=== PATIENT | female | born 1935 | race Caucasian/White ===

== ENCOUNTER 2016-07-15 13:39 | Inpatient (IN) ==
[2016-07-15] MEDS ORDERED: SODIUM CHLORIDE 0.9% 1,000 ML IV STA (14:11)
[2016-07-15] MEDS ORDERED: ONDANSETRON 4 MG/2 ML VIAL IV STA (14:11)
[2016-07-15] MEDS ORDERED: ASPIRIN 325 MG TABLET PO STA (14:11)
[2016-07-15] MEDS ORDERED: ONDANSETRON 4 MG/2 ML VIAL ONE (14:16)
[2016-07-15] MEDS ORDERED: ASPIRIN 325 MG TABLET ONE (14:16)
[2016-07-15 14:30] LABS: Basophils % 0.1 % (0.0-0.8); Hematocrit 29.9 VOL% (35.7-47.0); Hemoglobin 9.4 GM/DL (12.0-16.0); Immature Granulocytes Absolute 1.32 #; Lymphocytes # 0.3 10*3/uL (1.4-4.0); Lymphocytes % 1.2 % (21.3-54.2); Mean Corpuscular HGB Conc 31.4 GM/DL (32-36); Mean Corpuscular Hemoglobin 30 PG (27-34); Mean Corpuscular Volume 95.2 FL (87-102); Mean Platelet Volume 10.8 FL (9.6-12.0); Monocytes # 2.6 10*3/uL (0.11-0.8); Monocytes % 9.7 % (1.7-12.7); NRBC # 0.03 10*3/uL; Neutrophils # 22.4 10*3/uL (1.4-7.4); Platelet Count 278 10*3/uL (130-400); Red Blood Count 3.14 10*6/uL (3.8-5.5); Red Cell Distribution Width 14.6 % (9.3-17.3); White Blood Count 26.6 10*3/uL (4.5-13.71)
[2016-07-15 14:41] LABS: PT Patient Result 10.7 SECS
[2016-07-15 14:53] LABS: Calcium 8.4 MG/DL (8.5-10.1); Magnesium 2.3 MG/DL (1.8-2.4); Potassium 3.2 MMOL/L (3.5-5.1)
--- NOTE | 2016-07-15 15:02 | XRay Report ---
XR chest 1V portable Indication: Chest pain. Comparison: None. Technique: Portable AP chest was performed. Findings: Confluent airspace opacities in the mid to lower left chest suggests infection. The right lung is clear. Heart size is normal. Previous sternotomy cholecystectomy demonstrated. Bony structures demonstrate no acute findings. Prior glenohumeral joint arthroplasty on the left is demonstrated. Impression: 1. Infectious process left lung could be considered. Followup is recommended to ensure resolution. 07/15/2016 2:59 PM PROCEDURE INTERPRETED AT [facility] DEPARTMENT OF RADIOLOGY Final Report Signed by: Dr. Curtis Godinez
[2016-07-15 15:06] LABS: Lymphocytes 6 % (20-55); Metamyelocytes 1 %; Platelet Estimate Normal; Polychromasia Few; Segmented Neutrophils 91 % (50-85); Total Cells Counted 100
[2016-07-15 15:23] LABS: Troponin I Only < 0.015 NG/ML (0.00-0.045)
--- NOTE | 2016-07-15 15:37 | Emergency Department Note ---
Attila Carlisle Gwan, am scribing for, and in the presence of, Shayne Godinez MD 14:22. Herbert Carlisle Robert M, MD, personally performed the services described in this documentation, ascribed by Rosa Aiken in my presence, and it is both accurate and complete . Arrival - Arrival Chief Complaint: Chest Pain Stated Complaint: chest pain,sob nausea vomiting ED Nursing Triage Note: c/p crushing chest pain and sob onset Mode of Arrival: Wheelchair Limitations: No Limitations Source: Patient, Family (Daughter), Old Records Reviewed, RN Notes Reviewed Time Seen by Provider: 07/15/16 14:11 - History of Present Illness HPI Narrative: Pt is a 80 female, with a hx of Bypass and blood transfusion, who presents to the ED with a c/o SOB, chest pain and diaphoresis with an onset four days ago. Patient describes her chest pain as crushing and her associated sxs has been vomiting. Patient denies being on any blood thinner or having a ARRIAZA. Daughter stated that pt has an extensive hx of rapid heart rate. No other problems/ complaints reported in ED. Onset (ago): day(s) Consistency: constant Severity: severe Allergies/Adverse Reactions: Allergies Allergy/AdvReac Type Severity Reaction Status Date / Time codeine Allergy Unknown/Unable Verified 07/15/16 13:58 to obtain Penicillins Allergy Unknown/Unable Verified 07/15/16 13:58 to obtain Home Medications: Home Medications Medication Instructions Recorded Confirmed Type Aspirin EC Tab 81 mg PO DAILY 07/15/16 07/15/16 History Celecoxib 200 mg PO DAILY 07/15/16 07/15/16 History Digoxin Tab [Lanoxin Tab] 0.125 mg PO DAILY 07/15/16 07/15/16 History Ergocalciferol (Vitamin D2) 50,000 unit PO Q7D 07/15/16 07/15/16 History [Vitamin D2] Metoprolol Tartrate Tab [Lopressor 25 mg PO DAILY 07/15/16 07/15/16 History Tab] Sertraline [Zoloft] 12.5 mg PO BEDTIME 07/15/16 07/15/16 History Review of System - Review of System 12 point system: reviewed and no additional remarkable complaints except as stated - Review of System Respiratory: Present: as per HPI, other (rapid heart beat) Gastrointestinal: Present: as per HPI, vomiting Medical,Surgical,& Family Hx - Medical History Cardio: History of: Cardiac Dysrhythmia (sinus tach), Cardiovascular Problems ( cabg) - Social History Smoking Status: Never smoker Frequency of Alcohol Use: None Type of Drug Use: None Exam Vital Signs: Vital Signs Temperature 97.3 F L 07/15/16 13:53 Pulse Rate 120 H 07/15/16 14:31 Respiratory Rate 22 07/15/16 14:31 Blood Pressure 146/74 07/15/16 14:31 O2 Sat by Pulse Oximetry 98 07/15/16 14:31 - General General appearance: alert - Head Head exam: Present: atraumatic, normocephalic - Eye Eye exam: Present: normal appearance, PERRL, EOMI - ENT ENT exam: Present: normal oropharynx, mucous membranes moist, TM's normal bilaterally, normal external ear exam - Neck Neck exam: Present: full ROM, trachea midline. Absent: tenderness, meningismus , lymphadenopathy, thyromegaly - Chest Chest inspection: Present: symmetric chest wall rise. Absent: tenderness - Respiratory Respiratory exam: Present: normal lung sounds bilaterally. Absent: respiratory distress - Cardiovascular Cardiovascular exam: Present: tachycardia - Abdominal Exam Abdominal exam: Present: soft, normal bowel sounds. Absent: distention, tenderness, guarding, rebound, rigidity - Extremities Exam Extremities exam: Present: full ROM. Absent: tenderness, pedal edema, calf tenderness - Back Exam Back exam: Present: full ROM. Absent: tenderness - Neurological Exam Neurological exam: Present: alert, oriented X3, CN II-XII intact. Absent: motor sensory deficit - Psychiatric Psychiatric exam: Present: normal affect, normal mood - Skin Skin exam: Present: pallor Course - Consultations Consultation #1: The hospitalist service will evaluate and admit the patient. Time: 15:41 Results - Labs CBC & BMP: 07/15/16 13:58 07/15/16 13:58 Lab Results: I have reviewed the patients labs Labs: Lab Results WBC 26.6 10*3/uL (4.5-13.71) H 07/15/16 13:58 RBC 3.14 10*6/uL (3.8-5.5) L 07/15/16 13:58 Hgb 9.4 GM/DL (12.0-16.0) L 07/15/16 13:58 Hct 29.9 VOL% (35.7-47.0) L 07/15/16 13:58 MCV 95.2 FL (87-102) 07/15/16 13:58 MCH 30 PG (27-34) 07/15/16 13:58 MCHC 31.4 GM/DL (32-36) L 07/15/16 13:58 RDW 14.6 % (9.3-17.3) 07/15/16 13:58 Plt Count 278 10*3/uL (130-400) 07/15/16 13:58 MPV 10.8 FL (9.6-12.0) 07/15/16 13:58 Neut % (Auto) 84.0 % (38.7-73.9) H 07/15/16 13:58 Lymph % (Auto) 1.2 % (21.3-54.2) L 07/15/16 13:58 Grant % (Auto) 9.7 % (1.7-12.7) 07/15/16 13:58 Eos % (Auto) 0.0 % (0.00-10.9) 07/15/16 13:58 Baso % (Auto) 0.1 % (0.0-0.8) 07/15/16 13:58 Neut # (Auto) 22.4 10*3/uL (1.4-7.4) H 07/15/16 13:58 Lymph # (Auto) 0.3 10*3/uL (1.4-4.0) L 07/15/16 13:58 Grant # (Auto) 2.6 10*3/uL (0.11-0.8) H 07/15/16 13:58 Eos # (Auto) 0.0 10*3/uL (0.0-0.87) 07/15/16 13:58 Baso # (Auto) 0.0 10*3/uL (0.0-0.2) 07/15/16 13:58 Total Counted 100 07/15/16 13:58 Immature Gran % 5.0 % 07/15/16 13:58 Nucleated RBC % 0.1 /100WBC 07/15/16 13:58 Immature Gran # 1.32 # 07/15/16 13:58 Segmented Neutrophils 91 % (50-85) H 07/15/16 13:58 Lymphocytes 6 % (20-55) L 07/15/16 13:58 Monocytes 2 % (2-15) 07/15/16 13:58 Metamyelocytes 1 % 07/15/16 13:58 Nucleated RBCs # 0.03 10*3/uL 07/15/16 13:58 Platelet Estimate Normal 07/15/16 13:58 Polychromasia Few 07/15/16 13:58 Pappenheimer Bodies 07/15/16 13:58 INR 1.0 07/15/16 13:58 PT Patient/Control Mix 10.7 SECS 07/15/16 13:58 Sodium 143 MMOL/L (136-145) 07/15/16 13:58 Potassium 3.2 MMOL/L (3.5-5.1) L 07/15/16 13:58 Chloride 111 MMOL/L (98-107) H 07/15/16 13:58 Carbon Dioxide 12 MMOL/L (21-32) L 07/15/16 13:58 Anion Gap 23.2 MMOL/L (5.0-15.0) H 07/15/16 13:58 BUN 23 MG/DL (7-18) H 07/15/16 13:58 Creatinine 0.90 MG/DL (0.55-1.02) 07/15/16 13:58 GFR Calculation 50 ML/MIN 07/15/16 13:58 BUN/Creatinine Ratio 25.00 RATIO (6.00-20.00) H 07/15/16 13:58 Glucose 108 MG/DL (74-106) H 07/15/16 13:58 Calculated Osmolality 289.0 MOS/KG (273-304) 07/15/16 13:58 Calcium 8.4 MG/DL (8.5-10.1) L 07/15/16 13:58 Magnesium 2.3 MG/DL (1.8-2.4) 07/15/16 13:58 Total Creatine Kinase 44 U/L (26-192) 07/15/16 13:58 CK-MB (CK-2) 3.3 U/L (0.5-3.6) 07/15/16 13:58 Troponin I < 0.015 NG/ML (0.00-0.045) 07/15/16 13:58 B-Natriuretic Peptide 187 PG/ML (2-100) H 07/15/16 13:58 Lipase 68.0 U/L (73-393) L 07/15/16 13:58 Disposition Clinical Impression: Left lower lobe pneumonia, Dehydration Case discussed with: patient, patient's family Disposition: Still a Patient Condition: Stable Time of Disposition: 15:40
[2016-07-15] MEDS ORDERED: LEVOFLOXACIN INJ 750 MG in PREMIX 1 EACH IV STA (15:41)
[2016-07-15] MEDS ORDERED: AZITHROMYCIN INJ 500 MG in SODIUM CHLORIDE 0.9% 250 ML IV STA (15:41)
[2016-07-15] MEDS ORDERED: ALBUTEROL 2.5 MG/3 ML NEB RESP TX PRN (16:29)
[2016-07-15] MEDS ORDERED: guaiFENesin/DM ER 600-30 MG TABLET PO PRN (16:29)
[2016-07-15] MEDS ORDERED: ACETAMINOPHEN 325 MG TABLET PO PRN (16:29)
[2016-07-15] MEDS ORDERED: DOCUSATE SODIUM 100 MG CAPSULE PO PRN (16:29)
[2016-07-15] MEDS ORDERED: POTASSIUM CHLORIDE 20 MEQ TABLET PO ONE (16:41)
[2016-07-15] MEDS ORDERED: LEVOFLOXACIN INJ 150 ML IV ONE (16:49)
--- NOTE | 2016-07-15 17:42 | Hospitalist History & Physical ---
<Yahaira Schilling N - Last Filed: 07/15/16 17:26> Assessment and Plan - Time spent with patient Time spent with patient: Greater than 30 minutes (due to assessment, plan and documentation) (1) Arrhythmia Status: Acute Current Visit: Yes (2) Dehydration Status: Acute Current Visit: Yes (3) Left lower lobe pneumonia Status: Acute Current Visit: Yes (4) Sepsis Status: Acute Assessment and plan: Admit to ICU Stat lactic acid Stat ABG blood cultures, flu, legionella and sputum culture IV Aztreonam and Levaquin and Vancomycin Hydrate with NS at 125/hr DVT prophylaxis PRN meds resume home meds as appropriate routine labs in AM further plan and addendum to follow per Dr. Harris Current Visit: Yes History of Present Illness Chief complaint: weakness, arrhythmia, cough History of present illness: Ms. Vila is a 80 year old female who presents as a transfer from [facility]. She was sent for a LLL pneumonia. When she arrived to the Er, nurse tells me she was tachycardic and hypotensive. She was given NS in the Er and her rate is improved, now 98. Her daughter states she has an extensive history of cardiac tachy-arrhythmia. Her major complaint is shortness of breath, she states it started three days ago with a non productive cough. This was accompanied by sweats, chills and vomiting. She states that she had midsternal chest pain that was deep in her chest like a heavy pressure, she denies it radiating, denies accompanying nausea. She states that she nearly always has this pain when she uses her arms, she does state that this pain made her shortness of breath worse. Her chest xray shows an extensive pneumonia, WBC is elevated to 26.6, she is afebrile. She is pale on exam. Lung sounds decreased, worse left than right. 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 PSH of CABG, choly, appy, partial colectomy for ischemic bowel and HYST. She does not smoke or drink. She ambulates with a walker and assistance. ROS: At present she denies headache, abdominal pain, diarrhea, dysuria or edema. Home Medications Medication Instructions Recorded Confirmed Type Aspirin EC Tab 81 mg PO DAILY 07/15/16 07/15/16 History Celecoxib 200 mg PO DAILY 07/15/16 07/15/16 History Digoxin Tab [Lanoxin Tab] 0.125 mg PO DAILY 07/15/16 07/15/16 History Ergocalciferol (Vitamin D2) 50,000 unit PO Q7D 07/15/16 07/15/16 History [Vitamin D2] Metoprolol Tartrate Tab [Lopressor 25 mg PO DAILY 07/15/16 07/15/16 History Tab] Sertraline [Zoloft] 12.5 mg PO BEDTIME 07/15/16 07/15/16 History Allergies Allergy/AdvReac Type Severity Reaction Status Date / Time codeine Allergy Unknown/Unable Verified 07/15/16 13:58 to obtain Penicillins Allergy Unknown/Unable Verified 07/15/16 13:58 to obtain Medical,Surgical,& Family Hx - Medical History Cardio: History of: Cardiac Dysrhythmia (sinus tach), Cardiovascular Problems ( cabg) - Social History Smoking Status: Never smoker Frequency of Alcohol Use: None Type of Drug Use: None 12 point system: reviewed and no additional remarkable complaints except as stated Exam - Constitutional Vitals: Period Temp Pulse Resp BP Sys/Rhodes Pulse Ox Last 24 Hr 105-107 20-20 137-140/84-94 94-98 General appearance: no acute distress, under weight - Head Head exam: Present: normocephalic - Eye Pupils: Present: CESAR - ENT ENT exam: Present: normal exam, other (dry oropharynx) - Neck Neck exam: Present: normal inspection. Absent: lymphadenopathy - Respiratory Respiratory exam: Present: decreased breath sounds. Absent: wheezes - Cardiovascular Cardiovascular exam: Present: irregular rhythm, tachycardia - GI/Abdominal GI/Abdominal exam: Present: normal bowel sounds, soft. Absent: tenderness - Extremities Exam Extremities exam: Present: normal inspection, full ROM. Absent: edema - Neurological Exam Neurological exam: Present: alert, oriented X3 - Psychiatric Psychiatric exam: Present: normal affect, normal mood - Skin Skin exam: Present: warm, dry Results - Labs CBC & BMP: 07/15/16 13:58 07/15/16 13:58 Lab Results: I have reviewed the past 24 hour labs - EKG EKG shows: tachycardia - Diagnostic Findings Procedure: Chest x-ray: report reviewed by me <Alie Harris - Last Filed: 07/15/16 17:57> Assessment and Plan - Time spent with patient Time spent with patient: Greater than 30 minutes (1) Arrhythmia Status: Acute Assessment and plan: Patient with history of SVT requiring ablation. Currently on digoxin. Follows with cardiology Dr. Bautista. Current Visit: Yes Qualifiers: Arrhythmia type: supraventricular tachycardia Qualified Code(s): I47.1 - Supraventricular tachycardia (2) Dehydration Status: Acute Assessment and plan: Start IV fluid hydration. Current Visit: Yes (3) Left lower lobe pneumonia Status: Acute Assessment and plan: Patient's been started on Levaquin and aztreonam And vancomycin due to her elderly age, comorbidities, extensive chest x-ray findings, and leukocytosis. She'll be monitored in the ICU at least overnight. Consider pulmonary consultation. Consider CT of the chest if no improvement in 48 hours. Steroids were added. Current Visit: Yes Qualifiers: Pneumonia type: due to unspecified organism Qualified Code(s): J18.1 - Lobar pneumonia, unspecified organism (4) Sepsis Status: Acute Assessment and plan: Suspect sepsis at this point. Follow-up lactic acid. Treat with IV antibiotics and IV fluids. Current Visit: Yes History of Present Illness History of present illness: Ms. Vila is a 80 year old female who is being admitted to the intensive care unit for left lung pneumonia with leukocytosis, tachycardia, tachypnea and a period of hypotension. Patient is elderly and frail and has an extensive pneumonia involving the left lung. Her white blood cell count is 126,000 with a left shift of 91% neutrophils. Lactic acid is currently pending. Fluid bolus was given. I've seen and examined the patient in the intensive care unit upon arrival from the emergency department. I also discussed the case at length with the nurse practitioner as well as the patient's daughter. Ms. Vila has been sick from 3 days with cough and vomiting. She has left- sided chest pain that worsens with deep inspiration. She also complains of left shoulder pain after an injury. Exam - Constitutional Vitals: Period Temp Pulse Resp BP Sys/Rhodes Pulse Ox Last 24 Hr 105-107 20-20 137-140/84-94 94-98 Results - Labs CBC & BMP: 07/15/16 13:58 07/15/16 13:58
[2016-07-15] MEDS: SODIUM CHLORIDE 0.9% 1,000 ML IV SCH (17:44)
[2016-07-15 18:11] LABS: ABG Base Excess -15.7 MMOL/L (-2.5-2.5); ABG HCO3 12.3 MMOL/L (20-26); ABG Oxygen Saturation 93.6 % (95-100); ABG PCO2 22.4 MM HG (35-48); ABG PH 7.265 (7.35-7.45); ABG PO2 93.9 MM HG (80-95); ABG TCO2 9.6 MMOL/L (23-27)
[2016-07-15] MEDS: ENOXAPARIN 40 MG/0.4 ML SYRINGE SUBCUT SCH (18:15)
[2016-07-15] MEDS: methylPREDNISolone SOD SUC 40 MG/1 ML VIAL IV SCH (18:15)
[2016-07-15] MEDS: AZTREONAM 2,000 MG in SODIUM CHLORIDE 0.9% 100 ML IV SCH (18:49)
[2016-07-15] MEDS ORDERED: ALBUTEROL/IPRATROPIUM 3 ML NEB RESP TX SCH (19:00)
[2016-07-15] MEDS: ALBUTEROL/IPRATROPIUM 3 ML NEB RESP TX SCH (20:49)
[2016-07-15] MEDS: VANCOMYCIN INJ 750 MG in SODIUM CHLORIDE 0.9% 250 ML IV SCH (21:05)
[2016-07-15] MEDS: SERTRALINE 25 MG TABLET PO SCH (21:05)
[2016-07-15] MEDS: IBUPROFEN 400 MG TABLET PO PRN (22:47)
[2016-07-16] MEDS: AZTREONAM 2,000 MG in SODIUM CHLORIDE 0.9% 100 ML IV SCH ×4 (00:23→18:02)
[2016-07-16] MEDS: ALBUTEROL/IPRATROPIUM 3 ML NEB RESP TX SCH ×6 (00:25→20:42)
[2016-07-16] MEDS: SODIUM CHLORIDE 0.9% 1,000 ML IV SCH (02:31)
[2016-07-16] MEDS: methylPREDNISolone SOD SUC 40 MG/1 ML VIAL IV SCH ×3 (02:31→18:03)
[2016-07-16 04:19] LABS: Basophils % 0.1 % (0.0-0.8); Hematocrit 28.2 VOL% (35.7-47.0); Hemoglobin 8.3 GM/DL (12.0-16.0); Immature Granulocytes % 6.7 %; Immature Granulocytes Absolute 1.13 #; Lymphocytes # 0.3 10*3/uL (1.4-4.0); Lymphocytes % 1.6 % (21.3-54.2); Mean Corpuscular HGB Conc 29.4 GM/DL (32-36); Mean Corpuscular Hemoglobin 30 PG (27-34); Mean Corpuscular Volume 102.2 FL (87-102); Mean Platelet Volume 11.3 FL (9.6-12.0); Monocytes # 0.4 10*3/uL (0.11-0.8); Monocytes % 2.3 % (1.7-12.7); Neutrophils # 15.1 10*3/uL (1.4-7.4); Neutrophils % 89.3 % (38.7-73.9); Platelet Count 215 10*3/uL (130-400); Red Blood Count 2.76 10*6/uL (3.8-5.5); Red Cell Distribution Width 14.8 % (9.3-17.3); White Blood Count 16.9 10*3/uL (4.5-13.71)
[2016-07-16 04:40] LABS: Band Neutrophils 2 % (0-10); Lymphocytes 5 % (20-55); Segmented Neutrophils 88 % (50-85); Total Cells Counted 100
[2016-07-16 04:41] LABS: Burr Cells Slight; Hypochromasia Slight; Ovalocytes Slight; Platelet Estimate Normal
[2016-07-16 05:10] LABS: Bilirubin,Total 0.5 MG/DL (0.2-1.0); Calcium 7.9 MG/DL (8.5-10.1); Osmolality,Calculated 295.4 MOS/KG (273-304); Potassium 4.1 MMOL/L (3.5-5.1); Total Protein 5.2 G/DL (6.4-8.3)
--- NOTE | 2016-07-16 06:31 | EKG Report ---
Please refer to the EKG image. Final interpretation is pending.
--- NOTE | 2016-07-16 07:01 | XRay Report ---
Exam: XR chest 1V portable Indication: Chest pain Shortness of breath Comparison study: 07/15/16 Findings: The heart, mediastinum and bony structures are stable from prior. Left lung airspace opacities have slightly worsened since the prior study and developing infectious/inflammatory infiltrate or pneumonia is suspected. There is no pneumothorax or pleural effusion identified. Similar osteopenia, postsurgical changes and prior left total shoulder arthroplasty. Impression: Slight worsening of airspace opacities within the lingula and left lower lobe concerning for developing pneumonia. PROCEDURE INTERPRETED AT [facility] DEPARTMENT OF RADIOLOGY Final Report Signed by: Celso Meyers
[2016-07-16 08:35] LABS: Calcium 7.8 MG/DL (8.5-10.1); Osmolality,Calculated 299.3 MOS/KG (273-304); Potassium 3.1 MMOL/L (3.5-5.1)
--- NOTE | 2016-07-16 08:36 | Pulmonology Consult Note ---
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 Would probably be worthwhile to have nephrology see her. Consider adding bicarbonate to her IV. Current Visit: Yes (2) Left lower lobe pneumonia Status: Acute Assessment and plan: Agree with broad-spectrum antibiotics. We'll get a chest CT. Also looking to see if she had a chest wall injury with her fall about a week and a half ago. Current Visit: Yes Qualifiers: Pneumonia type: due to unspecified organism Qualified Code(s): J18.1 - Lobar pneumonia, unspecified organism (3) Dehydration Status: Acute Assessment and plan: Agree with cautious rehydration. Current Visit: Yes (4) Sepsis Status: Acute Assessment and plan: She does have a metabolic acidosis but her lactic acid level is normal. This would be more consistent with a renal tubular acidosis. Current Visit: Yes History of Present Illness Chief complaint: cough dyspnea left chest pain History of present illness: Ms. Vila is a 80 year old female who had the onset of cough and congestion about 10 days ago. She's had fever off and on since then. Case was sputum production. She went to emergency room in [place] was found to have a left -sided pneumonia and referred here. She's had previous coronary bypass surgery. She's had pneumonia in the past 2 years ago and saw a lung specialist in [place] at that time. She is a nonsmoker and does not have any known chronic lung disease. There is a previous history of a stroke or transient ischemic attack. No residual problems. Her chest x-ray has gotten a little worse overnight. Patient relates to me that she had a fall and injured the left side of her chest about 10 or 11 days ago. She said she tried to protect her left shoulder because she's had a previous fracture there. Home Medications Medication Instructions Recorded Confirmed Type Aspirin EC Tab 81 mg PO DAILY 07/15/16 07/15/16 History Celecoxib 200 mg PO DAILY 07/15/16 07/15/16 History Digoxin Tab [Lanoxin Tab] 0.125 mg PO DAILY 07/15/16 07/15/16 History Ergocalciferol (Vitamin D2) 50,000 unit PO Q7D 07/15/16 07/15/16 History [Vitamin D2] Metoprolol Tartrate Tab [Lopressor 25 mg PO DAILY 07/15/16 07/15/16 History Tab] Sertraline [Zoloft] 12.5 mg PO BEDTIME 07/15/16 07/15/16 History Allergies Allergy/AdvReac Type Severity Reaction Status Date / Time codeine Allergy Unknown/Unable Verified 07/15/16 13:58 to obtain Penicillins Allergy Unknown/Unable Verified 07/15/16 13:58 to obtain - Constitutional Constitutional: Present: fever(s) - Cardiovascular Cardiovascular: Present: dyspnea on exertion - Respiratory Respiratory: Present: cough, dyspnea, dyspnea on exertion - Musculoskeletal Musculoskeletal: Present: arthralgias (chronic left shoulder pain after a fracture of her left shoulder about a year ago.) Exam (Pulmonay) H&P - Constitutional Vitals: Period Temp Pulse Resp BP Sys/Rhodes Pulse Ox Last 24 Hr 96.4 F-98.4 F 101-119 12-24 108-147/38-94 92-100 Exam: Patient's alert and oriented vital signs normal. Pupils react to light. Throat is clear. Neck supple no bruits. Chest reveals some rales over the left side of the chest with whispered pectoriloquy and egophony. Heart rapid rate, normal rhythm no murmurs. Abdomen soft nontender no masses. Extremities no clubbing cyanosis or edema. There is some tenderness over the left chest wall in the axillary line. Medical,Surgical,& Family Hx - Medical History Cardio: History of: Cardiac Dysrhythmia (sinus tach), CAD, Hypertension, Cardiovascular Problems (cabg) Hematology: No history of: Blood Transfusion Reaction - Surgical History Cardiac Surgeries: Sugical HX of: Cardiac Catheterization - Family History Family History: Reports;: Family Hypertension - Social History Smoking Status: Never smoker Frequency of Alcohol Use: None Type of Drug Use: None Results - Labs CBC & BMP: 07/16/16 03:05 07/16/16 03:05 Lab Results: I have reviewed the past 24 hour labs - Diagnostic Findings Procedure: Chest x-ray: image reviewed by me (left midlung infiltrate which looks a little worse today than yesterday.) Specialty Discharge - Follow Up or Referrals - Discharge Medications No Action Sertraline [Zoloft] 12.5 mg PO BEDTIME Aspirin EC Tab 81 mg PO DAILY Metoprolol Tartrate Tab [Lopressor Tab] 25 mg PO DAILY Ergocalciferol (Vitamin D2) [Vitamin D2] 50,000 unit PO Q7D Digoxin Tab [Lanoxin Tab] 0.125 mg PO DAILY Celecoxib 200 mg PO DAILY
[2016-07-16] MEDS: DIGOXIN 0.125 MG TABLET PO SCH (08:48)
[2016-07-16] MEDS: PANTOPRAZOLE 40 MG TABLET PO SCH (08:48)
[2016-07-16] MEDS: DEXTROSE 5% NACL 0.45% 1,000 ML IV SCH ×2 (08:48→22:11)
[2016-07-16] MEDS: VANCOMYCIN INJ 750 MG in SODIUM CHLORIDE 0.9% 250 ML IV SCH ×2 (08:48→20:17)
[2016-07-16] MEDS: METOPROLOL TARTRATE 25 MG TABLET PO SCH (08:49)
[2016-07-16] MEDS: ASPIRIN EC 81 MG TABLET PO SCH (08:49)
[2016-07-16 09:04] LABS: ABG Base Excess -17.2 MMOL/L (-2.5-2.5); ABG HCO3 8.3 MMOL/L (20-26); ABG Oxygen Saturation 94.1 % (95-100); ABG PH 7.254 (7.35-7.45); ABG PO2 118.8 MM HG (80-95); ABG TCO2 8.9 MMOL/L (23-27)
[2016-07-16 09:06] LABS: ABG PCO2 19.2 MM HG (35-48)
--- NOTE | 2016-07-16 09:28 | Hospitalist Progress Note ---
Assessment and Plan - Time spent with patient Time spent with patient: Greater than 30 minutes (1) Left lower lobe pneumonia Status: Acute Assessment and plan: Patient's been started on Levaquin and aztreonam And vancomycin due to her elderly age, comorbidities, extensive chest x-ray findings, and leukocytosis. She'll be monitored in the ICU at least overnight. Consider pulmonary consultation. Consider CT of the chest if no improvement in 48 hours. Steroids were added. 07/16/2016: Discussed with Dr. Galeas. Plan for CT today. Current Visit: Yes Qualifiers: Pneumonia type: due to unspecified organism Qualified Code(s): J18.1 - Lobar pneumonia, unspecified organism (2) Dehydration Status: Acute Assessment and plan: Continue IV fluid hydration. Current Visit: Yes (3) Arrhythmia Status: Acute Assessment and plan: Patient with history of SVT requiring ablation. Currently on digoxin. Follows with cardiology Dr. Bautista. Rate is better controlled today. Current Visit: Yes Qualifiers: Arrhythmia type: supraventricular tachycardia Qualified Code(s): I47.1 - Supraventricular tachycardia (4) Sepsis Status: Acute Assessment and plan: Suspect sepsis at this point. Follow-up lactic acid. Treat with IV antibiotics and IV fluids. 07/16/16: Lactic acid was normal. BP stable. Current Visit: Yes Hospitalist: Subjective Interval history: Patient seen and examined. Case discussed with Dr. Galeas and nursing staff at the bedside. Her chest x-ray looks worse today. She appears to have a metabolic acidosis with some respiratory compensation. She reports continued pain and discomfort on the left chest and a non contrast CT will be ordered. Exam - Constitutional Vitals: Period Temp Pulse Resp BP Sys/Rhodes Pulse Ox Last 24 Hr 96.4 F-98.4 F 101-119 12-24 108-147/38-94 92-100 General appearance: no acute distress, under weight - Head Head exam: Present: normal inspection, normocephalic, atraumatic - Eye Eye exam: Present: EOMI Pupils: Present: CESAR - ENT ENT exam: Present: normal exam - Respiratory Respiratory exam: Present: decreased breath sounds (left lung), rhonchi - Cardiovascular Cardiovascular exam: Present: regular rate and rhythm - GI/Abdominal GI/Abdominal exam: Present: normal bowel sounds, soft - Extremities Exam Extremities exam: Present: normal inspection, other (pain in left shoulder). Absent: edema - Neurological Exam Neurological exam: Present: alert, oriented X3 - Psychiatric Psychiatric exam: Present: normal affect, normal mood - Skin Skin exam: Present: normal color, warm, dry Results - Labs CBC & BMP: 07/16/16 03:05 07/16/16 07:55 Lab Results: I have reviewed the past 24 hour labs Specialty Discharge - Follow Up or Referrals - Discharge Medications No Action Sertraline [Zoloft] 12.5 mg PO BEDTIME Aspirin EC Tab 81 mg PO DAILY Metoprolol Tartrate Tab [Lopressor Tab] 25 mg PO DAILY Ergocalciferol (Vitamin D2) [Vitamin D2] 50,000 unit PO Q7D Digoxin Tab [Lanoxin Tab] 0.125 mg PO DAILY Celecoxib 200 mg PO DAILY
--- NOTE | 2016-07-16 09:34 | EKG Report ---
Please refer to the EKG image. Final interpretation is pending.
--- NOTE | 2016-07-16 11:13 | CT Report ---
CT chest wo con Technique: Axial CT imaging of the chest was performed without administration of intravenous contrast. Coronal and sagittal reformatted images were additionally created and submitted for review. Total DLP: 156 mGy*cm Clinical history: Left chest wall pain, fall 10 days ago and left-sided pneumonia Comparison: Chest radiograph dated 07/15 and 07/16 Findings: Please note, lack of intravenous contrast limits evaluation. CHEST: Mediastinum/vessels: Heart and great vessels appear grossly unremarkable for noncontrast technique. There is no pericardial effusion. The aorta and pulmonary vessels appear grossly patent. Coronary artery and aortic atherosclerotic calcification densities are noted. Thyroid/lymph nodes: No definite enlarged lymph nodes identified within the chest. There are multiple mediastinal borderline enlarged lymph nodes measuring up to 0.8 cm short axis, which are favored to be reactive. Thyroid gland appears within normal limits. Lungs: Within the lower lobe, patchy interstitial and airspace opacities are noted throughout, which are most compatible with developing infectious/inflammatory infiltrates. The central airways are patent. Minimal areas of interstitial thickening are also noted within the lingula and right middle lobe and may represent endobronchial spread of infection. There is no pleural effusion or pneumothorax. No acute abnormality is identified within the visualized upper abdomen. Cholecystectomy clips are noted. There is a hyperdense 2.1 cm lesion which is primarily exophytic at the upper pole left kidney. This is indeterminate. There is also a 0.6 cm calcific density at the upper pole left kidney which may represent a renal stone. BONES: Median sternotomy wiring is noted. No acute osseous abnormalities are identified. There are no suspicious osseous lesions. There is 2% height loss at the superior endplate of T12, which is age-indeterminate. Partially imaged postsurgical changes of left total total arthroplasty caused extensive streak artifact limiting evaluation of the adjacent soft tissues and osseous structures. Impression: 1. Airspace disease within the left lower lobe most compatible with pneumonia. Additional minimal similar findings within the lingula and right middle lobe may represent endobronchial spread of infection. Mildly prominent but not technically enlarged mediastinal lymph nodes are favored to be reactive. 2. Indeterminate 2 cm hyperdense left upper pole renal lesion. This may represent a solid mass or hyperdense renal cyst. Correlation with renal ultrasound is recommended when clinically feasible. 3. Additional 0.6 cm probable left upper pole nonobstructing renal stone. PROCEDURE INTERPRETED AT [facility] DEPARTMENT OF RADIOLOGY Final Report Signed by: Celso Meyers
[2016-07-16] MEDS: IBUPROFEN 400 MG TABLET PO PRN ×2 (15:43→20:15)
[2016-07-16] MEDS: ENOXAPARIN 40 MG/0.4 ML SYRINGE SUBCUT SCH (16:09)
[2016-07-16] MEDS: LEVOFLOXACIN INJ 750 MG in PREMIX 1 EACH IV SCH (16:09)
--- NOTE | 2016-07-16 17:13 | ECHO Report ---
JulitoSunitha Exam Date: 07/16/2016 08:31 Referring Physician: Technologist: Harleen Pritchard RDCS Age: 80 Ht (in): Wt (lb): Gender: F Exam Location: [facility] Echo Indications: Shortness of breath, Chest pain, unspecified, Arrhythmia, Dehydration, LLL pneumonia, Weakness, Cough BP: / HR: Rhythm: Sinus Technical Quality: Fair IMPRESSIONS Normal left ventricular cavity size. Normal left ventricular wall thickness. Left ventricular ejection fraction is estimated at 60 %. The right ventricle is normal in size and function. The right atrium is mildly enlarged. The left atrium is mildly enlarged. Morphologically normal mitral valve. Mild mitral valve regurgitation. Aortic valve sclerosis. Trace to mild aortic valve regurgitation. Moderate tricuspid valve regurgitation. PAP50 mmHg. Pulmonic valve not well visualized. Normal pericardium without effusion. Normal ascending aorta dimension. MEASUREMENTS (Male / Female) Normal Values 2D ECHO LV Diastolic Diameter PLAX 2.8 cm 4.2 - 5.9 / 3.9 - 5.3 cm LV Systolic Diameter PLAX 2.0 cm LV Fractional Shortening PLAX 29.1 % IVS Diastolic Thickness 1.0 cm 0.6 - 1.0 / 0.6 - 0.9 cm LVPW Diastolic Thickness 1.0 cm 0.6 - 1.0 / 0.6 - 0.9 cm RV Internal Dim ED PLAX 2.3 cm Aortic Root Diameter 2.8 cm LA Systolic Diameter LX 3.4 cm 3.0 - 4.0 / 2.7 - 3.8 cm DOPPLER TR Peak Velocity 322.0 cm/s TR Peak Gradient 41.5 mmHg FINDINGS Left Ventricle Normal left ventricular cavity size. Normal left ventricular wall thickness. Left ventricular ejection fraction is estimated at 60 %. Right Ventricle The right ventricle is normal in size and function. Right Atrium The right atrium is mildly enlarged. Left Atrium The left atrium is mildly enlarged. Mitral Valve Morphologically normal mitral valve. Mild mitral valve regurgitation. Aortic Valve Aortic valve sclerosis. Trace to mild aortic valve regurgitation. Tricuspid Valve Morphologically normal tricuspid valve. Moderate tricuspid valve regurgitation. PAP50 mmHg. Pulmonic Valve Pulmonic valve not well visualized. Pericardium Normal pericardium without effusion. Aorta Normal ascending aorta dimension. Bro Sanchez (Electronically Signed) Final Date: 16 July 2016 17:12
[2016-07-16] MEDS: SERTRALINE 25 MG TABLET PO SCH (20:16)
[2016-07-17] MEDS: ALBUTEROL/IPRATROPIUM 3 ML NEB RESP TX SCH ×5 (00:32→20:06)
[2016-07-17] MEDS: IBUPROFEN 400 MG TABLET PO PRN (01:03)
[2016-07-17] MEDS: AZTREONAM 2,000 MG in SODIUM CHLORIDE 0.9% 100 ML IV SCH ×3 (01:05→11:37)
[2016-07-17] MEDS: methylPREDNISolone SOD SUC 40 MG/1 ML VIAL IV SCH ×3 (01:06→17:35)
--- NOTE | 2016-07-17 06:56 | Pulmonology Progress Note ---
Pulmonary - PN: Subj Interval history: This 80-year-old white female came in with a left lower lobe pneumonia. She has a pretty severe metabolic acidosis. She does not have ketoacidosis and her renal function is normal. Her chloride is elevated. I suspect she has renal tubular acidosis. I will start bicarbonate infusion today. We'll ask nephrology to see. She feels better and her oxygen saturations are normal. Exam (Progress Note) - Constitutional Vitals: Period Temp Pulse Resp BP Sys/Rhodes Pulse Ox Last 24 Hr 98.1 F-98.8 F 80-118 12-27 90-144/42-91 92-100 Exam: Blood pressure a little low side otherwise vital signs normal. HEENT: Pupils react to light. Patient is responsive. Throat is clear. Neck supple no bruits. Chest reveals some rales at the left base. Heart normal rate rhythm no murmurs. Abdomen soft nontender no masses. Bowel sounds present. Extremities no clubbing cyanosis or edema. Calves nontender. Results - Labs CBC & BMP: 07/16/16 03:05 07/16/16 07:55 Lab Results: I have reviewed the past 24 hour labs - Diagnostic Findings Procedure: CT - chest: image reviewed by me (consolidation left lower lobe. Left renal mass noted. Defer to primary service for evaluation.) Assessment and Plan (1) Hyperchloremic metabolic acidosis Status: Acute Assessment and plan: She may have renal tubular acidosis. Would probably be worthwhile to have nephrology see her. Consider adding bicarbonate to her IV. 07/17/2016 suspect renal tubular acidosis. Add bicarbonate infusion. Ask nephrology to see. Current Visit: Yes (2) Left lower lobe pneumonia Status: Acute Assessment and plan: Agree with broad-spectrum antibiotics. We'll get a chest CT. Also looking to see if she had a chest wall injury with her fall about a week and a half ago. 07/17/16 CT confirms left lower lobe pneumonia. A couple of other patchy areas noted. Continue broad-spectrum antibiotics. Cultures pending. Current Visit: Yes Qualifiers: Pneumonia type: due to unspecified organism Qualified Code(s): J18.1 - Lobar pneumonia, unspecified organism (3) Dehydration Status: Acute Assessment and plan: Agree with cautious rehydration. 07/17/16 patient's blood pressure is still on the low side and she has some dehydration it appears. Remains acidotic. We'll continue with IV fluids. Current Visit: Yes (4) Sepsis Status: Acute Assessment and plan: She does have a metabolic acidosis but her lactic acid level is normal. This would be more consistent with a renal tubular acidosis. 07/17/16 patient is responsive. Blood pressure remains in the 90-100 range. Continuing with hydration. On broad-spectrum antibiotics. Current Visit: Yes (5) Left renal mass Status: Acute Assessment and plan: This was noted on the chest CT. Need to have urology review. Current Visit: Yes Specialty Discharge - Follow Up or Referrals - Discharge Medications No Action Sertraline [Zoloft] 12.5 mg PO BEDTIME Aspirin EC Tab 81 mg PO DAILY Metoprolol Tartrate Tab [Lopressor Tab] 25 mg PO DAILY Ergocalciferol (Vitamin D2) [Vitamin D2] 50,000 unit PO Q7D Digoxin Tab [Lanoxin Tab] 0.125 mg PO DAILY Celecoxib 200 mg PO DAILY
[2016-07-17] MEDS: DEXTROSE 5% NACL 0.45% 1,000 ML IV SCH (07:11)
[2016-07-17 07:40] LABS: Hematocrit 22.3 VOL% (35.7-47.0); Hemoglobin 7.1 GM/DL (12.0-16.0); Immature Granulocytes % 9.5 %; Immature Granulocytes Absolute 2.14 #; Lymphocytes # 0.4 10*3/uL (1.4-4.0); Lymphocytes % 1.7 % (21.3-54.2); Mean Corpuscular HGB Conc 31.8 GM/DL (32-36); Mean Corpuscular Hemoglobin 31 PG (27-34); Mean Corpuscular Volume 95.7 FL (87-102); Mean Platelet Volume 10.5 FL (9.6-12.0); Monocytes # 0.8 10*3/uL (0.11-0.8); Monocytes % 3.6 % (1.7-12.7); NRBC # 0.06 10*3/uL; Neutrophils # 19.1 10*3/uL (1.4-7.4); Neutrophils % 85.2 % (38.7-73.9); Platelet Count 219 10*3/uL (130-400); Red Blood Count 2.33 10*6/uL (3.8-5.5); White Blood Count 22.5 10*3/uL (4.5-13.71)
[2016-07-17 08:03] LABS: Lymphocytes 1 % (20-55); Metamyelocytes 2 %; Segmented Neutrophils 93 % (50-85); Total Cells Counted 100
[2016-07-17 08:04] LABS: Hypochromasia 1+; Macrocytosis Slight
[2016-07-17 08:05] LABS: Platelet Estimate Adequate
[2016-07-17 08:08] LABS: Osmolality,Calculated 304.1 MOS/KG (273-304)
[2016-07-17 08:12] LABS: Potassium 2.5 MMOL/L (3.5-5.1)
--- NOTE | 2016-07-17 08:16 | Hospitalist Progress Note ---
Assessment and Plan - Time spent with patient Time spent with patient: Greater than 30 minutes (1) Left lower lobe pneumonia Status: Acute Assessment and plan: Patient's been started on Levaquin and aztreonam And vancomycin due to her elderly age, comorbidities, extensive chest x-ray findings, and leukocytosis. She'll be monitored in the ICU at least overnight. Consider pulmonary consultation. Consider CT of the chest if no improvement in 48 hours. Steroids were added. 07/16/2016: Discussed with Dr. Galeas. Plan for CT today. 07/17/16: CT shows LLL PNA . Discussed with Dr. Galeas regarding treatment and transfer to the floor. Current Visit: Yes Qualifiers: Pneumonia type: due to unspecified organism Qualified Code(s): J18.1 - Lobar pneumonia, unspecified organism (2) Dehydration Status: Acute Assessment and plan: Continue IV fluid hydration. Current Visit: Yes (3) Arrhythmia Status: Resolved Assessment and plan: Patient with history of SVT requiring ablation. Currently on digoxin. Follows with cardiology Dr. Bautista. Rate is better controlled today. Current Visit: Yes Qualifiers: Arrhythmia type: supraventricular tachycardia Qualified Code(s): I47.1 - Supraventricular tachycardia (4) Hypokalemia Status: Acute Assessment and plan: replace with PO KCL Current Visit: Yes (5) RTA (renal tubular acidosis) Status: Acute Assessment and plan: continue bicarb drip follow up nephrology consult Current Visit: Yes (6) Renal mass Status: Acute Assessment and plan: follow up Urology consult Current Visit: Yes Hospitalist: Subjective Interval history: Patient seen and examined. Case discussed with Dr. Galeas. Consult has been placed for nephrology and urology. Patient's CAT scan shows a left lower lobe consolidation with a small masslike density on the kidney. We suspect Mrs. Vila has an element of renal tubular acidosis causing her a metabolic acidosis with a low CO2. She has been started on bicarbonate drip by Dr. Galeas. Will follow-up nephrology and urology consultations. Exam - Constitutional Vitals: Period Temp Pulse Resp BP Sys/Rhodes Pulse Ox Last 24 Hr 98.1 F-98.8 F 80-118 12-27 90-144/42-86 92-100 General appearance: no acute distress, under weight - Head Head exam: Present: normal inspection, normocephalic, atraumatic - Eye Eye exam: Present: EOMI Pupils: Present: CESAR - Respiratory Respiratory exam: Present: clear to auscultation bilaterally, decreased breath sounds, rhonchi (Left base) - Cardiovascular Cardiovascular exam: Present: regular rate and rhythm - GI/Abdominal GI/Abdominal exam: Present: normal bowel sounds, soft. Absent: tenderness - Extremities Exam Extremities exam: Present: normal inspection. Absent: edema - Neurological Exam Neurological exam: Present: alert, oriented X3 - Psychiatric Psychiatric exam: Present: normal affect, normal mood - Skin Skin exam: Present: normal color, warm, dry Results - Labs CBC & BMP: 07/17/16 07:25 07/17/16 07:25 Lab Results: I have reviewed the past 24 hour labs Specialty Discharge - Follow Up or Referrals - Discharge Medications No Action Sertraline [Zoloft] 12.5 mg PO BEDTIME Aspirin EC Tab 81 mg PO DAILY Metoprolol Tartrate Tab [Lopressor Tab] 25 mg PO DAILY Ergocalciferol (Vitamin D2) [Vitamin D2] 50,000 unit PO Q7D Digoxin Tab [Lanoxin Tab] 0.125 mg PO DAILY Celecoxib 200 mg PO DAILY
[2016-07-17] MEDS ORDERED: POTASSIUM CHLORIDE 20 MEQ TABLET PO ONE (08:20)
[2016-07-17] MEDS: ASPIRIN EC 81 MG TABLET PO SCH (08:40)
[2016-07-17] MEDS: VANCOMYCIN INJ 750 MG in SODIUM CHLORIDE 0.9% 250 ML IV SCH (08:40)
[2016-07-17] MEDS: PANTOPRAZOLE 40 MG TABLET PO SCH (08:40)
[2016-07-17] MEDS: METOPROLOL TARTRATE 25 MG TABLET PO SCH (08:40)
[2016-07-17] MEDS: DIGOXIN 0.125 MG TABLET PO SCH (08:40)
[2016-07-17] MEDS: SODIUM BICARB INJ 50 MEQ in DEXTROSE 5% 1,000 ML IV SCH ×2 (08:40→23:25)
[2016-07-17 09:00] LABS: Basophils % 0.1 % (0.0-0.8); Hematocrit 24.6 VOL% (35.7-47.0); Hemoglobin 7.6 GM/DL (12.0-16.0); Immature Granulocytes % 10.3 %; Immature Granulocytes Absolute 3.11 #; Lymphocytes # 0.5 10*3/uL (1.4-4.0); Lymphocytes % 1.7 % (21.3-54.2); Mean Corpuscular HGB Conc 30.9 GM/DL (32-36); Mean Corpuscular Hemoglobin 30 PG (27-34); Mean Corpuscular Volume 96.5 FL (87-102); Mean Platelet Volume 10.5 FL (9.6-12.0); Monocytes # 1.3 10*3/uL (0.11-0.8); Monocytes % 4.2 % (1.7-12.7); NRBC # 0.09 10*3/uL; Neutrophils # 25.3 10*3/uL (1.4-7.4); Neutrophils % 83.7 % (38.7-73.9); Platelet Count 270 10*3/uL (130-400); Red Blood Count 2.55 10*6/uL (3.8-5.5); Red Cell Distribution Width 15.2 % (9.3-17.3); White Blood Count 30.2 10*3/uL (4.5-13.71)
[2016-07-17 09:17] LABS: Band Neutrophils 5 % (0-10); Lymphocytes 4 % (20-55); Segmented Neutrophils 89 % (50-85); Total Cells Counted 100
[2016-07-17 09:18] LABS: Burr Cells Slight; Hypochromasia 1+; Ovalocytes Slight; Platelet Estimate Normal
[2016-07-17 09:19] LABS: Macrocytosis Slight
[2016-07-17 09:30] LABS: Calcium 8.6 MG/DL (8.5-10.1); Osmolality,Calculated 298.6 MOS/KG (273-304)
[2016-07-17 09:33] LABS: Potassium 2.4 MMOL/L (3.5-5.1)
--- NOTE | 2016-07-17 13:07 | Nephrology Consult Note ---
History of Present Illness Chief complaint: metabolic acidosis History of present illness: Ms. Vila is a 80 year old female admitted with multi lobar pneumonia. She was noted to be tachycardic and hypotensive at the time of presentation. Blood pressure and heart rate have improved with treatment. Her shortness of breath has improved. She is noted to have metabolic acidosis as well. Lactic acid level was normal. Home Medications Medication Instructions Recorded Confirmed Type Aspirin EC Tab 81 mg PO DAILY 07/15/16 07/15/16 History Celecoxib 200 mg PO DAILY 07/15/16 07/15/16 History Digoxin Tab [Lanoxin Tab] 0.125 mg PO DAILY 07/15/16 07/15/16 History Ergocalciferol (Vitamin D2) 50,000 unit PO Q7D 07/15/16 07/15/16 History [Vitamin D2] Metoprolol Tartrate Tab [Lopressor 25 mg PO DAILY 07/15/16 07/15/16 History Tab] Sertraline [Zoloft] 12.5 mg PO BEDTIME 07/15/16 07/15/16 History Allergies Allergy/AdvReac Type Severity Reaction Status Date / Time codeine Allergy Unknown/Unable Verified 07/15/16 13:58 to obtain Penicillins Allergy Unknown/Unable Verified 07/15/16 13:58 to obtain Medical,Surgical,& Family Hx - Medical History Cardio: History of: Cardiac Dysrhythmia (sinus tach), CAD, Hypertension, Cardiovascular Problems (cabg) Hematology: No history of: Blood Transfusion Reaction - Surgical History Cardiac Surgeries: Sugical HX of: Cardiac Catheterization - Family History Family History: Reports;: Family Hypertension - Social History Smoking Status: Never smoker Frequency of Alcohol Use: None Type of Drug Use: None Review of Systems 12 point system: reviewed and no additional remarkable complaints except as stated Exam - Vital Signs Vital signs: Period Temp Pulse Resp BP Sys/Rhodes Pulse Ox Last 24 Hr 97.2 F-98.8 F 80-128 12-27 90-138/42-86 92-100 Exam: Gen.: Alert and oriented x3. ENT: Pupils equal round reactive to light. EOMs intact. Mucous membranes moist. Neck: Supple. No JVD or bruit. Cardiovascular: Regular rate and rhythm. No murmur rub or gallop Lungs: Decreased breath sounds left base Abdomen: Soft. Nontender. Positive bowel sounds. No organomegaly Extremities: No edema Results - Labs CBC & BMP: 07/17/16 08:30 07/17/16 08:30 Assessment and Plan (1) Hyperchloremic metabolic acidosis Status: Acute Assessment and plan: 80-year-old woman admitted with: * Pneumonia. Continue current antibiotics * Metabolic acidosis. Anion gap 16. Renal function is normal. Urine electrolytes to evaluate for RTA have been ordered * Hypokalemia * Mass versus cyst, left kidney. Ultrasound has been ordered Current Visit: Yes (2) Hypokalemia Status: Acute Current Visit: Yes (3) Left lower lobe pneumonia Status: Acute Current Visit: Yes Qualifiers: Pneumonia type: due to unspecified organism Qualified Code(s): J18.1 - Lobar pneumonia, unspecified organism (4) Left renal mass Status: Acute Current Visit: Yes Specialty Discharge - Follow Up or Referrals - Discharge Medications No Action Sertraline [Zoloft] 12.5 mg PO BEDTIME Aspirin EC Tab 81 mg PO DAILY Metoprolol Tartrate Tab [Lopressor Tab] 25 mg PO DAILY Ergocalciferol (Vitamin D2) [Vitamin D2] 50,000 unit PO Q7D Digoxin Tab [Lanoxin Tab] 0.125 mg PO DAILY Celecoxib 200 mg PO DAILY
[2016-07-17] MEDS ORDERED: SODIUM CHLORIDE 0.9% 250 ML IV PRN (14:21)
--- NOTE | 2016-07-17 15:31 | Ultrasound Report ---
US renal Bilateral Indication: Abnormal CT. Cyst versus mass left kidney. Ultrasound kidneys: Grayscale and color Doppler imaging of the kidneys performed. Right kidney 107 x 48 x 40 mm. Extrarenal pelvis noted on the right. There is a solitary 10 x 9 x 9 mm cyst at the upper pole. No mass or calcification. No hydronephrosis. Left kidney 102 x 42 x 46 mm. Exophytic 15 x 19 x 18 mm cyst at the upper pole, parenchymal 13 x 12 x 12 mm cyst at the midpole, and a 5 x 5 x 7 mm cyst at the lower pole of noted. No solid mass is present in the left. No calcifications or hydronephrosis. Impression: Bilateral renal cysts. PROCEDURE INTERPRETED AT [facility] DEPARTMENT OF RADIOLOGY Final Report Signed by: Benedicto Nelson M.D.
[2016-07-17] MEDS: ENOXAPARIN 40 MG/0.4 ML SYRINGE SUBCUT SCH (16:58)
[2016-07-17] MEDS: SERTRALINE 25 MG TABLET PO SCH (22:41)
[2016-07-17] MEDS: LEVOFLOXACIN INJ 750 MG in PREMIX 1 EACH IV SCH (22:41)
[2016-07-17] MEDS: POTASSIUM CHLORIDE RIDER 10 MEQ in PREMIX 1 EACH IV SCH (23:23)
[2016-07-18] MEDS: ALBUTEROL/IPRATROPIUM 3 ML NEB RESP TX SCH ×7 (00:20→19:40)
[2016-07-18] MEDS: AZTREONAM 2,000 MG in SODIUM CHLORIDE 0.9% 100 ML IV SCH ×3 (00:47→15:16)
[2016-07-18] MEDS: POTASSIUM CHLORIDE RIDER 10 MEQ in PREMIX 1 EACH IV SCH ×6 (02:39→10:21)
[2016-07-18] MEDS: methylPREDNISolone SOD SUC 40 MG/1 ML VIAL IV SCH ×3 (02:39→17:03)
[2016-07-18] MEDS: VANCOMYCIN INJ 750 MG in SODIUM CHLORIDE 0.9% 250 ML IV SCH ×2 (05:18→17:03)
[2016-07-18 06:19] LABS: Basophils % 0.1 % (0.0-0.8); Hematocrit 26.5 VOL% (35.7-47.0); Hemoglobin 8.2 GM/DL (12.0-16.0); Immature Granulocytes % 13.7 %; Immature Granulocytes Absolute 3.05 #; Lymphocytes # 0.4 10*3/uL (1.4-4.0); Lymphocytes % 1.9 % (21.3-54.2); Mean Corpuscular HGB Conc 30.9 GM/DL (32-36); Mean Corpuscular Hemoglobin 29 PG (27-34); Mean Corpuscular Volume 94.3 FL (87-102); Mean Platelet Volume 10.4 FL (9.6-12.0); Monocytes # 1.7 10*3/uL (0.11-0.8); Monocytes % 7.5 % (1.7-12.7); NRBC # 0.06 10*3/uL; Neutrophils # 17.1 10*3/uL (1.4-7.4); Neutrophils % 76.8 % (38.7-73.9); Platelet Count 204 10*3/uL (130-400); Red Blood Count 2.81 10*6/uL (3.8-5.5); Red Cell Distribution Width 14.9 % (9.3-17.3); White Blood Count 22.3 10*3/uL (4.5-13.71)
[2016-07-18 06:44] LABS: Hypochromasia 1+; Lymphocytes 6 % (20-55); Nucleated Red Blood Cells 1 (0-5); Segmented Neutrophils 86 % (50-85); Total Cells Counted 100
[2016-07-18 06:45] LABS: Burr Cells Slight; Platelet Estimate Adequate
[2016-07-18 06:59] LABS: Calcium 7.8 MG/DL (8.5-10.1); Osmolality,Calculated 302.9 MOS/KG (273-304)
--- NOTE | 2016-07-18 07:18 | XRay Report ---
Exam: XR chest 1V portable Indication: Pneumonia Comparison study: 07/16/16 Findings: Cardiac silhouette and mediastinal contours appear grossly unchanged. Perihilar opacities are slightly increased from prior with left lingular and lung base interstitial and airspace opacities slightly improved from the prior study. There is no pneumothorax. Median sternotomy wiring and left total shoulder arthroplasty post surgical changes again noted. Osseous structures otherwise appear stable. Impression: Slight improved aeration within the left lung with residual perihilar and lingular/left lung base airspace opacities most compatible with residual infiltrates. No pneumothorax. PROCEDURE INTERPRETED AT [facility] DEPARTMENT OF RADIOLOGY Final Report Signed by: Celso Meyers
--- NOTE | 2016-07-18 08:39 | Pulmonology Progress Note ---
Pulmonary - PN: Subj Interval history: This 80-year-old white female came in with a left lower lobe pneumonia. She has a pretty severe metabolic acidosis. She does not have ketoacidosis and her renal function is normal. Her chloride is elevated. I suspect she has renal tubular acidosis. I will start bicarbonate infusion today. We'll ask nephrology to see. She feels better and her oxygen saturations are normal. 07/18/2016 patient has been moved to the floor. She is still somewhat short of breath. She has a fairly extensive left pneumonia. Nephrology is evaluating for metabolic acidosis. Urine electrolytes have been done and are to be reviewed by nephrology. Ultrasound of her kidneys showed that she just has renal cysts. There is no mass. Exam (Progress Note) - Constitutional Vitals: Period Temp Pulse Resp BP Sys/Rhodes Pulse Ox Last 24 Hr 97.1 F-99.2 F 81-128 16-22 113-138/25-85 68-100 Exam: Blood pressure a little low side otherwise vital signs normal. HEENT: Pupils react to light. Patient is responsive. Throat is clear. Neck supple no bruits. Chest reveals some rales at the left base, also scattered rhonchi and left upper chest. Heart normal rate rhythm no murmurs. Abdomen soft nontender no masses. Bowel sounds present. Extremities no clubbing cyanosis or edema. Calves nontender. Results - Labs CBC & BMP: 07/18/16 05:32 07/18/16 05:37 Lab Results: I have reviewed the past 24 hour labs Assessment and Plan (1) Hyperchloremic metabolic acidosis Status: Acute Assessment and plan: She may have renal tubular acidosis. Would probably be worthwhile to have nephrology see her. Consider adding bicarbonate to her IV. 07/17/2016 suspect renal tubular acidosis. Add bicarbonate infusion. Ask nephrology to see. 07/18/2016 try to correct this with bicarbonate infusion. Nephrology evaluating for RTA. CO2 is up to 15. Chloride is 122 today. Current Visit: Yes (2) Left lower lobe pneumonia Status: Acute Assessment and plan: Agree with broad-spectrum antibiotics. We'll get a chest CT. Also looking to see if she had a chest wall injury with her fall about a week and a half ago. 07/17/16 CT confirms left lower lobe pneumonia. A couple of other patchy areas noted. Continue broad-spectrum antibiotics. Cultures pending. 07/18/2016 has fairly extensive left-sided pneumonia. Continuing broad- spectrum antibiotics. Cultures have been negative. Current Visit: Yes Qualifiers: Pneumonia type: due to unspecified organism Qualified Code(s): J18.1 - Lobar pneumonia, unspecified organism (3) Dehydration Status: Acute Assessment and plan: Agree with cautious rehydration. 07/17/16 patient's blood pressure is still on the low side and she has some dehydration it appears. Remains acidotic. We'll continue with IV fluids. 07/18/2016 this has resolved. Current Visit: Yes (4) Left renal mass Status: Acute Assessment and plan: This was noted on the chest CT. Need to have urology review. 07/18/2016 turns out mass was actually cystic and is felt to be benign. No further workup required. Current Visit: Yes Specialty Discharge - Follow Up or Referrals - Discharge Medications No Action Sertraline [Zoloft] 12.5 mg PO BEDTIME Aspirin EC Tab 81 mg PO DAILY Metoprolol Tartrate Tab [Lopressor Tab] 25 mg PO DAILY Ergocalciferol (Vitamin D2) [Vitamin D2] 50,000 unit PO Q7D Digoxin Tab [Lanoxin Tab] 0.125 mg PO DAILY Celecoxib 200 mg PO DAILY
--- NOTE | 2016-07-18 08:48 | Urology Consultation ---
Assessment and Plan - Time spent with patient Time spent with patient: Greater than 30 minutes (1) Left renal mass Status: Acute Assessment and plan: We will order CT scan and abdomen and pelvis with and without contrast to define this mass. Current Visit: Yes History of Present Illness - Data of Consult Patient: new to practice Consult date: 07/18/16 Requesting Physician: Jeronimo Galeas - Consult Narrative Reason for consult: left renal mass History of present illness: Ms. Vila is a 80 year old female who was admitted to Hospital multiple problems. Recently moved here from [place]. She has a daughter that is a physician that works at the [employer]. In Dr. Galeas evaluation for pulmonary issues a CT scan without contrast was done of her chest. This reveals 2 centimeter mass in the upper pole of the left kidney. She has no family history kidney diseases. There is no family history of kidney cancers. She does have multiple medical problems which include renal tubular acidosis. To further define this lesion we need a CT scan of her abdomen and pelvis with and without contrast. We do not need oral contrast. We will order this and I'll will follow up for the CT. CC: Alie Harris MD - Home Medications and Allergies Home Medications: Home Medications Medication Instructions Recorded Confirmed Type Aspirin EC Tab 81 mg PO DAILY 07/15/16 07/15/16 History Celecoxib 200 mg PO DAILY 07/15/16 07/15/16 History Digoxin Tab [Lanoxin Tab] 0.125 mg PO DAILY 07/15/16 07/15/16 History Ergocalciferol (Vitamin D2) 50,000 unit PO Q7D 07/15/16 07/15/16 History [Vitamin D2] Metoprolol Tartrate Tab [Lopressor 25 mg PO DAILY 07/15/16 07/15/16 History Tab] Sertraline [Zoloft] 12.5 mg PO BEDTIME 07/15/16 07/15/16 History Allergies/Adverse Reactions: Allergies Allergy/AdvReac Type Severity Reaction Status Date / Time codeine Allergy Unknown/Unable Verified 07/15/16 13:58 to obtain Penicillins Allergy Unknown/Unable Verified 07/15/16 13:58 to obtain 12 point system: reviewed and no additional remarkable complaints except as stated - Genitourinary Genitourinary: Absent: hematuria Exam - Constitutional Vitals: Period Temp Pulse Resp BP Sys/Rhodes Pulse Ox Last 24 Hr 97.1 F-99.2 F 81-128 16-22 113-138/25-85 68-100 - GI/Abdominal GI/Abdominal exam: Present: normal bowel sounds. Absent: ascites, distended, firm, guarding, mass, tenderness, rebound Results - Labs CBC & BMP: 07/18/16 05:32 07/18/16 05:37 Lab Results: I have reviewed the past 24 hour labs - Diagnostic Findings Procedure: CT - chest: report reviewed by me Specialty Discharge - Follow Up or Referrals - Discharge Medications No Action Sertraline [Zoloft] 12.5 mg PO BEDTIME Aspirin EC Tab 81 mg PO DAILY Metoprolol Tartrate Tab [Lopressor Tab] 25 mg PO DAILY Ergocalciferol (Vitamin D2) [Vitamin D2] 50,000 unit PO Q7D Digoxin Tab [Lanoxin Tab] 0.125 mg PO DAILY Celecoxib 200 mg PO DAILY
--- NOTE | 2016-07-18 10:04 | CT Report ---
Referring physician: Alie Harris EXAM: CT abdomen and pelvis with and without contrast DATE: July 18, 2016 COMPARISON: Renal ultrasound July 17, 2016, CT chest July 16, 2016 REASON: Renal cyst, UTI TECHNIQUE: Axial images of the abdomen and pelvis were obtained with and without the use of 80 cc of Omnipaque 350 IV contrast. Coronal and sagittal reformatted images were also provided. Total DLP was 794.4 mGy*cm. FINDINGS: Lower thorax: There are again prominent patchy scattered opacities within the left lower lobe which is concerning for pneumonia. Additional scattered opacities are seen within both lower lung zones and have increased within the right lower lobe. This is concerning for additional pneumonia. There is also minimal bilateral pleural fluid and a small hiatal hernia. The patient is status post sternotomy. ABDOMEN: Liver: Unremarkable. Gallbladder and bile ducts: The patient is status post cholecystectomy. The common bile duct is dilated, measuring 1.1 cm in diameter at the pancreatic head. However, no significant intrahepatic biliary duct dilatation is seen, and this may be related to the patient's cholecystectomy status. Please correlate with liver function studies. Pancreas: Unremarkable. 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 The spleen is otherwise unremarkable. Adrenals: Unremarkable. Kidneys and ureters: There are bilateral nonobstructing renal calculi. The largest on the left measures 0.6 cm, and the largest on the right measures 0.8 cm. No left hydronephrosis is present, but there is mild dilatation of the right renal pelvis. The proximal right ureter is tortuous, but a 1.0 x 1.0 x 0.8 cm stone is suspected within the proximal right ureter. Of note, on the recent ultrasound, the mild prominence of the right renal pelvis was felt to represent an extrarenal pelvis, but this is favored to represent mild hydronephrosis on this study. No additional ureteral calculi are seen, but the ureters are partially obscured in some regions. There are several bilateral renal hypodensities which likely represent cysts. However, some are difficult to characterize due to motion artifact and their small size. There is a 1.8 cm exophytic hyperdense lesion at the upper pole of the left kidney. No definite enhancement is seen, and this is favored to represent a hemorrhagic/proteinaceous renal cyst. PELVIS: Bladder: The bladder is mildly distended but otherwise unremarkable. Reproductive: The uterus is not seen and may be surgically absent. The ovaries are also poorly visualized. ABDOMEN AND PELVIS: Bowel: There are scattered air within the bowel, mainly within the colon. However, there is no evidence of bowel obstruction. Portions of the bowel are poorly distended and difficult to evaluate, but no convincing bowel inflammation is seen. Appendix: The appendix is not identified. Vasculature: The abdominal aorta is normal in size. There is moderate scattered calcified plaque at the arteries. Peritoneum: There is mild edema in the presacral region and mild scattered mesenteric edema. No significant ascites or free air is identified. Lymph nodes: No suspicious adenopathy is seen. Abdominal/pelvic wall: There is mild anasarca. There is also a minimal broad-based left ventral hernia. The colon extends slightly into the hernia, but there is no evidence of bowel obstruction. 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 Severe facet arthropathy is also present at L4-L5 and L5-S1. Additional multilevel degenerative change is seen at the spine, and there are mild indeterminate age compression fractures at T12 and L1. There is also a remote fracture of the right inferior pubic ramus. The princess are irregular bilaterally, which could be related to remote surgery or trauma. There is also thoracolumbar scoliosis IMPRESSION: 1. There is mild dilatation of the right renal pelvis, which is concerning for mild hydronephrosis. The proximal right ureter is tortuous, but there appears to be 1.0 x 1.0 x 0.8 cm stone within the proximal right ureter. 2. Bilateral nonobstructing renal calculi. 3. Bilateral renal cysts are present, but some are poorly characterized due to motion artifact and their small size. A 1.8 cm hyperdense exophytic lesion is seen at the upper pole of the left kidney. No significant enhancement is seen, and this is favored to represent a hemorrhagic/proteinaceous renal cyst (Bosniak class II). However, followup would be helpful since characterization of some of the cysts is difficult. 4. There are patchy scattered opacities within the left lung as before and additional opacities within the visualized right lower lobe. This is concerning for pneumonia. There is also minimal bilateral pleural fluid. 5. The common bile duct is dilated, measuring 1.1 cm in diameter. This is nonspecific and may be related to the patient's cholecystectomy status. However, please correlate with liver function studies. 6. Mild mesenteric edema and mild edema in the presacral region. 7. Prominent multilevel degenerative change at the lumbar spine, especially at L4-L5 and L5-S1. 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 There is also a remote fracture of the right inferior pubic ramus and mild indeterminate age compression fractures at T12 and L1. The CT exam was performed using one or more of the following dose reduction techniques: Automated exposure control and adjustment of the mA and/or kV according to patient size. PROCEDURE INTERPRETED AT [facility] DEPARTMENT OF RADIOLOGY Final Report Signed by: Dr. Cathy Marshall
[2016-07-18] MEDS: PANTOPRAZOLE 40 MG TABLET PO SCH (10:11)
[2016-07-18] MEDS: DIGOXIN 0.125 MG TABLET PO SCH (10:11)
[2016-07-18] MEDS: ASPIRIN EC 81 MG TABLET PO SCH (10:11)
[2016-07-18] MEDS: METOPROLOL TARTRATE 25 MG TABLET PO SCH (10:11)
[2016-07-18] MEDS: SODIUM BICARB INJ 50 MEQ in DEXTROSE 5% 1,000 ML IV SCH (11:01)
--- NOTE | 2016-07-18 12:45 | Hospitalist Progress Note ---
Assessment and Plan (1) Left lower lobe pneumonia Status: Acute Assessment and plan: Patient's been started on Levaquin and aztreonam And vancomycin due to her elderly age, comorbidities, extensive chest x-ray findings, and leukocytosis. She'll be monitored in the ICU at least overnight. Consider pulmonary consultation. Consider CT of the chest if no improvement in 48 hours. Steroids were added. 07/16/2016: Discussed with Dr. Galeas. Plan for CT today. 07/17/16: CT shows LLL PNA . Discussed with Dr. Galeas regarding treatment and transfer to the floor. 07/18/16 continue abx and steroids. nebs and close follow up with pulmonary Current Visit: Yes Qualifiers: Pneumonia type: due to unspecified organism Qualified Code(s): J18.1 - Lobar pneumonia, unspecified organism (2) Dehydration Status: Acute Assessment and plan: Continue IV fluid hydration. Current Visit: Yes (3) Arrhythmia Status: Resolved Assessment and plan: Patient with history of SVT requiring ablation. Currently on digoxin. Follows with cardiology Dr. Bautista. Rate is better controlled today. Current Visit: Yes Qualifiers: Arrhythmia type: supraventricular tachycardia Qualified Code(s): I47.1 - Supraventricular tachycardia (4) Hypokalemia Status: Acute Assessment and plan: replace with PO KCL Current Visit: Yes (5) RTA (renal tubular acidosis) Status: Acute Assessment and plan: continue bicarb drip nephrology following urine electrolytes to be reviewed Current Visit: Yes (6) Renal mass Status: Ruled-out Assessment and plan: ct shows cyst- benign appearing Current Visit: Yes Hospitalist: Subjective Interval history: Patient seen and examined. She still has quite a bit of shortness of breath. She is an extensive pneumonia involving the left lung. No acute events overnight. She is being seen by urology and nephrology for renal tubular acidosis as well as a lesion on the left kidney. CT scan of the abdomen and pelvis was reviewed. She continues to receive IV fluids with bicarbonate in an effort to correct her metabolic acidosis. I'm get a put in a consult for social work coordinator for discharge planning regarding LTAC versus swing bed as this patient will likely need prolonged IV antibiotics for treatment of her pneumonia as well as extensive rehabilitation after debility due to her illness and bedridden state during this hospitalization. Exam - Constitutional Vitals: Period Temp Pulse Resp BP Sys/Hrodes Pulse Ox Last 24 Hr 97.1 F-99.2 F 81-107 18-22 113-143/25-85 91-100 General appearance: no acute distress - Head Head exam: Present: normal inspection, normocephalic, atraumatic - Eye Eye exam: Present: EOMI - Respiratory Respiratory exam: Present: rales, rhonchi - Cardiovascular Cardiovascular exam: Present: regular rate and rhythm - GI/Abdominal GI/Abdominal exam: Present: normal bowel sounds, soft - Extremities Exam Extremities exam: Present: normal inspection. Absent: edema - Neurological Exam Neurological exam: Present: alert, oriented X3 - Psychiatric Psychiatric exam: Present: normal affect, normal mood - Skin Skin exam: Present: normal color, warm, dry Results - Labs CBC & BMP: 07/18/16 05:32 07/18/16 05:37 Lab Results: I have reviewed the past 24 hour labs Specialty Discharge - Follow Up or Referrals - Discharge Medications No Action Sertraline [Zoloft] 12.5 mg PO BEDTIME Aspirin EC Tab 81 mg PO DAILY Metoprolol Tartrate Tab [Lopressor Tab] 25 mg PO DAILY Ergocalciferol (Vitamin D2) [Vitamin D2] 50,000 unit PO Q7D Digoxin Tab [Lanoxin Tab] 0.125 mg PO DAILY Celecoxib 200 mg PO DAILY
--- NOTE | 2016-07-18 17:15 | Event Note ---
I was called to see Ms. Vila regarding shortness of breath. She had been receiving IV fluids with bicarbonate at 100 mL an hour and had gotten aggressively more short of breath during the day with a loud rattling respirations. She has essentially normal renal function with an acidosis and does have a left lung pneumonia. On exam she is alert and has 90% oxygen saturation breathing 4 L of nasal prong O2. She has crackles over both bases much worse on the left. She has generous sacral edema but no edema over the legs and does have increased jugular venous pressure. We're going to stop her IV fluids for now and give Lasix. Certainly this won't help her tendency to hypernatremia or hypokalemia that she's had but I think she needs that in an effort to help her breathe. I don't think this is all related to pneumonia. A chest x-ray from this morning was reviewed we will repeat chest x-ray tomorrow morning.
[2016-07-18] MEDS ORDERED: FUROSEMIDE 40 MG/4 ML VIAL IV ONE ×2 (17:17→20:06)
[2016-07-18 19:04] LABS: Apearance,Urine CLOUDY (Clear); Bilirubin,Urine Negative (Negative); Blood, Urine Large mg/dL (Negative); Glucose,Urine (UA) Negative (Negative); Ketones,Urine Negative (Negative); Nitrite,Urine Negative (Negative); Protein,Urine 30 MG/DL; RBC,Urine 15 /HPF (0-4); Urine Color Yellow (Yellow); Urine Specific Gravity 1.015 (1.001-1.035); Urine Urobilinogen < 2.0 EU/DL (0.2-1.0)
[2016-07-18 19:05] LABS: Bacteria,Urine Many /HPF (Few); Mucus,Urine Occasional /LPF (Occasional); Squamous Epithelial Cell,Urine Occasional /HPF (0-10); WBC,Urine 7 /HPF (0-6)
[2016-07-18] MEDS ORDERED: methylPREDNISolone SOD SUC 125 MG/2 ML VIAL IV ONE (20:04)
[2016-07-18] MEDS: SERTRALINE 25 MG TABLET PO SCH (22:42)
[2016-07-18] MEDS: ENOXAPARIN 40 MG/0.4 ML SYRINGE SUBCUT SCH (22:43)
[2016-07-18] MEDS: LEVOFLOXACIN INJ 750 MG in PREMIX 1 EACH IV SCH (22:43)
[2016-07-19] MEDS: ALBUTEROL/IPRATROPIUM 3 ML NEB RESP TX SCH ×7 (00:11→23:30)
[2016-07-19] MEDS: methylPREDNISolone SOD SUC 40 MG/1 ML VIAL IV SCH ×3 (02:30→16:52)
[2016-07-19] MEDS: AZTREONAM 2,000 MG in SODIUM CHLORIDE 0.9% 100 ML IV SCH ×5 (03:37→22:54)
[2016-07-19 05:14] LABS: Basophils # 0.1 10*3/uL (0.0-0.2); Basophils % 0.5 % (0.0-0.8); Hematocrit 30.6 VOL% (35.7-47.0); Hemoglobin 10.2 GM/DL (12.0-16.0); Immature Granulocytes % 22.9 %; Immature Granulocytes Absolute 5.34 #; Lymphocytes # 0.6 10*3/uL (1.4-4.0); Lymphocytes % 2.4 % (21.3-54.2); Mean Corpuscular HGB Conc 33.3 GM/DL (32-36); Mean Corpuscular Hemoglobin 30 PG (27-34); Mean Platelet Volume 10.8 FL (9.6-12.0); Monocytes # 1.7 10*3/uL (0.11-0.8); Monocytes % 7.3 % (1.7-12.7); NRBC # 0.12 10*3/uL; Neutrophils # 15.6 10*3/uL (1.4-7.4); Neutrophils % 66.9 % (38.7-73.9); Platelet Count 240 10*3/uL (130-400); Red Blood Count 3.44 10*6/uL (3.8-5.5); White Blood Count 23.4 10*3/uL (4.5-13.71)
[2016-07-19 05:41] LABS: Band Neutrophils 3 % (0-10); Hypochromasia 1+; Lymphocytes 5 % (20-55); Metamyelocytes 6 %; Myelocytes 1 %; Platelet Estimate Adequate; Segmented Neutrophils 79 % (50-85); Total Cells Counted 100
[2016-07-19 05:47] LABS: Magnesium 1.7 MG/DL (1.8-2.4); Osmolality,Calculated 298.3 MOS/KG (273-304)
[2016-07-19 05:48] LABS: Albumin 2.6 G/DL (3.4-5.0); Bilirubin,Total 0.5 MG/DL (0.2-1.0); Calcium 7.8 MG/DL (8.5-10.1); Osmolality,Calculated 298.3 MOS/KG (273-304); Total Protein 5.9 G/DL (6.4-8.3)
[2016-07-19 05:49] LABS: Potassium 2.4 MMOL/L (3.5-5.1)
[2016-07-19 05:50] LABS: Potassium 2.4 MMOL/L (3.5-5.1)
--- NOTE | 2016-07-19 06:26 | EKG Report ---
Stationary ECG Study [facility] Test Date: 07/19/2016 2:53:28 AM Pat Name: TERESA LEON Department: Room: 224 Gender: F Flight [employer] Specialist: LV : [id number] Requested by: Benedicto Castellanos Order Number: [id number] Reading MD: KENNEDY HEBERT Intervals [place] Rate: 122 P: 999 VA: 0 QRS: 2 QRSD: 105 T: 120 QT: 236 QTc: 309 Interpretive Statements ATRIAL FIBRILLATION WITH RAPID VENTRICULAR RESPONSE MARKED ST DEPRESSION, CONSIDER SUBENDOCARDIAL INJURY Electronically Signed On 07-19-16 11:21:13 ADOLESCENT MEDICINE SPECIALIST by KENNEDY HEBERT [email or web address]
[2016-07-19] MEDS: POTASSIUM CHLORIDE RIDER 10 MEQ in PREMIX 1 EACH IV PRN ×2 (06:34→21:47)
--- NOTE | 2016-07-19 07:50 | XRay Report ---
Exam: XR chest 1V portable Indication: Worsening Shortness of breath, pneumonia followup Comparison study: 07/18/16 Findings: Patchy left perihilar and basilar interstitial/airspace opacities are similar to slightly improved from prior. There are slightly increased airspace opacities noted within the right hilar region and right lower lobe, which may represent endobronchial spread of infectious/inflammatory infiltrates. Cardiac silhouette and mediastinal contours appear stable from prior. Osseous structures are stable from prior. Median sternotomy wiring is noted. Cholecystectomy clips are noted. Impression: Slight improvement in airspace opacities within the left lung with slight worsening of patchy right perihilar and right lower lobe airspace opacities, possibly representing endobronchial spread of an infection. Continued close clinical imaging followup is recommended. PROCEDURE INTERPRETED AT [facility] DEPARTMENT OF RADIOLOGY Final Report Signed by: Celso Meyers
--- NOTE | 2016-07-19 08:09 | Pulmonology Progress Note ---
Exam (Progress Note) - Constitutional Vitals: Period Temp Pulse Resp BP Sys/Rhodes Pulse Ox Last 24 Hr 97.5 F-98.4 F 60-140 16-27 120-160/68-84 84-99 Results - Labs CBC & BMP: 07/19/16 04:04 07/19/16 04:04 Assessment and Plan (1) Hyperchloremic metabolic acidosis Status: Acute Assessment and plan: She may have renal tubular acidosis. Would probably be worthwhile to have nephrology see her. Consider adding bicarbonate to her IV. 07/17/2016 suspect renal tubular acidosis. Add bicarbonate infusion. Ask nephrology to see. 07/18/2016 try to correct this with bicarbonate infusion. Nephrology evaluating for RTA. CO2 is up to 15. Chloride is 122 today. Current Visit: Yes (2) Left lower lobe pneumonia Status: Acute Assessment and plan: Agree with broad-spectrum antibiotics. We'll get a chest CT. Also looking to see if she had a chest wall injury with her fall about a week and a half ago. 07/17/16 CT confirms left lower lobe pneumonia. A couple of other patchy areas noted. Continue broad-spectrum antibiotics. Cultures pending. 07/18/2016 has fairly extensive left-sided pneumonia. Continuing broad- spectrum antibiotics. Cultures have been negative. Current Visit: Yes Qualifiers: Pneumonia type: due to unspecified organism Qualified Code(s): J18.1 - Lobar pneumonia, unspecified organism (3) Dehydration Status: Acute Assessment and plan: Agree with cautious rehydration. 07/17/16 patient's blood pressure is still on the low side and she has some dehydration it appears. Remains acidotic. We'll continue with IV fluids. 07/18/2016 this has resolved. Current Visit: Yes (4) Left renal mass Status: Acute Assessment and plan: This was noted on the chest CT. Need to have urology review. 07/18/2016 turns out mass was actually cystic and is felt to be benign. No further workup required. Current Visit: Yes Specialty Discharge - Follow Up or Referrals - Discharge Medications No Action Sertraline [Zoloft] 12.5 mg PO BEDTIME Aspirin EC Tab 81 mg PO DAILY Metoprolol Tartrate Tab [Lopressor Tab] 25 mg PO DAILY Ergocalciferol (Vitamin D2) [Vitamin D2] 50,000 unit PO Q7D Digoxin Tab [Lanoxin Tab] 0.125 mg PO DAILY Celecoxib 200 mg PO DAILY
--- NOTE | 2016-07-19 08:11 | Pulmonology Progress Note ---
Pulmonary - PN: Subj Interval history: This 80-year-old white female came in with a left lower lobe pneumonia. She has a pretty severe metabolic acidosis. She does not have ketoacidosis and her renal function is normal. Her chloride is elevated. I suspect she has renal tubular acidosis. I will start bicarbonate infusion today. We'll ask nephrology to see. She feels better and her oxygen saturations are normal. 07/18/2016 patient has been moved to the floor. She is still somewhat short of breath. She has a fairly extensive left pneumonia. Nephrology is evaluating for metabolic acidosis. Urine electrolytes have been done and are to be reviewed by nephrology. Ultrasound of her kidneys showed that she just has renal cysts. There is no mass. 07/19/16 patient has not slept well. She's been tachycardic. She was given Lasix last night. Her potassium is 2.4 and she is on Lanoxin. Potassium replacement orders have been written. Cardiology has been consulted. Dr. Bautista follows her normally from a cardiac standpoint. O2 sat is 90% on 4 L nasal oxygen. We'll change her to a Ventimask. She has a metabolic acidosis that is being evaluated. She was being given bicarbonate in IV fluids. IV fluids were stopped because it appears she may be a little ahead on fluids. Her chest x-ray shows a fairly extensive left-sided pneumonia. Slightly increased interstitial markings on the right side. Will check a BNP. Exam (Progress Note) - Constitutional Vitals: Period Temp Pulse Resp BP Sys/Rhodes Pulse Ox Last 24 Hr 97.5 F-98.4 F 60-140 16-27 120-160/68-84 84-99 Exam: Blood pressure a little low side otherwise vital signs normal, except heart rate of 140. HEENT: Pupils react to light. Patient is responsive. Throat is clear. Neck supple no bruits. Chest reveals some rales at the left base, also scattered rhonchi and left upper chest. Heart normal rate rhythm no murmurs. Abdomen soft nontender no masses. Bowel sounds present. Extremities no clubbing cyanosis or edema. Calves nontender. Results - Labs CBC & BMP: 07/19/16 04:04 07/19/16 04:04 Lab Results: I have reviewed the past 24 hour labs - Diagnostic Findings Procedure: Chest x-ray: image reviewed by me (left-sided pneumonia is less dense. Slightly increased interstitial markings on the right.) Assessment and Plan (1) Hyperchloremic metabolic acidosis Status: Acute Assessment and plan: She may have renal tubular acidosis. Would probably be worthwhile to have nephrology see her. Consider adding bicarbonate to her IV. 07/17/2016 suspect renal tubular acidosis. Add bicarbonate infusion. Ask nephrology to see. 07/18/2016 try to correct this with bicarbonate infusion. Nephrology evaluating for RTA. CO2 is up to 15. Chloride is 122 today. 07/19/2016 bicarbonate infusion has been stopped due to apparent fluid overload. CO2 is up to normal. Chloride down to 109. Urine electrolytes have been done. Current Visit: Yes (2) Left lower lobe pneumonia Status: Acute Assessment and plan: Agree with broad-spectrum antibiotics. We'll get a chest CT. Also looking to see if she had a chest wall injury with her fall about a week and a half ago. 07/17/16 CT confirms left lower lobe pneumonia. A couple of other patchy areas noted. Continue broad-spectrum antibiotics. Cultures pending. 07/18/2016 has fairly extensive left-sided pneumonia. Continuing broad- spectrum antibiotics. Cultures have been negative. 07/19/2016 continuing broad-spectrum antibiotics. Current Visit: Yes Qualifiers: Pneumonia type: due to unspecified organism Qualified Code(s): J18.1 - Lobar pneumonia, unspecified organism (3) Dehydration Status: Acute Assessment and plan: Agree with cautious rehydration. 07/17/16 patient's blood pressure is still on the low side and she has some dehydration it appears. Remains acidotic. We'll continue with IV fluids. 07/18/2016 this has resolved. 07/19/2016 this has been addressed. Current Visit: Yes (4) Left renal mass Status: Acute Assessment and plan: This was noted on the chest CT. Need to have urology review. 07/18/2016 turns out mass was actually cystic and is felt to be benign. No further workup required. 07/19/2016 urology has seen her. CT has been ordered. Current Visit: Yes Specialty Discharge - Follow Up or Referrals - Discharge Medications No Action Sertraline [Zoloft] 12.5 mg PO BEDTIME Aspirin EC Tab 81 mg PO DAILY Metoprolol Tartrate Tab [Lopressor Tab] 25 mg PO DAILY Ergocalciferol (Vitamin D2) [Vitamin D2] 50,000 unit PO Q7D Digoxin Tab [Lanoxin Tab] 0.125 mg PO DAILY Celecoxib 200 mg PO DAILY
[2016-07-19] MEDS: POTASSIUM CHLORIDE RIDER 10 MEQ in PREMIX 1 EACH IV SCH ×5 (08:42→14:09)
[2016-07-19] MEDS: VANCOMYCIN INJ 750 MG in SODIUM CHLORIDE 0.9% 250 ML IV SCH ×2 (08:42→16:52)
--- NOTE | 2016-07-19 09:06 | Hospitalist Progress Note ---
Assessment and Plan - Time spent with patient Time spent with patient: Greater than 30 minutes (1) Left lower lobe pneumonia Status: Acute Assessment and plan: Patient's been started on Levaquin and aztreonam And vancomycin. Pulmonary following. moved to ICU for worsening tachycardia and tachypnea I discussed the case at length with the patients daughter. Current Visit: Yes Qualifiers: Pneumonia type: due to unspecified organism Qualified Code(s): J18.1 - Lobar pneumonia, unspecified organism (2) Dehydration Status: Acute Assessment and plan: Continue IV fluid hydration. Current Visit: Yes (3) Arrhythmia Status: Resolved Assessment and plan: Patient with history of SVT requiring ablation. Currently on digoxin. Follows with cardiology Dr. Bautista. Rate elevated. digoxin level low. Potassium is low. Current Visit: Yes Qualifiers: Arrhythmia type: supraventricular tachycardia Qualified Code(s): I47.1 - Supraventricular tachycardia (4) Hypokalemia Status: Acute Assessment and plan: replace with IV KCL Current Visit: Yes (5) RTA (renal tubular acidosis) Status: Acute Assessment and plan: bicarb drip stopped due to fluid overload. nephrology following urine electrolytes to be reviewed Current Visit: Yes (6) Renal mass Status: Ruled-out Assessment and plan: ct shows cyst- benign appearing Current Visit: Yes Hospitalist: Subjective Interval history: Mrs. Vila has had an eventful 24 hours. She was very short of breath last night and required Lasix infusion with diuresis to assist her shortness of breath. This morning she remains short of breath with tachycardia into the 130s and 140s. She's been seen by pulmonary and cardiology was consult. The patient typically sees Dr. Bautista. I transferred her to the ICU and will order BiPAP. Her chest x-ray shows some mild improvement in the left lung with worsening in the right. She is being followed by nephrology and pulmonary and cardiology. Had lengthy discussion with her daughter who is a physician. We discussed her chest x-ray and antibiotic selection. The workup of her pneumonia has been otherwise negative with negative urine antigens as well as negative blood cultures. Exam - Constitutional Vitals: Period Temp Pulse Resp BP Sys/Rhodes Pulse Ox Last 24 Hr 97.5 F-98.4 F 60-140 16-27 120-160/68-84 84-99 General appearance: mild distress - Head Head exam: Present: normal inspection, normocephalic, atraumatic - Eye Eye exam: Present: EOMI - Respiratory Respiratory exam: Present: decreased breath sounds, rhonchi, wheezes - Cardiovascular Cardiovascular exam: Present: tachycardia - GI/Abdominal GI/Abdominal exam: Present: normal bowel sounds, soft. Absent: tenderness - Extremities Exam Extremities exam: Absent: edema - Neurological Exam Neurological exam: Present: alert, oriented X3 - Psychiatric Psychiatric exam: Present: normal affect, normal mood - Skin Skin exam: Present: normal color, warm, dry Results - Labs CBC & BMP: 07/19/16 04:04 07/19/16 04:04 Lab Results: I have reviewed the past 24 hour labs Specialty Discharge - Follow Up or Referrals - Discharge Medications No Action Sertraline [Zoloft] 12.5 mg PO BEDTIME Aspirin EC Tab 81 mg PO DAILY Metoprolol Tartrate Tab [Lopressor Tab] 25 mg PO DAILY Ergocalciferol (Vitamin D2) [Vitamin D2] 50,000 unit PO Q7D Digoxin Tab [Lanoxin Tab] 0.125 mg PO DAILY Celecoxib 200 mg PO DAILY
[2016-07-19] MEDS: SPIRONOLACTONE 25 MG TABLET PO SCH ×2 (09:24→21:13)
[2016-07-19] MEDS: PANTOPRAZOLE 40 MG TABLET PO SCH (09:25)
[2016-07-19] MEDS: DIGOXIN 0.125 MG TABLET PO SCH (09:25)
[2016-07-19] MEDS: METOPROLOL TARTRATE 25 MG TABLET PO SCH (09:25)
[2016-07-19] MEDS: ASPIRIN EC 81 MG TABLET PO SCH (09:25)
--- NOTE | 2016-07-19 11:39 | Cardiology Consult Note ---
Nayely Carlisle April RN, am scribing for, and in the presence of, Basil Sanchez MD 11:39. History of Present Illness - Data of Consult Patient: known to practice within the last 3 years Consult date: 07/19/16 Requesting Physician: Alie Harris - Consult Narrative Reason for consult: SVT during the night History of present illness: Ms. Vila is a 80 year old female who is followed by Dr. Bautista with a history of CAD, recurrent Pneumonia, CVA, and SVT with ablation. This ablation was done about 35 years ago in [place]. She also had single vessel CABG about 30 years ago in [place]. The daughter thinks she had her last heart cath within the last 5 years in [place], and she thinks that it was OK. She has had numerous other surgeries including tonsillectomy, appendectomy , cholecystectomy, colectomy with colostomy and reversal, hiatal hernia repair, lower back, neck, carpal tunnel, left shoulder replacement, and bilateral cataracts. Family history of heart disease in father, brother, and sister and diabetes in brother and sister. She was admitted July 15 with LLL pneumonia. At that time she was in sinus tach with heart rates with rates in the 130's. Yesterday she became more short of breath and her IV fluids were stopped and was given Lasix 40mg IV x 2 doses. She has lost 13 pounds since yesterday with negative I's and O's. According to the nurse during the night, patient had SVT with heart rates of greater than 150. They are working on getting her transferred to the unit. Currently she is in sinus tach with heart rates in the 140's. Her H&H this am is improved at 10.2 and 30.6, potassium is 2.4 and has been replaced with protocol dosing, BUN and creatinine 16 and 0.8, magnesium 107, BNP 1889. Current meds include Lopressor 25mg po dly and Digoxin 0.125mg dly. She is currently using oxygen via mask and continues to complain of shortness of breath. She denies any chest pain. Cardiology addendum. Patient examined, chart reviewed, and detailed history obtained from her daughter Abigail Valles who is a physician at [facility] Patient admitted with extensive left-sided pneumonia which has now progressed to the right side. This had precipitated atrial flutter ventricular rate 150. Currently she is in atrial fibrillation ventricular rate of 120 O2 sat is 98 on 50% Ventimask blood pressure 120/68 Status post single-vessel CABG in [place] 1986. Status post ablation for SVT 30 years ago in [place]. Remote tobacco abuse. Status post partial gastrectomy for peptic ulcer disease. Chronic anemia with multiple transfusions over the past 7-8 years per daughter Negative EGD and colonoscopy in [place] per daughter source of bleeding unknown Poor appetite 5 feet 1 inches tall 105 pounds Last cardiac cath 4 years ago [place] showed patent graft and no significant disease progression Patient lives [place] Chronic arthritic complaints status post back and shoulder surgery. Daughter reports she uses ibuprofen like candy Recurrent atrial fibrillation Lab data White count 23.4 hemoglobin 10.2 hematocrit 30.6 Sodium 148 potassium 2.4 which is being corrected, chloride 109 CO2 26 BUN 16 creatinine 0.80 Magnesium 1.7 glucose 163 Echo Doppler July 15, 2016 showed ejection fraction 60% with mildly dilated left atrium, mild MR, aortic sclerosis, normal RV function, moderate TR PA pressure 50 with no effusion Plan echo Doppler IV amiodarone Replace potassium Continue broad-spectrum antibiotics and nebs Long talk with patient and her daughter Abigail who is a physician with nurse Cooper present for the entire discussion. CC: Alie Harris MD - Home Medications and Allergies Home Medications: Home Medications Medication Instructions Recorded Confirmed Type Aspirin EC Tab 81 mg PO DAILY 07/15/16 07/15/16 History Celecoxib 200 mg PO DAILY 07/15/16 07/15/16 History Digoxin Tab [Lanoxin Tab] 0.125 mg PO DAILY 07/15/16 07/15/16 History Ergocalciferol (Vitamin D2) 50,000 unit PO Q7D 07/15/16 07/15/16 History [Vitamin D2] Metoprolol Tartrate Tab [Lopressor 25 mg PO DAILY 07/15/16 07/15/16 History Tab] Sertraline [Zoloft] 12.5 mg PO BEDTIME 07/15/16 07/15/16 History Allergies/Adverse Reactions: Allergies Allergy/AdvReac Type Severity Reaction Status Date / Time codeine Allergy Unknown/Unable Verified 07/15/16 13:58 to obtain Penicillins Allergy Unknown/Unable Verified 07/15/16 13:58 to obtain - Constitutional Constitutional: Present: as per HPI - EENT Eyes: Present: loss of vision (loss of peripheral vision), requires corrective lense Nose, mouth and throat: Absent: epistaxis, neck pain - Cardiovascular Cardiovascular: Present: chest pain with activity, dyspnea, dyspnea on exertion , palpitations. Absent: edema, radiating jaw, neck or arm pain - Respiratory Respiratory: Present: cough, dyspnea, dyspnea on exertion. Absent: hemoptysis - Gastrointestinal Gastrointestinal: Present: nausea, vomiting. Absent: abdominal pain, constipation, diarrhea, hematemesis, hematochezia - Genitourinary Genitourinary: Absent: difficulty urinating, dysuria, flank pain, hematuria - Musculoskeletal Musculoskeletal: Present: limited range of motion, muscle weakness - Neurological Neurological: Present: abnormal gait. Absent: dizziness, frequent falls, syncope, tremor(s) - Psychiatric Psychiatric: Absent: anxiety, depression - Hematologic/Lymphatic Hematologic/Lymphatic: Absent: easy bleeding, easy bruising Medical,Surgical,& Family Hx - Medical History Cardio: History of: Cardiac Dysrhythmia (sinus tach), CAD, Hypertension, Cardiovascular Problems (cabg and ablation 30-35 years ago ) Neurology: History of: Cerebrovascular Accident Gastrointestinal: History of: GI Problems (hx colectomy with colostomy and reversal) Musculoskeletal: History of: Back/Neck Problems - Surgical History Cardiac Surgeries: Sugical HX of: Cardiac Catheterization (within the last 5 years in [place] per daughter), Cardiac Surgery (CABG 30 years ago and ablation 35 years ago) HEENT Surgeries: Surgical HX of: Eye Surgery (bilateral cataracts), Tonsilectomy & Adenoidectomy Abdominal Surgeries: Surgical HX of: Abdominal Surgery (colectomy with colostomy and reversal), Appendectomy, Cholecystectomy, Hernia Repair Reproductive Surgeries: Surgical HX of;: Hysterectomy Orthopedic Surgeries: Surgical HX of;: Orthopedic Surgery (neck, lower back, left shoulder, carpal tunnel) - Family History Family History: Reports;: Family Diabetes (brother, sister), Family Heart Disease (father, brother, sister) - Social History Smoking Status: Former smoker (quit 20 years ago) Have you smoked in the last 12 months: No Frequency of Alcohol Use: None Type of Drug Use: None Marital Status: Lives With:: at [facility] Functional capacity: uses cane/walker Physical Examination Vital Signs Temp Pulse Resp BP Pulse Ox 97.3 F L 131 H 18 147/91 88 L 07/15/16 13:53 07/15/16 13:53 07/15/16 13:53 07/15/16 13:53 07/15/16 13:53 General: Present: Appears Well HEENT: Present: Mucus Membranes Moist Neck: Present: Supple Neck, Midline Trachea Cardiac: Present: Regular Rhythm, S1/S2, Tachycardia Lungs: Present: Rales - Left, Rales - Right, Scattered Rhonchi, Oxygen (mask) Neuro: Absent: Essential Tremor Abdomen: Present: Soft, Active Bowel Sounds, Non-Tender. Absent: Distended Skin: Present: Clear Musculoskeletal: Present: Decreased Range of Motion Gait: Present: Poor Gait Extremities: Present: No Edema, Normal Upper Extr. Pulses, Normal Lower Extr. Pulses Result/EKG - Labs CBC & BMP: 07/19/16 04:04 07/19/16 04:04 Labs: Laboratory Results - last 24 hr 07/16/16 07/18/16 07/19/16 23:25 18:20 04:04 WBC 23.4 H RBC 3.44 L D Hgb 10.2 L D Hct 30.6 L MCV 89.0 MCH 30 MCHC 33.3 RDW 15.0 Plt Count 240 MPV 10.8 Neut % (Auto) 66.9 Lymph % (Auto) 2.4 L [place] % (Auto) 7.3 Eos % (Auto) 0.0 Baso % (Auto) 0.5 Neut # (Auto) 15.6 H Lymph # (Auto) 0.6 L [place] # (Auto) 1.7 H Eos # (Auto) 0.0 Baso # (Auto) 0.1 Total Counted 100 Immature Gran % 22.9 Nucleated RBC % 0.5 Immature Gran # 5.34 Segmented Neutrophils 79 Band Neutrophils 3 Lymphocytes 5 L Monocytes 6 Metamyelocytes 6 Myelocytes 1 Nucleated RBCs # 0.12 Platelet Estimate Adequate Hypochromasia 1+ Sodium Potassium Chloride Carbon Dioxide Anion Gap BUN Creatinine GFR Calculation BUN/Creatinine Ratio Glucose Calculated Osmolality Calcium Magnesium Total Bilirubin AST ALT Alkaline Phosphatase B-Natriuretic Peptide Total Protein Albumin Globulin Albumin/Globulin Ratio Urine Color Yellow Urine Appearance Cloudy Urine pH 6.0 Ur Specific [place] 1.015 Urine Protein 30 Urine Glucose (UA) Negative Urine Ketones Negative Urine Blood Large Urine Nitrate Negative Urine Bilirubin Negative Urine Urobilinogen < 2.0 H Urine Leukocytes Small H Urine RBC 15 Urine WBC 7 Ur Squamous Epith Cells Occasional Urine Bacteria Many Urine Mucus Occasional Ur Culture Indicated? Results to follow Ur L.pneumophila Ag Negative Ur Strep pneumoniae Ag Negative 07/19/16 07/19/16 07/19/16 04:04 04:04 04:04 WBC RBC Hgb Hct MCV MCH MCHC RDW Plt Count MPV Neut % (Auto) Lymph % (Auto) [place] % (Auto) Eos % (Auto) Baso % (Auto) Neut # (Auto) Lymph # (Auto) [place] # (Auto) Eos # (Auto) Baso # (Auto) Total Counted Immature Gran % Nucleated RBC % Immature Gran # Segmented Neutrophils Band Neutrophils Lymphocytes Monocytes Metamyelocytes Myelocytes Nucleated RBCs # Platelet Estimate Hypochromasia Sodium 148 H 148 H Potassium 2.4 L* 2.4 L* Chloride 109 H 109 H Carbon Dioxide 21 21 Anion Gap 20.4 H 20.4 H BUN 16 16 Creatinine 0.80 0.80 GFR Calculation 58 58 BUN/Creatinine Ratio 20.00 20.00 Glucose 167 H 163 H Calculated Osmolality 298.3 298.3 Calcium 8.0 L 7.8 L Magnesium 1.7 L Total Bilirubin 0.50 AST 30 ALT 80 H Alkaline Phosphatase 119 H B-Natriuretic Peptide 1889 H Total Protein 5.9 L Albumin 2.6 L Globulin 3.3 Albumin/Globulin Ratio 0.7 L Urine Color Urine Appearance Urine pH Ur Specific [place] Urine Protein Urine Glucose (UA) Urine Ketones Urine Blood Urine Nitrate Urine Bilirubin Urine Urobilinogen Urine Leukocytes Urine RBC Urine WBC Ur Squamous Epith Cells Urine Bacteria Urine Mucus Ur Culture Indicated? Ur L.pneumophila Ag Ur Strep pneumoniae Ag 07/19/16 04:04 WBC RBC Hgb Hct MCV MCH MCHC RDW Plt Count MPV Neut % (Auto) Lymph % (Auto) [place] % (Auto) Eos % (Auto) Baso % (Auto) Neut # (Auto) Lymph # (Auto) [place] # (Auto) Eos # (Auto) Baso # (Auto) Total Counted Immature Gran % Nucleated RBC % Immature Gran # Segmented Neutrophils Band Neutrophils Lymphocytes Monocytes Metamyelocytes Myelocytes Nucleated RBCs # Platelet Estimate Hypochromasia Sodium Potassium Chloride Carbon Dioxide Anion Gap BUN Creatinine GFR Calculation BUN/Creatinine Ratio Glucose Calculated Osmolality Calcium Magnesium 1.7 L Total Bilirubin AST ALT Alkaline Phosphatase B-Natriuretic Peptide Total Protein Albumin Globulin Albumin/Globulin Ratio Urine Color Urine Appearance Urine pH Ur Specific [place] Urine Protein Urine Glucose (UA) Urine Ketones Urine Blood Urine Nitrate Urine Bilirubin Urine Urobilinogen Urine Leukocytes Urine RBC Urine WBC Ur Squamous Epith Cells Urine Bacteria Urine Mucus Ur Culture Indicated? Ur L.pneumophila Ag Ur Strep pneumoniae Ag Specialty Discharge - Follow Up or Referrals - Discharge Medications No Action Sertraline [Zoloft] 12.5 mg PO BEDTIME Aspirin EC Tab 81 mg PO DAILY Metoprolol Tartrate Tab [Lopressor Tab] 25 mg PO DAILY Ergocalciferol (Vitamin D2) [Vitamin D2] 50,000 unit PO Q7D Digoxin Tab [Lanoxin Tab] 0.125 mg PO DAILY Celecoxib 200 mg PO DAILY Daniel Carlisle Thomas, MD, personally performed the services described in this documentation, ascribed by Albania Adler RN in my presence, and it is both accurate and complete .
--- NOTE | 2016-07-19 12:09 | Urology Progress Note ---
Assessment and Plan (1) Left renal mass Status: Acute Assessment and plan: We will order CT scan and abdomen and pelvis with and without contrast to define this mass. Current Visit: Yes Urology - PN: Subj Interval history: Patient is now in ICU apparently developed some arrhythmias and they're going to begin amiodarone. CT scan from yesterday revealed a cystic structure that appears to be proteinaceous/hemorrhagic. It does not enhance. She has stones in the right kidney unfortunately she has about a 1 centimeter stone in the proximal ureter. There is no hydronephrosis. This will need to be treated but we can do it later. I will check back on Friday. I called her daughter who understand is a physician but we just got her voicemail. I will discuss these findings with her next week. Exam - Constitutional Vitals: Period Temp Pulse Resp BP Sys/Rhodes Pulse Ox Last 24 Hr 97.5 F-98.4 F 60-140 18-27 120-160/68-90 84-100 Results - Labs CBC & BMP: 07/19/16 04:04 07/19/16 04:04 Specialty Discharge - Follow Up or Referrals - Discharge Medications No Action Sertraline [Zoloft] 12.5 mg PO BEDTIME Aspirin EC Tab 81 mg PO DAILY Metoprolol Tartrate Tab [Lopressor Tab] 25 mg PO DAILY Ergocalciferol (Vitamin D2) [Vitamin D2] 50,000 unit PO Q7D Digoxin Tab [Lanoxin Tab] 0.125 mg PO DAILY Celecoxib 200 mg PO DAILY
[2016-07-19] MEDS ORDERED: AMIODARONE INJ 150 MG in DEXTROSE 5% 100 ML IV ONE (12:30)
[2016-07-19] MEDS ORDERED: AMIODARONE INJ 450 MG in DEXTROSE 5% 241 ML IV SCH (12:30)
--- NOTE | 2016-07-19 14:01 | Nephrology Progress Note ---
Nephrology - PN: Subj Interval history: This is a late entry note for 07/18/2016. She was seen in the morning. No increase in shortness of breath. No GI symptoms. Exam (PN)-Nephrology - Vital Signs Vital signs: Period Temp Pulse Resp BP Sys/Rhodes Pulse Ox Last 24 Hr 97.5 F-98.4 F 60-140 18-27 120-160/68-90 84-100 Exam: ENT: Normal Cardiovascular: Regular rate and rhythm. No murmur rub or gallop Lungs: Decreased breath sounds left base Extremities: No edema - Lab 07/19/16 04:04 07/19/16 04:04 Most recent lab results ABG pH 7.254 (7.35-7.45) L 07/16/16 09:02 ABG pCO2 19.2 MM HG (35-48) L* 07/16/16 09:02 ABG pO2 118.8 MM HG (80-95) H 07/16/16 09:02 ABG HCO3 8.3 MMOL/L (20-26) L 07/16/16 09:02 ABG O2 Saturation 94.1 % (95-100) L 07/16/16 09:02 Calcium 7.8 MG/DL (8.5-10.1) L 07/19/16 04:04 Magnesium 1.7 MG/DL (1.8-2.4) L 07/19/16 04:04 Assessment and Plan (1) Hyperchloremic metabolic acidosis Status: Acute Assessment and plan: 80-year-old woman admitted with: * Pneumonia. Continue current antibiotics * Metabolic acidosis. Renal function remains normal. Urine anion gap normal * Hypokalemia * Mass versus cyst, left kidney. Ultrasound has been ordered Current Visit: Yes (2) Hypokalemia Status: Acute Current Visit: Yes (3) Left lower lobe pneumonia Status: Acute Current Visit: Yes Qualifiers: Pneumonia type: due to unspecified organism Qualified Code(s): J18.1 - Lobar pneumonia, unspecified organism (4) Left renal mass Status: Acute Current Visit: Yes Specialty Discharge - Follow Up or Referrals - Discharge Medications No Action Sertraline [Zoloft] 12.5 mg PO BEDTIME Aspirin EC Tab 81 mg PO DAILY Metoprolol Tartrate Tab [Lopressor Tab] 25 mg PO DAILY Ergocalciferol (Vitamin D2) [Vitamin D2] 50,000 unit PO Q7D Digoxin Tab [Lanoxin Tab] 0.125 mg PO DAILY Celecoxib 200 mg PO DAILY
--- NOTE | 2016-07-19 14:03 | Nephrology Progress Note ---
Nephrology - PN: Subj Interval history: She developed shortness of breath last p.m. and was transferred to the ICU. She developed A. fib with RVR. She has been treated with amiodarone and her heart rate is now in the 70s. Shortness of breath has improved significantly. She was given diuretics yesterday as well and fluid balance has been negative. Exam (PN)-Nephrology - Vital Signs Vital signs: Period Temp Pulse Resp BP Sys/Rhodes Pulse Ox Last 24 Hr 97.5 F-98.4 F 60-140 18-27 120-160/68-90 84-100 Exam: ENT: Normal Cardiovascular: Regular rate and rhythm. No murmur rub or gallop Lungs: Few scattered rhonchi Extremities: No edema - Lab 07/19/16 04:04 07/19/16 04:04 Most recent lab results ABG pH 7.254 (7.35-7.45) L 07/16/16 09:02 ABG pCO2 19.2 MM HG (35-48) L* 07/16/16 09:02 ABG pO2 118.8 MM HG (80-95) H 07/16/16 09:02 ABG HCO3 8.3 MMOL/L (20-26) L 07/16/16 09:02 ABG O2 Saturation 94.1 % (95-100) L 07/16/16 09:02 Calcium 7.8 MG/DL (8.5-10.1) L 07/19/16 04:04 Magnesium 1.7 MG/DL (1.8-2.4) L 07/19/16 04:04 Assessment and Plan (1) Hyperchloremic metabolic acidosis Status: Acute Assessment and plan: 80-year-old woman admitted with: * Pneumonia. Continue current antibiotics * Metabolic acidosis. This has improved. IV bicarbonate has been discontinued. UAG normal * Hypokalemia. Being replaced * Mass versus cyst, left kidney. This appears to be cyst. Nephrolithiasis noted on CT * A. fib with RVR. Improved with amiodarone. Current Visit: Yes (2) Hypokalemia Status: Acute Current Visit: Yes (3) Left lower lobe pneumonia Status: Acute Current Visit: Yes Qualifiers: Pneumonia type: due to unspecified organism Qualified Code(s): J18.1 - Lobar pneumonia, unspecified organism (4) Left renal mass Status: Acute Current Visit: Yes Specialty Discharge - Follow Up or Referrals - Discharge Medications No Action Sertraline [Zoloft] 12.5 mg PO BEDTIME Aspirin EC Tab 81 mg PO DAILY Metoprolol Tartrate Tab [Lopressor Tab] 25 mg PO DAILY Ergocalciferol (Vitamin D2) [Vitamin D2] 50,000 unit PO Q7D Digoxin Tab [Lanoxin Tab] 0.125 mg PO DAILY Celecoxib 200 mg PO DAILY
--- NOTE | 2016-07-19 15:01 | Post Interventional Procedure ---
Pre-op diagnosis: pneumonia Post-op diagnosis: same Procedure: PICC line left arm Radiologist: Benedicto Nelson Anesthesia: local Specimens: none sent Estimated blood loss: none Complications: none Condition: stable
--- NOTE | 2016-07-19 15:49 | XRay Report ---
Exam: XR chest post procedure Indication: PICC line placement Comparison study: Prior radiograph 07/19/16 Findings: The heart, mediastinum and bony structures are stable from prior. Diffusely prominent patchy airspace opacities throughout both lungs are noted likely represent multifocal infectious/inflammatory infiltrates. There is no pneumothorax. There is no significant pleural effusion. Left-sided PICC line is noted in position with the tip terminating at cavoatrial junction. Postsurgical changes left proximal humerus are similar prior. Osteopenia is noted. Median sternotomy wiring is noted. Impression: Left-sided PICC line placement. No pneumothorax or other postprocedural complication. Multifocal infectious/inflammatory infiltrates appear essentially similar to prior. PROCEDURE INTERPRETED AT [facility] DEPARTMENT OF RADIOLOGY Final Report Signed by: Celso Meyers
--- NOTE | 2016-07-19 16:58 | Ultrasound Report ---
IR PICC line insertion, US guide vascular access Indication: Pneumonia. IV access required for therapy. PICC LINE AT BEDSIDE Description: A formal timeout was performed. Maximum sterile barrier technique was used. Sonographic evaluation of the left upper extremity demonstrates patent and compressible brachial vein. The upper arm was prepped and draped in sterile fashion. 3 cc 1% lidocaine was administered subcutaneously. Under sonographic guidance, a micropuncture needle was advanced into the vein. A captured sonographic image documents the position of the needle. Needle was exchanged over a wire for a peel-away sheath. A dual lumen power PICC, 40 cm long, was advanced over the wire until the tip was at the RA-SVC junction. The wire and sheath were removed. Both ports of the PICC were aspirated and flushed with heparinized saline. The device was secured with a StatLock. A post procedure chest radiograph was then obtained to document the position of the catheter in PACS. It shows catheter tip at the RA-SVC junction Fluoroscopy: Not relevant. Impression: PICC line ready for immediate use. Routine catheter care. Chest radiograph detailed above post procedure. PROCEDURE INTERPRETED AT [facility] DEPARTMENT OF RADIOLOGY Final Report Signed by: Benedicto Nelson M.D.
[2016-07-19] MEDS ORDERED: POTASSIUM CHLORIDE RIDER 100 ML IV ONE ×2 (17:27)
[2016-07-19] MEDS ORDERED: POTASSIUM CHLORIDE RIDER 10 MEQ in PREMIX 1 EACH IV PRN (17:33)
[2016-07-19] MEDS: ONDANSETRON 4 MG/2 ML VIAL IV PRN (17:35)
[2016-07-19] MEDS: AMIODARONE INJ 450 MG in DEXTROSE 5% 241 ML IV SCH ×2 (17:35→20:28)
[2016-07-19] MEDS: POTASSIUM CHLORIDE RIDER 20 MEQ in PREMIX 1 EACH IV PRN ×2 (17:39→19:54)
[2016-07-19] MEDS: ENOXAPARIN 40 MG/0.4 ML SYRINGE SUBCUT SCH (21:12)
[2016-07-19] MEDS: LEVOFLOXACIN INJ 750 MG in PREMIX 1 EACH IV SCH (21:12)
[2016-07-19] MEDS: SERTRALINE 25 MG TABLET PO SCH (21:13)
[2016-07-20] MEDS: methylPREDNISolone SOD SUC 40 MG/1 ML VIAL IV SCH ×3 (00:48→18:06)
[2016-07-20] MEDS: POTASSIUM CHLORIDE RIDER 20 MEQ in PREMIX 1 EACH IV PRN (01:45)
[2016-07-20 01:49] LABS: Calcium 7.3 MG/DL (8.5-10.1); Magnesium 1.6 MG/DL (1.8-2.4); Osmolality,Calculated 291.8 MOS/KG (273-304); Potassium 3.4 MMOL/L (3.5-5.1)
[2016-07-20] MEDS: AZTREONAM 2,000 MG in SODIUM CHLORIDE 0.9% 100 ML IV SCH ×3 (03:27→21:16)
[2016-07-20] MEDS: ALBUTEROL/IPRATROPIUM 3 ML NEB RESP TX SCH ×6 (03:35→23:21)
[2016-07-20] MEDS: VANCOMYCIN INJ 750 MG in SODIUM CHLORIDE 0.9% 250 ML IV SCH ×2 (05:21→18:08)
[2016-07-20] MEDS: ONDANSETRON 4 MG/2 ML VIAL IV PRN ×2 (05:31→08:47)
[2016-07-20] MEDS ORDERED: MAGNESIUM SULF RIDER 2 GM in PREMIX 1 EACH IV ONE (07:28)
--- NOTE | 2016-07-20 08:16 | Cardiology Progress Note ---
Cardiology - PN: Subj Interval history: Cardiology note 80-year-old woman admitted with progressive left lower lobe pneumonia and superimposed CHF. She went into atrial fibrillation and converted chemically with IV amiodarone. Today her pulse is in the 80s and regular. BNP level was 1800 Blood pressure is 150/78. O2 sat 97 on 3 L cannula. Decreased breath sounds scattered rhonchi Regular rhythm no gallop or murmur Abdomen soft benign No leg edema Lab data today sodium 144 potassium is up to 3.4 chloride 109 CO2 27 BUN 18 creatinine 0.70 Glucose 179 magnesium 1.6 Impression Progressive left lower lobe pneumonia Superimposed CHF Status post single-vessel CABG 1986 [place] Status post ablation for SVT [place] 30 years ago For recurrent atrial fibrillation-now in sinus on IV amiodarone Status post partial gastrectomy for peptic ulcer disease Chronic anemia History of multiple transfusions [place] 105 pounds Left renal kidney mass being evaluated by Dr. Han Wang Broad-spectrum IV antibiotics steroids and nebs 40 mg Lasix Echo Doppler Replace potassium No family present at this time Exam (Progress Note) - Constitutional Vitals: Period Temp Pulse Resp BP Sys/Rhodes Pulse Ox Last 24 Hr 96.6 F-97.9 F 64-148 15-28 107-156/52-98 92-100 Result/EKG - Labs CBC & BMP: 07/19/16 04:04 07/20/16 01:00 Labs: Laboratory Results - last 24 hr 07/19/16 07/19/16 07/20/16 05:00 16:45 01:00 Sodium 144 Potassium 2.8 L 3.4 L Chloride 109 H Carbon Dioxide 23 Anion Gap 15.4 H BUN 18 Creatinine 0.70 GFR Calculation 68 BUN/Creatinine Ratio 25.00 H Glucose 179 H Calculated Osmolality 291.8 Calcium 7.3 L Magnesium 1.6 L Digoxin 0.60 L 07/20/16 01:00 Sodium Potassium 3.4 L Chloride Carbon Dioxide Anion Gap BUN Creatinine GFR Calculation BUN/Creatinine Ratio Glucose Calculated Osmolality Calcium Magnesium Digoxin Specialty Discharge - Follow Up or Referrals - Discharge Medications No Action Sertraline [Zoloft] 12.5 mg PO BEDTIME Aspirin EC Tab 81 mg PO DAILY Metoprolol Tartrate Tab [Lopressor Tab] 25 mg PO DAILY Ergocalciferol (Vitamin D2) [Vitamin D2] 50,000 unit PO Q7D Digoxin Tab [Lanoxin Tab] 0.125 mg PO DAILY Celecoxib 200 mg PO DAILY
[2016-07-20] MEDS ORDERED: FUROSEMIDE 40 MG/4 ML VIAL IV ONE (08:28)
[2016-07-20] MEDS: SPIRONOLACTONE 25 MG TABLET PO SCH ×2 (08:34→21:17)
[2016-07-20] MEDS: ASPIRIN EC 81 MG TABLET PO SCH (08:34)
[2016-07-20] MEDS: METOPROLOL TARTRATE 25 MG TABLET PO SCH (08:34)
[2016-07-20] MEDS: PANTOPRAZOLE 40 MG TABLET PO SCH (08:34)
--- NOTE | 2016-07-20 10:06 | Pulmonology Progress Note ---
Pulmonary - PN: Subj Interval history: This is an 80-year-old female. I am seeing her for Dr. karely Caballeroes. I discussed the case with Dr. Bro Bajwa this morning. This patient had a left lower lung pneumonia. She was in ICU for a few days. She had a metabolic acidosis thought to be secondary to renal tubular acidosis. She received fluids and bicarb and was thought to be a little wet. On 2008 she was being diuresed. She became tachycardic and developed a rapid atrial fib. She was seen by cardiology and was moved to ICU. She has had a relatively stable night. Her daughter is at [facility]. I did not see her daughter this morning. Chest x-ray from 07/19/2016 shows a right lower lung infiltrate and there appears to be mild underlying congestive heart failure. I will repeat her x-ray today and tomorrow and also get additional labs such as a BNP. BNP on 07/19/2016 was 1889 today's potassium is 3.4 up from 2.8. White blood cell count yesterday was 23,400. Patient has no positive cultures. Physical exam. Vital signs. See below Psychiatric. Oriented 3. Patient says she feels a little better. Neurologic. Cranial nerves are grossly intact. Patient moves all 4 extremities. Eyes face lips and tongue appear to be normal Neck. Symmetrical. Slightly kyphotic. No meningismus. Lymphatics. No submandibular cervical supraclavicular or epitrochlear adenopathy. Chest prominent large airway congestion and bibasilar rales. Heart. Regular. Abdomen. Nontender. Positive bowel sounds. Extremities. Both lower extremities show small amount of edema. No obvious deep venous thrombophlebitis. The remainder the exam is negative. Plan. 1. Follow-up chest x-rays 2. Follow-up CBC 3. No changes were made in present regimen. Exam (Progress Note) - Constitutional Vitals: Period Temp Pulse Resp BP Sys/Rhodes Pulse Ox Last 24 Hr 96.6 F-97.9 F 64-148 15-28 107-161/52-98 92-100 Results - Labs CBC & BMP: 07/19/16 04:04 07/20/16 01:00 Specialty Discharge - Follow Up or Referrals - Discharge Medications No Action Sertraline [Zoloft] 12.5 mg PO BEDTIME Aspirin EC Tab 81 mg PO DAILY Metoprolol Tartrate Tab [Lopressor Tab] 25 mg PO DAILY Ergocalciferol (Vitamin D2) [Vitamin D2] 50,000 unit PO Q7D Digoxin Tab [Lanoxin Tab] 0.125 mg PO DAILY Celecoxib 200 mg PO DAILY
[2016-07-20 10:24] LABS: Basophils # 0.1 10*3/uL (0.0-0.2); Basophils % 0.2 % (0.0-0.8); Hematocrit 30.1 VOL% (35.7-47.0); Hemoglobin 10.2 GM/DL (12.0-16.0); Immature Granulocytes % 26.4 %; Immature Granulocytes Absolute 6.52 #; Lymphocytes # 0.8 10*3/uL (1.4-4.0); Lymphocytes % 3.1 % (21.3-54.2); Mean Corpuscular HGB Conc 33.9 GM/DL (32-36); Mean Corpuscular Hemoglobin 30 PG (27-34); Mean Corpuscular Volume 89.6 FL (87-102); Mean Platelet Volume 10.9 FL (9.6-12.0); Monocytes # 1.6 10*3/uL (0.11-0.8); Monocytes % 6.6 % (1.7-12.7); NRBC # 0.08 10*3/uL; Neutrophils # 15.7 10*3/uL (1.4-7.4); Neutrophils % 63.7 % (38.7-73.9); Platelet Count 195 10*3/uL (130-400); Red Blood Count 3.36 10*6/uL (3.8-5.5); Red Cell Distribution Width 14.7 % (9.3-17.3); White Blood Count 24.7 10*3/uL (4.5-13.71)
--- NOTE | 2016-07-20 10:43 | XRay Report ---
History: Pneumonia. CHF Date: 07/20/2016 at 10:17 AM Study: Chest x-ray AP portable Comparison exam: Chest x-ray 07/19/2016 The left PICC line is in stable satisfactory position. There is stable mild cardiomegaly. The mediastinal contours are unchanged in this patient status post prior median sternotomy. There is continued patchy and hazy infiltrate in the left mid to lower lung and right perihilar region. These changes are grossly similar when allowing for differences in technique and inspiration. There is no increasing pleural effusion. There is no pneumothorax. The osseous structures are unchanged. A left shoulder prosthesis is noted. Impression: Continued bilateral pneumonia, grossly similar PROCEDURE INTERPRETED AT [facility] DEPARTMENT OF RADIOLOGY Final Report Signed by: Dr. Mary Lindsay
--- NOTE | 2016-07-20 12:16 | Hospitalist Progress Note ---
Assessment and Plan (1) Left lower lobe pneumonia Status: Acute Assessment and plan: Patient receiving Levaquin and aztreonam And vancomycin. Pulmonary following. moved to ICU for worsening tachycardia and tachypnea- now improved Current Visit: Yes Qualifiers: Pneumonia type: due to unspecified organism Qualified Code(s): J18.1 - Lobar pneumonia, unspecified organism (2) Dehydration Status: Resolved Assessment and plan: Continue IV fluid hydration.- stopped due to fluid overload Current Visit: Yes (3) Arrhythmia Status: Resolved Assessment and plan: Patient with history of SVT requiring ablation. Currently on digoxin. Follows with cardiology Dr. Bautista. Rate elevated. digoxin level low. Potassium is low. Current Visit: Yes Qualifiers: Arrhythmia type: supraventricular tachycardia Qualified Code(s): I47.1 - Supraventricular tachycardia (4) Hypokalemia Status: Acute Assessment and plan: replace with IV KCL Current Visit: Yes (5) RTA (renal tubular acidosis) Status: Acute Assessment and plan: bicarb drip stopped due to fluid overload. nephrology following urine electrolytes to be reviewed Current Visit: Yes (6) Renal mass Status: Ruled-out Assessment and plan: ct shows cyst- benign appearing Current Visit: Yes Hospitalist: Subjective Interval history: Patient seen and examined in the intensive care unit this morning. No acute events overnight. She reports abdominal discomfort that is located more so on the left lower quadrant. Adrian catheter is in place. She also complains of some nausea without vomiting. Chest x-ray reveals bilateral pneumonia for which she is receiving IV antibiotics and is being followed by pulmonary. Her HIV fibrillation has been rate controlled with the addition of amiodarone in conjunction with her digoxin. Her potassium levels are improved this morning. She is followed by pulmonary cardiology and nephrology during this hospitalization. I will start her on Megace for appetite stimulation as well order a KUB to evaluate her abd discomfort. Exam - Constitutional Vitals: Period Temp Pulse Resp BP Sys/Rhodes Pulse Ox Last 24 Hr 96.6 F-97.9 F 64-101 15-28 107-161/52-98 92-100 General appearance: no acute distress - Head Head exam: Present: normal inspection, normocephalic, atraumatic - Eye Eye exam: Present: EOMI Pupils: Present: CESAR - Respiratory Respiratory exam: Present: decreased breath sounds, rales - Cardiovascular Cardiovascular exam: Present: irregular rhythm - GI/Abdominal GI/Abdominal exam: Present: normal bowel sounds, soft. Absent: tenderness, rebound - Extremities Exam Extremities exam: Absent: edema - Neurological Exam Neurological exam: Present: alert, oriented X3 - Psychiatric Psychiatric exam: Present: normal affect, normal mood - Skin Skin exam: Present: normal color, warm, dry Results - Labs CBC & BMP: 07/20/16 10:14 07/20/16 01:00 Lab Results: I have reviewed the past 24 hour labs Specialty Discharge - Follow Up or Referrals - Discharge Medications No Action Sertraline [Zoloft] 12.5 mg PO BEDTIME Aspirin EC Tab 81 mg PO DAILY Metoprolol Tartrate Tab [Lopressor Tab] 25 mg PO DAILY Ergocalciferol (Vitamin D2) [Vitamin D2] 50,000 unit PO Q7D Digoxin Tab [Lanoxin Tab] 0.125 mg PO DAILY Celecoxib 200 mg PO DAILY
[2016-07-20 12:21] LABS: Band Neutrophils 3 % (0-10); Eosinophils 1 % (0-10); Hypochromasia Slight; Lymphocytes 5 % (20-55); Myelocytes 2 %; Platelet Estimate Adequate; Segmented Neutrophils 84 % (50-85); Total Cells Counted 100
--- NOTE | 2016-07-20 12:27 | Nephrology Progress Note ---
Nephrology - PN: Subj Interval history: Patient denies shortness of breath. Review of systems GI she denies nausea or vomiting Physical exam general patient's chronically ill-appearing, heart is regular rate and rhythm, she has no pitting edema, lungs are clear to auscultation anteriorly, abdomen is soft with positive bowel sounds Assessment/plan 1. Pneumonia continue antibiotics 2. Metabolic acidosis this is resolved 3. Acute renal failure-patient's urine output is good her creatinine is good 4. Anemia patient's hematocrit is 30% 5. Hypokalemia-this is being supplemented Exam (PN)-Nephrology - Vital Signs Vital signs: Period Temp Pulse Resp BP Sys/Rhodes Pulse Ox Last 24 Hr 96.6 F-97.9 F 64-101 15-28 107-161/52-98 92-100 - Lab 07/20/16 10:14 07/20/16 01:00 Most recent lab results ABG pH 7.254 (7.35-7.45) L 07/16/16 09:02 ABG pCO2 19.2 MM HG (35-48) L* 07/16/16 09:02 ABG pO2 118.8 MM HG (80-95) H 07/16/16 09:02 ABG HCO3 8.3 MMOL/L (20-26) L 07/16/16 09:02 ABG O2 Saturation 94.1 % (95-100) L 07/16/16 09:02 Calcium 7.3 MG/DL (8.5-10.1) L 07/20/16 01:00 Magnesium 1.6 MG/DL (1.8-2.4) L 07/20/16 01:00 Specialty Discharge - Follow Up or Referrals - Discharge Medications No Action Sertraline [Zoloft] 12.5 mg PO BEDTIME Aspirin EC Tab 81 mg PO DAILY Metoprolol Tartrate Tab [Lopressor Tab] 25 mg PO DAILY Ergocalciferol (Vitamin D2) [Vitamin D2] 50,000 unit PO Q7D Digoxin Tab [Lanoxin Tab] 0.125 mg PO DAILY Celecoxib 200 mg PO DAILY
[2016-07-20] MEDS: AMIODARONE INJ 450 MG in DEXTROSE 5% 241 ML IV SCH (13:18)
[2016-07-20] MEDS: MEGESTROL 40 MG TABLET PO SCH ×2 (14:29→21:19)
[2016-07-20] MEDS ORDERED: SODIUM PHOSPHATE ENEMA 133 ML BOTTLE RECTAL PRN (18:16)
[2016-07-20] MEDS ORDERED: MAGNESIUM CITRATE 300 ML BOTTLE PO ONE (18:17)
--- NOTE | 2016-07-20 18:38 | XRay Report ---
History: Abdominal pain Date: 07/20/2016 Study: KUB Comparison exam: No previous KUB The bowel gas pattern is nonspecific without eliza mechanical obstruction or gross mass lesion. Surgical clips overlie the right upper quadrant. Phleboliths overlie the pelvis. There is prominent osteopenia. There is moderate lumbar levoscoliosis and mild scattered lumbar degenerative disc narrowing. Impression: Nonspecific bowel gas pattern. No definite acute process PROCEDURE INTERPRETED AT [facility] [place] DEPARTMENT OF RADIOLOGY Final Report Signed by: Dr. Mary Lindsay
[2016-07-20] MEDS: SERTRALINE 25 MG TABLET PO SCH (21:17)
[2016-07-20] MEDS: LEVOFLOXACIN INJ 750 MG in PREMIX 1 EACH IV SCH (21:17)
[2016-07-20] MEDS: DOCUSATE SODIUM 100 MG CAPSULE PO SCH (21:18)
[2016-07-20] MEDS: ENOXAPARIN 40 MG/0.4 ML SYRINGE SUBCUT SCH (21:19)
[2016-07-21] MEDS: methylPREDNISolone SOD SUC 40 MG/1 ML VIAL IV SCH ×3 (01:00→16:10)
[2016-07-21] MEDS: AZTREONAM 2,000 MG in SODIUM CHLORIDE 0.9% 100 ML IV SCH ×4 (01:03→20:41)
[2016-07-21] MEDS ORDERED: ALUM/MAG/SIMETH/LIDO VISC 1:1 30 ML BOTTLE PO ONE (02:08)
[2016-07-21] MEDS: AMIODARONE INJ 450 MG in DEXTROSE 5% 241 ML IV SCH ×2 (02:21→16:13)
[2016-07-21] MEDS: MORPHINE 2 MG/1 ML SYRINGE IV PRN ×3 (03:21→13:49)
[2016-07-21] MEDS: ALBUTEROL/IPRATROPIUM 3 ML NEB RESP TX SCH ×6 (03:32→23:09)
[2016-07-21 05:15] LABS: Basophils # 0.1 10*3/uL (0.0-0.2); Basophils % 0.3 % (0.0-0.8); Hematocrit 27.6 VOL% (35.7-47.0); Hemoglobin 9.2 GM/DL (12.0-16.0); Immature Granulocytes % 26.5 %; Immature Granulocytes Absolute 5.46 #; Lymphocytes # 0.8 10*3/uL (1.4-4.0); Lymphocytes % 3.8 % (21.3-54.2); Mean Corpuscular HGB Conc 33.3 GM/DL (32-36); Mean Corpuscular Hemoglobin 30 PG (27-34); Mean Corpuscular Volume 89.6 FL (87-102); Monocytes # 1.5 10*3/uL (0.11-0.8); Monocytes % 7.3 % (1.7-12.7); NRBC # 0.05 10*3/uL; Neutrophils # 12.8 10*3/uL (1.4-7.4); Neutrophils % 62.1 % (38.7-73.9); Platelet Count 181 10*3/uL (130-400); Red Blood Count 3.08 10*6/uL (3.8-5.5); Red Cell Distribution Width 14.8 % (9.3-17.3); White Blood Count 20.6 10*3/uL (4.5-13.71)
[2016-07-21 05:34] LABS: Calcium 7.9 MG/DL (8.5-10.1); Osmolality,Calculated 299.4 MOS/KG (273-304); Potassium 2.8 MMOL/L (3.5-5.1)
[2016-07-21] MEDS: POTASSIUM CHLORIDE RIDER 20 MEQ in PREMIX 1 EACH IV PRN ×3 (05:51→14:03)
[2016-07-21 06:11] LABS: Band Neutrophils 3 % (0-10); Lymphocytes 7 % (20-55); Metamyelocytes 5 %; Myelocytes 1 %; Segmented Neutrophils 79 % (50-85); Total Cells Counted 100
[2016-07-21 06:12] LABS: Hypochromasia 1+; Platelet Estimate Adequate
--- NOTE | 2016-07-21 07:28 | Nephrology Progress Note ---
Nephrology - PN: Subj Interval history: Patient is without complaints Physical exam general the patient's chronically ill-appearing, heart is regular rate and rhythm, she has no pitting edema, lungs are clear to auscultation on the right, she has some basilar crackles on the left, abdomen-soft with positive bowel sounds Assessment/plan 1. Pneumonia continue antibiotics 2. Metabolic acidosis-this is resolved 3. Acute renal failure this is resolved 4. Hematuria-I'll hold her in the enoxaparin. She does have sequential compression devices and on for DVT prophylaxis, we will also remove her Adrian catheter Exam (PN)-Nephrology - Vital Signs Vital signs: Period Temp Pulse Resp BP Sys/Rhodes Pulse Ox Last 24 Hr 96.7 F-97.5 F 65-91 12-24 104-161/52-85 92-100 - Lab 07/21/16 04:45 07/21/16 04:45 Most recent lab results ABG pH 7.254 (7.35-7.45) L 07/16/16 09:02 ABG pCO2 19.2 MM HG (35-48) L* 07/16/16 09:02 ABG pO2 118.8 MM HG (80-95) H 07/16/16 09:02 ABG HCO3 8.3 MMOL/L (20-26) L 07/16/16 09:02 ABG O2 Saturation 94.1 % (95-100) L 07/16/16 09:02 Calcium 7.9 MG/DL (8.5-10.1) L 07/21/16 04:45 Magnesium 1.6 MG/DL (1.8-2.4) L 07/20/16 01:00 Specialty Discharge - Follow Up or Referrals - Discharge Medications No Action Sertraline [Zoloft] 12.5 mg PO BEDTIME Aspirin EC Tab 81 mg PO DAILY Metoprolol Tartrate Tab [Lopressor Tab] 25 mg PO DAILY Ergocalciferol (Vitamin D2) [Vitamin D2] 50,000 unit PO Q7D Digoxin Tab [Lanoxin Tab] 0.125 mg PO DAILY Celecoxib 200 mg PO DAILY
--- NOTE | 2016-07-21 08:15 | Cardiology Progress Note ---
Cardiology - PN: Subj Interval history: Cardiology note Frail 80-year-old woman admitted with left lower lobe pneumonia that has progressed. Also developed atrial fibrillation that converted with IV amiodarone and CHF Poor appetite. Lower abdominal discomfort. Bowel sounds active. Telemetry shows steady sinus rhythm 80s-90s O2 sat 95% on 3 L nasal cannula Blood pressure 130/74 Decreased breath sounds scattered rhonchi in both bases Regular rhythm no murmur or gallop Abdomen tender lower abdomen Received mag citrate yesterday and did have bowel movement Lab data today White count 20.6 hemoglobin 9.2 hematocrit 27.6 Sodium 147 potassium 2.8 chloride 108 CO2 26 BUN 22 creatinine 0.70 Glucose 190 Impression Extensive left lower lobe pneumonia Paroxysmal atrial fibrillation-converted to sinus with IV amiodarone Status post single-vessel CABG 1986 [place] Status post ablation for SVT [place] several years ago Status post partial gastrectomy for peptic ulcer disease Chronic anemia History of multiple transfusions Frail 105 pounds CHF due to atrial fibrillation diastolic dysfunction Recent echo showed ejection fraction 60% with normal RV function, mildly dilated left atrium, aortic sclerosis, moderate TR PA pressure 50 Hypokalemia 2.8 Low abdominal pain Left renal mass, probable complex renal cyst Plan DC IV amiodarone changed to 200 mg p.o. twice daily, Potassium replacement IV antibiotics and nebs GI consult Exam (Progress Note) - Constitutional Vitals: Period Temp Pulse Resp BP Sys/Rhodes Pulse Ox Last 24 Hr 97 F-97.5 F 65-91 12-24 104-149/52-85 92-100 Result/EKG - Labs CBC & BMP: 07/21/16 04:45 07/21/16 04:45 Labs: Laboratory Results - last 24 hr 07/20/16 07/20/16 07/21/16 10:14 16:43 04:45 WBC 24.7 H 20.6 H RBC 3.36 L 3.08 L Hgb 10.2 L 9.2 L Hct 30.1 L 27.6 L MCV 89.6 89.6 MCH 30 30 MCHC 33.9 33.3 RDW 14.7 14.8 Plt Count 195 181 MPV 10.9 11.0 Neut % (Auto) 63.7 62.1 Lymph % (Auto) 3.1 L 3.8 L Mercer % (Auto) 6.6 7.3 Eos % (Auto) 0.0 0.0 Baso % (Auto) 0.2 0.3 Neut # (Auto) 15.7 H 12.8 H Lymph # (Auto) 0.8 L 0.8 L Mercer # (Auto) 1.6 H 1.5 H Eos # (Auto) 0.0 0.0 Baso # (Auto) 0.1 0.1 Total Counted 100 100 Immature Gran % 26.4 26.5 Nucleated RBC % 0.3 0.2 Immature Gran # 6.52 5.46 Segmented Neutrophils 84 79 Band Neutrophils 3 3 Lymphocytes 5 L 7 L Monocytes 5 5 Eosinophils 1 Metamyelocytes 5 Myelocytes 2 1 Nucleated RBCs # 0.08 0.05 Platelet Estimate Adequate Adequate Hypochromasia Slight 1+ Morphology Comment Sodium Potassium Chloride Carbon Dioxide Anion Gap BUN Creatinine GFR Calculation BUN/Creatinine Ratio Glucose Calculated Osmolality Calcium Vancomycin Trough 20.1 H 07/21/16 04:45 WBC RBC Hgb Hct MCV MCH MCHC RDW Plt Count MPV Neut % (Auto) Lymph % (Auto) Mercer % (Auto) Eos % (Auto) Baso % (Auto) Neut # (Auto) Lymph # (Auto) Mercer # (Auto) Eos # (Auto) Baso # (Auto) Total Counted Immature Gran % Nucleated RBC % Immature Gran # Segmented Neutrophils Band Neutrophils Lymphocytes Monocytes Eosinophils Metamyelocytes Myelocytes Nucleated RBCs # Platelet Estimate Hypochromasia Morphology Comment Sodium 147 H Potassium 2.8 L Chloride 108 H Carbon Dioxide 26 Anion Gap 15.8 H BUN 22 H Creatinine 0.70 GFR Calculation 67 BUN/Creatinine Ratio 31.00 H Glucose 190 H Calculated Osmolality 299.4 Calcium 7.9 L Vancomycin Trough Specialty Discharge - Follow Up or Referrals - Discharge Medications No Action Sertraline [Zoloft] 12.5 mg PO BEDTIME Aspirin EC Tab 81 mg PO DAILY Metoprolol Tartrate Tab [Lopressor Tab] 25 mg PO DAILY Ergocalciferol (Vitamin D2) [Vitamin D2] 50,000 unit PO Q7D Digoxin Tab [Lanoxin Tab] 0.125 mg PO DAILY Celecoxib 200 mg PO DAILY
--- NOTE | 2016-07-21 08:22 | Hospitalist Progress Note ---
Assessment and Plan (1) Left lower lobe pneumonia Status: Acute Assessment and plan: Patient receiving Levaquin and aztreonam And vancomycin. Pulmonary following. Yesterday's chest x-ray showed some infiltrates in the right side also. Current Visit: Yes Qualifiers: Pneumonia type: due to unspecified organism Qualified Code(s): J18.1 - Lobar pneumonia, unspecified organism (2) Dehydration Status: Resolved Assessment and plan: Continue IV fluid hydration.- stopped due to fluid overload Current Visit: Yes (3) Arrhythmia Status: Resolved Assessment and plan: Patient with history of SVT requiring ablation. Currently on amiodarone. Follows with cardiology Dr. Bautista. Now in sinus rhythm. Transition to oral amiodarone today. Replace potassium. Current Visit: Yes Qualifiers: Arrhythmia type: supraventricular tachycardia Qualified Code(s): I47.1 - Supraventricular tachycardia (4) Hypokalemia Status: Acute Assessment and plan: replace with IV KCL Current Visit: Yes (5) RTA (renal tubular acidosis) Status: Acute Assessment and plan: bicarb drip stopped due to fluid overload. nephrology following urine electrolytes to be reviewed Current Visit: Yes (6) Renal mass Status: Ruled-out Assessment and plan: ct shows cyst- benign appearing Current Visit: Yes (7) Abdominal pain Status: Acute Assessment and plan: Hx of partial gastric resection. no with no appetite and persistent nausea. Current Visit: Yes Qualifiers: Abdominal location: epigastric Qualified Code(s): R10.13 - Epigastric pain (8) Failure to thrive Status: Acute Assessment and plan: consult GI Current Visit: Yes Qualifiers: Failure to thrive age range: in adult Qualified Code(s): R62.7 - Adult failure to thrive Hospitalist: Subjective Interval history: Patient seen and examined. She continues to have pain in her abdomen. It's in the left lower quadrant and in the epigastric area. She did have a bowel movement with magnesium citrate administration yesterday evening. She is not eating at all. She has no appetite. I started Megace yesterday. She is being transitioned from an amiodarone drip to amiodarone by mouth. She is in a normal sinus rhythm and her heart rate is controlled. Case discussed with cardiology and the nurse at the bedside. We'll consult gastroenterology for her persistent nausea and abdominal pain. She does have a history of partial gastrectomy And has had anemia during this hospitalization requiring transfusion Exam - Constitutional Vitals: Period Temp Pulse Resp BP Sys/Rhodes Pulse Ox Last 24 Hr 97 F-97.5 F 65-91 12-24 104-149/52-85 92-100 General appearance: no acute distress, under weight - Head Head exam: Present: normal inspection, normocephalic - Eye Eye exam: Present: EOMI Pupils: Present: CESAR - Respiratory Respiratory exam: Present: rhonchi (left lung) - Cardiovascular Cardiovascular exam: Present: regular rate and rhythm - GI/Abdominal GI/Abdominal exam: Present: normal bowel sounds, tenderness (left lower quadrant and epigastric area), soft - Neurological Exam Neurological exam: Present: alert, oriented X3 - Psychiatric Psychiatric exam: Present: normal affect, normal mood - Skin Skin exam: Present: normal color, warm, dry Results - Labs CBC & BMP: 07/21/16 04:45 07/21/16 04:45 Lab Results: I have reviewed the past 24 hour labs Specialty Discharge - Follow Up or Referrals - Discharge Medications No Action Sertraline [Zoloft] 12.5 mg PO BEDTIME Aspirin EC Tab 81 mg PO DAILY Metoprolol Tartrate Tab [Lopressor Tab] 25 mg PO DAILY Ergocalciferol (Vitamin D2) [Vitamin D2] 50,000 unit PO Q7D Digoxin Tab [Lanoxin Tab] 0.125 mg PO DAILY Celecoxib 200 mg PO DAILY
[2016-07-21] MEDS: SPIRONOLACTONE 25 MG TABLET PO SCH ×2 (08:30→20:41)
[2016-07-21] MEDS: PANTOPRAZOLE 40 MG TABLET PO SCH (08:30)
[2016-07-21] MEDS: ASPIRIN EC 81 MG TABLET PO SCH (08:30)
[2016-07-21] MEDS: DOCUSATE SODIUM 100 MG CAPSULE PO SCH ×2 (08:30→20:40)
[2016-07-21] MEDS: METOPROLOL TARTRATE 25 MG TABLET PO SCH (08:31)
[2016-07-21] MEDS: MEGESTROL 40 MG TABLET PO SCH ×3 (08:31→20:39)
[2016-07-21] MEDS: POLYETHYLENE GLYCOL POWDER 17 GM PACK PO SCH (08:31)
--- NOTE | 2016-07-21 08:38 | XRay Report ---
History: Pneumonia Date: 07/21/2016 Study: Chest x-ray portable Comparison exam: 07/20/2016 portable chest x-ray A left PICC line is stable in appearance. There is continued patchy and hazy pneumonia in the left mid to lower lung with mild changes in the right mid to lower lung as well. There has been minimal interval improvement. There is no new or worsening infiltrate. The cardiomediastinal silhouette is unchanged. There is no increasing pleural effusion. The osseous structures are unchanged. Impression: Continued pneumonia with slight interval improvement PROCEDURE INTERPRETED AT [facility] DEPARTMENT OF RADIOLOGY Final Report Signed by: Dr. Mary Lindsay
--- NOTE | 2016-07-21 10:57 | Pulmonology Progress Note ---
Pulmonary - PN: Subj Interval history: This is an 80-year-old female. I am seeing her for Dr. karely Galeas. I discussed the case with Dr. Bro Bajwa this morning. This patient had a left lower lung pneumonia. She was in ICU for a few days. She had a metabolic acidosis thought to be secondary to renal tubular acidosis. She received fluids and bicarb and was thought to be a little wet. On 2008 she was being diuresed. She became tachycardic and developed a rapid atrial fib. She was seen by cardiology and was moved to ICU. She has had a relatively stable night. Her daughter is at [facility]. I did not see her daughter this morning. Chest x-ray from 07/19/2016 shows a right lower lung infiltrate and there appears to be mild underlying congestive heart failure. I will repeat her x-ray today and tomorrow and also get additional labs such as a BNP. BNP on 07/19/2016 was 1889 today's potassium is 3.4 up from 2.8. White blood cell count yesterday was 23,400. Patient has no positive cultures. 07/20/2016. Today's chest x-ray is much better. Pulmonary edema is close to resolve. There is a left lower lung infiltrate which is not completely resolved. The only new culture is a urine positive for yeast. White count remains elevated 20,662% segs H&H is 9.2/27.6. Platelets are 181,000. Sodium is 147. Potassium is low at 2.8 and is being replaced by protocol. Creatinine is 0.7. BUN is 22. On 07/19/2006 natruretic peptide was 1889. Physical exam. Vital signs. See below Psychiatric. Oriented 3. Patient says she feels a little better. Neurologic. Cranial nerves are grossly intact. Patient moves all 4 extremities. Eyes face lips and tongue appear to be normal Neck. Symmetrical. Slightly kyphotic. No meningismus. Lymphatics. No submandibular cervical supraclavicular or epitrochlear adenopathy. Chest prominent large airway congestion and bibasilar rales. Heart. Regular. Abdomen. Nontender. Positive bowel sounds. Extremities. Both lower extremities show small amount of edema. No obvious deep venous thrombophlebitis. The remainder the exam is negative. Plan. 1. 07/21/2016 follow-up chest x-rays #2. No changes were made in her regimen today. Exam (Progress Note) - Constitutional Vitals: Period Temp Pulse Resp BP Sys/Rhodes Pulse Ox Last 24 Hr 97 F-97.5 F 65-91 12-21 104-149/52-85 92-100 Results - Labs CBC & BMP: 07/21/16 04:45 07/21/16 04:45 Specialty Discharge - Follow Up or Referrals - Discharge Medications No Action Sertraline [Zoloft] 12.5 mg PO BEDTIME Aspirin EC Tab 81 mg PO DAILY Metoprolol Tartrate Tab [Lopressor Tab] 25 mg PO DAILY Ergocalciferol (Vitamin D2) [Vitamin D2] 50,000 unit PO Q7D Digoxin Tab [Lanoxin Tab] 0.125 mg PO DAILY Celecoxib 200 mg PO DAILY
--- NOTE | 2016-07-21 11:30 | Gastrointestinal Consult Note ---
Assessment and Plan - Time spent with patient Time spent with patient: Greater than 30 minutes (1) Anorexia Status: Acute Current Visit: Yes (2) Anemia Status: Acute Current Visit: Yes (3) Abdominal pain Status: Acute Current Visit: Yes Qualifiers: Abdominal location: epigastric Qualified Code(s): R10.13 - Epigastric pain (4) Other specified counseling Status: Acute Current Visit: Yes History of Present Illness History of present illness: Ms. Vila is a 80 year old female Home Medications Medication Instructions Recorded Confirmed Type Aspirin EC Tab 81 mg PO DAILY 07/15/16 07/15/16 History Celecoxib 200 mg PO DAILY 07/15/16 07/15/16 History Digoxin Tab [Lanoxin Tab] 0.125 mg PO DAILY 07/15/16 07/15/16 History Ergocalciferol (Vitamin D2) 50,000 unit PO Q7D 07/15/16 07/15/16 History [Vitamin D2] Metoprolol Tartrate Tab [Lopressor 25 mg PO DAILY 07/15/16 07/15/16 History Tab] Sertraline [Zoloft] 12.5 mg PO BEDTIME 07/15/16 07/15/16 History Allergies Allergy/AdvReac Type Severity Reaction Status Date / Time codeine Allergy Unknown/Unable Verified 07/15/16 13:58 to obtain Penicillins Allergy Unknown/Unable Verified 07/15/16 13:58 to obtain Medical,Surgical,& Family Hx - Medical History Cardio: History of: Cardiac Dysrhythmia (sinus tach), CAD, Hypertension, Cardiovascular Problems (cabg and ablation 30-35 years ago ) Neurology: History of: Cerebrovascular Accident Gastrointestinal: History of: GI Problems (hx colectomy with colostomy and reversal) Musculoskeletal: History of: Back/Neck Problems Hematology: No history of: Blood Transfusion Reaction - Surgical History Cardiac Surgeries: Sugical HX of: Cardiac Catheterization (within the last 5 years in [place] per daughter), Cardiac Surgery (CABG 30 years ago and ablation 35 years ago) HEENT Surgeries: Surgical HX of: Eye Surgery (bilateral cataracts), Tonsilectomy & Adenoidectomy Abdominal Surgeries: Surgical HX of: Abdominal Surgery (colectomy with colostomy and reversal), Appendectomy, Cholecystectomy, Hernia Repair Reproductive Surgeries: Surgical HX of;: Hysterectomy Orthopedic Surgeries: Surgical HX of;: Orthopedic Surgery (neck, lower back, left shoulder, carpal tunnel) - Family History Family History: Reports;: Family Diabetes (brother, sister), Family Heart Disease (father, brother, sister), Family Hypertension - Social History Smoking Status: Former smoker (quit 20 years ago) Frequency of Alcohol Use: None Type of Drug Use: None Exam - Constitutional Vitals: Period Temp Pulse Resp BP Sys/Rhodes Pulse Ox Last 24 Hr 97 F-97.5 F 69-91 12-21 104-149/52-85 92-100 Results - Labs CBC & BMP: 07/21/16 04:45 07/21/16 04:45 Specialty Discharge - Follow Up or Referrals - Discharge Medications No Action Sertraline [Zoloft] 12.5 mg PO BEDTIME Aspirin EC Tab 81 mg PO DAILY Metoprolol Tartrate Tab [Lopressor Tab] 25 mg PO DAILY Ergocalciferol (Vitamin D2) [Vitamin D2] 50,000 unit PO Q7D Digoxin Tab [Lanoxin Tab] 0.125 mg PO DAILY Celecoxib 200 mg PO DAILY Note Addendum: PLEASE NOTE -- automatic citation of patient information is unavoidable in this electronic note. I have made a reasonable effort to review the information cited , but it is not a part of my evaluation, impression, or recommendation unless specifically discussed in the dictated text that follows.~ As well, voice recognition software was used in the creation of this clinical note. Reasonable effort was made to identify and correct gross errors. Despite proofreading, errors in plant supervisor may be present, including nonsense verbiage at times. If you encounter such an error, please contact me at [phone] for discussion and correction. -- Tracey Chief complaint: anorexia, abdominal pain, anemia History of present illness: patient is an 80-year-old female, a new patient, seen for evaluation of anorexia, nausea, abdominal pain, and anemia. She is admitted to the intensive care unit under the care of Dr. Harris with a primary diagnosis of left lower lobe pneumonia. She was noted to be anemic on admission and has been transfused with packed red blood cells. She has not, however, noted any overt bleeding from any source. She reports chronic intermittent constipation and is currently constipated with no reported bowel movement in several days. With this, she notes that she has been having left lower quadrant abdominal pain, achy, waxing and waning, non-positional, improved after a bowel movement. She notes a history of colonic surgery with colostomy several years ago and believes this was because of bowel obstruction of some kind rather than because of cancer. The colostomy was reversed in a second stage procedure, also several years ago. She also notes some epigastric pain, also aching quality. She does not endorse regurgitation or heartburn per-se. She does note a history of peptic ulcer disease requiring partial gastrectomy around five years ago. She has not been eating reliably, neither before coming to the hospital nor now. When questioned on this point she reports that she just doesn' t want to eat. When she tries, she is able to chew, swallow, and retain food. She reports that she does want to live but does not want to eat. I asked, specifically, whether she would accept a feeding tube for the purpose of maintaining nutrition and she specifically and pointedly said no. Her primary physician has prescribed megace in hopes of improving her appetite. She is also taking Zofran in hopes of improving the nausea but this has not helped significantly. Patient denies fever, chills, night sweats, rigors, headache, dizziness, neck pain, visual changes, redness of the eyes, dysphagia, odynophagia, difficulty chewing, chest pain, shortness of breath, regurgitation, hematemesis, hematochezia, melena, proctalgia, dysuria, skin changes, temperature regulation issues, flushing, easy bleeding/bruising, mental status change, numbness/ weakness in the extremities, yellowing of the eyes/skin, cutaneous eruptions, family history of gastrointestinal cancer and colon polyps, and other complaints in general. Review of systems: 12 point review of systems was negative except as documented above. Inpatient medications: Tylenol, [place], provincial, Duoneb, amiodarone, aztreonam , Colace, Mucinex, Motrin, levofloxacin, megace, Solu-Medrol, Lopressor, morphine sulfate, Zofran, Protonix, MiraLAX, Zoloft, sodium chloride, Aldactone , vancomycin Past Medical History: cardiac disparate meal, coronary artery disease status post coronary artery bypass grafting, pneumonia, anemia, indeterminate renal mass Social history: negative tobacco. Negative alcohol ~ Family history: no gastrointestinal cancers Physical examination:~ Vital Signs: Current vital signs reviewed and documented above.~ General Appearance: lying in bed. Comfortable. Conversant. No acute distress. Head: Normocephalic.~ Neck: Palpation of the neck revealed no abnormalities.~ Eyes: No scleral icterus.~ No scleral injection.~ No conjunctival pallor.~ Oral Cavity: Odor of breath was normal. No drooling was observed. Lips showed no abnormalities. Floor of the mouth showed no abnormalities.~ Pharynx: Oropharynx was normal.~ Lungs: Respiration rhythm and depth was normal.~ Cardiovascular: Heart rate and rhythm were normal.~ Abdomen: abdomen was not distended. Abdominal palpation revealed minimal diffuse tenderness and no hepatosplenomegaly. Ascites was not discovered. Abdominal auscultation revealed positive bowel sounds. Musculoskeletal System: Musculoskeletal system was grossly normal.~ Neurological: level of consciousness was normal. Speech was normal. Skin: General appearance was normal. Color and pigmentation were normal. No skin lesions. ~ Laboratory: white blood count 21, hemoglobin 9.2, hematocrit 27.6, platelets 181 , ALT 80, AST 30, total bilirubin 0.5, alkaline phosphatase 119, albumin 2.6 Radiology: CT of the abdomen and pelvis with multiple findings With respect to the G.I. tract, the common bile duct is dilated at 1.1 cm status post cholecystectomy, and there is mild mesenteric edema.~ Impressions:~ 1. Abdominal pain -- this is likely multifactorial with contribution from constipation, functional pain, and acute medical illness. She has not been eating reliably for some time and this is likely contributing some to her irregular bowel pattern. We should continue to work to achieve regularity, and I would recommend a daily dose of MiraLAX or milk of magnesia. CT scan has not demonstrated any intra-abdominal etiology but it would not be unreasonable to pursue colonoscopy if this pain continues. 2. Anorexia -- the patient reports persistent nausea but I think this is probably volitional anorexia. We have discussed the obvious importance of maintaining nutrition and the patient has endorsed a clear understanding that if she does not eat she will . Along those lines, she has stated clearly that she does not wish to have any artificial feeding tube placed. She has said that she will try to take some food but is fairly clear that she does not want to eat. In these cases, mental health counseling can sometimes be helpful, and I would recommend this be pursued as expeditiously as possible. In any case, I have advised the patient to make clear to her family that it is her wish that she not be artificially fed by any means and she reports that she has done so. Continued megace is reasonable and may make some positive difference. I recommend, as well, upper endoscopy to ensure no evidence of mechanical obstruction or other hindrance to taking oral nutrition. 3. Anemia -- there is no overt gastrointestinal bleeding. This could be a malnutrition question but it is reasonable to continue monitoring blood counts. Endoscopic evaluation of the upper G.I. tract is planned and colonoscopy may be pursued as clinically indicated. 4. Other specified counseling:~ The patient was seen for greater than 30 minutes.~ The patient was counseled for greater than 50% of this time regarding differential diagnosis, likely diagnosis, diagnostic and therapeutic alternatives, risks/benefits/alternatives of medications and procedures, and plan of care generally.~ The patient expressed understanding and wishes to proceed. Recommendations: -- consider a daily osmotic laxative such as MiraLAX or milk of magnesia -- consider colonoscopy with timing based on clinical progress -- continue megace and urge oral intake~ -- schedule upper endoscopy for tomorrow -- patient has stated clearly she does not wish to have any artificial feeding tube placed -- consider mental health evaluation for volitional anorexia -- monitor blood counts with transfusion as indicated -- thank you for this consultation. Dr. Lindsay will assume G.I. care for this patient tomorrow
[2016-07-21] MEDS: VANCOMYCIN INJ 750 MG in SODIUM CHLORIDE 0.9% 250 ML IV SCH (12:12)
[2016-07-21] MEDS: SERTRALINE 25 MG TABLET PO SCH (20:38)
[2016-07-21] MEDS: AMIODARONE 200 MG TABLET PO SCH (20:40)
[2016-07-21] MEDS: LEVOFLOXACIN INJ 750 MG in PREMIX 1 EACH IV SCH (20:43)
[2016-07-22] MEDS: methylPREDNISolone SOD SUC 40 MG/1 ML VIAL IV SCH ×3 (02:48→17:38)
[2016-07-22] MEDS: AZTREONAM 2,000 MG in SODIUM CHLORIDE 0.9% 100 ML IV SCH ×4 (02:49→21:04)
[2016-07-22 03:27] LABS: Basophils % 0.1 % (0.0-0.8); Hematocrit 26.6 VOL% (35.7-47.0); Hemoglobin 8.9 GM/DL (12.0-16.0); Immature Granulocytes Absolute 5.16 #; Lymphocytes % 3.6 % (21.3-54.2); Mean Corpuscular HGB Conc 33.5 GM/DL (32-36); Mean Corpuscular Hemoglobin 30 PG (27-34); Mean Corpuscular Volume 90.8 FL (87-102); Mean Platelet Volume 11.1 FL (9.6-12.0); Monocytes # 2.5 10*3/uL (0.11-0.8); Monocytes % 9.3 % (1.7-12.7); NRBC # 0.03 10*3/uL; Neutrophils # 18.5 10*3/uL (1.4-7.4); Platelet Count 159 10*3/uL (130-400); Red Blood Count 2.93 10*6/uL (3.8-5.5); Red Cell Distribution Width 14.7 % (9.3-17.3); White Blood Count 27.2 10*3/uL (4.5-13.71)
[2016-07-22 03:37] LABS: Calcium 7.6 MG/DL (8.5-10.1); Magnesium 2.1 MG/DL (1.8-2.4); Osmolality,Calculated 295.3 MOS/KG (273-304); Potassium 3.8 MMOL/L (3.5-5.1)
[2016-07-22] MEDS: ALBUTEROL/IPRATROPIUM 3 ML NEB RESP TX SCH ×5 (03:37→20:18)
[2016-07-22 04:45] LABS: Band Neutrophils 10 % (0-10); Lymphocytes 8 % (20-55); Metamyelocytes 2 %; Myelocytes 5 %; Nucleated Red Blood Cells 1 (0-5); Platelet Estimate Normal; Promyelocytes 2 %; Segmented Neutrophils 66 % (50-85); Total Cells Counted 100
[2016-07-22] MEDS: VANCOMYCIN INJ 750 MG in SODIUM CHLORIDE 0.9% 250 ML IV SCH (05:32)
[2016-07-22] MEDS: ONDANSETRON 4 MG/2 ML VIAL IV PRN (06:43)
--- NOTE | 2016-07-22 07:27 | XRay Report ---
History: Pneumonia Date: 07/22/2016 Study: Chest x-ray AP portable Comparison exam: Chest x-ray 07/21/2016 The left PICC line remains in stable satisfactory position. The cardiomediastinal silhouette is unchanged. The patchy and hazy infiltrate compatible with pneumonia in the left mid to lower lung more so than the right persists. There is perhaps minimal improvement on the right. There is no increasing pleural effusion. The osseous structures are similar. Impression: No significant change in the left lung pneumonia. Minimal improvement on the right PROCEDURE INTERPRETED AT [facility] DEPARTMENT OF RADIOLOGY Final Report Signed by: Dr. Mary Lindsay
--- NOTE | 2016-07-22 07:56 | Hospitalist Progress Note ---
Assessment and Plan (1) Left lower lobe pneumonia Status: Acute Assessment and plan: Patient receiving Levaquin and aztreonam And vancomycin. Pulmonary following. Leukocytosis persists. Oxygen saturations are stable. Current Visit: Yes Qualifiers: Pneumonia type: due to unspecified organism Qualified Code(s): J18.1 - Lobar pneumonia, unspecified organism (2) Arrhythmia Status: Resolved Assessment and plan: Patient with history of SVT requiring ablation. Currently on amiodarone. Follows with cardiology Dr. Bautista. Now in sinus rhythm. Transition to oral amiodarone today. Replace potassium. Current Visit: Yes Qualifiers: Arrhythmia type: supraventricular tachycardia Qualified Code(s): I47.1 - Supraventricular tachycardia (3) Hypokalemia Status: Acute Assessment and plan: replace with IV KCL Current Visit: Yes (4) RTA (renal tubular acidosis) Status: Acute Assessment and plan: bicarb drip stopped due to fluid overload. nephrology following urine electrolytes to be reviewed Current Visit: Yes (5) Renal mass Status: Ruled-out Assessment and plan: ct shows cyst- benign appearing Current Visit: Yes (6) Abdominal pain Status: Acute Assessment and plan: GI consult. CT scan abdomen and pelvis reviewed. EGD planned for today. Current Visit: Yes Qualifiers: Abdominal location: epigastric Qualified Code(s): R10.13 - Epigastric pain (7) Failure to thrive Status: Acute Assessment and plan: consult GI. EGD today Current Visit: Yes Qualifiers: Failure to thrive age range: in adult Qualified Code(s): R62.7 - Adult failure to thrive Hospitalist: Subjective Interval history: Patient seen and examined. No acute events overnight. She reports continued abdominal pain. Heart rate is sinus rhythm. EGD planned for today. Exam - Constitutional Vitals: Period Temp Pulse Resp BP Sys/Rhodes Pulse Ox Last 24 Hr 96.1 F-97.5 F 65-91 12-22 116-147/57-125 94-100 General appearance: no acute distress, under weight - Head Head exam: Present: normal inspection, normocephalic - Eye Eye exam: Present: EOMI - Respiratory Respiratory exam: Present: clear to auscultation bilaterally - Cardiovascular Cardiovascular exam: Present: regular rate and rhythm - GI/Abdominal GI/Abdominal exam: Present: normal bowel sounds, soft. Absent: tenderness - Extremities Exam Extremities exam: Absent: edema - Neurological Exam Neurological exam: Present: alert, oriented X3 - Psychiatric Psychiatric exam: Present: normal affect, normal mood - Skin Skin exam: Present: normal color, warm, dry Results - Labs CBC & BMP: 07/22/16 03:10 07/22/16 03:10 Lab Results: I have reviewed the past 24 hour labs Specialty Discharge - Follow Up or Referrals - Discharge Medications No Action Sertraline [Zoloft] 12.5 mg PO BEDTIME Aspirin EC Tab 81 mg PO DAILY Metoprolol Tartrate Tab [Lopressor Tab] 25 mg PO DAILY Ergocalciferol (Vitamin D2) [Vitamin D2] 50,000 unit PO Q7D Digoxin Tab [Lanoxin Tab] 0.125 mg PO DAILY Celecoxib 200 mg PO DAILY
--- NOTE | 2016-07-22 07:58 | Pulmonology Progress Note ---
Pulmonary - PN: Subj Interval history: This 80-year-old white female came in with a left lower lobe pneumonia. She has a pretty severe metabolic acidosis. She does not have ketoacidosis and her renal function is normal. Her chloride is elevated. I suspect she has renal tubular acidosis. I will start bicarbonate infusion today. We'll ask nephrology to see. She feels better and her oxygen saturations are normal. 07/18/2016 patient has been moved to the floor. She is still somewhat short of breath. She has a fairly extensive left pneumonia. Nephrology is evaluating for metabolic acidosis. Urine electrolytes have been done and are to be reviewed by nephrology. Ultrasound of her kidneys showed that she just has renal cysts. There is no mass. 07/19/16 patient has not slept well. She's been tachycardic. She was given Lasix last night. Her potassium is 2.4 and she is on Lanoxin. Potassium replacement orders have been written. Cardiology has been consulted. Dr. Bautista follows her normally from a cardiac standpoint. O2 sat is 90% on 4 L nasal oxygen. We'll change her to a Ventimask. She has a metabolic acidosis that is being evaluated. She was being given bicarbonate in IV fluids. IV fluids were stopped because it appears she may be a little ahead on fluids. Her chest x-ray shows a fairly extensive left-sided pneumonia. Slightly increased interstitial markings on the right side. Will check a BNP. 07/22/2016 patient in CCU monitor. Heart rate is in the 80s. She has been diuresed and her potassium has been corrected. She is less short of breath. Still has left-sided infiltrate consistent with pneumonia. Her BNP was elevated at 1889 on Friday. Weight is down about 7 pounds since that date. She has required transfusion. She has a poor appetite weight loss and anemia. She's going to have an EGD this morning. No new complaints. Exam (Progress Note) - Constitutional Vitals: Period Temp Pulse Resp BP Sys/Rhodes Pulse Ox Last 24 Hr 96.1 F-97.5 F 65-91 12-22 116-147/57-125 94-100 Exam: Blood pressure a little low side otherwise vital signs normal, heart rate of 80. HEENT: Pupils react to light. Patient is responsive. Throat is clear. Neck supple no bruits. Chest reveals some rales at the left base, also scattered rhonchi and left upper chest. Heart normal rate rhythm no murmurs. Abdomen soft nontender no masses. Bowel sounds present. Extremities no clubbing cyanosis or edema. Calves nontender. Results - Labs CBC & BMP: 07/22/16 03:10 07/22/16 03:10 Lab Results: I have reviewed the past 24 hour labs - Diagnostic Findings Procedure: Chest x-ray: image reviewed by me (left mid and lower lobe infiltrate. Still slightly increased interstitial markings on the right side. Sternal wires noted. Little change from x-ray dated 07/19/2016.) Assessment and Plan (1) Hyperchloremic metabolic acidosis Status: Acute Assessment and plan: This was corrected with bicarbonate. Bicarbonate infusion has been discontinued. It does not appear that she has renal tubular acidosis based on urine electrolytes. Current Visit: Yes (2) Left lower lobe pneumonia Status: Acute Assessment and plan: Patient is continuing with intravenous antibiotics. Chest x-ray has shown improvement. Current Visit: Yes Qualifiers: Qualified Code(s): J18.1 - Lobar pneumonia, unspecified organism (3) Dehydration Status: Resolved Assessment and plan: This is resolved. Current Visit: Yes (4) Left renal mass Status: Acute Assessment and plan: Defer to urology. Current Visit: Yes Specialty Discharge - Follow Up or Referrals - Discharge Medications No Action Sertraline [Zoloft] 12.5 mg PO BEDTIME Aspirin EC Tab 81 mg PO DAILY Metoprolol Tartrate Tab [Lopressor Tab] 25 mg PO DAILY Ergocalciferol (Vitamin D2) [Vitamin D2] 50,000 unit PO Q7D Digoxin Tab [Lanoxin Tab] 0.125 mg PO DAILY Celecoxib 200 mg PO DAILY
[2016-07-22] MEDS: AMIODARONE 200 MG TABLET PO SCH (09:44)
[2016-07-22] MEDS: PANTOPRAZOLE 40 MG TABLET PO SCH (09:45)
[2016-07-22] MEDS: METOPROLOL TARTRATE 25 MG TABLET PO SCH ×2 (09:45→21:05)
[2016-07-22] MEDS: MEGESTROL 40 MG TABLET PO SCH ×3 (09:45→21:05)
[2016-07-22] MEDS: ASPIRIN EC 81 MG TABLET PO SCH (09:45)
[2016-07-22] MEDS: SPIRONOLACTONE 25 MG TABLET PO SCH ×2 (09:45→21:07)
[2016-07-22] MEDS: DOCUSATE SODIUM 100 MG CAPSULE PO SCH ×2 (09:45→21:07)
[2016-07-22] MEDS: POLYETHYLENE GLYCOL POWDER 17 GM PACK PO SCH (09:45)
--- NOTE | 2016-07-22 11:16 | Cardiology Progress Note ---
Miquel Carlisle Vanessa, RN, am scribing for, and in the presence of, Mark Sage MD 11 :13. Assessment and Plan - Time spent with patient Time spent with patient: Less than 30 minutes (1) Atrial fibrillation Status: Acute Assessment and plan: 80 year old white female with PMHx of CVA, HTN, remote CABG, anemia, SVT with remote ablation. Was admitted with PNA. PAF. -PAF. Now back in sinus rhythm. Continue by mouth amiodarone. Increase metoprolol to 25 mg twice a day. She is not a candidate for anticoagulation due to anemia, history of GI disease. Recent transfusion. GI evaluation in progress. She also uses NSAIDS for arthritis pains. -DCHF. Poor po intake, now NPO for GI eval. Cont Aldactone -CAD. Cont ASA. Add Crestor 10 mg qhs. LVEF was 60%. Current Visit: Yes (2) Abdominal pain Status: Acute Current Visit: Yes Qualifiers: Abdominal location: epigastric Qualified Code(s): R10.13 - Epigastric pain (3) Anemia Status: Acute Current Visit: Yes (4) Hyperchloremic metabolic acidosis Status: Acute Current Visit: Yes (5) Left renal mass Status: Acute Current Visit: Yes Cardiology - PN: Subj Interval history: She is feeling better. No shortness of breath. Still has abd pain. Sinus rhythm on telemetry, few PACs. No recurrence of atrial fibrillation. The blood pressure is in normal range. Exam (Progress Note) - Constitutional Vitals: Period Temp Pulse Resp BP Sys/Rhodes Pulse Ox Last 24 Hr 96.1 F-97.5 F 65-93 13-22 116-147/53-125 94-100 General appearance: no acute distress - Head Head exam: Present: normal inspection. Absent: abrasion, contusion, hematoma - Eye Eye exam: Present: EOMI. Absent: periorbital swelling, laceration to eyelids Pupils: Present: CESAR. Absent: dilated, fixed, irregular - ENT ENT exam: Present: normal exam - Neck Neck exam: Absent: tenderness - Respiratory Respiratory exam: Present: decreased breath sounds - Cardiovascular Cardiovascular exam: Present: regular rate and rhythm, systolic murmur. Absent : bradycardia, tachycardia - GI/Abdominal GI/Abdominal exam: Present: normal bowel sounds, tenderness, soft. Absent: ascites, firm, mass - Extremities Exam Extremities exam: Absent: full ROM, calf tenderness, edema - Neurological Exam Neurological exam: Present: alert, oriented X3 - Psychiatric Psychiatric exam: Present: normal affect, normal mood - Skin Skin exam: Present: warm, dry, intact. Absent: abrasion, cyanosis, diaphoretic , rash Result/EKG - Labs CBC & BMP: 07/22/16 03:10 07/22/16 03:10 Lab Results: I have reviewed the past 24 hour labs Labs: Laboratory Results - last 24 hr 07/21/16 07/22/16 07/22/16 12:30 03:10 03:10 WBC 27.2 H D RBC 2.93 L Hgb 8.9 L Hct 26.6 L MCV 90.8 MCH 30 MCHC 33.5 RDW 14.7 Plt Count 159 MPV 11.1 Neut % (Auto) 68.0 Lymph % (Auto) 3.6 L [place] % (Auto) 9.3 Eos % (Auto) 0.0 Baso % (Auto) 0.1 Neut # (Auto) 18.5 H Lymph # (Auto) 1.0 L [place] # (Auto) 2.5 H Eos # (Auto) 0.0 Baso # (Auto) 0.0 Total Counted 100 Immature Gran % 19.0 Nucleated RBC % 0.1 Immature Gran # 5.16 Segmented Neutrophils 66 Band Neutrophils 10 Lymphocytes 8 L Monocytes 7 Metamyelocytes 2 Myelocytes 5 Promyelocytes 2 Nucleated RBCs 1 Nucleated RBCs # 0.03 Platelet Estimate Normal Pappenheimer [employer] Sodium 148 H Potassium 3.7 3.8 Chloride 112 H Carbon Dioxide 26 Anion Gap 13.8 BUN 18 Creatinine 0.50 L GFR Calculation 74 BUN/Creatinine Ratio 36.00 H Glucose 95 Calculated Osmolality 295.3 Calcium 7.6 L Magnesium 2.1 - Diagnostic Findings Procedure: Chest x-ray: report reviewed by me (07/22 no significant change in left lung pneumonia. minimal improvement of right.) - EKG EKG results: interpreted by me EKG shows: sinus rhythm (pulse 70's) Specialty Discharge - Follow Up or Referrals - Discharge Medications No Action Sertraline [Zoloft] 12.5 mg PO BEDTIME Aspirin EC Tab 81 mg PO DAILY Metoprolol Tartrate Tab [Lopressor Tab] 25 mg PO DAILY Ergocalciferol (Vitamin D2) [Vitamin D2] 50,000 unit PO Q7D Digoxin Tab [Lanoxin Tab] 0.125 mg PO DAILY Celecoxib 200 mg PO DAILY Alona Carlisle Attila, MD, personally performed the services described in this documentation, ascribed by Slime Lafleur RN in my presence, and it is both accurate and complete .
--- NOTE | 2016-07-22 11:57 | Nephrology Progress Note ---
Nephrology - PN: Subj Interval history: She denies shortness breath or chest pain today. Exam (PN)-Nephrology - Vital Signs Vital signs: Period Temp Pulse Resp BP Sys/Rhodes Pulse Ox Last 24 Hr 96.1 F-97.5 F 65-93 13-22 116-147/53-125 94-100 Exam: ENT: Normal Cardiovascular: Regular rate and rhythm. No murmur rub or gallop Lungs: Clear Extremities: No edema - Lab 07/22/16 03:10 07/22/16 03:10 Most recent lab results ABG pH 7.254 (7.35-7.45) L 07/16/16 09:02 ABG pCO2 19.2 MM HG (35-48) L* 07/16/16 09:02 ABG pO2 118.8 MM HG (80-95) H 07/16/16 09:02 ABG HCO3 8.3 MMOL/L (20-26) L 07/16/16 09:02 ABG O2 Saturation 94.1 % (95-100) L 07/16/16 09:02 Calcium 7.6 MG/DL (8.5-10.1) L 07/22/16 03:10 Magnesium 2.1 MG/DL (1.8-2.4) 07/22/16 03:10 Assessment and Plan (1) Hyperchloremic metabolic acidosis Status: Acute Assessment and plan: 80-year-old woman admitted with: * Pneumonia. Continue current antibiotics * Metabolic acidosis. Resolved. RTA not present. Anion gap is now normal. Renal function normal * Hypokalemia. Being replaced * A. fib with RVR. Now in sinus rhythm I will sign off. Please recall when necessary Current Visit: Yes (2) Hypokalemia Status: Acute Current Visit: Yes (3) Left lower lobe pneumonia Status: Acute Current Visit: Yes Qualifiers: Pneumonia type: due to unspecified organism Qualified Code(s): J18.1 - Lobar pneumonia, unspecified organism (4) Left renal mass Status: Acute Current Visit: Yes Specialty Discharge - Follow Up or Referrals - Discharge Medications No Action Sertraline [Zoloft] 12.5 mg PO BEDTIME Aspirin EC Tab 81 mg PO DAILY Metoprolol Tartrate Tab [Lopressor Tab] 25 mg PO DAILY Ergocalciferol (Vitamin D2) [Vitamin D2] 50,000 unit PO Q7D Digoxin Tab [Lanoxin Tab] 0.125 mg PO DAILY Celecoxib 200 mg PO DAILY
[2016-07-22] MEDS ORDERED: PROPOFOL 200 MG/20 ML VIAL IV ONE (14:10)
[2016-07-22] MEDS ORDERED: LIDOCAINE 2% 5 ML VIAL ONE (14:10)
--- NOTE | 2016-07-22 14:10 | History and Physical Update ---
History and Physical Update - Physical Exam Mental Status: alert and oriented Heart: regular rate and rhythm Lung: clear to auscultation Abdomen: within normal limits Vitals: within normal limits History and Physical Changes: 80-year-old female presents for upper endoscopy. History as noted by Dr. Webb yesterday with no changes.
--- NOTE | 2016-07-22 14:18 | Operative Note ---
Date of procedure: 07/22/16 Pre-op diagnosis: Anorexia, weight loss, abdominal pain Procedure: Procedure: Esophagogastroduodenoscopy Brief clinical abstract: Patient is an 80-year-old female who has had recent decline with anorexia and weight loss. She has vague lower abdominal pain. She denies difficulty swallowing but has some low-grade nausea. Indication for procedure: Anorexia, nausea, weight loss Endoscopic findings:[After informed consent was obtained, the patient was placed in the left lateral decubitus position. The gastroscope was inserted in the upper esophagus under direct vision with no resistance encountered. Esophageal mucosa was notable for yellowish exudate throughout the esophagus consistent with candidiasis. No ulcers were seen. Squamocolumnar junction was sharply demarcated above a small hiatal hernia with no stricture noted. The endoscope was advanced in the stomach which was carefully examined including retroflexed view of the cardia and fundus. Patient has had previous partial gastrectomy with approximately 50% gastric remnant. No mucosal abnormalities are seen. Anastomosis had normal appearance and appear to be Billroth I anatomy. Small bowel was examined approximately 15 cm distal to the anastomosis and had normal appearance. The endoscope was withdrawn and patient appeared to tolerate the procedure well. Impression: #1 severe esophageal candidiasis #2 previous partial gastrectomy Recommendations: Fluconazole therapy. I will sign off. Please call if needed. Anesthesia: MAC Surgeon / Physician: Earle Lindsay Estimated blood loss: none Specimens: none sent Condition: stable Disposition: post procedure unit Results - Labs CBC & BMP: 07/22/16 03:10 07/22/16 03:10 Discharge Plan - Discharge Medications No Action Sertraline [Zoloft] 12.5 mg PO BEDTIME Aspirin EC Tab 81 mg PO DAILY Metoprolol Tartrate Tab [Lopressor Tab] 25 mg PO DAILY Ergocalciferol (Vitamin D2) [Vitamin D2] 50,000 unit PO Q7D Digoxin Tab [Lanoxin Tab] 0.125 mg PO DAILY Celecoxib 200 mg PO DAILY - Follow Up or Referral - Forms/Instructions
--- NOTE | 2016-07-22 14:28 | Anesthesia ---
Anesthesia Post OP - Post Ansesthetic Evaluation Patient seen in post op: Yes Resp: within normal limits CV: within normal limits Mental: within normal limits Temp: within normal limits Etml-Gf-Bcynlsmtd: within normal limits Nausea and Vomiting: within normal limits Pain: within normal limits
--- NOTE | 2016-07-22 15:25 | Physician Query Form ---
MAYUR EDIT DOCUMENT TO SELECT QUERY ANSWER --> OK --> SIGN Albania Fox RN, CCDS Certified Clinical Right Of Way Buyer Director of Clinical Documentation W) [phone] (f) [phone] [email or web address] PROVIDERS: Make your selection(s) from the choices in EACH section by typing an "x" and enter comments in the comment section. Please use your independent medical judgment in providing your response. This request does not imply that any particular answer is desired or expected. CLINICAL INDICATORS: (Providers should not edit this section) Patient has documented superimposed CHF due to atrial fibrillation, diastolic dysfunction, Echo ef 60%, treated with Lasix Clarify which of the following accurately represents the acuity of the above diagnosis. (x ) Acute CHF ( ) Acute on chronic CHF ( ) Chronic stable CHF ( ) Other, please specify: ( ) Clinically unable to determine COMMENTS: Use of terms such as suspected, likely, or probable (associated with a specific diagnosis that is being evaluated, monitored, or treated as if it exists) are acceptable and can be restated in the discharge summary if not ruled out. [facility]
--- NOTE | 2016-07-22 15:28 | Physician Query Form ---
CLICK EDIT DOCUMENT TO SELECT QUERY ANSWER --> OK --> SIGN Albania Fox RN, CCDS Certified Clinical Laboratory Director Director of Clinical Documentation W) [phone] (f) [phone] [email or web address] PROVIDERS: Make your selection(s) from the choices in EACH section by typing an "x" and enter comments in the comment section. Please use your independent medical judgment in providing your response. This request does not imply that any particular answer is desired or expected. CLINICAL INDICATORS: (Providers should not edit this section) Patient with SOB, placed on 4L O2 per NBP and progressed to O2 at 50% per Ventimask, reso 10- 27, Pulse Ox 84 - 99. If possible, please further clarify the type and acuity of respiratory diagnosis : ACUITY: ( x) Acute ( ) Chronic ( ) Acute on Chronic TYPE: (x ) Respiratory failure with hypoxia ( ) Respiratory failure with hypercapnia ( ) Respiratory Arrest ( ) Postprocedural/postoperative respiratory failure ( ) Respiratory Insufficiency ( ) ARDS (Adult/Acute Respiratory Distress Syndrome) ( ) Other, please specify: ( ) Clinically unable to determine Recognized criteria for respiratory failure PH <7.35 or >7.45 PO2 <60 PCO2 >50 RR >24 O2 Sat <90% on RA or <95% on O2 Use of accessory muscles Unable to speak in full sentences Intubation is not required COMMENTS: Use of terms such as suspected, likely, or probable (associated with a specific diagnosis that is being evaluated, monitored, or treated as if it exists) are acceptable and can be restated in the discharge summary if not ruled out. [facility]
[2016-07-22] MEDS ORDERED: ALTEPLASE 2 MG VIAL INTRACATH ONE (16:00)
[2016-07-22] MEDS: FLUCONAZOLE 100 MG TABLET PO SCH (16:01)
[2016-07-22] MEDS ORDERED: ROSUVASTATIN 10 MG TABLET PO SCH (21:00)
[2016-07-22] MEDS: SERTRALINE 25 MG TABLET PO SCH (21:05)
[2016-07-23] MEDS: ALBUTEROL/IPRATROPIUM 3 ML NEB RESP TX SCH ×5 (00:11→14:52)
[2016-07-23 00:28] LABS: Basophils % 0.1 % (0.0-0.8); Hematocrit 26.6 VOL% (35.7-47.0); Hemoglobin 8.7 GM/DL (12.0-16.0); Immature Granulocytes % 20.1 %; Lymphocytes # 0.6 10*3/uL (1.4-4.0); Lymphocytes % 2.6 % (21.3-54.2); Mean Corpuscular HGB Conc 32.7 GM/DL (32-36); Mean Corpuscular Hemoglobin 30 PG (27-34); Mean Corpuscular Volume 92.4 FL (87-102); Mean Platelet Volume 11.2 FL (9.6-12.0); Monocytes # 1.5 10*3/uL (0.11-0.8); Monocytes % 6.4 % (1.7-12.7); NRBC # 0.02 10*3/uL; Neutrophils # 16.9 10*3/uL (1.4-7.4); Neutrophils % 70.8 % (38.7-73.9); Platelet Count 154 10*3/uL (130-400); Red Blood Count 2.88 10*6/uL (3.8-5.5); Red Cell Distribution Width 15.3 % (9.3-17.3); White Blood Count 23.9 10*3/uL (4.5-13.71)
[2016-07-23 00:43] LABS: Calcium 7.4 MG/DL (8.5-10.1); Potassium 3.8 MMOL/L (3.5-5.1)
[2016-07-23] MEDS: VANCOMYCIN INJ 750 MG in SODIUM CHLORIDE 0.9% 250 ML IV SCH (01:04)
[2016-07-23] MEDS: methylPREDNISolone SOD SUC 40 MG/1 ML VIAL IV SCH (01:04)
[2016-07-23 01:20] LABS: Band Neutrophils 7 % (0-10); Lymphocytes 3 % (20-55); Metamyelocytes 3 %; Nucleated Red Blood Cells 1 (0-5); Segmented Neutrophils 82 % (50-85); Total Cells Counted 100
[2016-07-23 01:21] LABS: Hypochromasia 1+; Microcytosis 1+; Platelet Estimate Adequate; Target Cells Slight
[2016-07-23] MEDS: AZTREONAM 2,000 MG in SODIUM CHLORIDE 0.9% 100 ML IV SCH ×2 (02:15→08:10)
[2016-07-23] MEDS ORDERED: methylPREDNISolone SOD SUC 40 MG/1 ML VIAL IV SCH (07:00)
--- NOTE | 2016-07-23 07:04 | Pulmonology Progress Note ---
Pulmonary - PN: Subj Interval history: This 80-year-old white female came in with a left lower lobe pneumonia. She has a pretty severe metabolic acidosis. She does not have ketoacidosis and her renal function is normal. Her chloride is elevated. I suspect she has renal tubular acidosis. I will start bicarbonate infusion today. We'll ask nephrology to see. She feels better and her oxygen saturations are normal. 07/18/2016 patient has been moved to the floor. She is still somewhat short of breath. She has a fairly extensive left pneumonia. Nephrology is evaluating for metabolic acidosis. Urine electrolytes have been done and are to be reviewed by nephrology. Ultrasound of her kidneys showed that she just has renal cysts. There is no mass. 07/19/16 patient has not slept well. She's been tachycardic. She was given Lasix last night. Her potassium is 2.4 and she is on Lanoxin. Potassium replacement orders have been written. Cardiology has been consulted. Dr. Bautisat follows her normally from a cardiac standpoint. O2 sat is 90% on 4 L nasal oxygen. We'll change her to a Ventimask. She has a metabolic acidosis that is being evaluated. She was being given bicarbonate in IV fluids. IV fluids were stopped because it appears she may be a little ahead on fluids. Her chest x-ray shows a fairly extensive left-sided pneumonia. Slightly increased interstitial markings on the right side. Will check a BNP. 07/22/2016 patient in CCU monitor. Heart rate is in the 80s. She has been diuresed and her potassium has been corrected. She is less short of breath. Still has left-sided infiltrate consistent with pneumonia. Her BNP was elevated at 1889 on Friday. Weight is down about 7 pounds since that date. She has required transfusion. She has a poor appetite weight loss and anemia. She's going to have an EGD this morning. No new complaints. 07/23/2016 patient feeling better. Heart rate in the 70s in sinus rhythm. Symptoms of congestive heart failure have improved. Chest x-ray shows improvement in the left-sided pneumonia. O2 sat 100% on 2 L. Her hematocrit is 26. She's had a partial gastrectomy in the past. Patient had EGD yesterday showing severe candidiasis of the esophagus. At this point she is stable and can be moved from the CCU to the floor or to an LTAC. If she goes to an LTAC I would prefer [facility] since I could see her there. Exam (Progress Note) - Constitutional Vitals: Period Temp Pulse Resp BP Sys/Rhodes Pulse Ox Last 24 Hr 97.1 F-97.6 F 65-93 06-08 85-164/53-96 91-100 Exam: Patient is alert and oriented, vital signs normal, heart rate of 75. HEENT: Pupils react to light. Patient is responsive. Throat is clear. Neck supple no bruits. Chest reveals some rales at the left base. Heart normal rate rhythm no murmurs. Abdomen soft nontender no masses. Bowel sounds present. Extremities no clubbing cyanosis or edema. Calves nontender. Results - Labs CBC & BMP: 07/23/16 00:26 07/23/16 00:26 Lab Results: I have reviewed the past 24 hour labs - Diagnostic Findings Procedure: Chest x-ray: image reviewed by me (left lower lung infiltrate about the same as yesterday. Right lung still with some interstitial edema but improved.) Assessment and Plan (1) Hyperchloremic metabolic acidosis Status: Resolved Assessment and plan: This was corrected with bicarbonate. Bicarbonate infusion has been discontinued. It does not appear that she has renal tubular acidosis based on urine electrolytes. 07/23/2016 this has resolved with bicarbonate Current Visit: Yes (2) Left lower lobe pneumonia Status: Acute Assessment and plan: Patient is continuing with intravenous antibiotics. Chest x-ray has shown improvement. 07/23/2016 she's had a days of IV antibiotics and clinically is improved. Probably needs about 2 more days. Current Visit: Yes Qualifiers: Pneumonia type: due to unspecified organism Qualified Code(s): J18.1 - Lobar pneumonia, unspecified organism (3) Dehydration Status: Resolved Assessment and plan: This is resolved. Current Visit: Yes (4) Left renal mass Status: Acute Assessment and plan: Defer to urology. Current Visit: Yes (5) Esophageal candidiasis Status: Acute Assessment and plan: Patient is getting Diflucan. Better oral intake. Current Visit: Yes Specialty Discharge - Follow Up or Referrals - Discharge Medications No Action Sertraline [Zoloft] 12.5 mg PO BEDTIME Aspirin EC Tab 81 mg PO DAILY Metoprolol Tartrate Tab [Lopressor Tab] 25 mg PO DAILY Ergocalciferol (Vitamin D2) [Vitamin D2] 50,000 unit PO Q7D Digoxin Tab [Lanoxin Tab] 0.125 mg PO DAILY Celecoxib 200 mg PO DAILY
--- NOTE | 2016-07-23 07:36 | XRay Report ---
Portable chest Date:[Date] Clinical history: Pneumonia Comparison: 07/22/2016 Technique: Portable AP sitting chest Findings: The heart is borderline in size with prior median sternotomy. Stable left arm PICC line. Persistent diffuse parenchymal findings in the left mid to lower lung zone. The right lung is stable in appearance. Prior cholecystectomy and left shoulder replacement. Degenerative changes noted. Impression: Little change in the appearance of the chest when compared to the previous exam with residual pneumonia in the left mid to lower lung zone. PROCEDURE INTERPRETED AT [facility] DEPARTMENT OF RADIOLOGY Final Report Signed by: Dr. Tatiana Morley
--- NOTE | 2016-07-23 08:49 | Discharge Summary ---
Hospital Course - Hospital Course Hospital Course: 80-year-old female admitted to the hospital with pneumonia. The patient had an overwhelming left sided pneumonia. She was started on broad-spectrum antibiotics including vancomycin and Levaquin and aztreonam. She was seen in consultation by pulmonary Dr. Galeas. She has a history of supraventricular tachycardia and had episodes of atrial fibrillation. She was seen by cardiology. She was taken off digoxin and started on amiodarone. However, due to a conflict between amiodarone and Diflucan, GI has elected to stop the amiodarone. Cardiology will continue to follow and make recommendations regarding rate limiting medications for this patient's history of atrial fibrillation. She also had acute kidney injury and had a suspected renal tubular acidosis with metabolic acidosis and loss of potassium through her kidneys. She was started on a bicarbonate drip. Potassium was aggressively replaced. During the course of the hospitalization she was admitted to the intensive care unit and then moved to the floor. After several days of IVF she developed congestive heart failure and required diuretics including Lasix. She was transferred back to the intensive care unit at that time. Prior to this hospitalization she had decreased appetite and was not eating well. This only worsened during her acute illness. Patient was seen in consultation by gastroenterology for decreased appetite and failure to thrive. She underwent upper endoscopy which showed esophageal candidiasis. No lesions were noted in the stomach. No ulcers were found. The patient does have a history of partial gastric resection. She was anemic and required blood transfusion during this hospitalization. She has had no further evidence of bleeding and her hemoglobin has been stable. Over the last 72 hours in the intensive care unit her heart rate has normalized. Her blood pressure stable. She is oxygenating better. Chest x-ray has improved with diuresis. She continues to have a left lower lobe infiltrate and requires oxygen. She is on broad-spectrum antibiotics and will be started on Diflucan for her esophageal candidiasis. I have discussed the case with the patient's daughter as well as her ring making machine operator. A referral has been made to the long-term acute care [facility] for transfer and continued IV antibiotics as well as rehabilitation. The patient and her daughter agree. Total discharge time for this patient including [id number] time, clinical documentation, medication reconciliation, discharge planning was 48 minutes. - Time spent with patient Time with patient DS: Greater than 30 minutes Diagnosis - Discharge Diagnosis (1) Left lower lobe pneumonia Status: Acute (2) Arrhythmia Status: Resolved (3) Hypokalemia Status: Acute (4) RTA (renal tubular acidosis) Status: Acute (5) Renal mass Status: Ruled-out (6) Abdominal pain Status: Acute (7) Failure to thrive Status: Acute (8) Anorexia Status: Acute (9) Esophageal candidiasis Status: Acute Specialty Discharge - Follow Up or Referrals - Discharge Medications No Action Sertraline [Zoloft] 12.5 mg PO BEDTIME Aspirin EC Tab 81 mg PO DAILY Metoprolol Tartrate Tab [Lopressor Tab] 25 mg PO DAILY Ergocalciferol (Vitamin D2) [Vitamin D2] 50,000 unit PO Q7D Digoxin Tab [Lanoxin Tab] 0.125 mg PO DAILY Celecoxib 200 mg PO DAILY Discharge Plan - Discharge Data Disposition: Disch/Xfer-Ip Rehab Fac Condition at Discharge: Stable Discharge Diet: advance to your usual diet Activity: resume usual activities as tolerated, as per physical therapy Hygiene: no restrictions - Discharge Medications New Ibuprofen Tab [Motrin Tab] 400 mg PO Q4H PRN #0 tablet PRN Reason: SHOULDER PAIN Pantoprazole Tab [Protonix Tab] 40 mg PO DAILY tablet methylPREDNISolone SOD SUC INJ [SoluMEDROL] 40 mg IV Q24H vial Acetaminophen Tab [Tylenol Tab] 325 mg PO Q4H PRN #0 tablet PRN Reason: fever, headache/body aches Albuterol Neb [Proventil Neb] 2.5 mg RESP TX RT Q1H PRN #0 nebulization solution PRN Reason: Shortness Of Breath/Wheezing Albuterol/Ipratropium Neb [Duoneb] 3 ml RESP TX RT Q4H nebulization solution Aztreonam [Azactam] 2,000 mg IV Q6H vial Docusate Sodium Cap [Colace Cap] 100 mg PO BID capsule Fluconazole Tab [Diflucan Tab] 100 mg PO DAILY tablet HYDROcodone/ACETAMIN 5-325 [[place] 5-325] 1 tablet PO Q4H PRN #0 tablet PRN Reason: Pain Moderate (4-7) Levofloxacin Inj [Levaquin Inj] 750 mg IV Q24H premix iv soln Megestrol Tab [Megace Tab] 40 mg PO TID tablet Ondansetron Inj [Zofran Inj] 4 mg IV Q4H PRN #0 vial PRN Reason: Nausea Polyethylene Glycol Powder [Miralax] 17 gm PO DAILY powder Rosuvastatin [Crestor] 10 mg PO BEDTIME tablet Sodium Phosphate Enema [Fleet Enema] 133 ml RECTAL DAILY PRN #0 bottle PRN Reason: Constipation Spironolactone [Aldactone] 25 mg PO BID tablet Vancomycin Inj 750 mg IV Q18H vial guaiFENesin/DM ER 600-30 [Mucinex Dm] 1 tablet PO BID PRN #0 tablet PRN Reason: Congestion Continue Sertraline [Zoloft] 12.5 mg PO BEDTIME Aspirin EC Tab 81 mg PO DAILY Metoprolol Tartrate Tab [Lopressor Tab] 25 mg PO DAILY Ergocalciferol (Vitamin D2) [Vitamin D2] 50,000 unit PO Q7D Discontinued Digoxin Tab [Lanoxin Tab] 0.125 mg PO DAILY Celecoxib 200 mg PO DAILY - Follow Up or Referral Follow Up: Mark Sage MD [Physician] - Earle Lindsay MD [Physician] - Jeronimo Galeas MD [Physician] - - Forms/Instructions Exam - Constitutional Vitals: Period Temp Pulse Resp BP Sys/Rhodes Pulse Ox Last 24 Hr 97.1 F-97.6 F 65-93 11-26 85-164/53-96 91-100 General appearance: no acute distress - Head Head exam: Present: normal inspection, normocephalic - Eye Eye exam: Present: EOMI - Respiratory Respiratory exam: Present: clear to auscultation bilaterally - Cardiovascular Cardiovascular exam: Present: regular rate and rhythm - GI/Abdominal GI/Abdominal exam: Present: normal bowel sounds, soft - Extremities Exam Extremities exam: Absent: edema - Neurological Exam Neurological exam: Present: alert Discharge Results Procedures and tests throughout hospitalization: Pending Orders 07/22/16 03:10 MRSA Surveillence, Inf Control Routine 07/23/16 17:30 Vancomycin,Trough Timed 07/24/16 04:00 BMP w/ Mg [Basic Metabolic Panel w/Mg] IN AM Comp Blood Count Auto Diff IN AM Labs on day of discharge: Labs from last 24 hours 07/23/16 07/23/16 07/22/16 00:26 00:26 00:26 WBC 23.9 H RBC 2.88 L Hgb 8.7 L Hct 26.6 L MCV 92.4 MCH 30 MCHC 32.7 RDW 15.3 Plt Count 154 MPV 11.2 Neut % (Auto) 70.8 Lymph % (Auto) 2.6 L [place] % (Auto) 6.4 Eos % (Auto) 0.0 Baso % (Auto) 0.1 Neut # (Auto) 16.9 H Lymph # (Auto) 0.6 L [place] # (Auto) 1.5 H Eos # (Auto) 0.0 Baso # (Auto) 0.0 Total Counted 100 Immature Gran % 20.1 Nucleated RBC % 0.1 Immature Gran # 4.80 Segmented Neutrophils 82 Band Neutrophils 7 Lymphocytes 3 L Monocytes 5 Metamyelocytes 3 Nucleated RBCs 1 Nucleated RBCs # 0.02 Platelet Estimate Adequate Hypochromasia 1+ Microcytosis 1+ Target Cells Slight Sodium 150 H Potassium 3.8 Chloride 117 H Carbon Dioxide 24 Anion Gap 12.8 BUN 18 Creatinine 0.60 GFR Calculation 70 BUN/Creatinine Ratio 30.00 H Glucose 146 H Calculated Osmolality 302.0 Calcium 7.4 L Magnesium 2.0 Vancomycin Trough 11.6 DS: Provider Date of admission: 07/15/16 16:29 Primary care physician: . No PCP Attending physician on admission: Alie Harris MD Consults: 07/15/16 17:36 Consult to Pharmacy [CONS] Routine Reason for Pharmacy Consult: Dose/Manage Vancomycin Adjust Meds Renal Funct 07/16/16 07:30 Consult to Physician [CONS] Routine Comment: Left lung pneumonia Consulting Provider: Jeronimo Galeas 07/17/16 06:58 Consult to Physician [CONS] Routine Comment: hyperchloremic metabolic acidosis Consulting Provider: Ger Devi Consulting Provider Notified: Yes Consult to Specialist Group: Nephrology When should Consulting Provider be notified: Now Person Notified: VERONICA Date Notified: 07/17/16 Time Notified: 09:50 07/17/16 06:59 Consult to Physician [CONS] Routine Comment: left renal mass Consulting Provider: Kvng Short Consulting Provider Notified: Yes Consult to Specialist Group: Urology When should Consulting Provider be notified: Now Person Notified: SAM Date Notified: 07/17/16 Time Notified: 09:45 07/18/16 12:40 Consult to Case Mgmt/Social Srvs [CONS] Routine Reason for Case Mgmt/Social Srvs: LTAC Swingbed/SNF/Halfway Discharge Planning Consult Comment: will need antibiotics and rehab. LTAC vs Swing bed? 07/19/16 03:56 Consult to Physician [CONS] Routine Comment: cardiac dysrythmia Consulting Provider: Cardiology - [facility] Consult to Specialist Group: Cardiology When should Consulting Provider be notified: In am 07/21/16 08:18 Consult to Physician [CONS] Routine Comment: GI re: abd pain, Nausea Consulting Provider: Discharging clinician: Alie Harris MD Expected date of discharge: 07/23/16
[2016-07-23] MEDS: ASPIRIN EC 81 MG TABLET PO SCH (09:02)
[2016-07-23] MEDS: DOCUSATE SODIUM 100 MG CAPSULE PO SCH (09:02)
[2016-07-23] MEDS: FLUCONAZOLE 100 MG TABLET PO SCH (09:03)
[2016-07-23] MEDS: SPIRONOLACTONE 25 MG TABLET PO SCH (09:03)
[2016-07-23] MEDS: METOPROLOL TARTRATE 25 MG TABLET PO SCH (09:03)
[2016-07-23] MEDS: PANTOPRAZOLE 40 MG TABLET PO SCH (09:03)
[2016-07-23] MEDS: MEGESTROL 40 MG TABLET PO SCH ×2 (09:03→15:13)
[2016-07-23] MEDS: POLYETHYLENE GLYCOL POWDER 17 GM PACK PO SCH (09:07)
[2016-07-23] MEDS ORDERED: METOPROLOL TARTRATE 50 MG TABLET PO SCH (09:57)
--- NOTE | 2016-07-23 10:01 | Cardiology Progress Note ---
Miquel Carlisle Vanessa, RN, am scribing for, and in the presence of, Mark Sage MD 10 :00. Assessment and Plan - Time spent with patient Time spent with patient: Less than 30 minutes (1) Atrial fibrillation Status: Acute Assessment and plan: 80 year old white female with PMHx of CVA, HTN, remote CABG, anemia, SVT with remote ablation. Was admitted with PNA. PAF. -PAF. Now back in sinus rhythm. Amiodarone was discontinued due to interaction with Diflucan, which is required due to severe irma esophagitis. Increase metoprolol to 50 mg twice a day. -Continue aspirin. Severe anemia, recent transfusion, at this point she is not a candidate for anticoagulation. She is unfortunately high risk for embolic complications from paroxysmal A. fib, she will need to follow-up with cardiology , to reassess the feasibility of long-term anticoagulation, when her GI issues, anemia improves. -DCHF. Cont Aldactone -CAD. Cont ASA. Cont Crestor 10 mg qhs. LVEF was 60%. Current Visit: Yes (2) Abdominal pain Status: Acute Current Visit: Yes Qualifiers: Abdominal location: epigastric Qualified Code(s): R10.13 - Epigastric pain (3) Anemia Status: Acute Current Visit: Yes (4) Hyperchloremic metabolic acidosis Status: Resolved Current Visit: Yes (5) Left renal mass Status: Acute Current Visit: Yes Cardiology - PN: Subj Interval history: Continues to feel better. No SOB/ CP. Abd pain improved. BP is stable 109/89. For discharge today to LTAC. In SR now. Exam (Progress Note) - Constitutional Vitals: Period Temp Pulse Resp BP Sys/Rhodes Pulse Ox Last 24 Hr 97.1 F-97.6 F 65-92 11-26 85-164/57-96 91-100 General appearance: no acute distress - Head Head exam: Present: normal inspection. Absent: abrasion, contusion, hematoma - Eye Eye exam: Present: EOMI. Absent: periorbital swelling Pupils: Present: CESAR. Absent: dilated, fixed, irregular - ENT ENT exam: Present: normal exam - Neck Neck exam: Absent: tenderness - Respiratory Respiratory exam: Present: decreased breath sounds - Cardiovascular Cardiovascular exam: Present: regular rate and rhythm, systolic murmur. Absent : bradycardia, tachycardia - GI/Abdominal GI/Abdominal exam: Present: normal bowel sounds, tenderness, soft. Absent: ascites, distended, firm - Extremities Exam Extremities exam: Present: normal capillary refill. Absent: full ROM, calf tenderness, edema - Neurological Exam Neurological exam: Present: alert, oriented X3 - Psychiatric Psychiatric exam: Present: normal affect, normal mood - Skin Skin exam: Present: warm, dry, intact. Absent: abrasion, cyanosis, diaphoretic , rash Result/EKG - Labs CBC & BMP: 07/23/16 00:26 07/23/16 00:26 Lab Results: I have reviewed the past 24 hour labs Labs: Laboratory Results - last 24 hr 07/22/16 07/23/16 07/23/16 00:26 00:26 00:26 WBC 23.9 H RBC 2.88 L Hgb 8.7 L Hct 26.6 L MCV 92.4 MCH 30 MCHC 32.7 RDW 15.3 Plt Count 154 MPV 11.2 Neut % (Auto) 70.8 Lymph % (Auto) 2.6 L [place] % (Auto) 6.4 Eos % (Auto) 0.0 Baso % (Auto) 0.1 Neut # (Auto) 16.9 H Lymph # (Auto) 0.6 L [place] # (Auto) 1.5 H Eos # (Auto) 0.0 Baso # (Auto) 0.0 Total Counted 100 Immature Gran % 20.1 Nucleated RBC % 0.1 Immature Gran # 4.80 Segmented Neutrophils 82 Band Neutrophils 7 Lymphocytes 3 L Monocytes 5 Metamyelocytes 3 Nucleated RBCs 1 Nucleated RBCs # 0.02 Platelet Estimate Adequate Hypochromasia 1+ Microcytosis 1+ Target Cells Slight Sodium 150 H Potassium 3.8 Chloride 117 H Carbon Dioxide 24 Anion Gap 12.8 BUN 18 Creatinine 0.60 GFR Calculation 70 BUN/Creatinine Ratio 30.00 H Glucose 146 H Calculated Osmolality 302.0 Calcium 7.4 L Magnesium 2.0 Vancomycin Trough 11.6 - Diagnostic Findings Procedure: Chest x-ray: report reviewed by me (07/23 little change; residual pneumonia left mid-lower lung zone) - EKG EKG results: interpreted by me EKG shows: sinus rhythm Specialty Discharge - Follow Up or Referrals Follow up with: Mark Sage MD [Physician] - Jeronimo Galeas MD [Physician] - Earle Lindsay MD [Physician] - - Speciality Discharge Instructions Cardiology Instructions: FU with cardiology in 4 weeks - Discharge Medications New Ibuprofen Tab [Motrin Tab] 400 mg PO Q4H PRN #0 tablet PRN Reason: SHOULDER PAIN Pantoprazole Tab [Protonix Tab] 40 mg PO DAILY tablet methylPREDNISolone SOD SUC INJ [SoluMEDROL] 40 mg IV Q24H vial Acetaminophen Tab [Tylenol Tab] 325 mg PO Q4H PRN #0 tablet PRN Reason: fever, headache/body aches Albuterol Neb [Proventil Neb] 2.5 mg RESP TX RT Q1H PRN #0 nebulization solution PRN Reason: Shortness Of Breath/Wheezing Albuterol/Ipratropium Neb [Duoneb] 3 ml RESP TX RT Q4H nebulization solution Aztreonam [Azactam] 2,000 mg IV Q6H vial Docusate Sodium Cap [Colace Cap] 100 mg PO BID capsule Fluconazole Tab [Diflucan Tab] 100 mg PO DAILY tablet HYDROcodone/ACETAMIN 5-325 [[place] 5-325] 1 tablet PO Q4H PRN #0 tablet PRN Reason: Pain Moderate (4-7) Levofloxacin Inj [Levaquin Inj] 750 mg IV Q24H premix iv soln Megestrol Tab [Megace Tab] 40 mg PO TID tablet Ondansetron Inj [Zofran Inj] 4 mg IV Q4H PRN #0 vial PRN Reason: Nausea Polyethylene Glycol Powder [Miralax] 17 gm PO DAILY powder Rosuvastatin [Crestor] 10 mg PO BEDTIME tablet Sodium Phosphate Enema [Fleet Enema] 133 ml RECTAL DAILY PRN #0 bottle PRN Reason: Constipation Spironolactone [Aldactone] 25 mg PO BID tablet Vancomycin Inj 750 mg IV Q18H vial guaiFENesin/DM ER 600-30 [Mucinex Dm] 1 tablet PO BID PRN #0 tablet PRN Reason: Congestion Continue Sertraline [Zoloft] 12.5 mg PO BEDTIME Aspirin EC Tab 81 mg PO DAILY Metoprolol Tartrate Tab [Lopressor Tab] 25 mg PO DAILY Ergocalciferol (Vitamin D2) [Vitamin D2] 50,000 unit PO Q7D Discontinued Digoxin Tab [Lanoxin Tab] 0.125 mg PO DAILY Celecoxib 200 mg PO DAILY Alona Carlisle Attila, MD, personally performed the services described in this documentation, ascribed by Slime Lafleur RN in my presence, and it is both accurate and complete .
[2016-07-23 10:27] LABS: HIV Antigen/Antibody Result Nonreactive (Nonreactive)
[2016-07-23 15:03] VITALS: BP 138/79
== END 2016-07-23 15:11 | DRG 193 ==
LOC: N.ED 13:39 → N.EDINP 16:29 → N.CC 17:16 → N.ICU 19:15 → N.2E 07-17 13:35 → N.CC 07-19 08:38
PROVIDERS: ADMIT Family Medicine; ATTEND Family Medicine

== ENCOUNTER 2016-10-24 21:50 | Inpatient (IN) ==
[2016-10-24] MEDS ORDERED: SODIUM CHLORIDE 0.9% 500 ML IV STA (23:10)
--- NOTE | 2016-10-24 23:21 | Emergency Department Note ---
IJorge Emily, am scribing for, and in the presence of, Kp Jean MD 23: 13. IMiranda Charles R, MD, personally performed the services described in this documentation, ascribed by Anna Patel in my presence, and it is both accurate and complete 321 . Arrival - Arrival Chief Complaint: Altered Mental Status Stated Complaint: AMS ED Nursing Triage Note: patient to triage with c/o AMS that has been going on tonight but worsened tonight. patient has been wandering the halls at [facility] and looking for people she does not know. patient AAOx3 in triage. unable to get 02 sat in triage but patient and family state it is always difficult to obtain. Mode of Arrival: Ambulatory Limitations: Altered Mental Status Source: Patient Time Seen by Provider: 10/24/16 22:24 - History of Present Illness HPI Narrative: Pt is a 81 y/o female who was transferred [facility] for further evaluation of AMS that started tonight. Pt was found wandering the halls at [facility] and looking for people she does not know, admits to seeing this make believe people, and thinks she was visiting with brother in law that lives in another city that wasn't visiting yesterday. Pt admits to visual hallucinations with some dizziness and in waves, double vision. Family member reports pt having wobbly gait and weight loss. Family member states that medication was changed to megace and has had increased appetite. According to family, pt has been gradually getting worse with mental status as such, in which for 3 weeks had PNA but was not seen and stayed in apartment away from everyone. Pt has hx of falls, but denies falling recently. Family notes she watches carefully in medication for pt making sure she is taking her medication correctly and has been a struggle with pt to take recently. Pt has nurse that helps with baths and medication daily. Onset (ago): hour(s) Consistency: constant Severity: moderate Severity scale (1-10): 6 Quality: other (altered) Date of Last Menstrual Period: hyst Allergies/Adverse Reactions: Allergies Allergy/AdvReac Type Severity Reaction Status Date / Time codeine Allergy Unknown/Unable Verified 10/24/16 22:11 to obtain Penicillins Allergy Unknown/Unable Verified 10/24/16 22:11 to obtain Home Medications: Home Medications Medication Instructions Recorded Confirmed Type Ergocalciferol (Vitamin D2) 50,000 unit PO Q7D 07/15/16 10/24/16 History [Vitamin D2] Metoprolol Tartrate Tab [Lopressor 25 mg PO BID 07/15/16 10/24/16 History Tab] Megestrol Tab [Megace Tab] 40 mg PO TID tablet 07/23/16 10/24/16 Rx Pantoprazole Tab [Protonix Tab] 40 mg PO DAILY tablet 07/23/16 10/24/16 Rx Spironolactone [Aldactone] 25 mg PO BID tablet 07/23/16 10/24/16 Rx Multivit-Min/FA/Lycopen/Lutein 1 tablet PO DAILY 10/24/16 10/24/16 History [Centrum Silver Tablet] Review of System - Review of System 12 point system: reviewed and no additional remarkable complaints except as stated - Review of System Constitutional: Absent: chills, fever, weakness Eyes: Present: vision change (double vision in waves) Respiratory: Absent: respiratory distress Cardiovascular: Absent: chest pain, syncope Gastrointestinal: Absent: abdominal pain, nausea, vomiting Genitourinary female: Absent: dysuria Musculoskeletal: Absent: arm pain, back pain, leg pain, neck pain Skin: Absent: rash Neurological: Present: confusion. Absent: headache Psychiatric: Present: visual hallucinations. Absent: anxiety, depression Medical,Surgical,& Family Hx - Medical History Cardio: History of: Cardiac Dysrhythmia (sinus tach), CAD, Hypertension, Cardiovascular Problems (cabg and ablation 30-35 years ago ) Neurology: History of: Cerebrovascular Accident Gastrointestinal: History of: GI Problems (hx colectomy with colostomy and reversal) Musculoskeletal: History of: Back/Neck Problems Hematology: No history of: Blood Transfusion Reaction - Surgical History Cardiac Surgeries: Sugical HX of: Cardiac Catheterization (within the last 5 years in [place] per daughter), Cardiac Surgery (CABG 30 years ago and ablation 35 years ago) HEENT Surgeries: Surgical HX of: Eye Surgery (bilateral cataracts), Tonsilectomy & Adenoidectomy Abdominal Surgeries: Surgical HX of: Abdominal Surgery (colectomy with colostomy and reversal), Appendectomy, Cholecystectomy, Hernia Repair Reproductive Surgeries: Surgical HX of;: Hysterectomy Orthopedic Surgeries: Surgical HX of;: Orthopedic Surgery (neck, lower back, left shoulder, carpal tunnel) - Family History Family History: Reports;: Family Diabetes (brother, sister), Family Heart Disease (father, brother, sister), Family Hypertension - Social History Smoking Status: Former smoker Frequency of Alcohol Use: None Type of Drug Use: None Marital Status: Single Lives With:: Alone Functional capacity: independent ambulation Exam Vital Signs: Vital Signs Temperature 97.9 F 10/24/16 22:04 Pulse Rate 82 10/24/16 22:04 Respiratory Rate 17 10/24/16 22:04 Blood Pressure 139/78 10/24/16 22:04 - General General appearance: alert, in no apparent distress, other (well maintained hygiene) - Head Head exam: Present: atraumatic, normocephalic - Eye Eye exam: Present: PERRL, EOMI - ENT ENT exam: Present: mucous membranes dry. Absent: mucous membranes moist - Neck Neck exam: Present: full ROM. Absent: tenderness - Chest Chest inspection: Present: symmetric chest wall rise. Absent: tenderness - Respiratory Respiratory exam: Present: normal lung sounds bilaterally. Absent: respiratory distress - Cardiovascular Cardiovascular exam: Present: regular rate, normal rhythm, normal heart sounds - Abdominal Exam Abdominal exam: Present: soft. Absent: distention, tenderness, guarding, rebound - Extremities Exam Extremities exam: Present: full ROM. Absent: tenderness, pedal edema - Neurological Exam Neurological exam: Present: alert, CN II-XII intact. Absent: oriented X3 (X1; waxing and waning of confusion), motor sensory deficit - Psychiatric Psychiatric exam: Present: normal affect, normal mood - Skin Skin exam: Present: warm, dry, intact Course - Consultations Consultation #1: Hospitalist will admit patient Time: 00:17 Results - Labs CBC & BMP: 10/24/16 22:56 10/24/16 22:56 Lab Results: I have reviewed the patients labs Labs: Laboratory Tests 10/24/16 22:56 Hgb 11.7 L Hct 34.9 L [place] % (Auto) 16.0 H [place] # (Auto) 1.3 H Laboratory Tests 10/24/16 22:56 Potassium 3.3 L Chloride 116 H Carbon Dioxide 15 L Anion Gap 16.3 H Serum Alcohol < 15 L Laboratory Tests 10/24/16 22:56 Hgb 11.7 L Hct 34.9 L [place] % (Auto) 16.0 H Carter # (Auto) 1.3 H Disposition Clinical Impression: Altered mental status, Dementia, Delirium due to general medical condition, Metabolic acidosis Case discussed with: patient, patient's family Disposition: Still a Patient Condition: Stable Time of Disposition: 01:15
[2016-10-24 23:24] LABS: Basophils # 0.1 10*3/uL (0.0-0.2); Basophils % 0.6 % (0.0-0.8); Eosinophils # 0.2 10*3/uL (0.0-0.87); Eosinophils % 1.9 % (0.00-10.9); Hematocrit 34.9 VOL% (35.7-47.0); Hemoglobin 11.7 GM/DL (12.0-16.0); Immature Granulocytes % 1.7 %; Immature Granulocytes Absolute 0.14 #; Lymphocytes # 2.2 10*3/uL (1.4-4.0); Lymphocytes % 27.2 % (21.3-54.2); Mean Corpuscular HGB Conc 33.5 GM/DL (32-36); Mean Corpuscular Hemoglobin 31 PG (27-34); Mean Corpuscular Volume 91.4 FL (87-102); Mean Platelet Volume 10.2 FL (9.6-12.0); Monocytes # 1.3 10*3/uL (0.11-0.8); Neutrophils # 4.3 10*3/uL (1.4-7.4); Neutrophils % 52.6 % (38.7-73.9); Platelet Count 236 T/CUMM (130-400); Red Blood Count 3.82 MC/CUMM (3.8-5.5); Red Cell Distribution Width 13.4 % (9.3-17.3); White Blood Count 8.2 T/CUMM (4-12)
[2016-10-24 23:56] LABS: Alanine Aminotransferase 23 U/L (13-56); Albumin 4.2 G/DL (3.4-5.0); Alkaline Phosphatase 59 U/L (45-117); Aspartate Amino Transferase 19 U/L (0-37); Bilirubin,Total < 0.39 MG/DL (0.2-1.0); Blood Urea Nitrogen 18 MG/DL (7-18); Free T4 (Free Thyroxine) 1.09 NG/DL (0.76-1.46); Glucose 95 MG/DL (74-106); Osmolality,Calculated 287.8 MOS/KG (273-304); Potassium 3.3 MMOL/L (3.5-5.1); Sodium 144 MMOL/L (136-145); Total Protein 7.4 G/DL (6.4-8.3); Troponin I Only < 0.015 NG/ML (0.00-0.045)
[2016-10-25 00:12] LABS: Band Neutrophils 4 % (0-10); Eosinophils 2 % (0-10); Lymphocytes 26 % (20-55); Myelocytes 2 %; Segmented Neutrophils 58 % (50-85)
[2016-10-25 00:13] LABS: Platelet Estimate Normal; Total Cells Counted 100
[2016-10-25 00:27] LABS: Sedimentation Rate-Westergren 57 MM/HR (0-30)
[2016-10-25 00:29] LABS: Ammonia 19 UMOL/L (11-32)
[2016-10-25] MEDS ORDERED: ONDANSETRON 4 MG/2 ML VIAL IV PRN (00:58)
[2016-10-25 00:59] LABS: Apearance,Urine Slightly Hazy (Clear); Bilirubin,Urine Negative (Negative); Blood, Urine Large mg/dL (Negative); Glucose,Urine (UA) Negative (Negative); Ketones,Urine Negative (Negative); Mucus,Urine Occasional /LPF (Occasional); Nitrite,Urine Negative (Negative); Protein,Urine 30 MG/DL; RBC,Urine 184 /HPF (0-4); Urine Color Yellow (Yellow); Urine Specific Gravity 1.011 (1.001-1.035); Urine Urobilinogen < 2.0 EU/DL (0.2-1.0); WBC,Urine 4 /HPF (0-6)
--- NOTE | 2016-10-25 01:09 | Hospitalist History & Physical ---
Assessment and Plan (1) Dehydration Status: Resolved Current Visit: No (2) Altered mental status Status: Acute Current Visit: Yes (3) Dementia Status: Acute Current Visit: Yes (4) Delirium due to general medical condition Status: Acute Assessment and plan: We will admit patient to our service. Per looking at her urine she does have a large amount of blood in her urine. I want to culture this urine and make sure she does not have a hemorrhagic cystitis. I will go ahead and treat with antibiotics and evaluate her mental status. Will provide some gentle hydration overnight and check her chemistry in the morning at 7 AM. When she was previously infected she had a metabolic acidosis per review of the chart. Patient appears to have a metabolic acidosis with a respiratory compromise. Current Visit: Yes (5) Metabolic acidosis Status: Acute Current Visit: Yes History of Present Illness Chief complaint: Confusion and hallucinations History of present illness: Ms. Vila is a 81 year old female who presented to our hospital as a transfer from [facility]. Patient is in the independent living portion of [facility]. She has been going on for a week or 2 with fabricating history. This is things that she talks about her very real to her. Her daughter who who is a physician has been adjusting her medications. She recently taken her off spironolactone. She DC'd her Zoloft. She was recently hospitalized for pneumonia and stayed in the hospital about 3 weeks ago. Her eating has improved since being placed on Megace. For her strange thought process her family brought her up here for further evaluation. Patient had a workup done in the emergency room and her CT scan was negative. I was consulted to admit her through the emergency room Home Medications Medication Instructions Recorded Confirmed Type Ergocalciferol (Vitamin D2) 50,000 unit PO Q7D 07/15/16 10/24/16 History [Vitamin D2] Metoprolol Tartrate Tab [Lopressor 25 mg PO BID 07/15/16 10/24/16 History Tab] Megestrol Tab [Megace Tab] 40 mg PO TID tablet 07/23/16 10/24/16 Rx Pantoprazole Tab [Protonix Tab] 40 mg PO DAILY tablet 07/23/16 10/24/16 Rx Spironolactone [Aldactone] 25 mg PO BID tablet 07/23/16 10/24/16 Rx Multivit-Min/FA/Lycopen/Lutein 1 tablet PO DAILY 10/24/16 10/24/16 History [Centrum Silver Tablet] Allergies Allergy/AdvReac Type Severity Reaction Status Date / Time codeine Allergy Unknown/Unable Verified 10/24/16 22:11 to obtain Penicillins Allergy Unknown/Unable Verified 10/24/16 22:11 to obtain Medical,Surgical,& Family Hx - Medical History Cardio: History of: Cardiac Dysrhythmia (sinus tach), CAD, Hypertension, Cardiovascular Problems (cabg and ablation 30-35 years ago ) Neurology: History of: Cerebrovascular Accident Gastrointestinal: History of: GI Problems (hx colectomy with colostomy and reversal) Musculoskeletal: History of: Back/Neck Problems Hematology: No history of: Blood Transfusion Reaction - Surgical History Cardiac Surgeries: Sugical HX of: Cardiac Catheterization (within the last 5 years in [place] per daughter), Cardiac Surgery (CABG 30 years ago and ablation 35 years ago) HEENT Surgeries: Surgical HX of: Eye Surgery (bilateral cataracts), Tonsilectomy & Adenoidectomy Abdominal Surgeries: Surgical HX of: Abdominal Surgery (colectomy with colostomy and reversal), Appendectomy, Cholecystectomy, Hernia Repair Reproductive Surgeries: Surgical HX of;: Hysterectomy Orthopedic Surgeries: Surgical HX of;: Orthopedic Surgery (neck, lower back, left shoulder, carpal tunnel) - Family History Family History: Reports;: Family Diabetes (brother, sister), Family Heart Disease (father, brother, sister), Family Hypertension - Social History Smoking Status: Former smoker Frequency of Alcohol Use: None Type of Drug Use: None ROS unobtainable: due to mental status Exam - Constitutional Vitals: Period Temp Pulse Resp BP Sys/Rhodes Pulse Ox Last 24 Hr 97.9 F 82 17 139/78 - General General appearance: alert, in no apparent distress, - Head Head exam: Present: atraumatic, normocephalic - Eye Eye exam: Present: PERRL, EOMI - ENT ENT exam: Present: mucous membranes dry. - Neck Neck exam: Present: full ROM. Absent: tenderness - Chest Chest inspection: Present: symmetric chest wall rise. - Respiratory Respiratory exam: Present: normal lung sounds bilaterally. - Cardiovascular Cardiovascular exam: Present: regular rate, normal rhythm, normal heart sounds - Abdominal Exam Abdominal exam: Present: soft. Absent: distention, tenderness, guarding, rebound - Extremities Exam Extremities exam: Present: full ROM. Absent: tenderness, pedal edema - Neurological Exam Neurological exam: Present: alert, CN II-XII intact. - Psychiatric Psychiatric exam: Present: normal affect, normal mood - Skin Skin exam: Present: warm, dry, intact Results - Labs CBC & BMP: 10/24/16 22:56 10/24/16 22:56
[2016-10-25 01:12] LABS: ABG Base Excess -14.8 MMOL/L (-2.5-2.5); ABG HCO3 13.1 MMOL/L (20-26); ABG Oxygen Saturation 96.4 % (95-100); ABG PH 7.321 (7.35-7.45); ABG TCO2 9.1 MMOL/L (23-27); Allen Test Positive; Pt O2 Delivery Device Room Air
[2016-10-25 01:17] LABS: ABG PCO2 19.3 MM HG (35-48)
[2016-10-25 01:33] LABS: Barbiturates Screen,Urine Negative (Negative); Benzodiazepines Screen,Urine Negative (Negative); Cannabinoid Screen,Urine Negative (Negative); Opiate Screen,Urine Negative (Negative); Phencyclidine Screen,Urine Negative (Negative)
[2016-10-25] MEDS ORDERED: LEVOFLOXACIN INJ 500 MG in PREMIX 1 EACH IV ONE (03:00)
[2016-10-25] MEDS: SODIUM BICARB INJ 150 MEQ in STERILE WATER INJ 850 ML IV SCH (03:05)
--- NOTE | 2016-10-25 07:02 | XRay Report ---
XR chest 1V portable Indication: Altered mental status Comparison: 29 July 2016 Findings: The heart and mediastinum are stable in size and configuration with cardiac surgery changes. The pulmonary vascularity is normal in caliber. Lung volumes are increased with prominent bronchial markings. No lung infiltrates, effusions, pneumothorax or other abnormality is demonstrated. Impression: Chronic lung and cardiac surgery changes. No acute process or significant change. PROCEDURE INTERPRETED AT [facility] DEPARTMENT OF RADIOLOGY Final Report Signed by: Dr. Luis Miguel Burns
--- NOTE | 2016-10-25 07:06 | CT Report ---
CT brain Indication: Mental status changes Comparison: None available Technique: Axial CT imaging of the brain is performed without contrast with 3 mm increments. Findings: No evidence of hemorrhage, mass mass effect midline shift or acute infarct seen. There is moderate to severe diffuse cerebral atrophy. There are areas of decreased density seen within the white matter likely related to chronic microvascular disease. Otherwise the brain parenchyma attenuation and differentiation appears within normal limits. The ventricles and cisterns are normal in caliber. No cranial or skull base abnormality is identified. Impression: No evidence of acute process demonstrated. This CT exam was performed using one or more the following dose reduction techniques: Automated exposure control, adjustment of the MA and/or KV according to patient size, or use of iterative reconstruction technique. PROCEDURE INTERPRETED AT [facility] DEPARTMENT OF RADIOLOGY Final Report Signed by: Dr. Luis Miguel Burns
--- NOTE | 2016-10-25 07:15 | EKG Report ---
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
[2016-10-25 07:18] LABS: Basophils % 0.7 % (0.0-0.8); Eosinophils # 0.1 10*3/uL (0.0-0.87); Eosinophils % 2.2 % (0.00-10.9); Hematocrit 31.2 VOL% (35.7-47.0); Hemoglobin 10.4 GM/DL (12.0-16.0); Immature Granulocytes % 0.7 %; Immature Granulocytes Absolute 0.04 #; Lymphocytes # 1.5 10*3/uL (1.4-4.0); Lymphocytes % 25.3 % (21.3-54.2); Mean Corpuscular HGB Conc 33.3 GM/DL (32-36); Mean Corpuscular Hemoglobin 30 PG (27-34); Mean Corpuscular Volume 90.4 FL (87-102); Mean Platelet Volume 10.4 FL (9.6-12.0); Monocytes # 1.2 10*3/uL (0.11-0.8); Monocytes % 19.5 % (1.7-12.7); Neutrophils # 3.1 10*3/uL (1.4-7.4); Neutrophils % 51.6 % (38.7-73.9); Platelet Count 222 T/CUMM (130-400); Red Blood Count 3.45 MC/CUMM (3.8-5.5); Red Cell Distribution Width 13.4 % (9.3-17.3)
[2016-10-25 07:21] LABS: Calcium 8.4 MG/DL (8.5-10.1); Osmolality,Calculated 289.6 MOS/KG (273-304); Potassium 2.9 MMOL/L (3.5-5.1)
[2016-10-25 07:27] LABS: Eosinophils 3 % (0-10); Lymphocytes 28 % (20-55); Segmented Neutrophils 57 % (50-85); Total Cells Counted 100
[2016-10-25 07:28] LABS: Hypochromasia Slight; Microcytosis Slight; Ovalocytes Slight; Platelet Estimate Adequate
[2016-10-25] MEDS: ENOXAPARIN 40 MG/0.4 ML SYRINGE SUBCUT SCH (09:20)
[2016-10-25] MEDS: MEGESTROL 40 MG TABLET PO SCH ×3 (09:21→21:02)
[2016-10-25] MEDS: METOPROLOL TARTRATE 25 MG TABLET PO SCH ×2 (09:21→21:02)
[2016-10-25] MEDS: POTASSIUM CHLORIDE 20 MEQ TABLET PO PRN (09:21)
[2016-10-25] MEDS: PANTOPRAZOLE 40 MG TABLET PO SCH (09:21)
[2016-10-25] MEDS: POTASSIUM CHLORIDE RIDER 10 MEQ in PREMIX 1 EACH IV PRN (09:21)
[2016-10-25] MEDS: POTASSIUM CHLORIDE RIDER 10 MEQ in PREMIX 1 EACH IV SCH ×2 (11:10→12:11)
--- NOTE | 2016-10-25 11:45 | Hospitalist Progress Note ---
Assessment and Plan - Time spent with patient Time spent with patient: Greater than 30 minutes (1) Dementia Status: Acute Assessment and plan: Will need to be referred to [facility] once medically stable. Current Visit: Yes (2) Metabolic acidosis Status: Acute Assessment and plan: Improving, likely due to dehydration. Current Visit: Yes (3) Hypokalemia Status: Acute Assessment and plan: Will continue to replenish. Current Visit: No Hospitalist: Subjective Interval history: Brought to the hospital by daughter for altered mentation. Patient was admitted for metabolic acidosis and hypokalemia. Exam - Constitutional Vitals: Period Temp Pulse Resp BP Sys/Rhodes Pulse Ox Last 24 Hr 98.0 F-98.8 F 75-75 14-16 102-110/60-61 94 General appearance: no acute distress - Head Head exam: Present: normocephalic, atraumatic - Eye Eye exam: Present: EOMI Pupils: Present: CESAR - ENT ENT exam: Present: normal exam - Neck Neck exam: Present: normal inspection - Respiratory Respiratory exam: Present: clear to auscultation bilaterally. Absent: rhonchi, wheezes - Cardiovascular Cardiovascular exam: Present: regular rate and rhythm. Absent: gallop, rubs, systolic murmur - GI/Abdominal GI/Abdominal exam: Present: normal bowel sounds, soft. Absent: distended, firm , guarding, tenderness, rebound - Extremities Exam Extremities exam: Present: normal inspection. Absent: calf tenderness, edema Results - Labs CBC & BMP: 10/25/16 07:04 10/25/16 06:39 Lab Results: I have reviewed the past 24 hour labs
[2016-10-26] MEDS: SODIUM BICARB INJ 150 MEQ in STERILE WATER INJ 850 ML IV SCH ×3 (00:29→19:53)
[2016-10-26] MEDS: LEVOFLOXACIN INJ 250 MG in PREMIX 1 EACH IV SCH (06:05)
[2016-10-26] MEDS: MEGESTROL 40 MG TABLET PO SCH ×3 (08:42→20:11)
[2016-10-26] MEDS: PANTOPRAZOLE 40 MG TABLET PO SCH (08:42)
[2016-10-26] MEDS: ENOXAPARIN 40 MG/0.4 ML SYRINGE SUBCUT SCH (08:42)
[2016-10-26] MEDS: METOPROLOL TARTRATE 25 MG TABLET PO SCH ×2 (08:42→20:11)
[2016-10-26 09:32] LABS: Basophils # 0.1 10*3/uL (0.0-0.2); Basophils % 0.9 % (0.0-0.8); Eosinophils # 0.2 10*3/uL (0.0-0.87); Eosinophils % 3.2 % (0.00-10.9); Hemoglobin 10.3 GM/DL (12.0-16.0); Immature Granulocytes % 0.6 %; Immature Granulocytes Absolute 0.03 #; Lymphocytes # 1.8 10*3/uL (1.4-4.0); Lymphocytes % 33.2 % (21.3-54.2); Mean Corpuscular HGB Conc 33.2 GM/DL (32-36); Mean Corpuscular Hemoglobin 30 PG (27-34); Mean Corpuscular Volume 90.9 FL (87-102); Mean Platelet Volume 11.4 FL (9.6-12.0); Monocytes % 18.6 % (1.7-12.7); Neutrophils # 2.3 10*3/uL (1.4-7.4); Neutrophils % 43.5 % (38.7-73.9); Platelet Count 143 T/CUMM (130-400); Red Blood Count 3.41 MC/CUMM (3.8-5.5); Red Cell Distribution Width 13.3 % (9.3-17.3); White Blood Count 5.3 T/CUMM (4-12)
[2016-10-26 09:59] LABS: Calcium 8.4 MG/DL (8.5-10.1); Osmolality,Calculated 287.7 MOS/KG (273-304); Potassium 2.9 MMOL/L (3.5-5.1)
[2016-10-26 10:07] LABS: Hypochromasia 1+; Lymphocytes 28 % (20-55); Platelet Estimate Decreased; Segmented Neutrophils 61 % (50-85); Total Cells Counted 100
[2016-10-26] MEDS: POTASSIUM CHLORIDE RIDER 10 MEQ in PREMIX 1 EACH IV PRN ×8 (10:54→23:50)
--- NOTE | 2016-10-26 13:36 | Hospitalist Progress Note ---
Assessment and Plan - Time spent with patient Time spent with patient: Greater than 30 minutes (1) Dementia Status: Acute Assessment and plan: Stable. As per request of family, will refer to [facility]. Current Visit: Yes (2) Metabolic acidosis Status: Acute Assessment and plan: Improving, likely due to dehydration. Current Visit: Yes (3) Hypokalemia Status: Acute Assessment and plan: Will continue to replenish. Current Visit: No Hospitalist: Subjective Interval history: No complaints, no overnight events. Exam - Constitutional Vitals: Period Temp Pulse Resp BP Sys/Rhodes Pulse Ox Last 24 Hr 97.9 F-98.7 F 73-87 16-20 101-116/52-84 97-100 General appearance: no acute distress - Head Head exam: Present: normocephalic, atraumatic - Eye Eye exam: Present: EOMI Pupils: Present: CESAR - ENT ENT exam: Present: normal exam - Neck Neck exam: Present: normal inspection - Respiratory Respiratory exam: Present: clear to auscultation bilaterally. Absent: rhonchi, wheezes - Cardiovascular Cardiovascular exam: Present: regular rate and rhythm. Absent: gallop, rubs, systolic murmur - GI/Abdominal GI/Abdominal exam: Present: normal bowel sounds, soft. Absent: distended, firm , guarding, tenderness, rebound - Extremities Exam Extremities exam: Present: normal inspection. Absent: calf tenderness, edema Results - Labs CBC & BMP: 10/26/16 08:59 10/26/16 08:59 Lab Results: I have reviewed the past 24 hour labs
[2016-10-26] MEDS ORDERED: POTASSIUM CHLORIDE RIDER 10 MEQ in PREMIX 1 EACH IV SCH (14:00)
[2016-10-26] MEDS ORDERED: LORazepam 1 MG TABLET PO ONE (21:12)
--- NOTE | 2016-10-26 22:52 | Event Note ---
Reported by the staff noted patient is coming in and out of bed and not resting. No fever no agitation. Patient was seen she looked comfortable stable hemodynamically . She says that she just could not go to sleep has history of dementia says she want to go home. Had given her 1 dose of 1 mg Ativan orally
[2016-10-27] MEDS: LEVOFLOXACIN INJ 250 MG in PREMIX 1 EACH IV SCH (05:57)
[2016-10-27 07:38] LABS: Basophils % 0.6 % (0.0-0.8); Eosinophils # 0.2 10*3/uL (0.0-0.87); Hematocrit 26.4 VOL% (35.7-47.0); Hemoglobin 9.1 GM/DL (12.0-16.0); Immature Granulocytes % 0.6 %; Immature Granulocytes Absolute 0.03 #; Lymphocytes # 1.8 10*3/uL (1.4-4.0); Lymphocytes % 34.3 % (21.3-54.2); Mean Corpuscular HGB Conc 34.5 GM/DL (32-36); Mean Corpuscular Hemoglobin 31 PG (27-34); Mean Corpuscular Volume 89.2 FL (87-102); Mean Platelet Volume 11.5 FL (9.6-12.0); Monocytes % 17.9 % (1.7-12.7); Neutrophils # 2.3 10*3/uL (1.4-7.4); Neutrophils % 43.6 % (38.7-73.9); Platelet Count 122 T/CUMM (130-400); Red Blood Count 2.96 MC/CUMM (3.8-5.5); Red Cell Distribution Width 13.6 % (9.3-17.3); White Blood Count 5.3 T/CUMM (4-12)
[2016-10-27 07:59] LABS: Calcium 8.1 MG/DL (8.5-10.1); Osmolality,Calculated 288.6 MOS/KG (273-304); Potassium 3.7 MMOL/L (3.5-5.1)
[2016-10-27 08:21] LABS: Lymphocytes 41 % (20-55); Segmented Neutrophils 50 % (50-85); Total Cells Counted 100
[2016-10-27 08:22] LABS: Hypochromasia 2+; Microcytosis 2+; Platelet Estimate Decreased
[2016-10-27] MEDS: MEGESTROL 40 MG TABLET PO SCH ×3 (08:35→20:35)
[2016-10-27] MEDS: PANTOPRAZOLE 40 MG TABLET PO SCH (08:35)
[2016-10-27] MEDS: METOPROLOL TARTRATE 25 MG TABLET PO SCH ×2 (08:36→20:35)
[2016-10-27] MEDS: ENOXAPARIN 40 MG/0.4 ML SYRINGE SUBCUT SCH (08:36)
[2016-10-27] MEDS: SODIUM BICARB INJ 150 MEQ in STERILE WATER INJ 850 ML IV SCH ×2 (11:36→14:24)
[2016-10-27] MEDS: POTASSIUM CHLORIDE 20 MEQ TABLET PO PRN (11:36)
--- NOTE | 2016-10-27 15:04 | Hospitalist Progress Note ---
Assessment and Plan - Time spent with patient Time spent with patient: Greater than 30 minutes (1) Dementia Status: Acute Assessment and plan: Stable. As per request of family, will refer to [facility]. Current Visit: Yes (2) Metabolic acidosis Status: Acute Assessment and plan: Improving, likely due to dehydration. Current Visit: Yes (3) Hypokalemia Status: Acute Assessment and plan: Will continue to replenish. Current Visit: No (4) Diarrhea Status: Acute Current Visit: Yes Hospitalist: Subjective Interval history: No complaints. Patient has been having diarrhea however. Exam - Constitutional Vitals: Period Temp Pulse Resp BP Sys/Rhodes Pulse Ox Last 24 Hr 97.4 F-98.8 F 88-99 16-20 118-132/58-88 92-97 General appearance: no acute distress - Head Head exam: Present: normocephalic, atraumatic - Eye Eye exam: Present: EOMI Pupils: Present: CESAR - ENT ENT exam: Present: normal exam - Neck Neck exam: Present: normal inspection - Respiratory Respiratory exam: Present: clear to auscultation bilaterally. Absent: rhonchi, wheezes - Cardiovascular Cardiovascular exam: Present: regular rate and rhythm. Absent: gallop, rubs, systolic murmur - GI/Abdominal GI/Abdominal exam: Present: normal bowel sounds, soft. Absent: distended, firm , guarding, tenderness, rebound - Extremities Exam Extremities exam: Present: normal inspection. Absent: calf tenderness, edema Results - Labs CBC & BMP: 10/27/16 06:47 10/27/16 06:47 Lab Results: I have reviewed the past 24 hour labs
[2016-10-28] MEDS: SODIUM BICARB INJ 150 MEQ in STERILE WATER INJ 850 ML IV SCH (05:16)
[2016-10-28] MEDS: LEVOFLOXACIN INJ 250 MG in PREMIX 1 EACH IV SCH (05:16)
[2016-10-28] MEDS: ENOXAPARIN 40 MG/0.4 ML SYRINGE SUBCUT SCH (08:15)
[2016-10-28] MEDS: METOPROLOL TARTRATE 25 MG TABLET PO SCH (08:15)
[2016-10-28] MEDS: PANTOPRAZOLE 40 MG TABLET PO SCH (08:15)
[2016-10-28] MEDS: MEGESTROL 40 MG TABLET PO SCH ×2 (08:15→14:06)
[2016-10-28] MEDS: POTASSIUM CHLORIDE 20 MEQ TABLET PO PRN (08:15)
[2016-10-28 11:43] VITALS: BP 107/55
--- NOTE | 2016-10-28 15:13 | Discharge Summary ---
Hospital Course - Hospital Course Hospital Course: Ms. Vila was brought in by her daughter and admitted for evaluation of confusions and hallucinations. Patient was found to have mild metabolic acidosis with hypokalemia. This was felt to be secondary to dehydration. She was administered fluid sodium and potassium with recovery of serum abnormalities. [facility] was consulted for evaluation and accepted the patient for [facility]. By discharge patient had met maximum benefit of hospitalization. I spent 32 minutes coordinating this discharge. - Time spent with patient Time with patient DS: Greater than 30 minutes Diagnosis - Discharge Diagnosis (1) Dementia Status: Acute (2) Metabolic acidosis Status: Acute (3) Hypokalemia Status: Acute (4) Diarrhea Status: Acute Discharge Plan - Discharge Data Disposition: Disch/Xfer to Snf Condition at Discharge: Stable Discharge Diet: advance to your usual diet - Discharge Medications Continue Metoprolol Tartrate Tab [Lopressor Tab] 50 mg PO BID Ergocalciferol (Vitamin D2) [Vitamin D2] 50,000 unit PO Q7D Pantoprazole Tab [Protonix Tab] 40 mg PO DAILY tablet Megestrol Tab [Megace Tab] 40 mg PO TID tablet Multivit-Min/FA/Lycopen/Lutein [Centrum Silver Tablet] 1 tablet PO DAILY Discontinued Spironolactone [Aldactone] 25 mg PO BID tablet - Follow Up or Referral - Forms/Instructions Exam - Constitutional Vitals: Period Temp Pulse Resp BP Sys/Rhodes Pulse Ox Last 24 Hr 97.5 F-99.1 F 76-89 16-20 107-136/49-75 95-97 General appearance: normal weight, no acute distress - Head Head exam: Present: normal inspection, normocephalic, atraumatic - Eye Eye exam: Present: EOMI Pupils: Present: CESAR - ENT ENT exam: Present: normal exam - Neck Neck exam: Present: normal inspection - Respiratory Respiratory exam: Present: clear to auscultation bilaterally. Absent: accessory muscle use, prolonged expiratory phase, wheezes - Cardiovascular Cardiovascular exam: Present: regular rate and rhythm. Absent: bradycardia, irregular rhythm, systolic murmur - GI/Abdominal GI/Abdominal exam: Present: normal bowel sounds. Absent: ascites, hypoactive bowel sounds, tenderness - Extremities Exam Extremities exam: Present: normal inspection Discharge Results Procedures and tests throughout hospitalization: Pending Orders 10/27/16 13:32 Stool Culture Routine Labs on day of discharge: Preliminary micro results at discharge 10/27/16 13:32 Stool Culture - Preliminary Stool No enteric pathogens at 24 hrs 10/25/16 06:38 Blood Culture - Preliminary Blood No growth at 3 days DS: Provider Date of admission: 10/25/16 00:58 Primary care physician: . No PCP Attending physician on admission: Keri Reyes MD Consults: 10/25/16 02:23 Consult to Pharmacy [CONS] Routine Reason for Pharmacy Consult: Adjust Meds Renal Funct Discharging clinician: Keri Reyes MD Expected date of discharge: 10/28/16
== END 2016-10-28 16:15 | DRG 884 ==
LOC: N.ED 21:50 → N.EDINP 10-25 00:58 → N.5E 10-25 01:52
PROVIDERS: ADMIT Internal Medicine; ATTEND Internal Medicine

== ENCOUNTER 2016-11-19 10:36 | Inpatient (IN) ==
[2016-11-19] MEDS ORDERED: LEVOFLOXACIN INJ 500 MG in PREMIX 1 EACH IV STA (11:12)
[2016-11-19] MEDS ORDERED: LEVOFLOXACIN INJ 100 ML IV ONE (11:43)
--- NOTE | 2016-11-19 11:49 | XRay Report ---
Portable chest Date: 11/19/2016 Clinical history: Shortness of breath Comparison: 10/24/2016 Technique: Portable AP sitting chest Findings: The heart is normal in size with prior median sternotomy. Calcification in the aortic knob. Skin folds are noted. Progressive diffuse parenchymal findings in the right lung and in the left mid to lower lung zone. Stable mediastinum with prior cholecystectomy and left shoulder replacement. Osteopenia with degenerative changes. Impression: Status post median sternotomy with chronic scarring. Progressive diffuse parenchymal findings in the right lung and in the left mid to lower lung zone which may related to bilateral pneumonia. There are ill-defined parenchymal densities and follow-up chest x-ray is recommended to document clearing. PROCEDURE INTERPRETED AT [facility] DEPARTMENT OF RADIOLOGY Final Report Signed by: Dr. Tatiana Morley
[2016-11-19 11:58] LABS: Basophils % 0.1 % (0.0-0.8); Hematocrit 27.3 VOL% (35.7-47.0); Hemoglobin 8.6 GM/DL (12.0-16.0); Immature Granulocytes % 6.5 %; Lymphocytes # 0.7 10*3/uL (1.4-4.0); Mean Corpuscular HGB Conc 31.5 GM/DL (32-36); Mean Corpuscular Hemoglobin 29 PG (27-34); Mean Corpuscular Volume 91.3 FL (87-102); Mean Platelet Volume 10.5 FL (9.6-12.0); Monocytes # 2.8 10*3/uL (0.11-0.8); Monocytes % 13.1 % (1.7-12.7); Neutrophils # 16.6 10*3/uL (1.4-7.4); Neutrophils % 77.3 % (38.7-73.9); Platelet Count 318 T/CUMM (130-400); Red Blood Count 2.99 MC/CUMM (3.8-5.5); Red Cell Distribution Width 13.8 % (9.3-17.3); White Blood Count 21.5 T/CUMM (4-12)
--- NOTE | 2016-11-19 12:00 | Emergency Department Note ---
Amber Carlisle Mantricia, am scribing for, and in the presence of, Mikey Moreno MD 11:21. IJosh Phillip K, MD, personally performed the services described in this documentation, ascribed by Ursula Clark in my presence, and it is both accurate and complete . Arrival - Arrival Chief Complaint: Upper Respiratory Stated Complaint: pneumonia ED Nursing Triage Note: states has pneumonia. cough for a few days. +yellow sputum. pt had xray at [facility] and has wbcs of 22 Mode of Arrival: Ambulatory Limitations: No Limitations Source: Patient, Guardian - History of Present Illness HPI Narrative: Pt is an 81 y/o white female arriving to ED for further evaluation of pneumonia that onset 2 days ago. Pt was currently seen by her PCP, Dr. Castellano, today and was Dx with pneumonia. Guardian states that the pt had pneumonia once before in June 2016. She also states that the pt is always SOB and cold all the time but denies a fever. Pt has a PMHx of COPD and reports abdominal pain from a previous colonoscopy. Guardian also reports that the pt has a nebulizer but never uses it. Pt reports no other concerns. Onset (ago): day(s) Consistency: constant Severity: moderate Severity scale (1-10): 4 Allergies/Adverse Reactions: Allergies Allergy/AdvReac Type Severity Reaction Status Date / Time codeine Allergy Unknown/Unable Verified 10/24/16 22:11 to obtain Penicillins Allergy Unknown/Unable Verified 10/24/16 22:11 to obtain Home Medications: Home Medications Medication Instructions Recorded Confirmed Type Ergocalciferol (Vitamin D2) 50,000 unit PO Q7D 07/15/16 11/19/16 History [Vitamin D2] Megestrol Tab [Megace Tab] 40 mg PO TID tablet 07/23/16 11/19/16 Rx Multivit-Min/FA/Lycopen/Lutein 1 tablet PO DAILY 10/24/16 11/19/16 History [Centrum Silver Tablet] Donepezil [Aricept] 5 mg PO BEDTIME #30 tablet 11/10/16 11/19/16 Rx Gabapentin Cap/Tab [Neurontin 100 mg PO BID@1600,2100 #60 capsule 11/10/1611/19 Rx Cap/Tab] Metoprolol Tartrate Tab [Lopressor 25 mg PO BID #60 tablet 11/10/16 11/19/16 Rx Tab] Review of System - Review of System 12 point system: reviewed and no additional remarkable complaints except as stated - Review of System Constitutional: Present: chills, other (pneumonia). Absent: diaphoresis, fever Eyes: Absent: discharge, pain, redness Head/Ears/Nose/Throat: Absent: earache Respiratory: Present: cough. Absent: respiratory distress, wheezing Cardiovascular: Absent: chest pain, palpitations, dyspnea on exertion Gastrointestinal: Present: abdominal pain. Absent: nausea, vomiting, diarrhea Genitourinary female: Absent: abnormal menses, dysuria Musculoskeletal: Absent: arm pain, back pain, leg pain, neck pain Skin: Absent: rash, lesions Neurological: Absent: headache, weakness Psychiatric: Absent: anxiety, depression Medical,Surgical,& Family Hx - Medical History Cardio: History of: Cardiac Dysrhythmia (sinus tach), CAD, Hypertension, Cardiovascular Problems (cabg and ablation 30-35 years ago ) Psychological: No history of: Behavior Problems, Violent Behavior, Psychiatric Problems Neurology: History of: Cerebrovascular Accident Gastrointestinal: History of: GI Problems (hx colectomy with colostomy and reversal) Musculoskeletal: History of: Back/Neck Problems Hematology: History of: Anemia No history of: Blood Transfusion Reaction - Surgical History Cardiac Surgeries: Sugical HX of: Cardiac Catheterization (within the last 5 years in [place] per daughter), Cardiac Surgery (CABG 30 years ago and ablation 35 years ago) HEENT Surgeries: Surgical HX of: Eye Surgery (bilateral cataracts), Tonsilectomy & Adenoidectomy Abdominal Surgeries: Surgical HX of: Abdominal Surgery (colectomy with colostomy and reversal), Appendectomy, Cholecystectomy, Hernia Repair Reproductive Surgeries: Surgical HX of;: Hysterectomy Orthopedic Surgeries: Surgical HX of;: Orthopedic Surgery (neck, lower back, left shoulder, carpal tunnel) - Family History Family History: Reports;: Family Diabetes (brother, sister), Family Heart Disease (father, brother, sister), Family Hypertension - Social History Smoking Status: Former smoker Frequency of Alcohol Use: None Type of Drug Use: None Exam Vital Signs: Vital Signs Temperature 98.4 F 11/19/16 15:47 Pulse Rate 91 H 11/19/16 15:47 Respiratory Rate 18 11/19/16 15:47 Blood Pressure 106/57 11/19/16 15:47 O2 Sat by Pulse Oximetry 97 11/19/16 15:47 - General General appearance: alert, in no apparent distress - Head Head exam: Present: atraumatic, normocephalic, normal inspection - Eye Eye exam: Present: PERRL, EOMI, other (pale conjuctiva) - ENT ENT exam: Present: normal oropharynx, mucous membranes dry (pale), TM's normal bilaterally, normal external ear exam - Neck Neck exam: Present: normal inspection, full ROM, trachea midline. Absent: tenderness - Chest Chest inspection: Present: normal inspection, symmetric chest wall rise. Absent : tenderness - Respiratory Respiratory exam: Present: rales (left base) - Cardiovascular Cardiovascular exam: Present: normal rhythm, tachycardia, normal heart sounds - Abdominal Exam Abdominal exam: Present: soft, normal bowel sounds. Absent: distention, tenderness, guarding, rebound - Extremities Exam Extremities exam: Present: normal inspection, full ROM, normal capillary refill. Absent: tenderness, pedal edema - Back Exam Back exam: Present: normal inspection, full ROM. Absent: tenderness - Neurological Exam Neurological exam: Present: alert, oriented X3, CN II-XII intact, reflexes normal - Psychiatric Psychiatric exam: Present: normal affect, normal mood - Skin Skin exam: Present: warm, dry, intact, pallor Course Course Narrative: Patient discussed with the hospitalist. Results - Labs CBC & BMP: 11/19/16 11:47 11/19/16 11:47 Lab Results: I have reviewed the patients labs - Diagnostic Findings Procedure: Chest x-ray: report reviewed by me (Status post median sternotomy with chronic scarring. Progressive diffuse parenchymal findings in the right lung and in the left mid to lower lung zone which may be related to bilateral pneumonia. There are ill-defined parenchymal densities and follow-up chest x- ray is recommended to document clearing. ) Disposition Clinical Impression: Right upper lobe pneumonia, Left lower lobe pneumonia Case discussed with: patient, patient's family Disposition: Still a Patient Condition: Guarded
[2016-11-19 12:23] LABS: Bilirubin,Total 0.9 MG/DL (0.2-1.0); Osmolality,Calculated 278.7 MOS/KG (273-304); Potassium 3.7 MMOL/L (3.5-5.1); Total Protein 7.6 G/DL (6.4-8.3)
--- NOTE | 2016-11-19 12:42 | EKG Report ---
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
--- NOTE | 2016-11-19 13:06 | Hospitalist History & Physical ---
<Moira Marques - Last Filed: 11/19/16 14:33> Assessment and Plan (1) Pneumonia Status: Acute Assessment and plan: CXR revealed pneumonia. [facility] IV fluids and IV antibiotics started. Breathing treatments as needed. Monitor CBC/BMP. Monitor patient. Current Visit: Yes (2) History of dementia Status: Acute Current Visit: No (3) Atrial fibrillation Status: Chronic Current Visit: No (4) Anorexia Status: Chronic Assessment and plan: Continue patient's Megestrol. Current Visit: No History of Present Illness Chief complaint: cough and shortness of breath History of present illness: Ms. Vila is a 81 year old white female patient with a history of pneumonia, COPD, smoking in the past, dementia, afib with ablation, CAB, and psychosis presents to the ED today with complaints of cough X 4 days as well as shortness of breath. The patient's granddaughter is at the bedside and states patient was just treated for pneumonia in 2015. She says she has been constantly short of breath but does not wear oxygen. She also states that patient was just discharged about a week about from [facility]. Pt. denies fever but complains of chills, occasional night sweats and abd pain from a colonoscopy. Pt. denies any other issues at this time. CXR shows pneumonia. Pt. will admitted to the hospitalist service for further eval and treatment. Home Medications Medication Instructions Recorded Confirmed Type Ergocalciferol (Vitamin D2) 50,000 unit PO Q7D 07/15/16 11/19/16 History [Vitamin D2] Megestrol Tab [Megace Tab] 40 mg PO TID tablet 07/23/16 11/19/16 Rx Multivit-Min/FA/Lycopen/Lutein 1 tablet PO DAILY 10/24/16 11/19/16 History [Centrum Silver Tablet] Donepezil [Aricept] 5 mg PO BEDTIME #30 tablet 11/10/16 11/19/16 Rx Gabapentin Cap/Tab [Neurontin 100 mg PO BID@1600,2100 #60 capsule 11/10/1611/19 Rx Cap/Tab] Metoprolol Tartrate Tab [Lopressor 25 mg PO BID #60 tablet 11/10/16 11/19/16 Rx Tab] Allergies Allergy/AdvReac Type Severity Reaction Status Date / Time codeine Allergy Unknown/Unable Verified 10/24/16 22:11 to obtain Penicillins Allergy Unknown/Unable Verified 10/24/16 22:11 to obtain Medical,Surgical,& Family Hx - Medical History Cardio: History of: Cardiac Dysrhythmia (sinus tach), CAD, Hypertension, Cardiovascular Problems (cabg and ablation 30-35 years ago ) Psychological: No history of: Behavior Problems, Violent Behavior, Psychiatric Problems Neurology: History of: Cerebrovascular Accident Gastrointestinal: History of: GI Problems (hx colectomy with colostomy and reversal) Musculoskeletal: History of: Back/Neck Problems Hematology: History of: Anemia No history of: Blood Transfusion Reaction - Surgical History Cardiac Surgeries: Sugical HX of: Cardiac Catheterization (within the last 5 years in [place] per daughter), Cardiac Surgery (CABG 30 years ago and ablation 35 years ago) HEENT Surgeries: Surgical HX of: Eye Surgery (bilateral cataracts), Tonsilectomy & Adenoidectomy Abdominal Surgeries: Surgical HX of: Abdominal Surgery (colectomy with colostomy and reversal), Appendectomy, Cholecystectomy, Hernia Repair Reproductive Surgeries: Surgical HX of;: Hysterectomy Orthopedic Surgeries: Surgical HX of;: Orthopedic Surgery (neck, lower back, left shoulder, carpal tunnel) - Family History Family History: Reports;: Family Diabetes (brother, sister), Family Heart Disease (father, brother, sister), Family Hypertension - Social History Smoking Status: Former smoker (quit 25 yrs ago) Frequency of Alcohol Use: None Type of Drug Use: None Lives With:: Alone Functional capacity: uses cane/walker - Constitutional Constitutional: Present: chills, fatigue, night sweats. Absent: fever(s) - EENT Eyes: Present: loss of vision, requires corrective lense Ears: Present: decreased hearing. Absent: ear discharge Nose, mouth and throat: Absent: dysphagia, hoarseness - Cardiovascular Cardiovascular: Present: dyspnea, dyspnea on exertion. Absent: chest pain at rest, edema - Respiratory Respiratory: Present: cough (productive) - Gastrointestinal Gastrointestinal: Absent: nausea, vomiting - Genitourinary Genitourinary: Absent: difficulty urinating, urinary hesitancy - Musculoskeletal Musculoskeletal: Absent: limited range of motion - Neurological Neurological: Present: confusion - Psychiatric Psychiatric: Present: confusion. Absent: anxiety - Endocrine Endocrine: Present: fatigue Exam - Constitutional Vitals: Period Temp Pulse Resp BP Sys/Rhodes Pulse Ox Last 24 Hr 99.0 F-99.0 F 92 18-18 115-121/73-78 General appearance: no acute distress, under weight - Head Head exam: Present: normal inspection, normocephalic - Eye Eye exam: Present: EOMI. Absent: scleral icterus Pupils: Present: CESAR. Absent: dilated - Neck Neck exam: Present: normal inspection - Respiratory Respiratory exam: Present: wheezes. Absent: clear to auscultation bilaterally - Cardiovascular Cardiovascular exam: Present: regular rate and rhythm - GI/Abdominal GI/Abdominal exam: Present: normal bowel sounds, tenderness, soft - Extremities Exam Extremities exam: Present: normal capillary refill, full ROM. Absent: edema - Neurological Exam Neurological exam: Present: alert, oriented X3, normal gait (use rolator) - Psychiatric Psychiatric exam: Present: normal affect, normal mood - Skin Skin exam: Present: normal color, warm, dry Results - Labs CBC & BMP: 11/19/16 11:47 11/19/16 11:47 Lab Results: I have reviewed the past 24 hour labs <Agnes Munoz - Last Filed: 11/19/16 17:49> History of Present Illness History of present illness: Ms. Vila is a 81 year old female who is on admission for pneumonia. Exam - Constitutional Vitals: Period Temp Pulse Resp BP Sys/Rhodes Pulse Ox Last 24 Hr 98.4 F 80-91 18-18 94-108/47-60 94-98 Results - Labs CBC & BMP: 11/19/16 11:47 11/19/16 11:47
[2016-11-19 15:43] LABS: Platelet Estimate Normal
[2016-11-19 15:44] LABS: Polychromasia Few
[2016-11-19] MEDS ORDERED: ONDANSETRON 4 MG/2 ML VIAL IV PRN (16:51)
[2016-11-19] MEDS ORDERED: ALBUTEROL 2.5 MG/3 ML NEB RESP TX PRN (16:51)
[2016-11-19] MEDS: ALBUTEROL/IPRATROPIUM 3 ML NEB RESP TX SCH ×2 (17:28→19:15)
[2016-11-19] MEDS: MEGESTROL 40 MG TABLET PO SCH ×2 (17:29→21:35)
[2016-11-19] MEDS: SODIUM CHLORIDE 0.9% 1,000 ML IV SCH (17:55)
[2016-11-19] MEDS ORDERED: ENOXAPARIN 30 MG/0.3 ML SYRINGE SUBCUT SCH (18:00)
[2016-11-19] MEDS: DONEPEZIL 5 MG TABLET PO SCH (21:36)
[2016-11-20] MEDS: guaiFENesin 200 MG/10 ML UDCUP PO PRN ×2 (00:10→21:46)
[2016-11-20] MEDS: ZALEPLON 5 MG CAPSULE PO PRN ×2 (00:10→21:50)
[2016-11-20] MEDS: ALBUTEROL/IPRATROPIUM 3 ML NEB RESP TX SCH ×5 (02:55→14:16)
--- NOTE | 2016-11-20 03:14 | Event Note ---
Patients heart rate elevated to 152. I am opted to transfer her to telemetry where she can be put on a Cardizem infusion
[2016-11-20 05:49] LABS: Albumin 2.6 G/DL (3.4-5.0); Bilirubin,Total 0.7 MG/DL (0.2-1.0); Potassium 3.4 MMOL/L (3.5-5.1); Risk Ratio 3.72; Thyroid Stimulating Hormone 0.964 uIU/ml (0.358-3.74); Total Protein 5.9 G/DL (6.4-8.3); VLDL CHOLESTEROL 16.8 MG/DL
[2016-11-20] MEDS: SODIUM CHLORIDE 0.9% 1,000 ML IV SCH (06:16)
[2016-11-20 07:46] LABS: Basophils % 0.1 % (0.0-0.8); Eosinophils # 0.1 10*3/uL (0.0-0.87); Eosinophils % 0.8 % (0.00-10.9); Hematocrit 24.2 VOL% (35.7-47.0); Hemoglobin 7.7 GM/DL (12.0-16.0); Immature Granulocytes % 1.5 %; Lymphocytes # 0.9 10*3/uL (1.4-4.0); Lymphocytes % 6.7 % (21.3-54.2); Mean Corpuscular HGB Conc 31.8 GM/DL (32-36); Mean Corpuscular Hemoglobin 29 PG (27-34); Mean Platelet Volume 10.9 FL (9.6-12.0); Monocytes # 1.9 10*3/uL (0.11-0.8); Monocytes % 14.7 % (1.7-12.7); Neutrophils # 9.8 10*3/uL (1.4-7.4); Neutrophils % 76.2 % (38.7-73.9); Platelet Count 284 T/CUMM (130-400); Red Blood Count 2.63 MC/CUMM (3.8-5.5); Red Cell Distribution Width 13.9 % (9.3-17.3); White Blood Count 12.9 T/CUMM (4-12)
[2016-11-20] MEDS: MEGESTROL 40 MG TABLET PO SCH ×2 (08:39→14:41)
[2016-11-20] MEDS: POTASSIUM CHLORIDE 20 MEQ TABLET PO PRN ×3 (08:39→14:41)
[2016-11-20] MEDS ORDERED: PANTOPRAZOLE 40 MG TABLET PO SCH (09:00)
[2016-11-20] MEDS ORDERED: LEVOFLOXACIN INJ 500 MG in PREMIX 1 EACH IV SCH (09:00)
[2016-11-20] MEDS ORDERED: MULTIVITAMIN (CENTRUM) TABLET PO SCH (09:00)
[2016-11-20] MEDS ORDERED: LEVOFLOXACIN INJ 250 MG in PREMIX 1 EACH IV SCH (09:00)
--- NOTE | 2016-11-20 10:35 | Cardiology Consult Note ---
<Casandra Abarca - Last Filed: 11/20/16 10:33> Assessment and Plan - Time spent with patient Time spent with patient: Greater than 30 minutes (1) Atrial fibrillation Status: Chronic Assessment and plan: Patient has history of paroxysmal atrial fibrillation. Per Dr. Castellanos's note, around 3:15 this morning patient's heart rate la to 152. Subsequently, she was moved to the telemetry unit and started on Cardizem infusion due to suspected recurring atrial fibrillation with rapid ventricular response. However, no strips of atrial fibrillation with rapid ventricular response are noted in the electronic medical record. Unable to determine if patient was having SVT or A. fib with RVR. Currently, she is an sinus tachycardia with PACs , heart rate 110. At this point, I will discontinue her Cardizem and reinitiate her amiodarone as she has no longer on Diflucan. I have also added beta-blockade. Because of her severe anemia, she is not a candidate for anticoagulation at this time. Will reassess the feasibility of long-term anticoagulation when her anemia improves. Further plan and addendum to follow per Dr. Hsieh. Current Visit: No (2) Sinus tachycardia Status: Acute Assessment and plan: Patient has chronic anemia and has had multiple transfusions in the past. Today her H&H is 7.7 and 24.2. No overt bleeding noted. I will check stool for occult blood and transfuse her with 2 units of packed red blood cells in hopes to improve her tachycardia. Current Visit: Yes (3) SVT (supraventricular tachycardia) Status: Chronic Assessment and plan: Patient has history of SVT and underwent ablation over 30 years ago in [place]. -Amiodarone 400 twice daily initiated -Lopressor 25 mg daily added Current Visit: Yes (4) Anemia Status: Chronic Assessment and plan: Patient has history of chronic anemia requiring multiple blood transfusions in the past. Today, her H&H is 7 and 24. Will check stool for occult blood and transfuse her with 2 units of packed red blood cells in hopes to improve her tachycardia. Daily CBC. Current Visit: No (5) Dementia Status: Chronic Assessment and plan: Stable at present. Current Visit: No (6) Hypertension Status: Chronic Assessment and plan: Continue current plan of care with beta-blockade. Will make further adjustments as needed during her hospitalization. Current Visit: Yes (7) Dyslipidemia Status: Chronic Assessment and plan: According to Dr. Bautista's last clinic note, patient was on pravastatin 40 mg daily. Will reinitiate this medication at this time. Current Visit: Yes (8) COPD (chronic obstructive pulmonary disease) Status: Chronic Assessment and plan: This is clinically stable. Continue current plan of care. Current Visit: Yes (9) Pneumonia Status: Acute Assessment and plan: Continue current plan of care with IV antibiotics. Defer management to hospital medicine. Current Visit: Yes (10) CVA (cerebral vascular accident) Status: Chronic Current Visit: Yes (11) Coronary artery disease Status: Chronic Assessment and plan: This appears to be clinically stable at this time. -Continue aspirin daily -Continue beta-blockade -Continue lipid-lowering agent Current Visit: Yes History of Present Illness - Data of Consult Patient: known to practice within the last 3 years Consult date: 11/20/16 Requesting Physician: Renee Matos - Consult Narrative Reason for consult: recurring afib History of present illness: Cardiology's: Dr. Bautista PCP: Dr. Breen Ms. Vila is a 81 year old female patient with known history of coronary artery disease, routinely followed by Dr. Bautista. Patient was admitted to the hospital yesterday and is currently being treated for pneumonia. She has cardiac risk factors significant for known coronary artery disease with CABG ( in [place] in 1986), hypertension, dyslipidemia, advanced age, sedentary lifestyle and family history of heart disease (father brother and sister). She has a past medical history of CVA, COPD, dementia, SVT with ablation ( approximately 30 years ago in [place]), paroxysmal atrial fibrillation, diastolic heart failure, chronic anemia requiring multiple blood transfusions and recurrent pneumonia. Her most recent cardiac catheterization was approximately 4 years ago in [place] which revealed patent grafts with no significant disease progression. She was last seen in the cardiology clinic by Dr. Bautista May 2016. Patient was just recently hospitalized in July for similar symptoms. Patient was treated for left lower lobe pneumonia. During her hospitalization she had episodes of paroxysmal atrial fibrillation. Cardiology saw her in consultation and initiated amiodarone. However, due to conflict between amiodarone and Diflucan, amiodarone had to be discontinued. Before discharge, patient had converted back to normal sinus rhythm. She was discharged home with metoprolol 50 mg twice daily. Due to severe anemia requiring blood transfusions, patient was not a candidate for anticoagulation at that time. She underwent upper endoscopy which showed esophageal candidiasis. No lesions were noted in the stomach. No ulcers were found. The patient does have a history of partial gastric resection. Aspirin 81 mg daily was continued at discharge. Patient presented to [facility] yesterday with productive cough and fever. She was seen by her PCP earlier that morning and diagnosed with pneumonia. Subsequently, she was admitted under hospitalist service and housed on the [facility] floor. Per Dr. Castellanos's note, around 3:15 this morning patient's heart rate la to 152. Subsequently, she was moved to the telemetry unit and started on Cardizem infusion due to suspected recurring atrial fibrillation with rapid ventricular response. However, no strips of atrial fibrillation with rapid ventricular response are noted in the electronic medical record. Unable to determine if patient was having SVT or A. fib with RVR. Currently, she is an sinus tachycardia with PACs, heart rate 110. We will continue to monitor closely on the patient monitor. Patient was seen and examined on the telemetry unit. She is currently in sinus tachycardia with PACs, heart rate of 110. Patient has chronic anemia and has had multiple transfusions in the past. Today her H&H is 7.7 and 24.2. No overt bleeding noted. I will check stool for occult blood and transfuse her with 2 units of packed red blood cells in hopes to improve her tachycardia. At this point, I will discontinue her Cardizem and reinitiate her amiodarone as she has no longer on Diflucan. Because of her severe anemia, she is not a candidate for anticoagulation at this time. She is unfortunately high risk for embolic complications from paroxysmal A. fib, will reassess the feasibility of long-term anticoagulation when her anemia improves. Further plan and addendum to follow per Dr. Hsieh. CC: Renee Matos MD - Home Medications and Allergies Home Medications: Home Medications Medication Instructions Recorded Confirmed Type Ergocalciferol (Vitamin D2) 50,000 unit PO Q7D 07/15/16 11/19/16 History [Vitamin D2] Megestrol Tab [Megace Tab] 40 mg PO TID tablet 07/23/16 11/19/16 Rx Multivit-Min/FA/Lycopen/Lutein 1 tablet PO DAILY 10/24/16 11/19/16 History [Centrum Silver Tablet] Donepezil [Aricept] 5 mg PO BEDTIME #30 tablet 11/10/16 11/19/16 Rx Gabapentin Cap/Tab [Neurontin 100 mg PO BID@1600,2100 #60 capsule 11/10/1611/19 Rx Cap/Tab] Metoprolol Tartrate Tab [Lopressor 25 mg PO BID #60 tablet 11/10/16 11/19/16 Rx Tab] Allergies/Adverse Reactions: Allergies Allergy/AdvReac Type Severity Reaction Status Date / Time codeine Allergy Unknown/Unable Verified 10/24/16 22:11 to obtain Penicillins Allergy Unknown/Unable Verified 10/24/16 22:11 to obtain - Constitutional Constitutional: Present: anorexia, chills, fatigue, fever(s), malaise, weakness , weight loss. Absent: frequent falls - Cardiovascular Cardiovascular: Present: as per HPI, dyspnea, palpitations, other (Chest pain with cough and with deep breath). Absent: claudication, diaphoresis, edema, radiating jaw, neck or arm pain, lightheadedness, orthopnea, PND - Respiratory Respiratory: Present: cough, dyspnea, pain on inspiration, change in phlegm color. Absent: hemoptysis - Gastrointestinal Gastrointestinal: Present: abdominal pain. Absent: change in bowel habits, coffee ground emesis, hematemesis, hematochezia, loose stools, melena, nausea, vomiting - Neurological Neurological: Absent: abnormal gait, abnormal speech, behavioral changes, dizziness, numbness, syncope - Psychiatric Psychiatric: Present: anxiety, auditory hallucinations, depression Medical,Surgical,& Family Hx - Medical History Cardio: History of: Cardiac Dysrhythmia (SVT and paroxysmal atrial fib), CHF ( Diastolic heart failure), CAD, Hypertension, Cardiovascular Problems (cabg and ablation 30-35 years ago ) Psychological: History of: Anxiety Disorders, Psychiatric Problems No history of: Violent Behavior Neurology: History of: Cerebrovascular Accident, Dementia Endocrine: History of: Dyslipidemia Respiratory: History of: COPD Gastrointestinal: History of: GI Problems (hx colectomy with colostomy and reversal) Musculoskeletal: History of: Back/Neck Problems Hematology: History of: Anemia No history of: Blood Transfusion Reaction - Surgical History Cardiac Surgeries: Sugical HX of: Cardiac Catheterization (within the last 5 years in [place] per daughter), Cardiac Surgery (CABG 30 years ago and ablation 35 years ago) HEENT Surgeries: Surgical HX of: Eye Surgery (bilateral cataracts), Tonsilectomy & Adenoidectomy Abdominal Surgeries: Surgical HX of: Abdominal Surgery (colectomy with colostomy and reversal), Appendectomy, Cholecystectomy, Hernia Repair Reproductive Surgeries: Surgical HX of;: Hysterectomy Orthopedic Surgeries: Surgical HX of;: Orthopedic Surgery (neck, lower back, left shoulder, carpal tunnel) - Family History Family History: Reports;: Family Diabetes (brother, sister), Family Heart Disease (father, brother, sister), Family Hypertension - Social History Smoking Status: Former smoker Frequency of Alcohol Use: None Type of Drug Use: None Physical Examination Vital Signs Temp Resp BP 99.0 F 18 121/78 11/19/16 10:47 11/19/16 10:47 11/19/16 10:47 General: Present: No Apparent Distress, Cachectic HEENT: Present: Normocephaly Neck: Present: Supple Neck, Midline Trachea, No JVD/HJR, No Masses, No Bruit, No Lymphadenopathy, No Thyromegaly Cardiac: Present: Reg Rate and Rhythm, Regular Rate, Regular Rhythm, S1/S2, Tachycardia Lungs: Present: Normal Exam, Normal Breath Sounds, Oxygen, No Wheeze, Rales, Rhonchi Abdomen: Present: Soft, Active Bowel Sounds, No Masses, Non-Tender. Absent: Firm, Distended Skin: Present: Clear. Absent: Rash, Suspicious Lesions, Ulceration Extremities: Present: No Clubbing, No Cyanosis, No Edema, Normal Upper Extr. Pulses, Normal Lower Extr. Pulses Result/EKG - Labs CBC & BMP: 11/20/16 07:28 11/20/16 03:46 Lab Results: I have reviewed the past 24 hour labs Labs: Laboratory Results - last 24 hr 11/20/16 11/20/16 11/20/16 03:46 03:46 07:28 WBC 12.9 H D RBC 2.63 L Hgb 7.7 L Hct 24.2 L MCV 92.0 MCH 29 MCHC 31.8 L RDW 13.9 Plt Count 284 MPV 10.9 Neut % (Auto) 76.2 H Lymph % (Auto) 6.7 L Holmes % (Auto) 14.7 H Eos % (Auto) 0.8 Baso % (Auto) 0.1 Neut # (Auto) 9.8 H Lymph # (Auto) 0.9 L Holmes # (Auto) 1.9 H Eos # (Auto) 0.1 Baso # (Auto) 0.0 Immature Gran % 1.5 Nucleated RBC % 0.0 Immature Gran # 0.20 Nucleated RBCs # 0.00 Sodium 143 Potassium 3.4 L Chloride 114 H Carbon Dioxide 13 L Anion Gap 19.4 H BUN 20 H Creatinine 0.80 GFR Calculation 53 BUN/Creatinine Ratio 25.00 H Glucose 103 Calculated Osmolality 287.0 Calcium 8.0 L Total Bilirubin 0.70 AST 17 ALT 21 Alkaline Phosphatase 74 Total Protein 5.9 L Albumin 2.6 L Globulin 3.3 Albumin/Globulin Ratio 0.7 L Triglycerides 84 Cholesterol 93 LDL Cholesterol 48.0 VLDL Cholesterol 16.8 HDL Cholesterol 25 L Heart Disease Risk Ratio 3.72 Free T4 1.60 H TSH 3rd Generation 0.964 <Benedicto Hsieh - Last Filed: 11/20/16 18:58> History of Present Illness - Consult Narrative History of present illness: Patient personally interviewed and examined and chart reviewed. I discussed this case with Casandra Abarca [employer]. I agree with the assessment and evaluation and plan. In summation and addition Ms. Vila is a 81 year old female who is frail recently had pneumonia. She's had prior atrial fibrillation and been on amiodarone but was stopped because she was placed on Diflucan. She has had SVT previously with ablation. She presented apparently with tachycardia but we do not have traces to confirm this other than one tracing with private fibrillation and a ventricle response for 114. At present the patient is in sinus rhythm and with a heart rate in the 90s. We have restarted her amiodarone. She is on a beta angie and because her blood pressures I would be reluctant to increase this. An option would be to add digitoxin if necessary to maintain her rates. We will continue to monitor her heart rhythm and rates while she is in the hospital. CC: Renee Matos MD Physical Examination Vital Signs Temp Resp BP 99.0 F 18 121/78 11/19/16 10:47 11/19/16 10:47 11/19/16 10:47 Result/EKG - Labs CBC & BMP: 11/20/16 07:28 11/20/16 03:46 Labs: Laboratory Results - last 24 hr 11/20/16 11/20/16 11/20/16 03:46 03:46 07:28 WBC 12.9 H D RBC 2.63 L Hgb 7.7 L Hct 24.2 L MCV 92.0 MCH 29 MCHC 31.8 L RDW 13.9 Plt Count 284 MPV 10.9 Neut % (Auto) 76.2 H Lymph % (Auto) 6.7 L Holmes % (Auto) 14.7 H Eos % (Auto) 0.8 Baso % (Auto) 0.1 Neut # (Auto) 9.8 H Lymph # (Auto) 0.9 L Holmes # (Auto) 1.9 H Eos # (Auto) 0.1 Baso # (Auto) 0.0 Immature Gran % 1.5 Nucleated RBC % 0.0 Immature Gran # 0.20 Nucleated RBCs # 0.00 Sodium 143 Potassium 3.4 L Chloride 114 H Carbon Dioxide 13 L Anion Gap 19.4 H BUN 20 H Creatinine 0.80 GFR Calculation 53 BUN/Creatinine Ratio 25.00 H Glucose 103 Calculated Osmolality 287.0 Calcium 8.0 L Total Bilirubin 0.70 AST 17 ALT 21 Alkaline Phosphatase 74 B-Natriuretic Peptide Total Protein 5.9 L Albumin 2.6 L Globulin 3.3 Albumin/Globulin Ratio 0.7 L Triglycerides 84 Cholesterol 93 LDL Cholesterol 48.0 VLDL Cholesterol 16.8 HDL Cholesterol 25 L Heart Disease Risk Ratio 3.72 Free T4 1.60 H TSH 3rd Generation 0.964 11/20/16 17:54 WBC RBC Hgb Hct MCV MCH MCHC RDW Plt Count MPV Neut % (Auto) Lymph % (Auto) Holmes % (Auto) Eos % (Auto) Baso % (Auto) Neut # (Auto) Lymph # (Auto) Holmes # (Auto) Eos # (Auto) Baso # (Auto) Immature Gran % Nucleated RBC % Immature Gran # Nucleated RBCs # Sodium Potassium Chloride Carbon Dioxide Anion Gap BUN Creatinine GFR Calculation BUN/Creatinine Ratio Glucose Calculated Osmolality Calcium Total Bilirubin AST ALT Alkaline Phosphatase B-Natriuretic Peptide 334 H Total Protein Albumin Globulin Albumin/Globulin Ratio Triglycerides Cholesterol LDL Cholesterol VLDL Cholesterol HDL Cholesterol Heart Disease Risk Ratio Free T4 TSH 3rd Generation
[2016-11-20] MEDS ORDERED: SODIUM CHLORIDE 0.9% 250 ML IV PRN (11:35)
[2016-11-20] MEDS ORDERED: ERGOCALCIFEROL 50,000 UNIT CAPSULE PO SCH (12:00)
[2016-11-20] MEDS: METOPROLOL TARTRATE 25 MG TABLET PO SCH ×2 (12:27→21:48)
[2016-11-20] MEDS: AMIODARONE 200 MG TABLET PO SCH ×2 (12:27→21:46)
--- NOTE | 2016-11-20 17:09 | Hospitalist Progress Note ---
Assessment and Plan (1) Atrial fibrillation with RVR Status: Acute Assessment and plan: Now rate controlled on amiodarone and metoprolol, avoid any anticoagulation at this time Current Visit: Yes (2) Acute blood loss anemia Status: Acute Assessment and plan: Change Protonix 40 mg twice a day, use SCDs and start DVT prophylaxis Lovenox. Blood was ordered but patient has antibodies in her blood and will not be available until tomorrow. Guaiac stools. Consult Dr. Lindsay. Continue to monitor hemoglobin Current Visit: Yes (3) History of dementia Status: Acute Assessment and plan: Continue to monitor Current Visit: No (4) Pneumonia Status: Acute Assessment and plan: Chest x-ray suggests bilateral pneumonia. White count is improved with IV antibiotics. We will have to change her from Levaquin to cefepime due to amiodarone being started. Current Visit: Yes (5) COPD (chronic obstructive pulmonary disease) Status: Chronic Assessment and plan: Hold off and duo nebs for now. No steroids needed at this time. Current Visit: Yes (6) Hypokalemia Status: Acute Assessment and plan: Replacing and recheck in a.m. Current Visit: No Hospitalist: Subjective Interval history: Patient went into A. fib with rapid ventricular response. This is not new for her she has a history of atrial fib. She is currently not on any anticoagulation. I have stopped the DVT prophylaxis Lovenox due to her worsening anemia. Cardiology has weaned her off the diltiazem drip and place her on amiodarone and she has done better. Exam - Constitutional Vitals: Period Temp Pulse Resp BP Sys/Rhodes Pulse Ox Last 24 Hr 96.7 F-98.9 F 83-133 16-20 96-120/41-66 88-99 Exam: Heart Rate-[irregular and tachy] Lungs-[diminished] GI-[+bs soft, NT] Ext-[no edema] Neuro [Motor 5/5], [alert and oriented times 3] psych [normal mood and affect] General [no acute distress] Results - Labs CBC & BMP: 11/20/16 07:28 11/20/16 03:46 Lab Results: I have reviewed the past 24 hour labs Labs: Blood cultures 2 negative - Diagnostic Findings Procedure: Chest x-ray: report reviewed by me (Bilateral pneumonia versus pulmonary edema)
[2016-11-20] MEDS: CEFEPIME 2,000 MG in SODIUM CHLORIDE 0.9% 100 ML IV SCH (18:48)
[2016-11-20] MEDS ORDERED: ENOXAPARIN 40 MG/0.4 ML SYRINGE SUBCUT SCH (21:00)
[2016-11-20] MEDS: ACETAMINOPHEN 325 MG TABLET PO PRN (21:47)
[2016-11-20] MEDS: PRAVASTATIN 40 MG TABLET PO SCH (21:47)
[2016-11-20] MEDS: DONEPEZIL 5 MG TABLET PO SCH (21:47)
[2016-11-20] MEDS: PANTOPRAZOLE 40 MG TABLET PO SCH (22:00)
[2016-11-21] MEDS: SODIUM CHLORIDE 0.9% 1,000 ML IV SCH ×2 (01:10→11:41)
[2016-11-21 02:04] LABS: Apearance,Urine Slightly Hazy (Clear); Bilirubin,Urine Negative (Negative); Blood, Urine Moderate mg/dL (Negative); Glucose,Urine (UA) Negative (Negative); Ketones,Urine Negative (Negative); Mucus,Urine Occasional /LPF (Occasional); Nitrite,Urine Negative (Negative); Protein,Urine Negative; RBC,Urine 165 /HPF (0-4); Renal Epithelial Cells,Urine Occasional /HPF (<1); Squamous Epithelial Cell,Urine Occasional /HPF (0-10); Urine Color Yellow (Yellow); Urine Specific Gravity 1.012 (1.001-1.035); Urine Urobilinogen < 2.0 EU/DL (0.2-1.0); WBC,Urine 8 /HPF (0-6)
[2016-11-21] MEDS: CEFEPIME 2,000 MG in SODIUM CHLORIDE 0.9% 100 ML IV SCH ×2 (05:56→17:41)
[2016-11-21 06:16] LABS: Basophils % 0.2 % (0.0-0.8); Eosinophils # 0.4 10*3/uL (0.0-0.87); Eosinophils % 2.9 % (0.00-10.9); Hematocrit 23.9 VOL% (35.7-47.0); Hemoglobin 7.5 GM/DL (12.0-16.0); Immature Granulocytes % 3.3 %; Immature Granulocytes Absolute 0.45 #; Lymphocytes # 1.1 10*3/uL (1.4-4.0); Mean Corpuscular HGB Conc 31.4 GM/DL (32-36); Mean Corpuscular Hemoglobin 28 PG (27-34); Mean Corpuscular Volume 90.5 FL (87-102); Mean Platelet Volume 10.8 FL (9.6-12.0); Monocytes % 14.4 % (1.7-12.7); Neutrophils # 9.7 10*3/uL (1.4-7.4); Neutrophils % 71.2 % (38.7-73.9); Platelet Count 328 T/CUMM (130-400); Red Blood Count 2.64 MC/CUMM (3.8-5.5); Red Cell Distribution Width 14.1 % (9.3-17.3); White Blood Count 13.7 T/CUMM (4-12)
[2016-11-21 06:45] LABS: Calcium 8.2 MG/DL (8.5-10.1); Magnesium 1.9 MG/DL (1.8-2.4); Osmolality,Calculated 287.7 MOS/KG (273-304)
[2016-11-21] MEDS: METOPROLOL TARTRATE 25 MG TABLET PO SCH (08:20)
[2016-11-21] MEDS: PANTOPRAZOLE 40 MG TABLET PO SCH (08:20)
[2016-11-21] MEDS: AMIODARONE 200 MG TABLET PO SCH (08:20)
[2016-11-21] MEDS ORDERED: FUROSEMIDE 40 MG/4 ML VIAL IV ONE (10:44)
--- NOTE | 2016-11-21 10:48 | Gastrointestinal Consult Note ---
Assessment and Plan (1) Anemia Status: Chronic Assessment and plan: 11/21-findings of anemia on admission with trace amounts of blood noted in stool. Long-standing history of anemia with transfusions in the past. Reported PUD with surgical intervention per patient and past. Last EGD noted 07/22/16 for abdominal pain, weight loss by Dr. Lindsay with findings of esophageal candidiasis and partial gastrectomy. Hemoglobin currently 7.5, transfusing 2 units of packed red blood cells. Plan an addendum to followed by Dr. Lindsay. Current Visit: No History of Present Illness Chief complaint: Anemia History of present illness: Ms. Vila is a 81 year old female who was admitted to the hospital cough and shortness of breath. Patient is a fair historian therefore information also collected from chart review. Patient has a prior history of COPD PD, dementia, atrial fib with ablation in the past. CAD, and psychosis. She presented to the emergency room 2 days ago with complaints of cough and shortness of breath for several days. She has a history of pneumonia in the recent past June. She is also noted to have been discharged from [facility] approximately a week ago. On admission patient was found to have pneumonia. During her workup, patient was found to have anemia. She was admitted with a hemoglobin of 8.6 however this is now trended downward to 7.5 today. Patient states that she has a prior history of anemia however cannot recall blood transfusions in the past but noted that family did report during another providers visits she has had multiple transfusions in the past.. She denies any overt bleeding now or bleeding in the past that she can recall. She is currently receiving 2 units of packed red blood cells which was delayed until today due to patient having antibodies and blood not available at that time. Her stools are noted to have a trace amount of occult blood on yesterday. She denies any abdominal pain, nausea or vomiting. There are no complaints of melena or hematochezia. She denies any fever or chills. She denies any weight loss that she can recall. She does state that she has a history of PUD in the past and within the last 10 years had a partial gastrectomy due to this in [place]. Patient was seen by Dr. Lindsay in July of this year and underwent an EGD for complaints of abdominal pain and weight loss with only finding of esophageal candidiasis and partial gastrectomy noted during endoscopy. She is also noted on her history to have had a colectomy with a colostomy which was eventually reversed with uncertainty as to why this was performed at this time. She was not noted to be admitted on anticoagulation and at this time her Lovenox has been held due to her anemia. Home Medications Medication Instructions Recorded Confirmed Type Ergocalciferol (Vitamin D2) 50,000 unit PO Q7D 07/15/16 11/19/16 History [Vitamin D2] Megestrol Tab [Megace Tab] 40 mg PO TID tablet 07/23/16 11/19/16 Rx Multivit-Min/FA/Lycopen/Lutein 1 tablet PO DAILY 10/24/16 11/19/16 History [Centrum Silver Tablet] Donepezil [Aricept] 5 mg PO BEDTIME #30 tablet 11/10/16 11/19/16 Rx Gabapentin Cap/Tab [Neurontin 100 mg PO BID@1600,2100 #60 capsule 11/10/1611/19 Rx Cap/Tab] Metoprolol Tartrate Tab [Lopressor 25 mg PO BID #60 tablet 11/10/16 11/19/16 Rx Tab] Allergies Allergy/AdvReac Type Severity Reaction Status Date / Time codeine Allergy Unknown/Unable Verified 10/24/16 22:11 to obtain Penicillins Allergy Unknown/Unable Verified 10/24/16 22:11 to obtain Medical,Surgical,& Family Hx - Medical History Cardio: History of: Cardiac Dysrhythmia (SVT and paroxysmal atrial fib), CHF ( Diastolic heart failure), CAD, Hypertension, Cardiovascular Problems (cabg and ablation 30-35 years ago ) Psychological: History of: Anxiety Disorders, Psychiatric Problems No history of: Behavior Problems, Violent Behavior Neurology: History of: Cerebrovascular Accident, Dementia Endocrine: History of: Dyslipidemia Respiratory: History of: COPD Gastrointestinal: History of: GI Problems (hx colectomy with colostomy and reversal) Musculoskeletal: History of: Back/Neck Problems Hematology: History of: Anemia No history of: Blood Transfusion Reaction - Surgical History Cardiac Surgeries: Sugical HX of: Cardiac Catheterization (within the last 5 years in [place] per daughter), Cardiac Surgery (CABG 30 years ago and ablation 35 years ago) HEENT Surgeries: Surgical HX of: Eye Surgery (bilateral cataracts), Tonsilectomy & Adenoidectomy Abdominal Surgeries: Surgical HX of: Abdominal Surgery (colectomy with colostomy and reversal), Appendectomy, Cholecystectomy, Hernia Repair Reproductive Surgeries: Surgical HX of;: Hysterectomy Orthopedic Surgeries: Surgical HX of;: Orthopedic Surgery (neck, lower back, left shoulder, carpal tunnel) - Family History Family History: Reports;: Family Diabetes (brother, sister), Family Heart Disease (father, brother, sister), Family Hypertension - Social History Smoking Status: Former smoker Frequency of Alcohol Use: None Type of Drug Use: None 12 point system: reviewed and no additional remarkable complaints except as stated - Constitutional Constitutional: Present: as per HPI - EENT Eyes: Present: as per HPI Ears: Present: as per HPI Nose, mouth and throat: Present: as per HPI - Cardiovascular Cardiovascular: Present: as per HPI - Respiratory Respiratory: Present: as per HPI - Gastrointestinal Gastrointestinal: Present: as per HPI - Genitourinary Genitourinary: Present: as per HPI - Musculoskeletal Musculoskeletal: Present: as per HPI - Neurological Neurological: Present: as per HPI - Psychiatric Psychiatric: Present: as per HPI - Endocrine Endocrine: Present: as per HPI - Hematologic/Lymphatic Hematologic/Lymphatic: Present: as per HPI Exam - Constitutional Vitals: Period Temp Pulse Resp BP Sys/Rhodes Pulse Ox Last 24 Hr 96.7 F-98.3 F 83-107 16-20 96-116/51-84 90-100 General appearance: no acute distress, under weight - Head Head exam: Present: normal inspection, normocephalic - Eye Eye exam: Present: other (Lids and conjunctive are unremarkable). Absent: scleral icterus - ENT ENT exam: Present: normal exam, normal oropharynx - Neck Neck exam: Present: normal inspection - Respiratory Respiratory exam: Present: clear to auscultation bilaterally. Absent: rales, rhonchi, wheezes - Cardiovascular Cardiovascular exam: Present: regular rate and rhythm. Absent: diastolic murmur , JVD, systolic murmur - GI/Abdominal GI/Abdominal exam: Present: normal bowel sounds, soft. Absent: ascites, distended, mass, organomegaly, tenderness - Extremities Exam Extremities exam: Present: normal inspection, full ROM - Back Exam Back exam: Present: normal inspection - Neurological Exam Neurological exam: Present: alert, oriented X3 - Psychiatric Psychiatric exam: Present: normal affect, normal mood - Skin Skin exam: Present: normal color, warm, dry Results - Labs CBC & BMP: 11/21/16 05:31 11/21/16 05:31 Lab Results: I have reviewed the past 24 hour labs
--- NOTE | 2016-11-21 12:58 | Cardiology Progress Note ---
<Casandra Abarca - Last Filed: 11/21/16 12:52> Assessment and Plan (1) Atrial fibrillation Status: Chronic Assessment and plan: Patient has history of paroxysmal atrial fibrillation. Currently, she is an sinus tachycardia with PACs, heart rates 115-120. I suspect this may be partially related to her severe anemia. She is currently receiving packed red blood cells. Will consider adding digoxin if tachycardia does not resolve post blood transfusion. Continue amiodarone and beta-angie. Because of her severe anemia, she is not a candidate for anticoagulation at this time. Will reassess the feasibility of long-term anticoagulation when her anemia improves. Further plan and addendum to follow per Dr. Hsieh. Current Visit: No (2) Sinus tachycardia Status: Acute Assessment and plan: I suspect that her tachycardia may be partially related to her severe anemia. She is currently receiving packed red blood cells. Will continue beta-angie and consider adding digoxin if tachycardia does not resolve post blood transfusion. Current Visit: Yes (3) SVT (supraventricular tachycardia) Status: Chronic Assessment and plan: Patient has history of SVT and underwent ablation over 30 years ago in [place]. -Continue amiodarone -Continue Lopressor Current Visit: Yes (4) Anemia Status: Acute Assessment and plan: Currently being worked up per GI. Current Visit: No (5) Dementia Status: Chronic Assessment and plan: Stable at present. Current Visit: No (6) Hypertension Status: Chronic Assessment and plan: Continue current plan of care. Current Visit: Yes (7) Dyslipidemia Status: Chronic Assessment and plan: Continue current plan of care with lipid lowering agent. Current Visit: Yes (8) COPD (chronic obstructive pulmonary disease) Status: Chronic Assessment and plan: Stable at present. Management per attending. Current Visit: No (9) Pneumonia Status: Acute Assessment and plan: Continue current plan of care with IV antibiotics. Defer management to hospital medicine. Current Visit: Yes (10) CVA (cerebral vascular accident) Status: Chronic Current Visit: Yes (11) Coronary artery disease Status: Chronic Assessment and plan: This appears to be clinically stable at this time. -Continue aspirin daily -Continue beta-blockade -Continue lipid-lowering agent Current Visit: Yes Cardiology - PN: Subj Interval history: Cardiology's: Dr. Bautista PCP: Dr. Breen SUMMARY: Ms. Vila is a 81 year old female patient with known history of coronary artery disease, routinely followed by Dr. Bautista. Patient was admitted to the hospital with pneumonia. Past medical history includes: known coronary artery disease with CABG (in [place] in 1986), hypertension, dyslipidemia, advanced age, CVA, COPD, dementia, SVT with ablation ( approximately 30 years ago in [place]), paroxysmal atrial fibrillation, diastolic heart failure, chronic anemia requiring multiple blood transfusions and recurrent pneumonia. During her hospitalization, she had afib with RVR, heart rate of 114. Patient was then transferred to the telemetry unit and cardiology was then consulted for further evaluation. Amiodarone was reinitiated yesterday. Patient is now sinus tach with PACs, heart rates ranging from 115/120. Patient has history of chronic anemia. Upon arrival to [facility], her H&H was 7 and 24. Stool was positive for trace amount of occult blood. GI has now been consulted. Patient was seen and examined in the telemetry unit. Patient's amiodarone was reinitiated yesterday. Patient is now in sinus tachycardia with PACs, heart rates 115-120. H&H this morning has dropped to 7.5 and 23.9. She is currently receiving blood transfusion. Stool was positive for trace amount of occult blood. GI has not been consulted. Patient confirms abdominal pain. She also reports heart racing and palpitations. This is most likely secondary to patient 's severe anemia. She continues to complain of mild chest discomfort that is worse with coughing and deep breathing. This is consistent with pleuritic chest pain related to her pneumonia. Currently receiving appropriate antibiotics. Vital signs are stable. Further plan and addendum to labor Dr. Hsieh. Exam (Progress Note) - Constitutional Vitals: Period Temp Pulse Resp BP Sys/Rhodes Pulse Ox Last 24 Hr 96.7 F-99 F 83-108 16-20 98-147/47-84 90-100 Exam: General: Present: No Apparent Distress, Cachectic HEENT: Present: Normocephaly Neck: Present: Supple Neck, Midline Trachea, No JVD/HJR, No Masses, No Bruit, No Lymphadenopathy, No Thyromegaly Cardiac: Present: Reg Rate and Rhythm, Regular Rate, Regular Rhythm, S1/S2, Tachycardia Lungs: Present: Normal Exam, Normal Breath Sounds, Oxygen, No Wheeze, Rales, Rhonchi Abdomen: Present: Soft, Active Bowel Sounds, No Masses, tender. Absent: Firm, Distended Skin: Present: Clear. Absent: Rash, Suspicious Lesions, Ulceration Extremities: Present: No Clubbing, No Cyanosis, No Edema, Normal Upper Extr. Pulses, Normal Lower Extr. Pulses Result/EKG - Labs CBC & BMP: 11/21/16 05:31 11/21/16 05:31 Lab Results: I have reviewed the past 24 hour labs Labs: Laboratory Results - last 24 hr 11/20/16 11/20/16 11/21/16 12:04 17:54 01:30 WBC RBC Hgb Hct MCV MCH MCHC RDW Plt Count MPV Neut % (Auto) Lymph % (Auto) [place] % (Auto) Eos % (Auto) Baso % (Auto) Neut # (Auto) Lymph # (Auto) [place] # (Auto) Eos # (Auto) Baso # (Auto) Immature Gran % Nucleated RBC % Immature Gran # Nucleated RBCs # Sodium Potassium Chloride Carbon Dioxide Anion Gap BUN Creatinine GFR Calculation BUN/Creatinine Ratio Glucose Calculated Osmolality Calcium Magnesium B-Natriuretic Peptide 334 H Urine Color Yellow Urine Appearance Slightly hazy Urine pH 6.0 Ur Specific [place] 1.012 Urine Protein Negative Urine Glucose (UA) Negative Urine Ketones Negative Urine Blood Moderate Urine Nitrate Negative Urine Bilirubin Negative Urine Urobilinogen < 2.0 H Urine Leukocytes Small H Urine RBC 165 Urine WBC 8 Ur Squamous Epith Cells Occasional Ur Renal Epithelial Cell Occasional Urine Mucus Occasional Ur Culture Indicated? Uv Blood Type O POSITIVE Antibody Screen Positive Antibody Identification Anti-c Crossmatch See Detail 11/21/16 11/21/16 05:31 05:31 WBC 13.7 H RBC 2.64 L Hgb 7.5 L Hct 23.9 L MCV 90.5 MCH 28 MCHC 31.4 L RDW 14.1 Plt Count 328 MPV 10.8 Neut % (Auto) 71.2 Lymph % (Auto) 8.0 L [place] % (Auto) 14.4 H Eos % (Auto) 2.9 Baso % (Auto) 0.2 Neut # (Auto) 9.7 H Lymph # (Auto) 1.1 L [place] # (Auto) 2.0 H Eos # (Auto) 0.4 Baso # (Auto) 0.0 Immature Gran % 3.3 Nucleated RBC % 0.0 Immature Gran # 0.45 Nucleated RBCs # 0.00 Sodium 145 Potassium 4.0 Chloride 120 H Carbon Dioxide 14 L Anion Gap 15.0 BUN 13 Creatinine 0.70 GFR Calculation 64 BUN/Creatinine Ratio 18.00 Glucose 93 Calculated Osmolality 287.7 Calcium 8.2 L Magnesium 1.9 B-Natriuretic Peptide Urine Color Urine Appearance Urine pH Ur Specific [place] Urine Protein Urine Glucose (UA) Urine Ketones Urine Blood Urine Nitrate Urine Bilirubin Urine Urobilinogen Urine Leukocytes Urine RBC Urine WBC Ur Squamous Epith Cells Ur Renal Epithelial Cell Urine Mucus Ur Culture Indicated? Blood Type Antibody Screen Antibody Identification Crossmatch <Benedicto Hsieh - Last Filed: 11/21/16 13:52> Cardiology - PN: Subj Interval history: I personally interviewed and examined the patient and chart reviewed. Discussed case with Casandra Abarca LINING MACHINE OPERATOR. Agree with assessment and evaluation and plan. In summation and addition the patient think is doing well from cardiac standpoint. She remains in sinus rhythm with PACs. Her heart rate is increased but this again may be secondary to her anemia. If her heart rates remain elevated especially after her H&H is corrected we may have to adjust her beta angie. She certainly is not a good candidate for anticoagulation. We will continue to monitor her heart rates and see how these respond to her blood products. At this time no further changes. Exam is as stated and unchanged. Exam (Progress Note) - Constitutional Vitals: Period Temp Pulse Resp BP Sys/Rhodes Pulse Ox Last 24 Hr 96.7 F-99 F 83-108 16-20 98-147/47-84 90-100 Result/EKG - Labs CBC & BMP: 11/21/16 05:31 11/21/16 05:31 Labs: Laboratory Results - last 24 hr 11/20/16 11/20/16 11/21/16 12:04 17:54 01:30 WBC RBC Hgb Hct MCV MCH MCHC RDW Plt Count MPV Neut % (Auto) Lymph % (Auto) [place] % (Auto) Eos % (Auto) Baso % (Auto) Neut # (Auto) Lymph # (Auto) [place] # (Auto) Eos # (Auto) Baso # (Auto) Immature Gran % Nucleated RBC % Immature Gran # Nucleated RBCs # Sodium Potassium Chloride Carbon Dioxide Anion Gap BUN Creatinine GFR Calculation BUN/Creatinine Ratio Glucose Calculated Osmolality Calcium Magnesium B-Natriuretic Peptide 334 H Urine Color Yellow Urine Appearance Slightly hazy Urine pH 6.0 Ur Specific [place] 1.012 Urine Protein Negative Urine Glucose (UA) Negative Urine Ketones Negative Urine Blood Moderate Urine Nitrate Negative Urine Bilirubin Negative Urine Urobilinogen < 2.0 H Urine Leukocytes Small H Urine RBC 165 Urine WBC 8 Ur Squamous Epith Cells Occasional Ur Renal Epithelial Cell Occasional Urine Mucus Occasional Ur Culture Indicated? Uv Blood Type O POSITIVE Antibody Screen Positive Antibody Identification Anti-c Crossmatch See Detail 11/21/16 11/21/16 05:31 05:31 WBC 13.7 H RBC 2.64 L Hgb 7.5 L Hct 23.9 L MCV 90.5 MCH 28 MCHC 31.4 L RDW 14.1 Plt Count 328 MPV 10.8 Neut % (Auto) 71.2 Lymph % (Auto) 8.0 L [place] % (Auto) 14.4 H Eos % (Auto) 2.9 Baso % (Auto) 0.2 Neut # (Auto) 9.7 H Lymph # (Auto) 1.1 L [place] # (Auto) 2.0 H Eos # (Auto) 0.4 Baso # (Auto) 0.0 Immature Gran % 3.3 Nucleated RBC % 0.0 Immature Gran # 0.45 Nucleated RBCs # 0.00 Sodium 145 Potassium 4.0 Chloride 120 H Carbon Dioxide 14 L Anion Gap 15.0 BUN 13 Creatinine 0.70 GFR Calculation 64 BUN/Creatinine Ratio 18.00 Glucose 93 Calculated Osmolality 287.7 Calcium 8.2 L Magnesium 1.9 B-Natriuretic Peptide Urine Color Urine Appearance Urine pH Ur Specific [place] Urine Protein Urine Glucose (UA) Urine Ketones Urine Blood Urine Nitrate Urine Bilirubin Urine Urobilinogen Urine Leukocytes Urine RBC Urine WBC Ur Squamous Epith Cells Ur Renal Epithelial Cell Urine Mucus Ur Culture Indicated? Blood Type Antibody Screen Antibody Identification Crossmatch
--- NOTE | 2016-11-21 13:54 | Hospitalist Progress Note ---
Assessment and Plan (1) Atrial fibrillation with RVR Status: Acute Assessment and plan: Continue amiodarone and metoprolol, would not put her on anticoagulation Current Visit: Yes (2) Acute blood loss anemia Status: Acute Assessment and plan: Guaiac stools positive, 2 units packed red blood cells infusing, Lasix given 40 mg IV continue to monitor for volume overload Current Visit: Yes (3) History of dementia Status: Acute Assessment and plan: Seems more confused today Current Visit: No (4) Pneumonia Status: Acute Assessment and plan: Continue cefepime, added doxycycline, avoid levaquin and azithromycin Current Visit: Yes (5) COPD (chronic obstructive pulmonary disease) Status: Chronic Assessment and plan: cont abx only, duonebs every 8 Current Visit: No (6) Hypokalemia Status: Acute Assessment and plan: resolved Current Visit: No Hospitalist: Subjective Interval history: Patient no longer requires telemetry, will do fine on monitored bed. Diltiazem drip stopped. Patient sounded a little wet today. Hep-Lock fluids gave 1 dose of Lasix. May need another dose of Lasix after the second unit. Transfer back to fifth floor under the care of Dr. Clemons Exam - Constitutional Vitals: Period Temp Pulse Resp BP Sys/Rhodes Pulse Ox Last 24 Hr 96.7 F-99 F 83-108 16-20 98-147/47-84 90-100 Exam: Heart Rate-[IRR] Lungs-[crackles especially on left GI-[+bs soft, NT] Ext-[no edema] Neuro [Motor 5/5 very weak], [alert and oriented times 2 a little confused today ] psych [normal mood and affect] General [no acute distress] Results - Labs CBC & BMP: 11/21/16 05:31 11/21/16 05:31 Lab Results: I have reviewed the past 24 hour labs Labs: Trace blood in stools, blood cultures 2 negative
[2016-11-21] MEDS: DOXYCYCLINE HYCLATE INJ 100 MG in SODIUM CHLORIDE 0.9% 100 ML IV SCH (15:35)
[2016-11-21 17:33] LABS: Hematocrit 39.9 VOL% (35.7-47.0)
[2016-11-21 17:34] LABS: Hemoglobin 13.2 GM/DL (12.0-16.0)
[2016-11-22] MEDS: AMIODARONE 200 MG TABLET PO SCH ×4 (00:25→20:16)
[2016-11-22] MEDS: DONEPEZIL 5 MG TABLET PO SCH ×2 (00:26→20:16)
[2016-11-22] MEDS: ACETAMINOPHEN 325 MG TABLET PO PRN (00:31)
[2016-11-22] MEDS: ZALEPLON 5 MG CAPSULE PO PRN ×2 (00:31→20:16)
[2016-11-22] MEDS: PANTOPRAZOLE 40 MG TABLET PO SCH ×3 (00:36→20:16)
[2016-11-22] MEDS: METOPROLOL TARTRATE 25 MG TABLET PO SCH ×2 (00:36→08:42)
[2016-11-22] MEDS: PRAVASTATIN 40 MG TABLET PO SCH ×2 (00:36→20:16)
[2016-11-22] MEDS: guaiFENesin 200 MG/10 ML UDCUP PO PRN (00:37)
[2016-11-22] MEDS: DOXYCYCLINE HYCLATE INJ 100 MG in SODIUM CHLORIDE 0.9% 100 ML IV SCH ×2 (04:45→16:36)
[2016-11-22] MEDS: CEFEPIME 2,000 MG in SODIUM CHLORIDE 0.9% 100 ML IV SCH ×2 (06:14→17:15)
[2016-11-22 07:28] LABS: Basophils # 0.1 10*3/uL (0.0-0.2); Basophils % 0.6 % (0.0-0.8); Eosinophils # 0.5 10*3/uL (0.0-0.87); Eosinophils % 5.1 % (0.00-10.9); Hematocrit 40.3 VOL% (35.7-47.0); Hemoglobin 13.4 GM/DL (12.0-16.0); Immature Granulocytes % 5.7 %; Immature Granulocytes Absolute 0.53 #; Lymphocytes # 1.2 10*3/uL (1.4-4.0); Lymphocytes % 12.7 % (21.3-54.2); Mean Corpuscular HGB Conc 33.3 GM/DL (32-36); Mean Corpuscular Hemoglobin 29 PG (27-34); Mean Corpuscular Volume 85.7 FL (87-102); Mean Platelet Volume 10.5 FL (9.6-12.0); Monocytes # 1.3 10*3/uL (0.11-0.8); Monocytes % 14.1 % (1.7-12.7); Neutrophils # 5.8 10*3/uL (1.4-7.4); Neutrophils % 61.8 % (38.7-73.9); Platelet Count 287 T/CUMM (130-400); Red Cell Distribution Width 14.6 % (9.3-17.3); White Blood Count 9.3 T/CUMM (4-12)
[2016-11-22 07:53] LABS: Band Neutrophils 4 % (0-10); Burr Cells Slight; Eosinophils 9 % (0-10); Hypochromasia 1+; Lymphocytes 14 % (20-55); Platelet Estimate Normal; Segmented Neutrophils 59 % (50-85); Total Cells Counted 100
[2016-11-22 08:02] LABS: Calcium 8.4 MG/DL (8.5-10.1); Magnesium 1.7 MG/DL (1.8-2.4); Osmolality,Calculated 284.1 MOS/KG (273-304); Potassium 3.5 MMOL/L (3.5-5.1)
--- NOTE | 2016-11-22 09:47 | Gastrointestinal Progress Note ---
Assessment and Plan (1) Anemia Status: Acute Assessment and plan: 11/22-hemoglobin stable at 13 following transfusion yesterday. No reports of overt bleeding. Good appetite without abdominal pain, nausea or vomiting. Denies melena. Plan an addendum to follow by Dr. Lindsay. 11/21-findings of anemia on admission with trace amounts of blood noted in stool. Long-standing history of anemia with transfusions in the past. Reported PUD with surgical intervention per patient and past. Last EGD noted 07/22/16 for abdominal pain, weight loss by Dr. Lindsay with findings of esophageal candidiasis and partial gastrectomy. Hemoglobin currently 7.5, transfusing 2 units of packed red blood cells. Plan an addendum to followed by Dr. Lindsay. Current Visit: No Gastroenterology - PN: Subj Interval history: CC: Anemia Patient is seen awake and alert sitting in bed eating breakfast. States she is feeling some better today. She denies any abdominal pain, nausea or vomiting. Hemoglobin is stable at 13 following transfusion of the 2 units of packed red blood cells on yesterday. Patient denies any reports of melena. Abdomen soft, nontender. Patient feels as though her breathing has continued to improve at this time. ROS: Denies shortness of breath or chest pain. Exam (Progress Note) - Constitutional Vitals: Period Temp Pulse Resp BP Sys/Rhodes Pulse Ox Last 24 Hr 97.2 F-99 F 83-108 16-20 107-147/47-81 92-100 - Other Additional findings: General appearance: no acute distress, under weight - Head Head exam: Present: normal inspection, normocephalic - Eye Eye exam: Present: other (Lids and conjunctive are unremarkable). Absent: scleral icterus - ENT ENT exam: Present: normal exam, normal oropharynx - Neck Neck exam: Present: normal inspection - Respiratory Respiratory exam: Present: clear to auscultation bilaterally. Absent: rales, rhonchi, wheezes - Cardiovascular Cardiovascular exam: Present: regular rate and rhythm. Absent: diastolic murmur , JVD, systolic murmur - GI/Abdominal GI/Abdominal exam: Present: normal bowel sounds, soft. Absent: ascites, distended, mass, organomegaly, tenderness - Extremities Exam Extremities exam: Present: normal inspection, full ROM - Back Exam Back exam: Present: normal inspection - Neurological Exam Neurological exam: Present: alert, oriented X3 - Psychiatric Psychiatric exam: Present: normal affect, normal mood - Skin Skin exam: Present: normal color, warm, dry Results - Labs CBC & BMP: 11/22/16 06:26 11/22/16 06:26 Lab Results: I have reviewed the past 24 hour labs
--- NOTE | 2016-11-22 09:48 | Cardiology Progress Note ---
Assessment and Plan (1) Anemia Status: Acute Assessment and plan: 1. 81-year-old WF with extensive medical history including hypertension, dyslipidemia, mild dementia?, Long history of episodes of anemia, paroxysmal atrial fibrillation status post ablation for SVT about 30 years ago in [place] , presented with COPD exacerbation and pneumonia who developed some atrial fibrillation with RVR, now is back in normal sinus rhythm on amiodarone 4 mg twice daily. 2. Reduce amiodarone to 200 mg 3 times daily with plans to wean it to a maintenance dose. 3. Change metoprolol to long-acting Toprol 25 mg twice daily 4. GI workup in progress; no obvious bleeding source although she reportedly had a mildly positive heme test stool 5. She will need follow-up hematocrit, would not be a candidate for anticoagulation in the immediate future; she will follow Dr. Bautista as an outpatient to revisit this 6. 60% ejection fraction noted with PAP 50 mmHg July 2016 when she was admitted 7. We will follow with you Current Visit: No (2) Right upper lobe pneumonia Status: Acute Current Visit: Yes (3) Pneumonia Status: Acute Current Visit: Yes (4) Atrial fibrillation with RVR Status: Acute Current Visit: Yes Cardiology - PN: Subj Interval history: Ms. Vila presented with dyspnea fatigue and orthostasis. She had fairly severe anemia and was transfused yesterday with hematocrit of 39 and 40 yesterday afternoon and this morning. She has had no overt blood loss and reportedly had some mildly positive heme stool test. She has not had hematochezia or hematemesis or melena. She does have a bit of dementia but seemed to converse fairly well. She reports having significant dyspnea on exertion still. She is maintained normal sinus rhythm today. She was in atrial fibrillation previously. She has chronic occasional chest pain with a pleuritic component. Exam (Progress Note) - Constitutional Vitals: Period Temp Pulse Resp BP Sys/Rhodes Pulse Ox Last 24 Hr 97.2 F-99 F 83-108 16-20 107-147/47-81 92-100 General appearance: mild distress, under weight - Head Head exam: Present: normal inspection, normocephalic, atraumatic - Respiratory Respiratory exam: Present: rhonchi. Absent: wheezes - Cardiovascular Cardiovascular exam: Present: tachycardia. Absent: diastolic murmur, rubs - GI/Abdominal GI/Abdominal exam: Present: soft. Absent: tenderness - Extremities Exam Extremities exam: Absent: edema Result/EKG - Labs CBC & BMP: 11/22/16 06:26 11/22/16 06:26 Labs: Laboratory Results - last 24 hr 11/20/16 11/21/16 11/21/16 12:04 01:30 16:44 WBC RBC Hgb 13.2 D Hct 39.9 MCV MCH MCHC RDW Plt Count MPV Neut % (Auto) Lymph % (Auto) [place] % (Auto) Eos % (Auto) Baso % (Auto) Neut # (Auto) Lymph # (Auto) [place] # (Auto) Eos # (Auto) Baso # (Auto) Total Counted Immature Gran % Nucleated RBC % Immature Gran # Segmented Neutrophils Band Neutrophils Lymphocytes Monocytes Eosinophils Basophils Nucleated RBCs # Platelet Estimate Hypochromasia [place] Cells Morphology Comment Sodium Potassium Chloride Carbon Dioxide Anion Gap BUN Creatinine GFR Calculation BUN/Creatinine Ratio Glucose Calculated Osmolality Calcium Magnesium Urine Color Yellow Urine Appearance Slightly hazy Urine pH 6.0 Ur Specific [place] 1.012 Urine Protein Negative Urine Glucose (UA) Negative Urine Ketones Negative Urine Blood Moderate Urine Nitrate Negative Urine Bilirubin Negative Urine Urobilinogen < 2.0 H Urine Leukocytes Small H Urine RBC 165 Urine WBC 8 Ur Squamous Epith Cells Occasional Ur Renal Epithelial Cell Occasional Urine Mucus Occasional Ur Culture Indicated? Results to follow Blood Type O POSITIVE Antibody Screen Positive Antibody Identification Anti-c Crossmatch See Detail 11/22/16 11/22/16 06:26 06:26 WBC 9.3 D RBC 4.70 D Hgb 13.4 Hct 40.3 MCV 85.7 L MCH 29 MCHC 33.3 RDW 14.6 Plt Count 287 MPV 10.5 Neut % (Auto) 61.8 Lymph % (Auto) 12.7 L [place] % (Auto) 14.1 H Eos % (Auto) 5.1 Baso % (Auto) 0.6 Neut # (Auto) 5.8 Lymph # (Auto) 1.2 L [place] # (Auto) 1.3 H Eos # (Auto) 0.5 Baso # (Auto) 0.1 Total Counted 100 Immature Gran % 5.7 Nucleated RBC % 0.0 Immature Gran # 0.53 Segmented Neutrophils 59 Band Neutrophils 4 Lymphocytes 14 L Monocytes 13 Eosinophils 9 Basophils 1.0 H Nucleated RBCs # 0.00 Platelet Estimate Normal Hypochromasia 1+ [place] Cells Slight Morphology Comment Sodium 142 Potassium 3.5 Chloride 116 H Carbon Dioxide 14 L Anion Gap 15.5 H BUN 17 Creatinine 0.80 GFR Calculation 54 BUN/Creatinine Ratio 21.00 H Glucose 106 Calculated Osmolality 284.1 Calcium 8.4 L Magnesium 1.7 L Urine Color Urine Appearance Urine pH Ur Specific [place] Urine Protein Urine Glucose (UA) Urine Ketones Urine Blood Urine Nitrate Urine Bilirubin Urine Urobilinogen Urine Leukocytes Urine RBC Urine WBC Ur Squamous Epith Cells Ur Renal Epithelial Cell Urine Mucus Ur Culture Indicated? Blood Type Antibody Screen Antibody Identification Crossmatch
--- NOTE | 2016-11-22 15:15 | Hospitalist Progress Note ---
Assessment and Plan (1) Atrial fibrillation with RVR Status: Acute Assessment and plan: Continue amiodarone and metoprolol, she is not on anticoagulation due to acute blood loss anemia. HR is controlled Current Visit: Yes (2) Acute blood loss anemia Status: Acute Assessment and plan: Patient was transfused with 2units of blood yesterday.GI is following. Monitor CBC Current Visit: Yes (3) Dementia Status: Chronic Assessment and plan: stable. I think she is at her baseline mental status Current Visit: No (4) Pneumonia Status: Acute Assessment and plan: continue with IV antibiotics Current Visit: Yes (5) COPD (chronic obstructive pulmonary disease) Status: Chronic Assessment and plan: continue nebs treatment and antibiotics Current Visit: No (6) Hypokalemia Status: Acute Assessment and plan: resolved Current Visit: No Hospitalist: Subjective Interval history: Patient seen. She was still having a dry cough but she feels better. Exam - Constitutional Vitals: Period Temp Pulse Resp BP Sys/Rhodes Pulse Ox Last 24 Hr 97.2 F-98.4 F 75-96 18-20 113-138/58-67 96-100 General appearance: no acute distress - Head Head exam: Present: normal inspection - Respiratory Respiratory exam: Present: clear to auscultation bilaterally - Cardiovascular Cardiovascular exam: Present: regular rate and rhythm - GI/Abdominal GI/Abdominal exam: Present: normal bowel sounds - Extremities Exam Extremities exam: Present: normal inspection Results - Labs CBC & BMP: 11/22/16 06:26 11/22/16 06:26 Lab Results: I have reviewed the past 24 hour labs
[2016-11-22] MEDS: METOPROLOL SUCCINATE XL 25 MG TABLET PO SCH (20:16)
[2016-11-23] MEDS: DOXYCYCLINE HYCLATE INJ 100 MG in SODIUM CHLORIDE 0.9% 100 ML IV SCH (03:01)
[2016-11-23] MEDS: CEFEPIME 2,000 MG in SODIUM CHLORIDE 0.9% 100 ML IV SCH (06:15)
[2016-11-23 07:30] LABS: Basophils # 0.1 10*3/uL (0.0-0.2); Basophils % 0.7 % (0.0-0.8); Eosinophils # 0.5 10*3/uL (0.0-0.87); Eosinophils % 4.9 % (0.00-10.9); Hemoglobin 12.7 GM/DL (12.0-16.0); Immature Granulocytes % 6.8 %; Immature Granulocytes Absolute 0.65 #; Lymphocytes # 1.4 10*3/uL (1.4-4.0); Lymphocytes % 14.5 % (21.3-54.2); Mean Corpuscular HGB Conc 33.4 GM/DL (32-36); Mean Corpuscular Hemoglobin 29 PG (27-34); Mean Corpuscular Volume 85.6 FL (87-102); Mean Platelet Volume 10.3 FL (9.6-12.0); Monocytes # 1.1 10*3/uL (0.11-0.8); Monocytes % 11.9 % (1.7-12.7); Neutrophils # 5.9 10*3/uL (1.4-7.4); Neutrophils % 61.2 % (38.7-73.9); Platelet Count 302 T/CUMM (130-400); Red Blood Count 4.44 MC/CUMM (3.8-5.5); Red Cell Distribution Width 14.9 % (9.3-17.3); White Blood Count 9.6 T/CUMM (4-12)
[2016-11-23 08:02] LABS: Calcium 8.5 MG/DL (8.5-10.1); Magnesium 1.7 MG/DL (1.8-2.4); Osmolality,Calculated 286.8 MOS/KG (273-304); Potassium 3.5 MMOL/L (3.5-5.1)
[2016-11-23 08:03] LABS: Calcium 8.6 MG/DL (8.5-10.1); Osmolality,Calculated 288.7 MOS/KG (273-304); Potassium 3.7 MMOL/L (3.5-5.1)
[2016-11-23] MEDS: PANTOPRAZOLE 40 MG TABLET PO SCH ×2 (08:04→20:19)
[2016-11-23] MEDS: METOPROLOL SUCCINATE XL 25 MG TABLET PO SCH ×2 (08:04→20:19)
[2016-11-23] MEDS: AMIODARONE 200 MG TABLET PO SCH ×3 (08:04→20:19)
--- NOTE | 2016-11-23 08:45 | EKG Report ---
Stationary ECG Study [facility] Test Date: 11/23/2016 8:45:27 AM Pat Name: TERESA LEON Department: Room: 527 Gender: F Special Education Administrator: ROSE : [id number] Requested by: Ger Palma Order Number: [id number] Reading MD: DOLLY GARSIA Intervals Albers Rate: 104 P: 59 MO: 141 QRS: 2 QRSD: 98 T: -2 QT: 371 QTc: 431 Interpretive Statements SINUS TACHYCARDIA WITH OCCASIONAL PACS ANTEROLATERAL MYOCARDIAL INFARCTION, OF INDETERMINATE AGE Electronically Signed On 11-25-16 16:34:27 CDT by DOLLY GARSIA [email or web address]
--- NOTE | 2016-11-23 09:03 | Cardiology Progress Note ---
Assessment and Plan (1) Anemia Status: Acute Assessment and plan: 1. 81-year-old WF with extensive medical history including hypertension, dyslipidemia, mild dementia?, Long history of episodes of anemia, paroxysmal atrial fibrillation status post ablation for SVT about 30 years ago in [place] , presented with COPD exacerbation and pneumonia who developed some atrial fibrillation with RVR, now is back in normal sinus rhythm on amiodarone 4 mg twice daily. 2. Reduce amiodarone to 200 mg 3 times daily with plans to wean it to a maintenance dose. 3. Change metoprolol to long-acting Toprol 25 mg twice daily 4. GI workup in progress; no obvious bleeding source although she reportedly had a mildly positive heme test stool 5. She will need follow-up hematocrit, would not be a candidate for anticoagulation in the immediate future; she will follow Dr. Bautista as an outpatient to revisit this 6. 60% ejection fraction noted with PAP 50 mmHg July 2016 when she was admitted 7. We will follow with you November 23, 2016: 1. Ms. Vila has reasonable hematocrit after transfusion with no overt bleeding 2. She is continuing to maintain normal sinus rhythm; continue amiodarone 200 mg 3 times daily and Toprol 3. Currently being treated for pneumonia/COPD exacerbation 4. Check a.m. EKG 5. No new recommendations Current Visit: No (2) Right upper lobe pneumonia Status: Acute Current Visit: Yes (3) Pneumonia Status: Acute Current Visit: Yes (4) Atrial fibrillation with RVR Status: Acute Current Visit: Yes Cardiology - PN: Subj Interval history: Ms. Vila still feels a bit fatigued and short of breath. She seems a little less tachypneic to me. She is not having chest discomfort. She does have intermittent dizziness. She is eating her breakfast and seems to be eating a reasonable amount. She does not feel any palpitations. Exam (Progress Note) - Constitutional Vitals: Period Temp Pulse Resp BP Sys/Rhodes Pulse Ox Last 24 Hr 97.8 F-98.3 F 65-95 12-20 114-130/57-71 96-100 General appearance: mild distress, under weight - Head Head exam: Present: normal inspection, normocephalic, atraumatic - Neck Neck exam: Present: normal inspection - Respiratory Respiratory exam: Present: rhonchi. Absent: wheezes - Cardiovascular Cardiovascular exam: Present: regular rate and rhythm. Absent: diastolic murmur , rubs - GI/Abdominal GI/Abdominal exam: Present: soft. Absent: tenderness - Extremities Exam Extremities exam: Absent: edema Result/EKG - Labs CBC & BMP: 11/23/16 07:14 11/23/16 07:14 Labs: Laboratory Results - last 24 hr 11/23/16 11/23/16 11/23/16 07:14 07:14 07:14 WBC 9.6 RBC 4.44 Hgb 12.7 Hct 38.0 MCV 85.6 L MCH 29 MCHC 33.4 RDW 14.9 Plt Count 302 MPV 10.3 Neut % (Auto) 61.2 Lymph % (Auto) 14.[address] [place] % (Auto) 11.9 Eos % (Auto) 4.9 Baso % (Auto) 0.7 Neut # (Auto) 5.9 Lymph # (Auto) 1.4 [place] # (Auto) 1.1 H Eos # (Auto) 0.5 Baso # (Auto) 0.1 Immature Gran % 6.8 Nucleated RBC % 0.0 Immature Gran # 0.65 Nucleated RBCs # 0.00 Sodium 144 145 Potassium 3.5 3.7 Chloride 119 H 119 H Carbon Dioxide 14 L 14 L Anion Gap 14.5 15.7 H BUN 17 17 Creatinine 0.70 0.70 GFR Calculation 63 63 BUN/Creatinine Ratio 24.00 H 24.00 H Glucose 87 81 Calculated Osmolality 286.8 288.7 Calcium 8.5 8.6 Magnesium 1.7 L
[2016-11-23 10:40] LABS: Band Neutrophils 1 % (0-10); Eosinophils 3 % (0-10); Hypochromasia Slight; Lymphocytes 10 % (20-55); Myelocytes 2 %; Platelet Estimate Adequate; Segmented Neutrophils 71 % (50-85); Total Cells Counted 100
[2016-11-23] MEDS: LEVOFLOXACIN 500 MG TABLET PO SCH (11:45)
--- NOTE | 2016-11-23 15:13 | Hospitalist Progress Note ---
Assessment and Plan (1) Atrial fibrillation with RVR Status: Acute Assessment and plan: Continue amiodarone and metoprolol, she is not on anticoagulation due to acute blood loss anemia. HR is controlled Current Visit: Yes (2) Acute blood loss anemia Status: Acute Assessment and plan: Patient has been transfused with 2units of blood.GI is following. Monitor CBC Current Visit: Yes (3) Dementia Status: Chronic Assessment and plan: stable. I think she is at her baseline mental status Current Visit: No (4) Pneumonia Status: Acute Assessment and plan: will switch to po antibiotics DC planning. Current Visit: Yes (5) COPD (chronic obstructive pulmonary disease) Status: Chronic Assessment and plan: continue nebs treatment and antibiotics Current Visit: No (6) Hypokalemia Status: Acute Assessment and plan: resolved Current Visit: No Hospitalist: Subjective Interval history: Patient seen. Her IV line removed and she has refused a new one. Exam - Constitutional Vitals: Period Temp Pulse Resp BP Sys/Rhodes Pulse Ox Last 24 Hr 97.4 F-98.3 F 65-95 12-20 114-130/57-71 96-100 General appearance: no acute distress - Head Head exam: Present: normal inspection - Neck Neck exam: Present: normal inspection - Respiratory Respiratory exam: Present: clear to auscultation bilaterally - Cardiovascular Cardiovascular exam: Present: regular rate and rhythm - GI/Abdominal GI/Abdominal exam: Present: normal bowel sounds - Extremities Exam Extremities exam: Present: normal inspection Results - Labs CBC & BMP: 11/23/16 07:14 11/23/16 07:14 Lab Results: I have reviewed the past 24 hour labs
[2016-11-23] MEDS: ACETAMINOPHEN 325 MG TABLET PO PRN (17:26)
[2016-11-23] MEDS: PRAVASTATIN 40 MG TABLET PO SCH (20:19)
[2016-11-23] MEDS: ZALEPLON 5 MG CAPSULE PO PRN ×2 (20:19→20:20)
[2016-11-23] MEDS: guaiFENesin 200 MG/10 ML UDCUP PO PRN (20:19)
[2016-11-23] MEDS: DONEPEZIL 5 MG TABLET PO SCH (20:19)
[2016-11-24 06:05] LABS: Basophils # 0.1 10*3/uL (0.0-0.2); Basophils % 0.7 % (0.0-0.8); Eosinophils # 0.4 10*3/uL (0.0-0.87); Hematocrit 38.4 VOL% (35.7-47.0); Hemoglobin 12.6 GM/DL (12.0-16.0); Immature Granulocytes % 9.4 %; Immature Granulocytes Absolute 0.91 #; Lymphocytes # 1.2 10*3/uL (1.4-4.0); Lymphocytes % 12.8 % (21.3-54.2); Mean Corpuscular HGB Conc 32.8 GM/DL (32-36); Mean Corpuscular Hemoglobin 28 PG (27-34); Mean Corpuscular Volume 86.5 FL (87-102); Mean Platelet Volume 10.4 FL (9.6-12.0); Monocytes # 1.4 10*3/uL (0.11-0.8); Monocytes % 14.6 % (1.7-12.7); Neutrophils # 5.6 10*3/uL (1.4-7.4); Neutrophils % 58.5 % (38.7-73.9); Platelet Count 295 T/CUMM (130-400); Red Blood Count 4.44 MC/CUMM (3.8-5.5); Red Cell Distribution Width 15.2 % (9.3-17.3); White Blood Count 9.6 T/CUMM (4-12)
[2016-11-24 06:31] LABS: Calcium 8.5 MG/DL (8.5-10.1); Magnesium 1.7 MG/DL (1.8-2.4); Osmolality,Calculated 285.8 MOS/KG (273-304); Potassium 3.7 MMOL/L (3.5-5.1)
[2016-11-24 07:33] LABS: Eosinophils 6 % (0-10); Hypochromasia Slight; Lymphocytes 17 % (20-55); Myelocytes 6 %; Platelet Estimate Adequate; Segmented Neutrophils 65 % (50-85); Total Cells Counted 100
[2016-11-24] MEDS: METOPROLOL SUCCINATE XL 25 MG TABLET PO SCH ×2 (08:22→20:02)
[2016-11-24] MEDS: AMIODARONE 200 MG TABLET PO SCH ×2 (08:23→20:05)
[2016-11-24] MEDS: PANTOPRAZOLE 40 MG TABLET PO SCH ×2 (08:23→20:03)
--- NOTE | 2016-11-24 09:41 | Discharge Summary ---
<MarquesRacheljanine - Last Filed: 11/24/16 09:07> Hospital Course - Hospital Course Hospital Course: Ms. Vila is a 81 year old white female patient with a history of pneumonia, COPD, smoking in the past, dementia, afib with ablation, CAB, and psychosis that presented to the ED on 11/19 with complaints of cough X 4 days as well as shortness of breath. The patient's granddaughter was presented and stated patient was just treated for pneumonia in 2015. She also states that patient was just discharged about a week about from [facility]- psych. Pt. reported becoming increasing short of breath. Pt. denied fever but complains of chills, occasional night sweats and abd pain from a colonoscopy. CXR revealed pneumonia. Pt. was admitted to the hospitalist service. Pt. was treated with IV antibiotics. On 11/20 around 315 am pt's heart rate was recorded in the 150s and pt was transferred to the telemetry unit for initiation of a Cardiziem drip. Cardiology was consulted to evaluate patient. At that time pt was in ST and per cardiology the drip was discontinued and the patient's amiodarone was reinitiated and a beta angie was added. The patient was also noted to have a decrease in H&H (7.7 and 24.2). Because of her anemia, anticoagulation was not recommended at that time. Preparations were made for the patient to receive blood but it had to be specially prepared because the pt had antibodies present in her blood. Transfusion of blood was also need to help with tachycardia. On GI was consulted to see the patient due to anemia and presence of trace amounts of blood noted stool. Pt. had recently had a EGD in July where she was noted to esophageal candidasis. Occult blood ordered and labs monitored. Patient was also transferred to back to med surg. After blood infusion patient' s hemoglobin improved to 13. GI signed off. Cardiology had no new recommendations. Today, the patient is stable and ready to be discharged. Pt. will be transitioned to po antibiotics. Diagnosis - Discharge Diagnosis (1) Pneumonia Status: Acute (2) History of dementia Status: Acute (3) Atrial fibrillation Status: Chronic (4) Anorexia Status: Chronic Specialty Discharge - Follow Up or Referrals Follow up with: Hunter Bautista MD [Physician] - 2 Weeks Discharge Plan - Discharge Medications No Action Ergocalciferol (Vitamin D2) [Vitamin D2] 50,000 unit PO Q7D Megestrol Tab [Megace Tab] 40 mg PO TID tablet Multivit-Min/FA/Lycopen/Lutein [Centrum Silver Tablet] 1 tablet PO DAILY Donepezil [Aricept] 5 mg PO BEDTIME #30 tablet Metoprolol Tartrate Tab [Lopressor Tab] 25 mg PO BID #60 tablet Gabapentin Cap/Tab [Neurontin Cap/Tab] 100 mg PO BID@1600,2100 #60 capsule - Follow Up or Referral Follow Up: Hunter Bautista MD [Physician] - 2 Weeks - Forms/Instructions Exam - Constitutional Vitals: Period Temp Pulse Resp BP Sys/Rhodes Pulse Ox Last 24 Hr 97.7 F-98.2 F 83-99 16-20 112-129/63-74 95-99 Discharge Results Procedures and tests throughout hospitalization: Pending Orders 11/20/16 19:27 Occult Blood, Stool Routine 11/25/16 04:00 CBC [Comp Blood Count Auto Diff] IN AM Labs on day of discharge: Labs from last 24 hours 11/24/16 11/24/16 05:26 05:26 WBC 9.6 RBC 4.44 Hgb 12.6 Hct 38.4 MCV 86.5 L MCH 28 MCHC 32.8 RDW 15.2 Plt Count 295 MPV 10.4 Neut % (Auto) 58.5 Lymph % (Auto) 12.8 L [place] % (Auto) 14.6 H Eos % (Auto) 4.0 Baso % (Auto) 0.7 Neut # (Auto) 5.6 Lymph # (Auto) 1.2 L [place] # (Auto) 1.4 H Eos # (Auto) 0.4 Baso # (Auto) 0.1 Total Counted 100 Immature Gran % 9.4 Nucleated RBC % 0.0 Immature Gran # 0.91 Segmented Neutrophils 65 Lymphocytes 17 L Monocytes 6 Eosinophils 6 Myelocytes 6 Nucleated RBCs # 0.00 Platelet Estimate Adequate Hypochromasia Slight Sodium 144 Potassium 3.7 Chloride 117 H Carbon Dioxide 16 L Anion Gap 14.7 BUN 16 Creatinine 0.80 GFR Calculation 53 BUN/Creatinine Ratio 20.00 Glucose 88 Calculated Osmolality 285.8 Calcium 8.5 Magnesium 1.7 L DS: Provider Date of admission: 11/19/16 12:06 Primary care physician: . No PCP Attending physician on admission: Agnes Munoz MD Consults: 11/19/16 16:02 Consult to Dietitian [CONS] Routine Reason for Dietitian: Other 11/19/16 16:51 Consult to Dietitian [CONS] Routine Reason for Dietitian: Dietary Consult 11/19/16 17:00 Consult to Pharmacy [CONS] Routine Reason for Pharmacy Consult: Adjust Meds Renal Funct 11/20/16 09:51 Consult to Physician [CONS] Routine Comment: recurring afib Consulting Provider: Cardiology - [facility] Consult to Specialist Group: Cardiology When should Consulting Provider be notified: Now Person Notified: [place] Date Notified: 11/20/16 Time Notified: 10:00 11/20/16 17:01 Consult to Physician [CONS] Routine Comment: anemia symptomatic Consulting Provider: Earle Lindsay Consult to Specialist Group: Gastroenterology Person Notified: KEN Date Notified: 11/21/16 Time Notified: 09:10 11/21/16 13:55 Consult to Case Mgmt/Social Srvs [CONS] Routine Reason for Case Mgmt/Social Srvs: Rehab Consult to Physical Therapy [CONS] Routine Reason for Physical Therapy: Evaluate and Treat 11/23/16 11:20 Consult to Case Mgmt/Social Srvs [CONS] Routine Reason for Case Mgmt/Social Srvs: Home Health Consult Comment: and physical therapy at home, discharge 11-24-16 11/24/16 09:38 Consult to Case Mgmt/Social Srvs [CONS] Routine Reason for Case Mgmt/Social Srvs: Home Health Other Consult Comment: PT discharge today 11/24/16 10:24 Consult to Case Mgmt/Social Srvs [CONS] Routine Reason for Case Mgmt/Social Srvs: Swingbed/SNF/Senior Living Discharging clinician: Moira Marques NP <Agnes Munoz - Last Filed: 11/24/16 14:26> Hospital Course - Hospital Course Hospital Course: Family wants patient to spend another night to see if they can convince her to go a swing bed. Diagnosis - Discharge Diagnosis (1) Atrial fibrillation with RVR Status: Acute (2) Acute blood loss anemia Status: Acute (3) Dementia Status: Chronic (4) Pneumonia Status: Acute (5) COPD (chronic obstructive pulmonary disease) Status: Chronic (6) Hypokalemia Status: Acute Exam - Constitutional General appearance: no acute distress - Respiratory Respiratory exam: Present: clear to auscultation bilaterally - Cardiovascular Cardiovascular exam: Present: regular rate and rhythm - GI/Abdominal GI/Abdominal exam: Present: normal bowel sounds - Extremities Exam Extremities exam: Present: normal inspection
--- NOTE | 2016-11-24 11:31 | Cardiology Progress Note ---
Assessment and Plan (1) Anemia Status: Acute Assessment and plan: 1. 81-year-old WF with extensive medical history including hypertension, dyslipidemia, mild dementia?, Long history of episodes of anemia, paroxysmal atrial fibrillation status post ablation for SVT about 30 years ago in [place] , presented with COPD exacerbation and pneumonia who developed some atrial fibrillation with RVR, now is back in normal sinus rhythm on amiodarone 4 mg twice daily. 2. Reduce amiodarone to 200 mg 3 times daily with plans to wean it to a maintenance dose. 3. Change metoprolol to long-acting Toprol 25 mg twice daily 4. GI workup in progress; no obvious bleeding source although she reportedly had a mildly positive heme test stool 5. She will need follow-up hematocrit, would not be a candidate for anticoagulation in the immediate future; she will follow Dr. Bautista as an outpatient to revisit this 6. 60% ejection fraction noted with PAP 50 mmHg July 2016 when she was admitted 7. We will follow with you November 23, 2016: 1. Ms. Vila has reasonable hematocrit after transfusion with no overt bleeding 2. She is continuing to maintain normal sinus rhythm; continue amiodarone 200 mg 3 times daily and Toprol 3. Currently being treated for pneumonia/COPD exacerbation 4. Check a.m. EKG 5. No new recommendations November 24, 2016: 1. Ms. Vila seems better today with much less shortness of breath, and seems less anxious 2. Would decrease amiodarone to 200 mg twice daily, continue current Toprol dose 3. Being treated for COPD/pneumonia 4. Follow-up with Dr. Bautista in the next 2-4 weeks time 5. We will sign off; please reconsult cardiology if needed prior to discharge per Current Visit: No (2) Right upper lobe pneumonia Status: Acute Current Visit: Yes (3) Pneumonia Status: Acute Current Visit: Yes (4) Atrial fibrillation with RVR Status: Acute Current Visit: Yes Cardiology - PN: Subj Interval history: Ms. Rangel is breathing better and seems less anxious. She is adamant that she does not want to go home until tomorrow. She is not having chest pain or dizziness. She says she had a pretty good breakfast this morning. Exam (Progress Note) - Constitutional Vitals: Period Temp Pulse Resp BP Sys/Rhodes Pulse Ox Last 24 Hr 97.4 F-98.2 F 78-99 16-20 112-129/66-74 95-99 General appearance: no acute distress, under weight - Head Head exam: Present: normal inspection, normocephalic, atraumatic - Respiratory Respiratory exam: Present: rhonchi. Absent: wheezes - Cardiovascular Cardiovascular exam: Present: regular rate and rhythm. Absent: diastolic murmur , rubs - GI/Abdominal GI/Abdominal exam: Present: soft. Absent: tenderness - Extremities Exam Extremities exam: Absent: edema Result/EKG - Labs CBC & BMP: 11/24/16 05:26 11/24/16 05:26 Labs: Laboratory Results - last 24 hr 11/24/16 11/24/16 05:26 05:26 WBC 9.6 RBC 4.44 Hgb 12.6 Hct 38.4 MCV 86.5 L MCH 28 MCHC 32.8 RDW 15.2 Plt Count 295 MPV 10.4 Neut % (Auto) 58.5 Lymph % (Auto) 12.8 L [place] % (Auto) 14.6 H Eos % (Auto) 4.0 Baso % (Auto) 0.7 Neut # (Auto) 5.6 Lymph # (Auto) 1.2 L [place] # (Auto) 1.4 H Eos # (Auto) 0.4 Baso # (Auto) 0.1 Total Counted 100 Immature Gran % 9.4 Nucleated RBC % 0.0 Immature Gran # 0.91 Segmented Neutrophils 65 Lymphocytes 17 L Monocytes 6 Eosinophils 6 Myelocytes 6 Nucleated RBCs # 0.00 Platelet Estimate Adequate Hypochromasia Slight Sodium 144 Potassium 3.7 Chloride 117 H Carbon Dioxide 16 L Anion Gap 14.7 BUN 16 Creatinine 0.80 GFR Calculation 53 BUN/Creatinine Ratio 20.00 Glucose 88 Calculated Osmolality 285.8 Calcium 8.5 Magnesium 1.7 L Specialty Discharge - Follow Up or Referrals Follow up with: Hunter Bautista MD [Physician] - 2 Weeks
[2016-11-24] MEDS: LEVOFLOXACIN 500 MG TABLET PO SCH (11:35)
[2016-11-24] MEDS: ZALEPLON 5 MG CAPSULE PO PRN (20:02)
[2016-11-24] MEDS: ACETAMINOPHEN 325 MG TABLET PO PRN (20:02)
[2016-11-24] MEDS: DONEPEZIL 5 MG TABLET PO SCH (20:02)
[2016-11-24] MEDS: guaiFENesin 200 MG/10 ML UDCUP PO PRN (20:03)
[2016-11-24] MEDS: PRAVASTATIN 40 MG TABLET PO SCH (20:03)
[2016-11-25 05:55] LABS: Basophils # 0.1 10*3/uL (0.0-0.2); Basophils % 0.7 % (0.0-0.8); Eosinophils # 0.4 10*3/uL (0.0-0.87); Eosinophils % 4.7 % (0.00-10.9); Hemoglobin 12.5 GM/DL (12.0-16.0); Immature Granulocytes % 9.2 %; Immature Granulocytes Absolute 0.82 #; Lymphocytes # 1.2 10*3/uL (1.4-4.0); Lymphocytes % 13.3 % (21.3-54.2); Mean Corpuscular HGB Conc 33.8 GM/DL (32-36); Mean Corpuscular Hemoglobin 29 PG (27-34); Mean Corpuscular Volume 85.6 FL (87-102); Mean Platelet Volume 10.6 FL (9.6-12.0); Monocytes # 1.5 10*3/uL (0.11-0.8); Neutrophils # 4.9 10*3/uL (1.4-7.4); Neutrophils % 55.1 % (38.7-73.9); Platelet Count 264 T/CUMM (130-400); Red Blood Count 4.32 MC/CUMM (3.8-5.5); Red Cell Distribution Width 15.1 % (9.3-17.3); White Blood Count 8.9 T/CUMM (4-12)
[2016-11-25 06:18] LABS: Band Neutrophils 1 % (0-10); Eosinophils 7 % (0-10); Lymphocytes 17 % (20-55); Metamyelocytes 1 %; Myelocytes 1 %; Segmented Neutrophils 57 % (50-85); Total Cells Counted 100
[2016-11-25 06:19] LABS: Hypochromasia 1+; Microcytosis 1+; Platelet Estimate Normal
--- NOTE | 2016-11-25 08:53 | Cardiology Progress Note ---
Cardiology - PN: Subj Interval history: Cardiology note 81-year-old woman with COPD exacerbation. She has decided to go to swing bed and awaiting transfer today. Appetite fair. No temperature. O2 sat 98 on 2 L cannula Blood pressure 130/70 Decreased breath sounds few basilar rhonchi Regular rhythm no gallop No leg edema Abdomen benign Impression Decompensated COPD Hypertension Status post ablation SVT 30 years ago [place] Paroxysmal atrial fibrillation Anemia Recent echo July 2016 showed ejection fraction 60% with aortic sclerosis and moderate TR PA pressure 50 Plan Transfer to swing bed today. Office visit with Dr. Bautista with EKG in 2 weeks Exam (Progress Note) - Constitutional Vitals: Period Temp Pulse Resp BP Sys/Rhodes Pulse Ox Last 24 Hr 97.2 F-98.1 F 88-97 20-20 109-126/56-69 93-98 Result/EKG - Labs CBC & BMP: 11/25/16 05:21 11/24/16 05:26 Labs: Laboratory Results - last 24 hr 11/25/16 05:21 WBC 8.9 RBC 4.32 Hgb 12.5 Hct 37.0 MCV 85.6 L MCH 29 MCHC 33.8 RDW 15.1 Plt Count 264 MPV 10.6 Neut % (Auto) 55.1 Lymph % (Auto) 13.3 L [place] % (Auto) 17.0 H Eos % (Auto) 4.7 Baso % (Auto) 0.7 Neut # (Auto) 4.9 Lymph # (Auto) 1.2 L [place] # (Auto) 1.5 H Eos # (Auto) 0.4 Baso # (Auto) 0.1 Total Counted 100 Immature Gran % 9.2 Nucleated RBC % 0.0 Immature Gran # 0.82 Segmented Neutrophils 57 Band Neutrophils 1 Lymphocytes 17 L Monocytes 16 H Eosinophils 7 Metamyelocytes 1 Myelocytes 1 Nucleated RBCs # 0.00 Platelet Estimate Normal Hypochromasia 1+ Microcytosis 1+ Specialty Discharge - Follow Up or Referrals Follow up with: Hunter Bautista MD [Physician] - 2 Weeks
[2016-11-25] MEDS: PANTOPRAZOLE 40 MG TABLET PO SCH (09:09)
[2016-11-25] MEDS: METOPROLOL SUCCINATE XL 25 MG TABLET PO SCH (09:09)
[2016-11-25] MEDS: AMIODARONE 200 MG TABLET PO SCH (09:09)
--- NOTE | 2016-11-25 09:13 | Gastrointestinal Progress Note ---
Assessment and Plan (1) Anemia Status: Acute Assessment and plan: 11/25-hemoglobin stable at 12.5. No overt bleeding. For possible discharge today to either home or possible swing bed placement. Colonoscopy report still pending from outside facility. Plan an addendum to followed by Dr. Lindsay. 11/22-hemoglobin stable at 13 following transfusion yesterday. No reports of overt bleeding. Good appetite without abdominal pain, nausea or vomiting. Denies melena. Plan an addendum to follow by Dr. Lindsay. 11/21-findings of anemia on admission with trace amounts of blood noted in stool. Long-standing history of anemia with transfusions in the past. Reported PUD with surgical intervention per patient and past. Last EGD noted 07/22/16 for abdominal pain, weight loss by Dr. Lindsay with findings of esophageal candidiasis and partial gastrectomy. Hemoglobin currently 7.5, transfusing 2 units of packed red blood cells. Plan an addendum to followed by Dr. Lindsay. Current Visit: No Gastroenterology - PN: Subj Interval history: CC: Anemia Patient is seen awake and alert sitting up in bed eating breakfast. Good appetite noted. She denies any occult bleeding over the weekend. Hemoglobin is stable at 12.5. Abdomen is soft, nontender. She is for possible swing bed placement however at this time patient is refusing and wishes to return back to her independent living status at [facility]. Colonoscopy reports from [place] still pending. ROS: Denies shortness of breath or chest pain Exam (Progress Note) - Constitutional Vitals: Period Temp Pulse Resp BP Sys/Rhodes Pulse Ox Last 24 Hr 97.2 F-98.1 F 88-97 20-20 109-126/56-69 93-98 General appearance: normal weight, no acute distress - Head Head exam: Present: normal inspection, normocephalic - Eye Eye exam: Present: other (Lids and conjunctive are unremarkable). Absent: scleral icterus - ENT ENT exam: Present: normal exam, normal oropharynx - Neck Neck exam: Present: normal inspection - Respiratory Respiratory exam: Present: clear to auscultation bilaterally. Absent: rales, rhonchi, wheezes - Cardiovascular Cardiovascular exam: Present: regular rate and rhythm. Absent: diastolic murmur , JVD, systolic murmur - GI/Abdominal GI/Abdominal exam: Present: normal bowel sounds, soft. Absent: ascites, distended, mass, organomegaly, tenderness - Extremities Exam Extremities exam: Present: normal inspection, full ROM - Back Exam Back exam: Present: normal inspection - Neurological Exam Neurological exam: Present: alert, oriented X3 - Psychiatric Psychiatric exam: Present: normal affect, normal mood - Skin Skin exam: Present: normal color, warm, dry Results - Labs CBC & BMP: 11/25/16 05:21 11/24/16 05:26 Lab Results: I have reviewed the past 24 hour labs Specialty Discharge - Follow Up or Referrals Follow up with: Hunter Bautista MD [Physician] - 2 Weeks
[2016-11-25] MEDS: ACETAMINOPHEN 325 MG TABLET PO PRN (09:18)
[2016-11-25] MEDS: LEVOFLOXACIN 500 MG TABLET PO SCH (10:41)
[2016-11-25 12:15] VITALS: BP 109/64
== END 2016-11-25 12:24 | disposition swing bed (61) | DRG 190 ==
LOC: N.ED 10:36 → N.EDINP 12:06 → SUATTDRO 12:06 → N.5E 13:55 → N.TELEN 11-20 03:38 → N.5E 11-21 15:58
PROVIDERS: ADMIT Internal Medicine; ATTEND Internal Medicine

== ENCOUNTER 2017-01-04 23:48 | Inpatient (IN) ==
[2017-01-05] MEDS ORDERED: SODIUM CHLORIDE 0.9% 500 ML IV STA (01:12)
[2017-01-05] MEDS ORDERED: HYDROmorphone 2 MG/1 ML VIAL IV STA (01:13)
[2017-01-05] MEDS ORDERED: HYDROmorphone 2 MG/1 ML VIAL ONE (01:29)
--- NOTE | 2017-01-05 01:35 | Emergency Department Note ---
Erin Carlisle Hilary, am scribing for, and in the presence of, Kanchan Velázquez DO 01: 18. IEber Debra, DO, personally performed the services described in this documentation, ascribed by Nora Khan in my presence, and it is both accurate and complete . Arrival - Arrival Chief Complaint: Nausea/Vomiting/Diarrhea Stated Complaint: back and stomach cramps ED Nursing Triage Note: C/O Abd cramping/diarrhea. Onset 3-4 days ago. Denies fever. Mode of Arrival: Wheelchair Limitations: No Limitations Source: Patient, RN Notes Reviewed Time Seen by Provider: 01/05/17 01:12 - History of Present Illness HPI Narrative: Pt is a 81 y/o white female presenting to the ED with c/o diarrhea and nausea which onset 1 week ago. Pt confirms nausea, diarrhea and abdominal pain. No other complaints or problems stated in the ED. Pt has a Sx of multiple abdominal surgeries. Onset (ago): week(s) Consistency: constant Severity: mild Severity scale (1-10): 1 Date of Last Menstrual Period: pm Allergies/Adverse Reactions: Allergies Allergy/AdvReac Type Severity Reaction Status Date / Time codeine Allergy Unknown/Unable Verified 10/24/16 22:11 to obtain Penicillins Allergy Unknown/Unable Verified 10/24/16 22:11 to obtain Home Medications: Home Medications Medication Instructions Recorded Confirmed Type Ergocalciferol (Vitamin D2) 50,000 unit PO Q7D 07/15/16 01/04/17 History [Vitamin D2] Megestrol Tab [Megace Tab] 40 mg PO TID tablet 07/23/16 01/04/17 Rx Multivit-Min/FA/Lycopen/Lutein 1 tablet PO DAILY 10/24/16 01/04/17 History [Centrum Silver Tablet] Donepezil [Aricept] 5 mg PO BEDTIME #30 tablet 11/10/16 01/04/17 Rx Gabapentin Cap/Tab [Neurontin 100 mg PO BID@1600,2100 #60 capsule 11/10/1601/04 Rx Cap/Tab] Metoprolol Tartrate Tab [Lopressor 25 mg PO BID #60 tablet 11/10/16 01/04/17 Rx Tab] Albuterol Neb [Proventil Neb] 2.5 mg RESP TX RT Q6H PRN #0 11/25/16 01/04/17 Rx Amiodarone Tab [Cordarone Tab] 200 mg PO BID tablet 11/25/16 01/04/17 Rx Pravastatin [Pravachol] 40 mg PO BEDTIME tablet 11/25/16 01/04/17 Rx Review of System - Review of System 12 point system: reviewed and no additional remarkable complaints except as stated - Review of System Constitutional: Absent: fever Gastrointestinal: Present: abdominal pain, nausea, diarrhea Medical,Surgical,& Family Hx - Medical History Cardio: History of: Cardiac Dysrhythmia (SVT and paroxysmal atrial fib), CHF ( Diastolic heart failure), CAD, Hypertension, Cardiovascular Problems (cabg and ablation 30-35 years ago ) Psychological: History of: Anxiety Disorders, Psychiatric Problems No history of: Behavior Problems, Violent Behavior Neurology: History of: Cerebrovascular Accident, Dementia Endocrine: History of: Dyslipidemia Respiratory: History of: COPD Gastrointestinal: History of: GI Problems (hx colectomy with colostomy and reversal) Musculoskeletal: History of: Back/Neck Problems Hematology: History of: Anemia No history of: Blood Transfusion Reaction - Surgical History Cardiac Surgeries: Sugical HX of: Cardiac Catheterization (within the last 5 years in [place] per daughter), Cardiac Surgery (CABG 30 years ago and ablation 35 years ago) HEENT Surgeries: Surgical HX of: Eye Surgery (bilateral cataracts), Tonsilectomy & Adenoidectomy Abdominal Surgeries: Surgical HX of: Abdominal Surgery (colectomy with colostomy and reversal), Appendectomy, Cholecystectomy, Hernia Repair Reproductive Surgeries: Surgical HX of;: Hysterectomy Orthopedic Surgeries: Surgical HX of;: Orthopedic Surgery (neck, lower back, left shoulder, carpal tunnel) - Family History Family History: Reports;: Family Diabetes (brother, sister), Family Heart Disease (father, brother, sister), Family Hypertension - Social History Smoking Status: Former smoker Frequency of Alcohol Use: None Type of Drug Use: None Exam Vital Signs: Vital Signs Temperature 97.0 F L 01/11/17 00:00 Pulse Rate 56 L 01/11/17 00:00 Respiratory Rate 18 01/11/17 00:00 Blood Pressure 122/57 01/11/17 00:00 O2 Sat by Pulse Oximetry 91 L 01/11/17 00:00 - General General appearance: alert, in no apparent distress, other (thin) - Head Head exam: Present: atraumatic, normocephalic - Eye Eye exam: Present: normal appearance, PERRL, EOMI - ENT ENT exam: Present: mucous membranes dry, TM's normal bilaterally. Absent: mucous membranes moist - Neck Neck exam: Present: full ROM, trachea midline. Absent: tenderness - Chest Chest inspection: Present: symmetric chest wall rise. Absent: tenderness - Respiratory Respiratory exam: Present: normal lung sounds bilaterally. Absent: respiratory distress - Cardiovascular Cardiovascular exam: Present: regular rate, normal rhythm, normal heart sounds. Absent: murmur, rubs, gallop - Abdominal Exam Abdominal exam: Present: soft, tenderness (diffusely), normal bowel sounds. Absent: distention - Extremities Exam Extremities exam: Present: full ROM. Absent: tenderness - Back Exam Back exam: Present: full ROM. Absent: tenderness - Neurological Exam Neurological exam: Present: alert, oriented X3, CN II-XII intact. Absent: motor sensory deficit - Psychiatric Psychiatric exam: Present: normal affect, normal mood - Skin Skin exam: Present: warm, dry, intact, normal color, pallor. Absent: rash Results - Labs CBC & BMP: 01/08/17 10:13 01/11/17 02:16 Lab Results: I have reviewed the patients labs Labs: Laboratory Tests 01/05/17 01:32 WBC 14.2 H RBC 3.81 Hgb 11.8 L Hct 35.6 L RDW 21.2 H Plt Count 238 Neut % (Auto) 89.3 H Lymph % (Auto) 4.5 L Neut # (Auto) 12.7 H Lymph # (Auto) 0.6 L Laboratory Tests 01/05/17 01:32 Sodium 141 Potassium 3.9 Chloride 114 H Carbon Dioxide 12 L Anion Gap 18.9 H BUN 25 H Creatinine 1.60 H Glucose 181 H Total Protein 8.1 Globulin 3.9 H Albumin/Globulin Ratio 1.0 L Laboratory Tests 01/05/17 01:32 Total Counted 100 Segmented Neutrophils 94 H Lymphocytes 2 L Disposition Clinical Impression: Gastroenteritis Disposition: Still a Patient
[2017-01-05 02:07] LABS: Basophils % 0.1 % (0.0-0.8); Hematocrit 35.6 VOL% (35.7-47.0); Hemoglobin 11.8 GM/DL (12.0-16.0); Immature Granulocytes % 1.9 %; Immature Granulocytes Absolute 0.27 #; Lymphocytes # 0.6 10*3/uL (1.4-4.0); Lymphocytes % 4.5 % (21.3-54.2); Mean Corpuscular HGB Conc 33.1 GM/DL (32-36); Mean Corpuscular Hemoglobin 31 PG (27-34); Mean Corpuscular Volume 93.4 FL (87-102); Monocytes # 0.6 10*3/uL (0.11-0.8); Monocytes % 4.2 % (1.7-12.7); Neutrophils # 12.7 10*3/uL (1.4-7.4); Neutrophils % 89.3 % (38.7-73.9); Platelet Count 238 T/CUMM (130-400); Red Blood Count 3.81 MC/CUMM (3.8-5.5); Red Cell Distribution Width 21.2 % (9.3-17.3); White Blood Count 14.2 T/CUMM (4-12)
[2017-01-05 02:39] LABS: Albumin 4.2 G/DL (3.4-5.0); Bilirubin,Total 0.5 MG/DL (0.2-1.0); Calcium 9.3 MG/DL (8.5-10.1); Osmolality,Calculated 289.3 MOS/KG (273-304); Potassium 3.9 MMOL/L (3.5-5.1); Total Protein 8.1 G/DL (6.4-8.3)
[2017-01-05 03:42] LABS: Band Neutrophils 2 % (0-10); Lymphocytes 2 % (20-55); Metamyelocytes 1 %; Myelocytes 1 %; Segmented Neutrophils 94 % (50-85); Total Cells Counted 100
[2017-01-05 03:43] LABS: Anisocytosis 1+; Tear Drop Cells Few
[2017-01-05 03:44] LABS: Platelet Estimate Normal
[2017-01-05] MEDS ORDERED: MORPHINE 2 MG/1 ML SYRINGE IV PRN (05:06)
[2017-01-05] MEDS ORDERED: PROMETHAZINE 25 MG/1 ML VIAL IM PRN (05:06)
[2017-01-05] MEDS ORDERED: BISACODYL 5 MG TABLET PO PRN (05:06)
[2017-01-05] MEDS ORDERED: ACETAMINOPHEN 325 MG TABLET PO PRN (05:06)
--- NOTE | 2017-01-05 05:10 | Hospitalist History & Physical ---
Assessment and Plan (1) Hydronephrosis with renal and ureteral calculous obstruction Status: Acute Current Visit: Yes (2) Acute renal failure due to tubular necrosis Status: Acute Current Visit: Yes (3) Hypertension Status: Acute Current Visit: Yes Qualifiers: Hypertension type: essential hypertension Qualified Code(s): I10 - Essential (primary) hypertension (4) History of atrial fibrillation Status: Acute Current Visit: Yes (5) Hx of CABG Status: Acute Current Visit: Yes (6) Diarrhea Status: Acute Assessment and plan: Plan: Admit for IV antibiotics, IV fluids Consult urology for obstructing stone with related hydronephrosis Check blood and urine cultures Supportive care for pain and nausea Current Visit: Yes Qualifiers: Diarrhea type: unspecified type Qualified Code(s): R19.7 - Diarrhea, unspecified History of Present Illness Chief complaint: Left-sided flank pain, nausea, diarrhea History of present illness: Ms. Vila is a 81 year old female with hypertension, paroxysmal A. fib, hypertension, history of CABG, who is here with about a week or 2 of waxing and waning left-sided abdominal/flank pain. She has also had diarrhea, however the daughter thinks that the diarrhea is related to Megace. The patient denies fever although she has had occasional chills and sweats at home. She has had nausea but no vomiting. She states it hurts to lie down on her left side. Over the last 48 hours for pain and nausea have worsened in intensity and frequency. She rates it an 8 out of 10 at worst. Pain is radiating to the left lower quadrant of the abdomen. She denies chest pain, shortness of breath. Home Medications Medication Instructions Recorded Confirmed Type Ergocalciferol (Vitamin D2) 50,000 unit PO Q7D 07/15/16 01/04/17 History [Vitamin D2] Megestrol Tab [Megace Tab] 40 mg PO TID tablet 07/23/16 01/04/17 Rx Multivit-Min/FA/Lycopen/Lutein 1 tablet PO DAILY 10/24/16 01/04/17 History [Centrum Silver Tablet] Donepezil [Aricept] 5 mg PO BEDTIME #30 tablet 11/10/16 01/04/17 Rx Gabapentin Cap/Tab [Neurontin 100 mg PO BID@1600,2100 #60 capsule 11/10/1601/04 Rx Cap/Tab] Metoprolol Tartrate Tab [Lopressor 25 mg PO BID #60 tablet 11/10/16 01/04/17 Rx Tab] Albuterol Neb [Proventil Neb] 2.5 mg RESP TX RT Q6H PRN #0 11/25/16 01/04/17 Rx Amiodarone Tab [Cordarone Tab] 200 mg PO BID tablet 11/25/16 01/04/17 Rx Pravastatin [Pravachol] 40 mg PO BEDTIME tablet 11/25/16 01/04/17 Rx Allergies Allergy/AdvReac Type Severity Reaction Status Date / Time codeine Allergy Unknown/Unable Verified 10/24/16 22:11 to obtain Penicillins Allergy Unknown/Unable Verified 10/24/16 22:11 to obtain Medical,Surgical,& Family Hx - Medical History Cardio: History of: Cardiac Dysrhythmia (SVT and paroxysmal atrial fib), CHF ( Diastolic heart failure), CAD, Hypertension, Cardiovascular Problems (cabg and ablation 30-35 years ago ) Psychological: History of: Anxiety Disorders, Psychiatric Problems No history of: Behavior Problems, Violent Behavior Neurology: History of: Cerebrovascular Accident, Dementia Endocrine: History of: Dyslipidemia Respiratory: History of: COPD Gastrointestinal: History of: GI Problems (hx colectomy with colostomy and reversal) Musculoskeletal: History of: Back/Neck Problems Hematology: History of: Anemia No history of: Blood Transfusion Reaction - Surgical History Cardiac Surgeries: Sugical HX of: Cardiac Catheterization (within the last 5 years in [place] per daughter), Cardiac Surgery (CABG 30 years ago and ablation 35 years ago) HEENT Surgeries: Surgical HX of: Eye Surgery (bilateral cataracts), Tonsilectomy & Adenoidectomy Abdominal Surgeries: Surgical HX of: Abdominal Surgery (colectomy with colostomy and reversal), Appendectomy, Cholecystectomy, Hernia Repair Reproductive Surgeries: Surgical HX of;: Hysterectomy Orthopedic Surgeries: Surgical HX of;: Orthopedic Surgery (neck, lower back, left shoulder, carpal tunnel) - Family History Family History: Reports;: Family Diabetes (brother, sister), Family Heart Disease (father, brother, sister), Family Hypertension - Social History Smoking Status: Former smoker Frequency of Alcohol Use: None Type of Drug Use: None Marital Status: Unknown Functional capacity: uses cane/walker Review of systems: A 12 point review of systems is negative except as specified in the HPI Exam - Constitutional Vitals: Period Temp Pulse Resp BP Sys/Rhodes Pulse Ox Last 24 Hr 98.4 F 90-92 14-18 113-168/65-74 98-100 Exam: EXAM: CONSTITUTIONAL: non toxic, NAD HEENT: NC, AT, OP poor dentition, CESAR, EOMI CV: RRR no m/g/r RESP: clear B/L, no w/r/r GI: abd soft, mild tenderness about the left flank and left lower quadrant, no rebound, ND, +bowel sounds INTEGUMENTARY: no lesions or rash EXTREMITIES: no c/c/e NEURO: no focal deficits PSYCH: unremarkable, A/O x3 Results - Labs CBC & BMP: 01/05/17 01:32 01/05/17 01:32 Lab Results: I have reviewed the past 24 hour labs - Diagnostic Findings Procedure: CT Abdomen and Pelvis: image reviewed by me, report reviewed by me
[2017-01-05] MEDS ORDERED: ALBUTEROL/IPRATROPIUM 3 ML NEB RESP TX PRN (06:59)
[2017-01-05] MEDS: SODIUM CHLORIDE 0.45% 1,000 ML IV SCH ×2 (07:07→15:48)
--- NOTE | 2017-01-05 08:37 | CT Report ---
Referring physician: Kanchan Velázquez DO EXAM: CT abdomen and pelvis without contrast DATE: 01/05/2017 COMPARISON: 07/18/2016 REASON: Generalized abdominal pain TECHNIQUE: Axial images of the abdomen and pelvis were obtained without the use of contrast. Coronal and sagittal reformatted images were also provided. Total DLP is 166.90 mGy*cm. This exam was initially interpreted by [facility]. FINDINGS: Reduced parenchymal findings at the visualized lung bases with chronic scarring. The liver remains normal in size with no masses patient with prior cholecystectomy. Stable dilatation of the bile ducts with CBD measuring 11 mm. The spleen is normal in size with calcified granulomata. 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 The pancreas and adrenal glands are stable in appearance. Numerous bilateral renal calculi are redemonstrated with improved right hydronephrosis but there is a residual 8 x 10 mm right ureteral calculus projecting in the distal right ureter at the level of the inferior sacrum. Progressive moderately severe left hydronephrosis with 7-8mm ureteral calculus projecting at the level of L3. 22 mm hyperdense mass in the upper pole of the left kidney which measured 18 mm on the previous exam. Additional smaller cyst with some being hypertense are noted. Calcification in the wall of the nondilated abdominal aorta with no adjacent adenopathy. Small hiatal hernia. Progressive gaseous distention of the bowel in the right abdomen with post operative findings an air-fluid levels. No free air or free fluid. Prior hysterectomy with stable appearing urinary bladder. Residual grade 1 spondylolisthesis at L4-L5 with chronic pars defects. Chronic T12 and L1 compression fractures with degenerative changes and post operative changes. IMPRESSION: 7-8mm left ureteral calculus projecting at the level of L3 with moderately severe left hydronephrosis. Improved right hydronephrosis with persistent 8 x 10 mm right ureteral calculus projecting at the inferior sacral location. Bilateral nephrocalcinosis. Probable hyperdense cysts with progressive 22 mm indeterminate finding in the upper pole of the left kidney. A solid mass cannot be excluded and renal ultrasound is recommended for further evaluation. Status post cholecystectomy, hysterectomy, and right colectomy. Progressive dilatation of the bowel at the level of the anastomosis with air-fluid level. This finding could be related to ileus, etc. Limited evaluation of bowel without oral contrast. Diffuse arterial calcifications with stable 8 mm calcified splenic artery aneurysm. Chronic osseous findings as above noted. The CT exam was performed using one or more of the following dose reduction techniques: Automated exposure control and adjustment of the mA and/or kV according to patient size. PROCEDURE INTERPRETED AT [facility] DEPARTMENT OF RADIOLOGY Final Report Signed by: Dr. Tatiana Morley
[2017-01-05] MEDS ORDERED: MEGESTROL 40 MG TABLET PO SCH (09:00)
[2017-01-05] MEDS: METOPROLOL TARTRATE 25 MG TABLET PO SCH ×2 (09:38→21:15)
[2017-01-05] MEDS: MULTIVITAMIN (CENTRUM) TABLET PO SCH (09:38)
[2017-01-05] MEDS: CEFEPIME 1,000 MG in SODIUM CHLORIDE 0.9% 100 ML IV SCH (09:39)
[2017-01-05] MEDS: PANTOPRAZOLE 40 MG TABLET PO SCH (09:39)
[2017-01-05] MEDS: AMIODARONE 200 MG TABLET PO SCH ×2 (09:39→21:15)
--- NOTE | 2017-01-05 11:28 | Hospitalist Progress Note ---
Assessment and Plan (1) Acute renal failure due to tubular necrosis Status: Acute Current Visit: Yes (2) Hydronephrosis with renal and ureteral calculous obstruction Status: Acute Current Visit: Yes (3) Hypertension Status: Acute Current Visit: Yes Qualifiers: Hypertension type: essential hypertension Qualified Code(s): I10 - Essential (primary) hypertension (4) Atrial fibrillation Status: Chronic Assessment and plan: -Patient stable at this time -Continue IV antibiotics with cefepime -Continue chronic home medications including amiodarone -Urology consulted for evaluation; will follow the recommendation -Bilateral renal ultrasound ordered to evaluate for any solid masses in the patient's kidney Current Visit: No Hospitalist: Subjective Interval history: The patient is an 81-year-old female admitted to the hospital after complaining of severe left-sided abdominal pain. Patient was found to have bilateral hydronephrosis with bilateral renal stones. At the time of my examination she reports that her abdominal pain has improved since receiving narcotic pain medicine. She reports some occasional chest pain but denies any shortness of breath, diaphoresis or radiation of the pain. She states that she did tolerate some oral intake this morning. Exam - Constitutional Vitals: Period Temp Pulse Resp BP Sys/Rhodes Pulse Ox Last 24 Hr 97.6 F-98.4 F 90-92 14-18 113-168/65-74 98-100 General appearance: under weight - Head Head exam: Present: normal inspection - Eye Eye exam: Present: EOMI Pupils: Present: CESAR - ENT ENT exam: Present: normal exam, normal oropharynx - Neck Neck exam: Present: normal inspection - Respiratory Respiratory exam: Present: clear to auscultation bilaterally. Absent: rhonchi, stridor - Cardiovascular Cardiovascular exam: Present: regular rate and rhythm. Absent: systolic murmur , tachycardia - GI/Abdominal GI/Abdominal exam: Present: normal bowel sounds, tenderness (Mild tenderness to palpation over left flank), soft. Absent: ascites, distended - Extremities Exam Extremities exam: Present: normal inspection. Absent: edema - Back Exam Back exam: Present: CVA tenderness (L) - Neurological Exam Neurological exam: Present: alert, oriented X3, CN II-XII intact - Psychiatric Psychiatric exam: Present: normal affect - Skin Skin exam: Present: normal color, warm Results - Labs CBC & BMP: 01/05/17 01:32 01/05/17 01:32 Lab Results: I have reviewed the past 24 hour labs
--- NOTE | 2017-01-05 13:51 | Ultrasound Report ---
Exam: US renal Bilateral Date: 01/05/2017 11:13 AM Comparison: 07/17/2016, CT abdomen pelvis 01/05/2017 Indication: Bilateral hydronephrosis Technique:[Multiple transabdominal real-time scans were obtained of the kidneys. Ultrasound images were captured and stored.] Findings: Right kidney measures 102 x 45 x 45 mm. Right kidney measured 107 mm on previous exam. Left kidney measures 100 x 53 x 52 mm. Left kidney measured 102 mm on previous exam. Moderate left hydronephrosis and minimal right caliectasis. Multiple calculi are identified. Multiple simple appearing cysts are noted including a 10 mm and 10 mm upper pole right 22 mm upper pole, 12 mm upper to midpole, and 14 mm midpole left. No solid masses are identified. Impression: The kidneys remains fairly symmetric in size with moderate left hydronephrosis and minimal right caliectasis. Multiple renal calculi and simple appearing cysts. This includes a 22 mm simple cyst in the upper pole of the left kidney which is hyperdense on CT. No solid mass is identified. PROCEDURE INTERPRETED AT [facility] DEPARTMENT OF RADIOLOGY Final Report Signed by: Dr. Tatiana Morley
--- NOTE | 2017-01-05 13:58 | Urology Consultation ---
Assessment and Plan - Time spent with patient Time spent with patient: Greater than 30 minutes (1) Bilateral ureteral calculi Status: Acute Assessment and plan: I recommend we perform stent placement. I have discussed this with the patient. We will let this settle down and then we will begin treatment. Probably left side first. Current Visit: Yes History of Present Illness - Data of Consult Patient: new to practice Consult date: 01/05/17 Requesting Physician: Hosea Zavaleta - Consult Narrative Reason for consult: Bilateral ureteral stones with bilateral hydronephrosis History of present illness: Ms. Vila is a 81 year old female who was seen in the emergency room with abdominal pain. She was evaluated and found to have bilateral ureteral stones and bilateral hydroureteronephrosis. Left greater than right. Apparently the right is improved so I am assuming that she has had this stone for a bit. She denies any fever. She has no previous history of stones as she relates. She has not had hematuria. States she has had urinary tract infections in the past. I had a discussion with this patient. I have recommended that we place bilateral stents with nothing else to protect her kidneys and let this cool off and then we will address each stone separately. Probably address the left side first. I have discussed cystoscopy with bilateral stent placement at length and in detail. Risks, complications, outcomes, sequelae, prognosis explained. Patient understood and agreed to proceed. CC: Kushal Sofia MD - Home Medications and Allergies Home Medications: Home Medications Medication Instructions Recorded Confirmed Type Ergocalciferol (Vitamin D2) 50,000 unit PO Q7D 07/15/16 01/04/17 History [Vitamin D2] Megestrol Tab [Megace Tab] 40 mg PO TID tablet 07/23/16 01/04/17 Rx Multivit-Min/FA/Lycopen/Lutein 1 tablet PO DAILY 10/24/16 01/04/17 History [Centrum Silver Tablet] Donepezil [Aricept] 5 mg PO BEDTIME #30 tablet 11/10/16 01/04/17 Rx Gabapentin Cap/Tab [Neurontin 100 mg PO BID@1600,2100 #60 capsule 11/10/1601/04 Rx Cap/Tab] Metoprolol Tartrate Tab [Lopressor 25 mg PO BID #60 tablet 11/10/16 01/04/17 Rx Tab] Albuterol Neb [Proventil Neb] 2.5 mg RESP TX RT Q6H PRN #0 11/25/16 01/04/17 Rx Amiodarone Tab [Cordarone Tab] 200 mg PO BID tablet 11/25/16 01/04/17 Rx Pravastatin [Pravachol] 40 mg PO BEDTIME tablet 11/25/16 01/04/17 Rx Allergies/Adverse Reactions: Allergies Allergy/AdvReac Type Severity Reaction Status Date / Time codeine Allergy Unknown/Unable Verified 10/24/16 22:11 to obtain Penicillins Allergy Unknown/Unable Verified 10/24/16 22:11 to obtain 12 point system: reviewed and no additional remarkable complaints except as stated - Gastrointestinal Gastrointestinal: Present: abdominal pain, bloating, nausea Exam - Constitutional Vitals: Period Temp Pulse Resp BP Sys/Rhodes Pulse Ox Last 24 Hr 97.6 F-98.4 F 65-92 14-18 113-168/65-74 97-100 - GI/Abdominal GI/Abdominal exam: Present: distended, hypoactive bowel sounds, tenderness ( Right pelvis), soft, other (Mild right CVA tenderness). Absent: ascites, firm, guarding, hernia, mass, rebound - Genitourinary Genitourinary: external genitalia normal Results - Labs CBC & BMP: 01/05/17 01:32 01/05/17 01:32 Lab Results: I have reviewed the past 24 hour labs - Diagnostic Findings Procedure: CT Abdomen and Pelvis: report reviewed by me (I have reviewed)
[2017-01-05] MEDS: GABAPENTIN 100 MG CAPSULE PO SCH ×2 (15:50→21:15)
[2017-01-05] MEDS: DONEPEZIL 5 MG TABLET PO SCH (21:15)
[2017-01-05] MEDS: PRAVASTATIN 40 MG TABLET PO SCH (21:15)
[2017-01-06] MEDS: SODIUM CHLORIDE 0.45% 1,000 ML IV SCH ×5 (00:12→20:59)
[2017-01-06 05:08] LABS: Basophils % 0.3 % (0.0-0.8); Eosinophils # 0.1 10*3/uL (0.0-0.87); Eosinophils % 2.4 % (0.00-10.9); Hematocrit 27.3 VOL% (35.7-47.0); Hemoglobin 8.9 GM/DL (12.0-16.0); Immature Granulocytes % 1.2 %; Immature Granulocytes Absolute 0.07 #; Lymphocytes # 1.6 10*3/uL (1.4-4.0); Lymphocytes % 27.9 % (21.3-54.2); Mean Corpuscular HGB Conc 32.6 GM/DL (32-36); Mean Corpuscular Hemoglobin 30 PG (27-34); Mean Corpuscular Volume 93.2 FL (87-102); Mean Platelet Volume 10.5 FL (9.6-12.0); Monocytes # 0.7 10*3/uL (0.11-0.8); Monocytes % 11.6 % (1.7-12.7); Neutrophils # 3.3 10*3/uL (1.4-7.4); Neutrophils % 56.6 % (38.7-73.9); Platelet Count 189 T/CUMM (130-400); Red Blood Count 2.93 MC/CUMM (3.8-5.5); Red Cell Distribution Width 21.7 % (9.3-17.3); White Blood Count 5.9 T/CUMM (4-12)
[2017-01-06 05:20] LABS: PT Patient Result 10.7 SECS
[2017-01-06] MEDS ORDERED: LORazepam 0.5 MG TABLET PO ONE (05:47)
[2017-01-06] MEDS ORDERED: FAMOTIDINE 20 MG TABLET PO ONE (05:47)
[2017-01-06 05:49] LABS: Bilirubin,Total 0.8 MG/DL (0.2-1.0); Calcium 7.9 MG/DL (8.5-10.1); Magnesium 1.8 MG/DL (1.8-2.4); Osmolality,Calculated 283.1 MOS/KG (273-304); Potassium 3.8 MMOL/L (3.5-5.1); Total Protein 5.8 G/DL (6.4-8.3)
--- NOTE | 2017-01-06 06:27 | EKG Report ---
Stationary ECG Study [facility] Test Date: 01/06/2017 6:28:41 AM Pat Name: TERESA LEON Department: Room: 240 Gender: F Web Page Developer: JUAN : 1935 Requested by: Mitch Blank Order Number: [id number] Reading MD: ETRRANCE CHEUNG Intervals [place] Rate: 63 P: 44 MO: 158 QRS: 14 QRSD: 94 T: 63 QT: 300 QTc: 306 Interpretive Statements SINUS RHYTHM INCOMPLETE RIGHT BUNDLE BRANCH BLOCK NONSPECIFIC T-WAVE ABNORMALITY Electronically Signed On 01-06-17 13:04:52 CDT by TERRANCE CHEUNG [email or web address]
[2017-01-06] MEDS: CEFEPIME 1,000 MG in SODIUM CHLORIDE 0.9% 100 ML IV SCH (06:44)
[2017-01-06] MEDS ORDERED: CEFEPIME 1,000 MG in SODIUM CHLORIDE 0.9% 100 ML IV ONE ×2 (08:00→10:00)
[2017-01-06] MEDS: AMIODARONE 200 MG TABLET PO SCH ×3 (09:01→22:00)
[2017-01-06] MEDS: METOPROLOL TARTRATE 25 MG TABLET PO SCH ×3 (09:01→22:00)
[2017-01-06] MEDS: PANTOPRAZOLE 40 MG TABLET PO SCH ×2 (09:01→12:55)
[2017-01-06] MEDS: MULTIVITAMIN (CENTRUM) TABLET PO SCH ×2 (09:01→12:54)
[2017-01-06] MEDS ORDERED: NEOMYCIN/POLYMYXIN IRRIG SOLN 1 ML AMP BLADDERIRR ONE (09:59)
[2017-01-06] MEDS ORDERED: LIDOCAINE 2% TOP JELLY 20 ML VIAL INTRAURETH ONE (10:14)
--- NOTE | 2017-01-06 10:31 | Operative Note ---
Date of procedure: 01/06/17 Pre-op diagnosis: Bilateral ureteral calculi Post-op diagnosis: same Procedure: 81-year-old white female presents multiple issues found to have bilateral ureteral stones bilateral hydronephrosis. Right stone is in the distal ureter left stone is in the mid or upper mid ureter or lower upper ureter. She has bilateral hydronephrosis. I have recommended cystoscopy bilateral stent placement. This procedure was explained at length and in detail. Risks, complications, outcomes, sequelae, prognosis and alternative therapy was discussed. Patient understood this and agreed to proceed. Patient brought to the cystoscopy suite given a general LMA anesthetic which he tolerated well. She is then placed in lithotomy position prepared and draped in usual sterile manner. 25 Fijian cystourethroscope passed under direct vision. Urethra and bladder were normal. Bilateral retrograde pyelograms were obtained. This revealed a distal right stone which is probably 8-10 mm in the proximal left stone which is probably 6-7 mm. There is bilateral hydronephrosis proximal to the stones. A guidewire is initially passed up the right side. Over the guidewire 6 Fijian 24 cm stents is placed with fluoroscopic control. The guidewire is then passed up the left side and I had a little difficulty getting past the proximal stone but I did an he went to the pelvis without difficulty after that. Over the guidewire 6 Fijian 24 cm stent was placed with fluoroscopic control. The bladder was then drained. Postprocedure snapshot show good placement of stents. The right distal stone in the left proximal stone unchanged in their position. Patient was awakened general anesthesia having tolerated procedure well was sent to the recovery room in stable condition. All sponge, needle and instrument counts correct 2. Implants: Bilateral 6 Fijian 24 cm ureteral stents Anesthesia: LENA Surgeon / Physician: Kvng Short Estimated blood loss: none Specimens: none sent Condition: stable Disposition: PACU Results - Labs CBC & BMP: 01/06/17 04:22 01/06/17 04:22 Discharge Plan - Discharge Medications No Action Ergocalciferol (Vitamin D2) [Vitamin D2] 50,000 unit PO Q7D Albuterol Neb [Proventil Neb] 2.5 mg RESP TX RT Q6H PRN #0 PRN Reason: Shortness Of Breath/Wheezing Amiodarone Tab [Cordarone Tab] 200 mg PO BID tablet Pravastatin [Pravachol] 40 mg PO BEDTIME tablet Megestrol Tab [Megace Tab] 40 mg PO TID tablet Multivit-Min/FA/Lycopen/Lutein [Centrum Silver Tablet] 1 tablet PO DAILY Donepezil [Aricept] 5 mg PO BEDTIME #30 tablet Metoprolol Tartrate Tab [Lopressor Tab] 25 mg PO BID #60 tablet Gabapentin Cap/Tab [Neurontin Cap/Tab] 100 mg PO BID@1600,2100 #60 capsule - Follow Up or Referral - Forms/Instructions
[2017-01-06] MEDS ORDERED: SEVOFLURANE 1 UNIT/15 MINUTE INH ONE (10:45)
[2017-01-06] MEDS ORDERED: PROPOFOL 200 MG/20 ML VIAL IV ONE (10:46)
[2017-01-06] MEDS ORDERED: MIDAZOLAM 2 MG/2 ML VIAL ONE (10:46)
[2017-01-06] MEDS ORDERED: fentaNYL 100 MCG/2 ML VIAL ONE (10:47)
[2017-01-06] MEDS ORDERED: ONDANSETRON 4 MG/2 ML VIAL ONE (10:47)
--- NOTE | 2017-01-06 11:33 | Hospitalist Progress Note ---
Assessment and Plan (1) Hydronephrosis with renal and ureteral calculous obstruction Status: Acute Assessment and plan: Impression: 1. Hydronephrosis with bilateral stones, status post stenting 2. Atrial fibrillation, apparently paroxysmal Plan: Continue current management. Will defer to urology regarding next steps for management of the stones. Kidney function appears to be at baseline. This note was completed using [employer] voice recognition software. There may be network control operator errors as a result. Current Visit: Yes Hospitalist: Subjective Interval history: Follow-up acute renal failure with bilateral ureteral calculi and hydronephrosis. The patient is status post bilateral ureteral stenting for treatment of hydronephrosis from bilateral stones. The patient complains of a little pain, but is awake and conversant immediately postop, and feels pretty well otherwise. Exam - Constitutional Vitals: Period Temp Pulse Resp BP Sys/Rhodes Pulse Ox Last 24 Hr 96.3 F-98.7 F 59-71 12-20 106-133/50-69 94-100 Vital signs are noted above. Heart is regular with no murmur or gallop. Lungs are clear with no rales or wheezes. Abdomen is soft with no mass or tenderness. She is awake and alert. Results - Labs CBC & BMP: 01/06/17 04:22 01/06/17 04:22 Lab Results: I have reviewed the past 24 hour labs
--- NOTE | 2017-01-06 11:46 | Anesthesia Post-Op ---
Anesthesia Post OP - Post Ansesthetic Evaluation Patient seen in post op: Yes Resp: within normal limits CV: within normal limits Mental: within normal limits Temp: within normal limits Rxzw-Dl-Hyxdkeima: within normal limits Nausea and Vomiting: within normal limits Pain: within normal limits
--- NOTE | 2017-01-06 13:37 | Fluoroscopy Report ---
Exam: FL retrograde pyelogram Date: 01/06/2017 12:00 AM Comparison: CT 01/05/2017 Indication: Bilateral ureteral stents, bilateral ureteral calculi Technique:[Fluoroscopy time of 1 minute 13 seconds documented. 9 films were obtained. Findings: CT described 2 mm distal right ureteral and 8mm left ureteral calculus projecting at L3 identified on the water plant pump operator supervisor films. Limited contrast injected into both ureters which demonstrate the calculi and hydronephrosis. Insertion of bilateral ureteral stents. Impression: Bilateral ureteral calculi with satisfactory insertion of ureteral stents. PROCEDURE INTERPRETED AT [facility] DEPARTMENT OF RADIOLOGY Final Report Signed by: Dr. Tatiana Morley
[2017-01-06] MEDS: GABAPENTIN 100 MG CAPSULE PO SCH ×2 (15:05→22:00)
[2017-01-06] MEDS: ONDANSETRON 4 MG/2 ML VIAL IV PRN (15:06)
[2017-01-06] MEDS: DONEPEZIL 5 MG TABLET PO SCH (22:00)
[2017-01-06] MEDS: PRAVASTATIN 40 MG TABLET PO SCH (22:00)
--- NOTE | 2017-01-07 07:58 | CT Report ---
Exam: CT lumbar spine wo con, Date: 01/07/2017 4:40 AM Comparison: None Indication: Pain secondary to fall Total DLP: 770.9 mGy*cm Technical: Axial sagittal and coronal images were available for review without use of intravenous contrast through the lumbosacral spine. Dose reduction was performed with decreasing kv and mA and automated exposure Findings: T11-T12: There is mild weightbearing deformity along the cephalic margin of T12. Minimal retropulsion of bony fragment present. Facet arthropathy is noted. No significant bulging herniation otherwise noted. T12/L1: Mild weightbearing deformity along the cephalic margin of L1 mild bulging of disc. Facet arthropathy is present.. L1/2: Facet arthropathy is present. Mild bulging of disc present. L2/3: Broad-based bulging is present. No focal herniation or protrusion slight narrowing of the subarticular recess present bilaterally.. L3/4: Bulging of disc is present. Facet arthropathy is noted. Small calcification present and narrowing of the left subarticular recess.. L4/5: Retrolisthesis of L5 with respect to L4. Hypertrophic changes along the pedicles with suggestion of previous surgical changes at this level. Mild bulging present.. L5/S1: Vacuum phenomena present at L5-S1 with loss of intervertebral disc space height. Sclerotic change present posteriorly with mild bulging.. Bilateral double-J stents are present in the renal collecting system previous surgical changes in the right upper quadrant suspected with ASVD of the aorta.. Impression: 1. Postsurgical changes suspected at the lower lumbar spine with loss of intervertebral disc space at L5-S1 and slight retrolisthesis of L5 with respect to L4 2. Mild weightbearing deformity at T12 and L1 with slight retropulsion of bony fragment at T12 3. Minimal levoscoliotic curve the lumbosacral spine 4. Bilateral double-J stents in the renal collecting system 5. ASVD 6. 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 Compression deformity at T12 and L1 are demonstrated. No other fractures are clearly seen. The pedicles and transverse processes and adjacent ribs are otherwise intact. Lungs reveal mild underlying scarring changes. ASVD is present in the aorta. Impression: 1. 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 If further evaluation is warranted MRI may be beneficial or bone scan imaging both of which are better for acute fracture delineation. PROCEDURE INTERPRETED AT [facility] DEPARTMENT OF RADIOLOGY Final Report Signed by: Dr. Earle Leonard
[2017-01-07] MEDS: CEFEPIME 2,000 MG in SODIUM CHLORIDE 0.9% 100 ML IV SCH (08:00)
[2017-01-07] MEDS: AMIODARONE 200 MG TABLET PO SCH ×2 (08:00→20:45)
[2017-01-07] MEDS: MULTIVITAMIN (CENTRUM) TABLET PO SCH (08:00)
[2017-01-07] MEDS: METOPROLOL TARTRATE 25 MG TABLET PO SCH ×2 (08:00→20:45)
[2017-01-07] MEDS: PANTOPRAZOLE 40 MG TABLET PO SCH (08:00)
--- NOTE | 2017-01-07 09:35 | Urology Progress Note ---
Assessment and Plan (1) Bilateral ureteral calculi Status: Acute Assessment and plan: I recommend we perform stent placement. I have discussed this with the patient. We will let this settle down and then we will begin treatment. Probably left side first. Current Visit: Yes Urology - PN: Subj Interval history: Patient is afebrile. She is having some lower pelvic pain I think is related to the stents. She is having some hematuria. This I am not surprised considering she had bilateral ureteral stones. She had a low colony count urinary tract infection. This hematuria should subside in a few days. At this point I recommend fluids and antibiotics and time. Exam - Constitutional Vitals: Period Temp Pulse Resp BP Sys/Rhodes Pulse Ox Last 24 Hr 97.5 F-99 F 61-83 12-20 107-133/50-69 94-100 Results - Labs CBC & BMP: 01/06/17 04:22 01/06/17 04:22
[2017-01-07] MEDS: ONDANSETRON 4 MG/2 ML VIAL IV PRN (10:19)
--- NOTE | 2017-01-07 10:49 | Hospitalist Progress Note ---
Assessment and Plan (1) Hydronephrosis with renal and ureteral calculous obstruction Status: Acute Assessment and plan: Impression: 1. Hydronephrosis with bilateral stones, status post stenting 2. Atrial fibrillation, apparently paroxysmal 3. Fall Plan: Scans are reviewed and are negative. Continue current management of kidney stone. Kidney function appears to be at baseline. This note was completed using [employer] voice recognition software. There may be ordnance equipment worker errors as a result. Current Visit: Yes Hospitalist: Subjective Interval history: Follow-up nephrolithiasis with hydronephrosis and paroxysmal atrial fibrillation. The patient complains of some hematuria. This has already been addressed by urology. She feels fine otherwise, and reports that she fell in the bathroom this morning. She had apparently lost her balance. She hit her ahead. She did not lose consciousness. CT scan has already been performed. Exam - Constitutional Vitals: Period Temp Pulse Resp BP Sys/Rhodes Pulse Ox Last 24 Hr 97.5 F-99 F 61-83 14-20 108-133/53-83 94-100 Vital signs are noted above. Heart is regular with no murmur or gallop. Lungs are fairly clear with no rales or wheezes. Abdomen is soft. She is awake and alert. Results - Labs CBC & BMP: 01/06/17 04:22 01/06/17 04:22
[2017-01-07] MEDS: SODIUM CHLORIDE 0.45% 1,000 ML IV SCH ×3 (13:38→17:48)
[2017-01-07] MEDS: GABAPENTIN 100 MG CAPSULE PO SCH ×2 (17:17→20:45)
[2017-01-07] MEDS: PRAVASTATIN 40 MG TABLET PO SCH (20:44)
[2017-01-07] MEDS: DONEPEZIL 5 MG TABLET PO SCH (20:45)
[2017-01-08] MEDS: SODIUM CHLORIDE 0.45% 1,000 ML IV SCH ×3 (03:17→17:35)
[2017-01-08] MEDS: ONDANSETRON 4 MG/2 ML VIAL IV PRN ×2 (08:38→21:28)
[2017-01-08] MEDS: MULTIVITAMIN (CENTRUM) TABLET PO SCH (08:39)
[2017-01-08] MEDS: CEFEPIME 2,000 MG in SODIUM CHLORIDE 0.9% 100 ML IV SCH (08:39)
[2017-01-08] MEDS: AMIODARONE 200 MG TABLET PO SCH ×2 (08:39→19:59)
[2017-01-08] MEDS: METOPROLOL TARTRATE 25 MG TABLET PO SCH ×2 (08:39→19:59)
[2017-01-08] MEDS: PANTOPRAZOLE 40 MG TABLET PO SCH (08:39)
--- NOTE | 2017-01-08 09:57 | Hospitalist Progress Note ---
Assessment and Plan (1) Hydronephrosis with renal and ureteral calculous obstruction Status: Acute Assessment and plan: Impression: 1. Hydronephrosis with bilateral stones, status post stenting 2. Atrial fibrillation, apparently paroxysmal 3. Fall Plan: The persistent pain and tenderness is unusual. I will recheck lab to be sure that there is no evidence of infection or obstruction. This note was completed using [employer] voice recognition software. There may be alternative financing specialist errors as a result. Current Visit: Yes Hospitalist: Subjective Interval history: Follow-up nephrolithiasis with hydronephrosis. The patient still complains of some abdominal pain and some hematuria. She says her abdomen was tender enough that it kept her from eating breakfast this morning. She reports that her bowels are moving. Exam - Constitutional Vitals: Period Temp Pulse Resp BP Sys/Rhodes Pulse Ox Last 24 Hr 97.0 F-98.5 F 58-104 16-20 104-126/50-71 88-96 Vital signs are noted above. Heart is regular with no murmur or gallop. Chest is fairly clear. Abdomen has positive bowel sounds and some generalized tenderness. She is awake and alert Results - Labs CBC & BMP: 01/06/17 04:22 01/06/17 04:22
[2017-01-08 10:22] LABS: Basophils % 0.8 % (0.0-0.8); Eosinophils # 0.2 10*3/uL (0.0-0.87); Eosinophils % 2.8 % (0.00-10.9); Hematocrit 26.3 VOL% (35.7-47.0); Hemoglobin 8.6 GM/DL (12.0-16.0); Immature Granulocytes % 1.1 %; Immature Granulocytes Absolute 0.06 #; Lymphocytes # 1.1 10*3/uL (1.4-4.0); Mean Corpuscular HGB Conc 32.7 GM/DL (32-36); Mean Corpuscular Hemoglobin 30 PG (27-34); Mean Corpuscular Volume 92.9 FL (87-102); Mean Platelet Volume 10.6 FL (9.6-12.0); Monocytes # 0.6 10*3/uL (0.11-0.8); Monocytes % 10.4 % (1.7-12.7); Neutrophils # 3.4 10*3/uL (1.4-7.4); Neutrophils % 64.9 % (38.7-73.9); Platelet Count 181 T/CUMM (130-400); Red Blood Count 2.83 MC/CUMM (3.8-5.5); Red Cell Distribution Width 21.5 % (9.3-17.3); White Blood Count 5.3 T/CUMM (4-12)
[2017-01-08 10:49] LABS: Calcium 7.7 MG/DL (8.5-10.1); Osmolality,Calculated 283.8 MOS/KG (273-304); Potassium 2.9 MMOL/L (3.5-5.1)
--- NOTE | 2017-01-08 13:10 | Urology Progress Note ---
Assessment and Plan (1) Bilateral ureteral calculi Status: Acute Assessment and plan: I recommend we perform stent placement. I have discussed this with the patient. We will let this settle down and then we will begin treatment. Probably left side first. Current Visit: Yes Urology - PN: Subj Interval history: Patient continues to improve. Her urine has cleared up. Her creatinine is now normal. I will sign off. We will make her appointment see me in 1 week after discharge with a KUB. Exam - Constitutional Vitals: Period Temp Pulse Resp BP Sys/Rhodes Pulse Ox Last 24 Hr 97.0 F-98.2 F 58-90 16-20 104-137/50-71 95-96 Results - Labs CBC & BMP: 01/08/17 10:13 01/08/17 10:13
[2017-01-08] MEDS: GABAPENTIN 100 MG CAPSULE PO SCH ×2 (16:41→19:59)
[2017-01-08] MEDS ORDERED: POTASSIUM CHLORIDE 20 MEQ TABLET PO ONE (17:00)
[2017-01-08] MEDS: DONEPEZIL 5 MG TABLET PO SCH (19:59)
[2017-01-08] MEDS: PRAVASTATIN 40 MG TABLET PO SCH (19:59)
[2017-01-09] MEDS: SODIUM CHLORIDE 0.45% 1,000 ML IV SCH ×3 (01:34→20:37)
--- NOTE | 2017-01-09 10:20 | Hospitalist Progress Note ---
Assessment and Plan (1) Hydronephrosis with renal and ureteral calculous obstruction Status: Acute Assessment and plan: Impression: 1. Hydronephrosis with bilateral stones, status post stenting 2. Atrial fibrillation, apparently paroxysmal 3. Fall 4. Persistent diarrhea with negative C. difficile test. CT scan on admission showed possible partial small bowel obstruction Plan: Lab work yesterday did not indicate any evidence of acute kidney injury or infection. I will get a flatplate of the abdomen to rule out bowel obstruction. Advance diet. Physical therapy evaluation. This note was completed using [employer] voice recognition software. There may be bench repair technician errors as a result. Current Visit: Yes Hospitalist: Subjective Interval history: Follow-up hydronephrosis due to bilateral nephrolithiasis, persistent hematuria , diarrhea, and generalized weakness. The patient says that her hematuria had temporarily resolved, but it has not returned. She also reports loose stools, which may be related to the antibiotics she is receiving. However, C. difficile was negative 2 days ago. In addition, she says that she feels quite weak, and is worried about going home because she lives alone. Exam - Constitutional Vitals: Period Temp Pulse Resp BP Sys/Rhodes Pulse Ox Last 24 Hr 97.2 F-98.7 F 54-67 16-18 113-137/46-65 93-97 Vital signs are noted above. Heart is regular with no murmur or gallop. Lungs are clear with no rales or wheezes. Abdomen is tender over the abdominal aorta. Bowel sounds are hyperactive. She is awake and alert. Results - Labs CBC & BMP: 01/08/17 10:13 01/08/17 10:13 Lab Results: I have reviewed the past 24 hour labs Specialty Discharge - Follow Up or Referrals Follow up with: Kvng Short MD [Physician] - 01/15/17 3:15 pm
[2017-01-09] MEDS: MULTIVITAMIN (CENTRUM) TABLET PO SCH (10:34)
[2017-01-09] MEDS: AMIODARONE 200 MG TABLET PO SCH ×2 (10:34→20:37)
[2017-01-09] MEDS: METOPROLOL TARTRATE 25 MG TABLET PO SCH ×2 (10:34→20:37)
[2017-01-09] MEDS: PANTOPRAZOLE 40 MG TABLET PO SCH (10:34)
[2017-01-09] MEDS: CEFEPIME 2,000 MG in SODIUM CHLORIDE 0.9% 100 ML IV SCH (12:36)
--- NOTE | 2017-01-09 14:38 | XRay Report ---
Exam: XR KUB Date: 01/09/2017 10:24 AM Indication: Possible small bowel obstruction Comparison: 07/20/2016 Findings: Double-J stents are present. Injection granuloma is present over the gluteal region. Prior cholecystectomy clips present. The liver shadow spleen shadow are not well seen the renal contours are poorly seen. Levoscoliotic curve present. Phleboliths are present. No obvious pneumoperitoneum. Impression: 1. Bilateral double-J stents have been placed. 2. Nonspecific GI pattern with abdominal ileus pattern without evidence of obstruction 3. Prior cholecystectomy 4. Injection granulomas in the gluteal regions bilaterally. PROCEDURE INTERPRETED AT [facility] DEPARTMENT OF RADIOLOGY Final Report Signed by: Dr. Earle Leonard
[2017-01-09] MEDS: GABAPENTIN 100 MG CAPSULE PO SCH ×2 (15:11→20:37)
[2017-01-09] MEDS: DONEPEZIL 5 MG TABLET PO SCH (20:37)
[2017-01-09] MEDS: PRAVASTATIN 40 MG TABLET PO SCH (20:37)
[2017-01-10] MEDS: MULTIVITAMIN (CENTRUM) TABLET PO SCH (08:28)
[2017-01-10] MEDS: AMIODARONE 200 MG TABLET PO SCH ×2 (08:29→20:51)
[2017-01-10] MEDS: METOPROLOL TARTRATE 25 MG TABLET PO SCH ×2 (08:29→20:51)
[2017-01-10] MEDS: SODIUM CHLORIDE 0.45% 1,000 ML IV SCH (10:01)
--- NOTE | 2017-01-10 11:25 | Hospitalist Progress Note ---
Assessment and Plan (1) Hydronephrosis with renal and ureteral calculous obstruction Status: Acute Assessment and plan: Impression: 1. Hydronephrosis with bilateral stones, status post stenting 2. Atrial fibrillation, apparently paroxysmal 3. Fall 4. Persistent diarrhea with negative C. difficile test. CT scan on admission showed possible partial small bowel obstruction Plan: Continue current care. She does not appear ready to go home. IV fluids and GI rest, as well as anti-emetics. This note was completed using [employer] voice recognition software. There may be summer counselor errors as a result. Current Visit: Yes Hospitalist: Subjective Interval history: Follow-up bilateral nephrolithiasis and hydronephrosis, diarrhea, hematuria, and nausea. The patient reports that her diarrhea appears to be improving. She is passing some gas and stool, and reports that the stool seems to be more formed today. She continues to complain of nausea. The x-ray of the abdomen yesterday showed what appeared to be an ileus, although she does not have this clinically. Exam - Constitutional Vitals: Period Temp Pulse Resp BP Sys/Rhodes Pulse Ox Last 24 Hr 96.8 F-98.5 F 57-68 16-20 101-136/49-78 96-99 Vital signs are noted above. Heart is regular with no murmur or gallop. Lungs are fairly clear. Abdomen shows hyperactive bowel sounds with some generalized tenderness. The aorta is palpable but not enlarged. She is awake and alert. Results - Labs CBC & BMP: 01/08/17 10:13 01/08/17 10:13 - Diagnostic Findings Procedure: KUB x-ray: image reviewed by me (Increase in abdominal gas without evidence of obstruction) Specialty Discharge - Follow Up or Referrals Follow up with: Kvng Short MD [Physician] - 01/15/17 3:15 pm
[2017-01-10] MEDS ORDERED: PROMETHAZINE INJ 12.5 MG in SODIUM CHLORIDE 0.9% 50 ML IV PRN (11:27)
[2017-01-10] MEDS: GABAPENTIN 100 MG CAPSULE PO SCH ×2 (16:05→20:51)
[2017-01-10] MEDS: PRAVASTATIN 40 MG TABLET PO SCH (20:51)
[2017-01-10] MEDS: DONEPEZIL 5 MG TABLET PO SCH (20:51)
[2017-01-11] MEDS: SODIUM CHLORIDE 0.45% 1,000 ML IV SCH ×4 (02:00→15:27)
[2017-01-11 03:15] LABS: Osmolality,Calculated 290.3 MOS/KG (273-304); Potassium 2.7 MMOL/L (3.5-5.1)
[2017-01-11] MEDS: METOPROLOL TARTRATE 25 MG TABLET PO SCH ×2 (09:43→21:10)
[2017-01-11] MEDS: MULTIVITAMIN (CENTRUM) TABLET PO SCH (09:43)
[2017-01-11] MEDS: AMIODARONE 200 MG TABLET PO SCH ×2 (09:43→21:10)
--- NOTE | 2017-01-11 10:55 | Hospitalist Progress Note ---
Assessment and Plan (1) Hydronephrosis with renal and ureteral calculous obstruction Status: Acute Assessment and plan: Impression: 1. Hydronephrosis with bilateral stones, status post stenting 2. Atrial fibrillation, apparently paroxysmal 3. Fall 4. Possible small bowel obstruction; this appears to be improving Plan: Supplement potassium. Recheck chemistries, urinalysis, and urine culture. X- ray of abdomen in the morning. This note was completed using [email or web address] voice recognition software. There may be director economic errors as a result. Current Visit: Yes Hospitalist: Subjective Interval history: Follow-up hydronephrosis with stenting, possible small bowel obstruction, persistent hematuria, and hypokalemia. The patient says that she had a normal stool this morning. She does not have much of an appetite. Potassium remains low. She continues with hematuria, and says that it is worse today. Exam - Constitutional Vitals: Period Temp Pulse Resp BP Sys/Rhodes Pulse Ox Last 24 Hr 97.0 F-97.9 F 56-60 18-18 107-128/40-71 91-100 Vital signs are noted above. Heart is regular with no murmur or gallop. Lungs are clear with no rales or wheezes. Abdomen is slightly tender with good bowel sounds. There is no distention. She is awake and alert Results - Labs CBC & BMP: 01/08/17 10:13 01/11/17 02:16 Lab Results: I have reviewed the past 24 hour labs Specialty Discharge - Follow Up or Referrals Follow up with: Kvng Short MD [Physician] - 01/15/17 3:15 pm
[2017-01-11] MEDS: POTASSIUM CHLORIDE 20 MEQ TABLET PO SCH ×2 (12:50→21:10)
[2017-01-11] MEDS: GABAPENTIN 100 MG CAPSULE PO SCH ×2 (17:17→21:10)
[2017-01-11] MEDS: PRAVASTATIN 40 MG TABLET PO SCH (21:09)
[2017-01-11] MEDS: DONEPEZIL 5 MG TABLET PO SCH (21:10)
[2017-01-12] MEDS: SODIUM CHLORIDE 0.45% 1,000 ML IV SCH ×3 (01:00→17:23)
[2017-01-12 05:02] LABS: Calcium 8.5 MG/DL (8.5-10.1); Osmolality,Calculated 284.7 MOS/KG (273-304); Potassium 3.5 MMOL/L (3.5-5.1)
[2017-01-12 08:28] LABS: Apearance,Urine Slightly Hazy (Clear); Bacteria,Urine Few /HPF (Few); Bilirubin,Urine Negative (Negative); Blood, Urine Large mg/dL (Negative); Glucose,Urine (UA) Negative (Negative); Ketones,Urine Negative (Negative); Mucus,Urine Occasional /LPF (Occasional); Nitrite,Urine Negative (Negative); Protein,Urine 100 MG/DL; RBC,Urine 613 /HPF (0-4); Squamous Epithelial Cell,Urine Occasional /HPF (0-10); Urine Color Yellow (Yellow); Urine Specific Gravity 1.003 (1.001-1.035); Urine Urobilinogen < 2.0 EU/DL (0.2-1.0); WBC,Urine 7 /HPF (0-6)
[2017-01-12] MEDS: METOPROLOL TARTRATE 25 MG TABLET PO SCH ×2 (09:07→21:00)
[2017-01-12] MEDS: MULTIVITAMIN (CENTRUM) TABLET PO SCH (09:07)
[2017-01-12] MEDS: POTASSIUM CHLORIDE 20 MEQ TABLET PO SCH ×2 (09:07→21:00)
[2017-01-12] MEDS: AMIODARONE 200 MG TABLET PO SCH ×2 (09:07→21:00)
--- NOTE | 2017-01-12 10:36 | Hospitalist Progress Note ---
Assessment and Plan (1) Hydronephrosis with renal and ureteral calculous obstruction Status: Acute Assessment and plan: Impression: 1. Hydronephrosis with bilateral stones, status post stenting 2. Atrial fibrillation, apparently paroxysmal 3. Fall 4. Possible small bowel obstruction; this appears to be improving Plan: Advance diet. Await urine culture. She should be ready for discharge once symptoms improve. This note was completed using [employer] voice recognition software. There may be ware server errors as a result. Current Visit: Yes Hospitalist: Subjective Interval history: Follow-up bilateral nephrolithiasis and hydronephrosis, possible small bowel obstruction, and deconditioning. The patient reports some crampy abdominal pain when she urinates. She still has hematuria. Diarrhea seems to have improved, and she is asking to have her diet advanced. Exam - Constitutional Vitals: Period Temp Pulse Resp BP Sys/Rhodes Pulse Ox Last 24 Hr 97.3 F-98.3 F 56-70 16-20 110-135/54-67 94-100 Vital signs are noted above. Heart is regular with no murmur or gallop. Lungs are clear with no rales or wheezes. Abdomen has positive bowel sounds and some mild tenderness to palpation. This seems to have improved compared to yesterday. She is awake and alert Results - Labs CBC & BMP: 01/08/17 10:13 01/12/17 03:57 Lab Results: I have reviewed the past 24 hour labs Specialty Discharge - Follow Up or Referrals Follow up with: Kvng Short MD [Physician] - 01/15/17 3:15 pm
[2017-01-12] MEDS: GABAPENTIN 100 MG CAPSULE PO SCH ×2 (16:02→21:00)
[2017-01-12] MEDS: TOLTERODINE 2 MG TABLET PO SCH (21:00)
[2017-01-12] MEDS: DONEPEZIL 5 MG TABLET PO SCH (21:00)
[2017-01-12] MEDS: PRAVASTATIN 40 MG TABLET PO SCH (21:00)
[2017-01-13] MEDS: SODIUM CHLORIDE 0.45% 1,000 ML IV SCH ×2 (07:02→20:39)
[2017-01-13] MEDS: MULTIVITAMIN (CENTRUM) TABLET PO SCH (09:10)
[2017-01-13] MEDS: TOLTERODINE 2 MG TABLET PO SCH ×2 (09:10→20:54)
[2017-01-13] MEDS: METOPROLOL TARTRATE 25 MG TABLET PO SCH ×2 (09:11→20:40)
[2017-01-13] MEDS: AMIODARONE 200 MG TABLET PO SCH ×2 (09:11→20:40)
[2017-01-13] MEDS: POTASSIUM CHLORIDE 20 MEQ TABLET PO SCH ×2 (09:12→20:39)
--- NOTE | 2017-01-13 12:16 | Hospitalist Progress Note ---
Assessment and Plan (1) Diarrhea Status: Acute Assessment and plan: - C. Diff is negative - Improving - KUB ordered - will monitor Current Visit: Yes Qualifiers: Diarrhea type: unspecified type Qualified Code(s): R19.7 - Diarrhea, unspecified (2) Hydronephrosis with renal and ureteral calculous obstruction Status: Resolved Assessment and plan: - S/p stenting - Repeat urine culture pending; last culture has less than 100,000 colonies - Urology follow up appointment is scheduled for Friday, January 15/2017 Current Visit: Yes (3) Hypertension Status: Acute Assessment and plan: Continue current treatment Current Visit: Yes Qualifiers: Hypertension type: essential hypertension Qualified Code(s): I10 - Essential (primary) hypertension Hospitalist: Subjective Interval history: Ms. Hernandez is an 81-year-old female that was admitted for bilateral nephrolithiasis with bilateral hydronephrosis. Patient status post stenting per urology. Patient appears to have developed a small bowel obstruction but is not tolerating a regular diet. Patient reports that diarrhea is improved but she still complains of abdominal pain. No new complaints. Exam - Constitutional Vitals: Period Temp Pulse Resp BP Sys/Rhodes Pulse Ox Last 24 Hr 97.1 F-98.8 F 58-78 16-20 95-130/51-75 90-99 General appearance: normal weight - Head Head exam: Present: normal inspection - Eye Eye exam: Present: EOMI - Respiratory Respiratory exam: Present: clear to auscultation bilaterally - Cardiovascular Cardiovascular exam: Present: regular rate and rhythm - GI/Abdominal GI/Abdominal exam: Present: normal bowel sounds, tenderness (mild), soft. Absent: distended - Extremities Exam Extremities exam: Absent: edema - Neurological Exam Neurological exam: Present: alert, oriented X3 - Psychiatric Psychiatric exam: Present: normal affect, normal mood - Skin Skin exam: Present: normal color Results - Labs CBC & BMP: 01/08/17 10:13 01/12/17 03:57 Specialty Discharge - Follow Up or Referrals Follow up with: Kvng Short MD [Physician] - 01/15/17 3:15 pm
--- NOTE | 2017-01-13 14:00 | XRay Report ---
History: Possible small bowel obstruction. Diarrhea. Nephrolithiasis Date: 01/13/2017 Study: KUB Comparison exam: January 09, 2017 Double pigtail bilateral ureteral stents are in place, generally unchanged. There are some occasional scattered air-filled loops of large and small bowel without eliza obstruction or gross mass lesion. Overall there is slightly decreased gaseous distention of the abdomen compared to the previous study. There is bilateral nephrolithiasis without change. Calcified injection granulomata overlie the soft tissues of either flank. There is osteopenia. There is moderate levoscoliosis of the lumbar spine. Impression: Slightly improved gaseous distention of the abdomen compared to the previous study. Stable positioning of the ureteral stents PROCEDURE INTERPRETED AT [facility] DEPARTMENT OF RADIOLOGY Final Report Signed by: Dr. Mary Lindsay
[2017-01-13] MEDS: GABAPENTIN 100 MG CAPSULE PO SCH ×2 (15:51→20:39)
[2017-01-13] MEDS: DONEPEZIL 5 MG TABLET PO SCH (20:40)
[2017-01-13] MEDS: PRAVASTATIN 40 MG TABLET PO SCH (20:40)
[2017-01-14 06:19] LABS: Basophils % 0.6 % (0.0-0.8); Eosinophils # 0.2 10*3/uL (0.0-0.87); Eosinophils % 2.5 % (0.00-10.9); Hematocrit 30.9 VOL% (35.7-47.0); Hemoglobin 10.1 GM/DL (12.0-16.0); Immature Granulocytes % 1.4 %; Lymphocytes # 1.3 10*3/uL (1.4-4.0); Lymphocytes % 18.2 % (21.3-54.2); Mean Corpuscular HGB Conc 32.7 GM/DL (32-36); Mean Corpuscular Hemoglobin 31 PG (27-34); Mean Corpuscular Volume 95.1 FL (87-102); Mean Platelet Volume 10.8 FL (9.6-12.0); Monocytes # 0.8 10*3/uL (0.11-0.8); Monocytes % 11.1 % (1.7-12.7); Neutrophils # 4.8 10*3/uL (1.4-7.4); Neutrophils % 66.2 % (38.7-73.9); Platelet Count 193 T/CUMM (130-400); Red Blood Count 3.25 MC/CUMM (3.8-5.5); Red Cell Distribution Width 21.3 % (9.3-17.3); White Blood Count 7.2 T/CUMM (4-12)
[2017-01-14 06:50] LABS: Albumin 3.2 G/DL (3.4-5.0); Bilirubin,Total 0.5 MG/DL (0.2-1.0); Calcium 8.5 MG/DL (8.5-10.1); Osmolality,Calculated 284.8 MOS/KG (273-304); Potassium 4.2 MMOL/L (3.5-5.1); Total Protein 6.4 G/DL (6.4-8.3)
[2017-01-14] MEDS: MULTIVITAMIN (CENTRUM) TABLET PO SCH (08:37)
[2017-01-14] MEDS: POTASSIUM CHLORIDE 20 MEQ TABLET PO SCH (08:38)
[2017-01-14] MEDS: AMIODARONE 200 MG TABLET PO SCH (08:38)
[2017-01-14] MEDS: TOLTERODINE 2 MG TABLET PO SCH (08:38)
[2017-01-14] MEDS: METOPROLOL TARTRATE 25 MG TABLET PO SCH (08:38)
--- NOTE | 2017-01-14 10:59 | Discharge Summary ---
Hospital Course - Hospital Course Hospital Course: Ms. Vila is a 81 year old female with hypertension, paroxysmal A. fib, hypertension, history of CABG that was admitted for bilateral nephrolithiasis with bilateral hydronephrosis. DR. Short was consulted and placed bilateral ureteral stents. Patient Patient's initially grew E. coli but it was less 100, 000 colonies so it was not treated. Repeat urine culture showed VRE that was susceptible to Macrobid. Patient felt better and was discharged home with follow up with Dr. Short. Patient appeared to have developed a small bowel obstruction vs ileus. Patient initially had diarhea and it improved. Patient also had improvement in her gas pattern on KUB and is tolerating a regular diet. Patient still has mild abdominal pain but it is bearable. Patient will have follow up with her PCP. Patient reached maximum benefit of this hospitalization and was discharged home. - Time spent with patient Time with patient DS: Less than 30 minutes Time spent discussing smoking cessation with patient: more than 10 minutes Diagnosis - Discharge Diagnosis (1) Diarrhea Status: Acute (2) Hydronephrosis with renal and ureteral calculous obstruction Status: Resolved (3) Hypertension Status: Acute Specialty Discharge - Follow Up or Referrals Follow up with: Kvng Short MD [Physician] - 01/15/17 3:15 pm Daina Castellano FNP [Primary Care Provider] - 1 Week Discharge Plan - Discharge Data Condition at Discharge: Stable Discharge Diet: advance to your usual diet Activity: resume usual activities as tolerated Hygiene: no restrictions Weight Bearing at Discharge: full weight bearing Contact your physician if you experience:: fever over 101, Nausea/Vomiting - Discharge Medications New Acetaminophen Tab [Tylenol Tab] 650 mg PO Q4H PRN #30 tablet PRN Reason: Fever, Headache, Mild Pain Metoprolol Tartrate Tab [Lopressor Tab] 25 mg PO BID tablet Nitrofurantoin Macro/Dickinson [Macrobid] 100 mg PO BID #28 capsule Continue Ergocalciferol (Vitamin D2) [Vitamin D2] 50,000 unit PO Q7D Albuterol Neb [Proventil Neb] 2.5 mg RESP TX RT Q6H PRN #0 PRN Reason: Shortness Of Breath/Wheezing Amiodarone Tab [Cordarone Tab] 200 mg PO BID tablet Pravastatin [Pravachol] 40 mg PO BEDTIME tablet Megestrol Tab [Megace Tab] 40 mg PO TID tablet Multivit-Min/FA/Lycopen/Lutein [Centrum Silver Tablet] 1 tablet PO DAILY Donepezil [Aricept] 5 mg PO BEDTIME #30 tablet Metoprolol Tartrate Tab [Lopressor Tab] 25 mg PO BID #60 tablet Gabapentin Cap/Tab [Neurontin Cap/Tab] 100 mg PO BID@1600,2100 #60 capsule - Follow Up or Referral Follow Up: Kvng Short MD [Physician] - 01/15/17 3:15 pm Daina Castellano FNP [Primary Care Provider] - 1 Week - Forms/Instructions Exam - Constitutional Vitals: Period Temp Pulse Resp BP Sys/Rhodes Pulse Ox Last 24 Hr 97.2 F-98.8 F 59-71 16-20 101-130/46-72 93-99 General appearance: no acute distress, under weight - Head Head exam: Present: normocephalic - Eye Eye exam: Present: EOMI - ENT ENT exam: Present: normal exam - Respiratory Respiratory exam: Present: clear to auscultation bilaterally - Cardiovascular Cardiovascular exam: Present: regular rate and rhythm - GI/Abdominal GI/Abdominal exam: Present: normal bowel sounds, tenderness (mild diffuse), soft - Extremities Exam Extremities exam: Absent: edema - Neurological Exam Neurological exam: Present: alert - Psychiatric Psychiatric exam: Present: normal affect, normal mood - Skin Skin exam: Present: normal color Discharge Results Labs on day of discharge: Labs from last 24 hours 01/14/17 01/14/17 05:51 05:51 WBC 7.2 RBC 3.25 L Hgb 10.1 L Hct 30.9 L MCV 95.1 MCH 31 MCHC 32.7 RDW 21.3 H Plt Count 193 MPV 10.8 Neut % (Auto) 66.2 Lymph % (Auto) 18.2 L Dickinson % (Auto) 11.1 Eos % (Auto) 2.5 Baso % (Auto) 0.6 Neut # (Auto) 4.8 Lymph # (Auto) 1.3 L Dickinson # (Auto) 0.8 Eos # (Auto) 0.2 Baso # (Auto) 0.0 Immature Gran % 1.4 Nucleated RBC % 0.0 Immature Gran # 0.10 Nucleated RBCs # 0.00 Sodium 144 Potassium 4.2 Chloride 117 H Carbon Dioxide 17 L Anion Gap 14.2 BUN 13 Creatinine 0.70 GFR Calculation 63 BUN/Creatinine Ratio 18.00 Glucose 80 Calculated Osmolality 284.8 Calcium 8.5 Total Bilirubin 0.50 AST 24 ALT 35 Alkaline Phosphatase 57 Total Protein 6.4 Albumin 3.2 L Globulin 3.2 Albumin/Globulin Ratio 1.0 L DS: Provider Date of admission: 01/05/17 05:06 Primary care physician: Daina Castellano Attending physician on admission: Hosea Zavaleta DO Consults: 01/05/17 05:06 Consult to Physician [CONS] Routine Comment: obstructing L kidney stone w hydro Consulting Provider: Kvng Short Consult to Specialist Group: Urology When should Consulting Provider be notified: In am Person Notified: Dr. Short Date Notified: 01/05/17 Time Notified: 07:38 Consult Notification Comment: Asked questions concerning pt's dx. Stated "ok ". To see today 01/09/17 10:25 Consult to Physical Therapy [CONS] Routine Reason for Physical Therapy: Evaluate and Treat Discharging clinician: Derrick Camilo Expected date of discharge: 01/14/17
[2017-01-14 12:22] VITALS: BP 120/54
== END 2017-01-14 15:00 | disposition home health service (06) | DRG 694 ==
LOC: N.ED 23:48 → SUATTDRO 01-05 05:06 → N.EDINP 01-05 05:06 → N.2E 01-05 05:44
PROVIDERS: ADMIT Internal Medicine; ATTEND Family Medicine

== ENCOUNTER 2017-01-26 12:43 | Inpatient (IN) ==
[2017-01-26 15:23] LABS: Basophils % 0.3 % (0.0-0.8); Eosinophils % 0.3 % (0.00-10.9); Hematocrit 33.1 VOL% (35.7-47.0); Hemoglobin 10.9 GM/DL (12.0-16.0); Immature Granulocytes % 1.6 %; Immature Granulocytes Absolute 0.12 #; Lymphocytes # 0.7 10*3/uL (1.4-4.0); Lymphocytes % 9.8 % (21.3-54.2); Mean Corpuscular HGB Conc 32.9 GM/DL (32-36); Mean Corpuscular Hemoglobin 32 PG (27-34); Mean Corpuscular Volume 96.5 FL (87-102); Mean Platelet Volume 9.8 FL (9.6-12.0); Monocytes # 0.5 10*3/uL (0.11-0.8); Monocytes % 6.7 % (1.7-12.7); Neutrophils # 6.1 10*3/uL (1.4-7.4); Neutrophils % 81.3 % (38.7-73.9); Platelet Count 250 T/CUMM (130-400); Red Blood Count 3.43 MC/CUMM (3.8-5.5); Red Cell Distribution Width 19.9 % (9.3-17.3); White Blood Count 7.5 T/CUMM (4-12)
[2017-01-26 15:32] LABS: Apearance,Urine CLOUDY (Clear); Bilirubin,Urine Negative (Negative); Blood, Urine Moderate mg/dL (Negative); Glucose,Urine (UA) 50 mg/dL (Negative); Ketones,Urine Negative (Negative); Nitrite,Urine Positive (Negative); Protein,Urine 100 MG/DL; RBC,Urine 1390 /HPF (0-4); Urine Color Red (Yellow); Urine Specific Gravity 1.015 (1.001-1.035); Urine Urobilinogen < 2.0 EU/DL (0.2-1.0); WBC,Urine 26 /HPF (0-6)
[2017-01-26 15:44] LABS: Alanine Aminotransferase 40 U/L (13-56); Albumin 3.5 G/DL (3.4-5.0); Alkaline Phosphatase 68 U/L (45-117); Aspartate Amino Transferase 25 U/L (0-37); Bilirubin,Total < 0.39 MG/DL (0.2-1.0); Blood Urea Nitrogen 21 MG/DL (7-18); Calcium 8.7 MG/DL (8.5-10.1); Glucose 108 MG/DL (74-106); Osmolality,Calculated 284.3 MOS/KG (273-304); Potassium 3.7 MMOL/L (3.5-5.1); Sodium 141 MMOL/L (136-145); Total Protein 6.7 G/DL (6.4-8.3)
--- NOTE | 2017-01-26 15:46 | Emergency Department Note ---
Arrival - Arrival Chief Complaint: Abdominal / Flank Pain Stated Complaint: cramping diarrhea n/v ED Nursing Triage Note: pt to triage via wc with c/o having abd pain n/v/d. 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 states she has kidney stones in both kidneys and has had lithotripsy for it last friday and has felt bad ever since. Mode of Arrival: Wheelchair Source: Patient Time Seen by Provider: 01/26/17 14:31 - History of Present Illness HPI Narrative: 81 y/o white female presents to the ER complaining of generalized abdominal pain , N/V/D, and gross hematuria. Symptoms started after having lithotripsy last Friday for a 10mm stone on the right. Patient states lithotripsy was performed and stent was removed. Describes pain as a burning type pain. She is unable to hold pain medication down. Reports 4-5 episodes of vomiting and 4-5 episodes of diarrhea daily. Denies fever. Past medical history significant for CVA, dementia, SVT, CHF, CAD, dyslipidemia, HTN, CABG, CPOD, penumonia, GERD, colectomy, appendectomy, cholecystectomy, kidney stones, Hyst, anemia, and anxiety. Urologist: Dr. Short Onset (ago): day(s) () Consistency: constant Severity: moderate Quality: burning Allergies/Adverse Reactions: Allergies Allergy/AdvReac Type Severity Reaction Status Date / Time codeine Allergy Unknown/Unable Verified 01/26/17 13:00 to obtain Penicillins Allergy Unknown/Unable Verified 01/26/17 13:00 to obtain Home Medications: Home Medications Medication Instructions Recorded Confirmed Type Ergocalciferol (Vitamin D2) 50,000 unit PO Q7D 07/15/16 01/17/17 History [Vitamin D2] Multivit-Min/FA/Lycopen/Lutein 1 tablet PO DAILY 10/24/16 01/17/17 History [Centrum Silver Tablet] Donepezil [Aricept] 5 mg PO BEDTIME #30 tablet 11/10/16 01/17/17 Rx Gabapentin Cap/Tab [Neurontin 100 mg PO BID@1600,2100 #60 capsule 11/10/1601/17 Rx Cap/Tab] Amiodarone Tab [Cordarone Tab] 200 mg PO BID tablet 11/25/16 01/17/17 Rx Pravastatin [Pravachol] 40 mg PO BEDTIME tablet 11/25/16 01/17/17 Rx Metoprolol Tartrate Tab [Lopressor 25 mg PO BID tablet 01/14/17 01/17/17 Rx Tab] Review of System - Review of System 12 point system: reviewed and no additional remarkable complaints except as stated - Review of System Gastrointestinal: Present: abdominal pain (diffuse/burning ), nausea, vomiting, diarrhea Genitourinary female: Present: hematuria Medical,Surgical,& Family Hx - Medical History Cardio: History of: Cardiac Dysrhythmia (SVT and paroxysmal atrial fib), CHF ( Diastolic heart failure), CAD, Hypertension, Cardiovascular Problems (cabg and ablation 30-35 years ago ) Psychological: History of: Anxiety Disorders, Psychiatric Problems No history of: Behavior Problems, Violent Behavior Neurology: History of: Cerebrovascular Accident (YEARS AGO), Dementia No history of: Seizures HEENT: History of: Ear Problem (Hearing Loss Jerrod-Hearing Aides), Eye Problem ( Glasses), Dental Problems (Partial Dentures) Endocrine: History of: Dyslipidemia Rheumatology: No history of;: Rheumatoid Arthritis Respiratory: History of: COPD, Pneumonia (Hx pneum Vac), Respiratory Problems ( daughter believes Fibrosis; Flu Vac 2016?) Genitourinary: History of: Kidney Stones Gastrointestinal: History of: GERD, Gastrointestinal Bleed, GI Problems (hx colectomy with colostomy and reversal;Diarrhea) Musculoskeletal: History of: Back/Neck Problems, Musculoskeletal Problems ( Arthritis) Hematology: History of: Anemia No history of: Blood Transfusion Reaction (Hx Transfusion-?Antibodies) Other: No history of: Anesthesia Reactions, Cancer - Surgical History Cardiac Surgeries: Sugical HX of: Cardiac Catheterization (within the last 5 years in [place] per daughter), Cardiac Surgery (CABG 30 years ago and ablation 35 years ago) Thoracic Surgeries: Patient denies;: Lithotripsy (01/20/[address] Short) HEENT Surgeries: Surgical HX of: Eye Surgery (bilateral cataracts), Tonsilectomy & Adenoidectomy Abdominal Surgeries: Surgical HX of: Abdominal Surgery (colectomy with colostomy and reversal), Appendectomy, Cholecystectomy, Colonoscopy, EGD, Hernia Repair Reproductive Surgeries: Surgical HX of;: Cystoscopy (Stent placement 12/2016), Hysterectomy Orthopedic Surgeries: Surgical HX of;: Orthopedic Surgery (left shoulder, carpal tunnel), Spinal Surgery (Neck,Lower Back Surgery) - Family History Family History: Reports;: Family Diabetes (brother, sister), Family Heart Disease (father, brother, sister), Family Hypertension - Social History Smoking Status: Former smoker Frequency of Alcohol Use: None Type of Drug Use: None Exam Vital Signs: Vital Signs Temperature 98.6 F 01/26/17 12:56 Pulse Rate 70 01/26/17 15:10 Respiratory Rate 18 01/26/17 15:10 Blood Pressure 175/80 01/26/17 15:10 O2 Sat by Pulse Oximetry 99 01/26/17 15:10 - General General appearance: alert, in no apparent distress - ENT ENT exam: Present: normal exam, normal oropharynx, mucous membranes moist - Chest Chest inspection: Present: normal inspection - Respiratory Respiratory exam: Present: normal lung sounds bilaterally - Cardiovascular Cardiovascular exam: Present: regular rate, normal rhythm, normal heart sounds - Abdominal Exam Abdominal exam: Present: soft, tenderness (diffuse ), normal bowel sounds - Rectal Exam Rectal exam: Present: normal inspection, heme (-) stool - Extremities Exam Extremities exam: Present: normal inspection, full ROM - Back Exam Back exam: Absent: CVA tenderness (R), CVA tenderness (L) - Neurological Exam Neurological exam: Present: alert, oriented X3 - Psychiatric Psychiatric exam: Present: normal affect, normal mood - Skin Skin exam: Present: warm, dry Course Course Narrative: Patient and patients daughter states she is not allergic to Morphine. - Consultations Consultation #1: Hospitalist Time: 17:35 (will admit to Hospitalist ) Results - Labs CBC & BMP: 01/26/17 15:09 01/26/17 15:09 Lab Results: I have reviewed the patients labs - Diagnostic Findings Procedure: KUB x-ray: image reviewed by me, report reviewed by me ( ) Disposition Clinical Impression: UTI (urinary tract infection), Vomiting, Diarrhea, Hematuria Case discussed with: patient Disposition: Still a Patient
--- NOTE | 2017-01-26 16:43 | XRay Report ---
History: Abdominal pain. Recent lithotripsy and stent removal Date: 01/26/2017 Study: KUB Comparison exam: January 13, 2017 The double pigtail right ureteral stent has been removed since the comparison study. The distal right ureteral calculus is no longer seen. There are some persistent bilateral renal calculi without change. The left ureteral double pigtail stent remains in place. Calcified injection granulomata overlie the soft tissues of either flank. There is prominent osteopenia. Surgical clips overlie the right upper abdomen. Impression: The right ureteral stone is no longer identified. Interval removal of the right ureteral stent. Bilateral nephrolithiasis unchanged otherwise PROCEDURE INTERPRETED AT [facility] DEPARTMENT OF RADIOLOGY Final Report Signed by: Dr. Mary Lindsay
[2017-01-26 16:56] LABS: ABG Base Excess -11.5 MMOL/L (-2.5-2.5); ABG HCO3 15.4 MMOL/L (20-26); ABG Oxygen Saturation 96.4 % (95-100); ABG PCO2 25.2 MM HG (35-48); ABG PH 7.329 (7.35-7.45); ABG TCO2 12.1 MMOL/L (23-27); Allen Test Positive
[2017-01-26] MEDS ORDERED: SODIUM CHLORIDE 0.9% 500 ML IV STA (17:13)
[2017-01-26] MEDS ORDERED: ONDANSETRON 4 MG/2 ML VIAL IV STA (17:14)
[2017-01-26] MEDS ORDERED: cefTRIAXone 1,000 MG in SODIUM CHLORIDE 0.9% 100 ML IV STA (17:14)
[2017-01-26] MEDS ORDERED: ONDANSETRON 4 MG/2 ML VIAL ONE (17:23)
[2017-01-26] MEDS ORDERED: cefTRIAXone 1,000 MG VIAL ONE (17:24)
[2017-01-26] MEDS ORDERED: SODIUM CHLORIDE 0.9% 100 ML IV ONE (17:25)
[2017-01-26] MEDS ORDERED: MORPHINE 2 MG/1 ML SYRINGE IV STA (17:33)
--- NOTE | 2017-01-26 18:05 | Hospitalist History & Physical ---
Assessment and Plan - Time spent with patient Time spent with patient: Greater than 30 minutes (1) Nausea vomiting and diarrhea Status: Acute Assessment and plan: 01/26/17 -Patient has been having N/V/D since last Friday. Will admit. Start IV fluids w/K replacement. Start Zofran as needed. will order a stool for CDiff Current Visit: Yes (2) Abdominal pain Status: Acute Assessment and plan: 01/26/17 - Left sided abdominal tenderness greater than right sided with generalized pain. KUB was done :The right ureteral stone is no longer identified. Interval removal of the right ureteral stent. Bilateral nephrolithiasis unchanged otherwise. Will consult urology for further evaluation and greatly appreciate any recommendations for continue of care. Current Visit: No Qualifiers: Abdominal location: epigastric Qualified Code(s): R10.13 - Epigastric pain (3) UTI (urinary tract infection) Status: Acute Assessment and plan: 01/26/17 - admit to hospitalist services. Start antibiotic therapy. Current Visit: Yes History of Present Illness Chief complaint: N/V/D/ abdominal pain History of present illness: Ms. Vila is a 81 year old white female presented to [facility] ED/Non- urgent for c/o N/V/D and generalized abdominal since last Friday with weight loss. Symptoms started after having a lithotripsy with right 10mm stone and right stent removal last Friday. Left ureteral stent remains in place. Patient verbalizes not being able to keep anything down including her pain medication and pain is now unbearable. Denies fever or chills. Past medical history significant for CVA, dementia, SVT, CHF, CAD, dyslipidemia, HTN, CABG, CPOD, penumonia, GERD, colectomy, appendectomy, cholecystectomy, kidney stones, Hyst, anemia, and anxiety. Urologist: Dr. Short Pulmonary: Dr Galeas Frame Polisher: Dr Bautista PCP Morgan Swartz NP She reports having a follow up GI appointment in February with (she believes Dr Huff) following her for a pancreatic spot found last admission. After discussion with Kali Galeas NP and Dr Tobar, it was in agreement to admit patient to Hospitalist services. Home medications will be reviewed and reconciliation to follow. Will consult Urology for in the morning and start antibiotic therapy for UTI. Home Medications Medication Instructions Recorded Confirmed Type Ergocalciferol (Vitamin D2) 50,000 unit PO Q7D 07/15/16 01/17/17 History [Vitamin D2] Multivit-Min/FA/Lycopen/Lutein 1 tablet PO DAILY 10/24/16 01/17/17 History [Centrum Silver Tablet] Donepezil [Aricept] 5 mg PO BEDTIME #30 tablet 11/10/16 01/17/17 Rx Gabapentin Cap/Tab [Neurontin 100 mg PO BID@1600,2100 #60 capsule 11/10/1601/17 Rx Cap/Tab] Amiodarone Tab [Cordarone Tab] 200 mg PO BID tablet 11/25/16 01/17/17 Rx Pravastatin [Pravachol] 40 mg PO BEDTIME tablet 11/25/16 01/17/17 Rx Metoprolol Tartrate Tab [Lopressor 25 mg PO BID tablet 01/14/17 01/17/17 Rx Tab] Allergies Allergy/AdvReac Type Severity Reaction Status Date / Time codeine Allergy Unknown/Unable Verified 01/26/17 13:00 to obtain Penicillins Allergy Unknown/Unable Verified 01/26/17 13:00 to obtain Medical,Surgical,& Family Hx - Medical History Cardio: History of: Cardiac Dysrhythmia (SVT and paroxysmal atrial fib), CHF ( Diastolic heart failure), CAD, Hypertension, Cardiovascular Problems (cabg and ablation 30-35 years ago ) Psychological: History of: Anxiety Disorders, Psychiatric Problems No history of: Behavior Problems, Violent Behavior Neurology: History of: Cerebrovascular Accident (YEARS AGO), Dementia No history of: Seizures HEENT: History of: Ear Problem (Hearing Loss Jerrod-Hearing Aides), Eye Problem ( Glasses), Dental Problems (Partial Dentures) Endocrine: History of: Dyslipidemia Rheumatology: No history of;: Rheumatoid Arthritis Respiratory: History of: COPD, Pneumonia (Hx pneum Vac), Respiratory Problems ( daughter believes Fibrosis; Flu Vac 2016?) Genitourinary: History of: Kidney Stones Gastrointestinal: History of: GERD, Gastrointestinal Bleed, GI Problems (hx colectomy with colostomy and reversal;Diarrhea) Musculoskeletal: History of: Back/Neck Problems, Musculoskeletal Problems ( Arthritis) Hematology: History of: Anemia No history of: Blood Transfusion Reaction (Hx Transfusion-?Antibodies) Other: No history of: Anesthesia Reactions, Cancer - Surgical History Cardiac Surgeries: Sugical HX of: Cardiac Catheterization (within the last 5 years in [place] per daughter), Cardiac Surgery (CABG 30 years ago and ablation 35 years ago) Thoracic Surgeries: Patient denies;: Lithotripsy (01/20/[address] Short) HEENT Surgeries: Surgical HX of: Eye Surgery (bilateral cataracts), Tonsilectomy & Adenoidectomy Abdominal Surgeries: Surgical HX of: Abdominal Surgery (colectomy with colostomy and reversal), Appendectomy, Cholecystectomy, Colonoscopy, EGD, Hernia Repair Reproductive Surgeries: Surgical HX of;: Cystoscopy (Stent placement 12/2016), Hysterectomy Orthopedic Surgeries: Surgical HX of;: Orthopedic Surgery (left shoulder, carpal tunnel), Spinal Surgery (Neck,Lower Back Surgery) - Family History Family History: Reports;: Family Diabetes (brother, sister), Family Heart Disease (father, brother, sister), Family Hypertension - Social History Smoking Status: Former smoker Frequency of Alcohol Use: None Type of Drug Use: None Review of systems: ROS completed and pertinent positives and negatives in the HPI. Exam - Constitutional Vitals: Period Temp Pulse Resp BP Sys/Rhodes Pulse Ox Last 24 Hr 98.6 F 70-75 18-18 167-175/80-88 97-99 General appearance: no acute distress, under weight - Head Head exam: Present: normal inspection - Eye Eye exam: Present: EOMI Pupils: Present: CESAR - ENT ENT exam: Present: other (upper dentures are loose fitting) - Neck Neck exam: Present: normal inspection - Respiratory Respiratory exam: Present: clear to auscultation bilaterally. Absent: stridor, wheezes - Cardiovascular Cardiovascular exam: Present: regular rate and rhythm - GI/Abdominal GI/Abdominal exam: Present: normal bowel sounds, tenderness (tenderness greater to left lower side abdomen), soft. Absent: rebound - Extremities Exam Extremities exam: Present: full ROM. Absent: edema - Neurological Exam Neurological exam: Present: alert, oriented X3 - Psychiatric Psychiatric exam: Present: normal affect, normal mood - Skin Skin exam: Present: normal color, warm, dry Results - Labs CBC & BMP: 01/26/17 15:09 01/26/17 15:09 Lab Results: I have reviewed the past 24 hour labs - Diagnostic Findings Procedure: KUB x-ray: report reviewed by me (he right ureteral stone is no longer identified. Interval removal of the right ureteral stent. Bilateral nephrolithiasis unchanged otherwise)
[2017-01-26] MEDS ORDERED: MORPHINE 2 MG/1 ML SYRINGE ONE (18:32)
[2017-01-26] MEDS: AMIODARONE 200 MG TABLET PO SCH (21:56)
[2017-01-26] MEDS: METOPROLOL TARTRATE 25 MG TABLET PO SCH (21:56)
[2017-01-26] MEDS: DONEPEZIL 5 MG TABLET PO SCH (21:56)
[2017-01-26] MEDS: GABAPENTIN 100 MG CAPSULE PO SCH (22:00)
[2017-01-26] MEDS: PRAVASTATIN 40 MG TABLET PO SCH (22:00)
[2017-01-26] MEDS: MORPHINE 2 MG/1 ML SYRINGE IV PRN (22:07)
[2017-01-26] MEDS: ONDANSETRON 4 MG/2 ML VIAL IV PRN (22:08)
[2017-01-26] MEDS: SODIUM CHLOR 0.45% KCL 20 MEQ 20 MEQ/1,000 ML BAG IV SCH (22:10)
[2017-01-27] MEDS: DONEPEZIL 5 MG TABLET PO SCH ×2 (00:39→21:22)
[2017-01-27] MEDS: ONDANSETRON 4 MG/2 ML VIAL IV PRN ×3 (05:09→21:22)
[2017-01-27 08:06] LABS: Basophils % 0.3 % (0.0-0.8); Eosinophils # 0.1 10*3/uL (0.0-0.87); Eosinophils % 1.3 % (0.00-10.9); Hematocrit 32.2 VOL% (35.7-47.0); Hemoglobin 10.4 GM/DL (12.0-16.0); Immature Granulocytes % 1.8 %; Immature Granulocytes Absolute 0.14 #; Lymphocytes # 1.2 10*3/uL (1.4-4.0); Lymphocytes % 15.8 % (21.3-54.2); Mean Corpuscular HGB Conc 32.3 GM/DL (32-36); Mean Corpuscular Hemoglobin 32 PG (27-34); Mean Corpuscular Volume 98.8 FL (87-102); Monocytes # 0.6 10*3/uL (0.11-0.8); Monocytes % 8.4 % (1.7-12.7); Neutrophils # 5.5 10*3/uL (1.4-7.4); Neutrophils % 72.4 % (38.7-73.9); Platelet Count 111 T/CUMM (130-400); Red Blood Count 3.26 MC/CUMM (3.8-5.5); Red Cell Distribution Width 19.8 % (9.3-17.3); White Blood Count 7.6 T/CUMM (4-12)
[2017-01-27 08:37] LABS: Hypochromasia 2+; Microcytosis 2+
[2017-01-27] MEDS: MULTIVITAMIN (CENTRUM) TABLET PO SCH (09:02)
[2017-01-27] MEDS: METOPROLOL TARTRATE 25 MG TABLET PO SCH ×2 (09:02→21:22)
[2017-01-27] MEDS: PANTOPRAZOLE 40 MG VIAL IV SCH (09:02)
[2017-01-27] MEDS: AMIODARONE 200 MG TABLET PO SCH ×2 (09:02→21:22)
[2017-01-27] MEDS: SODIUM CHLOR 0.45% KCL 20 MEQ 20 MEQ/1,000 ML BAG IV SCH ×2 (09:40→13:00)
[2017-01-27 10:53] LABS: Calcium 7.8 MG/DL (8.5-10.1); Magnesium 1.7 MG/DL (1.8-2.4); Osmolality,Calculated 276.5 MOS/KG (273-304); Potassium 3.3 MMOL/L (3.5-5.1)
[2017-01-27] MEDS: MORPHINE 2 MG/1 ML SYRINGE IV PRN (14:08)
--- NOTE | 2017-01-27 15:22 | XRay Report ---
XR chest 2V Indication: SOB Comparison: Chest x-ray dated January 20, 2017 Technique: Frontal and lateral views of the chest. Findings: Cardiomediastinal silhouette is stable in configuration status post sternotomy. There is bandlike atelectasis/scarring within the lingula and right upper lobe. No pneumothorax or pleural fluid. Visualized osseous and surrounding soft tissue structures appear grossly unchanged. Diffuse osteopenia. IMPRESSION: As above. PROCEDURE INTERPRETED AT [facility] DEPARTMENT OF RADIOLOGY Final Report Signed by: Dr Gabriel Shields
--- NOTE | 2017-01-27 15:28 | Hospitalist Progress Note ---
Assessment and Plan (1) Nausea & vomiting Status: Acute Assessment and plan: The symptoms subsided some but she still nauseous. She will continue to be observed here. Use anti-emetics for control Current Visit: Yes (2) Abdominal pain Status: Acute Assessment and plan: She still has significant discomfort in the left lower quadrant suspect diverticulosis. Infectious colitis cannot be ruled patient has a recent ureteral stenting with ipsilateral lithotripsy Current Visit: No Qualifiers: Abdominal location: epigastric Qualified Code(s): R10.13 - Epigastric pain (3) UTI (urinary tract infection) Status: Acute Assessment and plan: Continue antibiotics as started yesterday for urine culture Current Visit: Yes Hospitalist: Subjective Interval history: Patient has been seen interviewed and examined and chart has been reviewed Admitted to the hospital with a chief complaint of nausea vomiting diarrhea and abdominal pain. This is a lady who recently underwent a lithotripsy for extraction of the sinuses on the left side. She subsequently developed his abdominal symptoms. Denies any blood in the stool. She also has this history of SVT congestive heart failure and coronary disease history of dyslipidemia and hypertension and being followed by however CV system here at [facility]. She still has significant tenderness in the left lower quadrant my concern as to whether this is an inflammatory/infectious colitis. Exam - Constitutional Vitals: Period Temp Pulse Resp BP Sys/Rhodes Pulse Ox Last 24 Hr 96.7 F-98.4 F 58-74 16-20 126-150/52-75 95-100 General appearance: under weight - Head Head exam: Present: normocephalic, atraumatic - Eye Eye exam: Present: EOMI Pupils: Present: CESAR - Respiratory Respiratory exam: Present: clear to auscultation bilaterally - Cardiovascular Cardiovascular exam: Present: regular rate and rhythm - GI/Abdominal GI/Abdominal exam: Present: normal bowel sounds, soft, other (Discomfort in the left lower quadrant) - Extremities Exam Extremities exam: Present: full ROM - Psychiatric Psychiatric exam: Present: normal affect, normal mood - Skin Skin exam: Present: normal color, warm, dry Results - Labs CBC & BMP: 01/27/17 07:34 01/27/17 10:08 Lab Results: I have reviewed the past 24 hour labs
[2017-01-27] MEDS: GABAPENTIN 100 MG CAPSULE PO SCH ×2 (16:28→21:22)
[2017-01-27] MEDS ORDERED: cefTRIAXone 1,000 MG in SODIUM CHLORIDE 0.9% 100 ML IV SCH (17:00)
[2017-01-27] MEDS: PRAVASTATIN 40 MG TABLET PO SCH (21:22)
[2017-01-28] MEDS: SODIUM CHLOR 0.45% KCL 20 MEQ 20 MEQ/1,000 ML BAG IV SCH ×2 (00:11→13:31)
[2017-01-28] MEDS: MORPHINE 2 MG/1 ML SYRINGE IV PRN (06:25)
[2017-01-28] MEDS: METOPROLOL TARTRATE 25 MG TABLET PO SCH ×2 (09:39→22:39)
[2017-01-28] MEDS: MULTIVITAMIN (CENTRUM) TABLET PO SCH (09:39)
[2017-01-28] MEDS: AMIODARONE 200 MG TABLET PO SCH ×2 (09:39→22:39)
[2017-01-28] MEDS: PANTOPRAZOLE 40 MG VIAL IV SCH (09:39)
[2017-01-28] MEDS ORDERED: ACETAMINOPHEN 325 MG TABLET ONE ×2 (14:56→14:58)
[2017-01-28] MEDS: GABAPENTIN 100 MG CAPSULE PO SCH ×2 (15:07→22:38)
--- NOTE | 2017-01-28 16:00 | Hospitalist Progress Note ---
Assessment and Plan (1) UTI (urinary tract infection) Status: Acute Assessment and plan: 1) Nausea & vomiting Status: Acute Assessment and plan: The symptoms subsided some but she still nauseous. She will continue to be observed here. Use anti-emetics for control Current Visit: Yes (2) Abdominal pain Status: Acute Assessment and plan: She still has some discomfort in the left lower quadrant sec to UTI hx of kidney stone s\o lithotripsy will add lortab Qualifiers: Abdominal location: epigastric Qualified Code(s): R10.13 - Epigastric pain (3) UTI (urinary tract infection) Status: Acute Assessment and plan: Continue iv vanc as urine c\s is positive for MRSA Current Visit: Yes Current Visit: Yes Hospitalist: Subjective Interval history: still has some flank pain will add lortab for pain Exam - Constitutional Vitals: Period Temp Pulse Resp BP Sys/Rhodes Pulse Ox Last 24 Hr 96.6 F-97.9 F 52-83 18-20 107-144/50-75 95-99 heent, pearle neck, supple. chest clear. 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
[2017-01-28] MEDS: VANCOMYCIN INJ 750 MG in SODIUM CHLORIDE 0.9% 250 ML IV SCH (17:10)
[2017-01-28] MEDS: PRAVASTATIN 40 MG TABLET PO SCH (22:38)
[2017-01-28] MEDS: DONEPEZIL 5 MG TABLET PO SCH (22:39)
[2017-01-29 02:20] LABS: Basophils % 0.4 % (0.0-0.8); Eosinophils # 0.2 10*3/uL (0.0-0.87); Eosinophils % 2.1 % (0.00-10.9); Hematocrit 27.4 VOL% (35.7-47.0); Hemoglobin 8.9 GM/DL (12.0-16.0); Immature Granulocytes % 1.6 %; Immature Granulocytes Absolute 0.11 #; Lymphocytes # 1.2 10*3/uL (1.4-4.0); Lymphocytes % 17.1 % (21.3-54.2); Mean Corpuscular HGB Conc 32.5 GM/DL (32-36); Mean Corpuscular Hemoglobin 32 PG (27-34); Mean Corpuscular Volume 98.9 FL (87-102); Mean Platelet Volume 10.2 FL (9.6-12.0); Monocytes % 14.6 % (1.7-12.7); Neutrophils # 4.5 10*3/uL (1.4-7.4); Neutrophils % 64.2 % (38.7-73.9); Platelet Count 234 T/CUMM (130-400); Red Blood Count 2.77 MC/CUMM (3.8-5.5)
[2017-01-29 02:47] LABS: Calcium 7.8 MG/DL (8.5-10.1); Osmolality,Calculated 280.1 MOS/KG (273-304); Potassium 4.1 MMOL/L (3.5-5.1)
[2017-01-29] MEDS: SODIUM CHLOR 0.45% KCL 20 MEQ 20 MEQ/1,000 ML BAG IV SCH ×2 (04:36→18:13)
[2017-01-29] MEDS: ONDANSETRON 4 MG/2 ML VIAL IV PRN ×2 (10:10→15:44)
[2017-01-29] MEDS: PANTOPRAZOLE 40 MG VIAL IV SCH (10:10)
[2017-01-29] MEDS: AMIODARONE 200 MG TABLET PO SCH ×2 (10:11→21:22)
[2017-01-29] MEDS: METOPROLOL TARTRATE 25 MG TABLET PO SCH ×2 (10:11→21:22)
[2017-01-29] MEDS: MULTIVITAMIN (CENTRUM) TABLET PO SCH (10:11)
[2017-01-29] MEDS: GABAPENTIN 100 MG CAPSULE PO SCH ×2 (15:44→21:22)
[2017-01-29] MEDS: VANCOMYCIN INJ 750 MG in SODIUM CHLORIDE 0.9% 250 ML IV SCH (15:44)
--- NOTE | 2017-01-29 17:53 | Hospitalist Progress Note ---
Assessment and Plan (1) UTI (urinary tract infection) Status: Acute Current Visit: Yes (2) Nausea & vomiting Status: Acute Current Visit: Yes Hospitalist: Subjective Interval history: No acute events. Complaining of nausea and pain. Continue vancomycin Exam - Constitutional Vitals: Period Temp Pulse Resp BP Sys/Rhodes Pulse Ox Last 24 Hr 96.7 F-98.0 F 51-62 18-20 104-128/49-80 94-98 General appearance: normal weight - Head Head exam: Present: normocephalic, atraumatic - Eye Eye exam: Present: EOMI Pupils: Present: CESAR - ENT ENT exam: Present: normal exam - Neck Neck exam: Present: normal inspection - Respiratory Respiratory exam: Present: clear to auscultation bilaterally. Absent: rhonchi, wheezes - Cardiovascular Cardiovascular exam: Present: regular rate and rhythm - GI/Abdominal GI/Abdominal exam: Present: normal bowel sounds, soft. Absent: tenderness, rebound - Extremities Exam Extremities exam: Present: normal inspection - Back Exam Back exam: Present: normal inspection - Neurological Exam Neurological exam: Present: alert, oriented X3 - Psychiatric Psychiatric exam: Present: normal affect, normal mood Results - Labs CBC & BMP: 01/29/17 01:03 01/29/17 01:03
[2017-01-29] MEDS: PRAVASTATIN 40 MG TABLET PO SCH (21:22)
[2017-01-29] MEDS: DONEPEZIL 5 MG TABLET PO SCH (21:22)
[2017-01-30] MEDS: MORPHINE 2 MG/1 ML SYRINGE IV PRN (01:26)
[2017-01-30 06:12] LABS: Basophils % 0.5 % (0.0-0.8); Eosinophils # 0.2 10*3/uL (0.0-0.87); Eosinophils % 2.6 % (0.00-10.9); Hemoglobin 10.3 GM/DL (12.0-16.0); Immature Granulocytes % 2.1 %; Immature Granulocytes Absolute 0.12 #; Lymphocytes # 1.7 10*3/uL (1.4-4.0); Lymphocytes % 28.3 % (21.3-54.2); Mean Corpuscular HGB Conc 32.2 GM/DL (32-36); Mean Corpuscular Hemoglobin 33 PG (27-34); Mean Corpuscular Volume 101.3 FL (87-102); Mean Platelet Volume 10.8 FL (9.6-12.0); Monocytes # 0.7 10*3/uL (0.11-0.8); Monocytes % 12.7 % (1.7-12.7); Neutrophils # 3.2 10*3/uL (1.4-7.4); Neutrophils % 53.8 % (38.7-73.9); Platelet Count 200 T/CUMM (130-400); Red Blood Count 3.16 MC/CUMM (3.8-5.5); Red Cell Distribution Width 19.9 % (9.3-17.3); White Blood Count 5.8 T/CUMM (4-12)
[2017-01-30] MEDS: ONDANSETRON 4 MG/2 ML VIAL IV PRN (06:48)
[2017-01-30 06:49] LABS: Giant Platelets Few; Hypochromasia 1+; Microcytosis Slight; Ovalocytes Slight; Platelet Estimate Normal
[2017-01-30] MEDS: SODIUM CHLOR 0.45% KCL 20 MEQ 20 MEQ/1,000 ML BAG IV SCH ×2 (07:38→22:26)
[2017-01-30] MEDS: MULTIVITAMIN (CENTRUM) TABLET PO SCH (09:55)
[2017-01-30] MEDS: METOPROLOL TARTRATE 25 MG TABLET PO SCH ×2 (09:55→21:12)
[2017-01-30] MEDS: AMIODARONE 200 MG TABLET PO SCH ×2 (09:55→21:12)
[2017-01-30] MEDS: PANTOPRAZOLE 40 MG VIAL IV SCH (09:56)
--- NOTE | 2017-01-30 12:12 | Discharge Summary ---
Hospital Course - Hospital Course Hospital Course: Patient presented with abdominal pain, nausea, vomiting and diarrhea. Patient is currently seeing Dr. Short, urology, and had a lithotripsy 6 days prior with right stent removal. Her nausea and vomiting had been more persistent since then, as well as increased abdominal pain. Her daughter, who was present, added that her mother had persistent nausea and vomiting with loss of appetite over several months but her urology procedure 6 days ago seem to make this worse. She has not visited her GI doctor in some time, but has an extensive GI history including Guillermo procedure with vagotomy approximately 50 years ago. She was noted to have an urinary tract infection. She was admitted to the hospitalist service for further evaluation. She was started on pain control medications, IV fluid administration, treatment of UTI and anti-emetics. Urine culture grew MRSA. She was started on vancomycin. Her nausea and abdominal pain are improving. She has now reached maximal benefit of inpatient stay and will be discharged home. - Time spent with patient Time with patient DS: Greater than 30 minutes (35) Diagnosis - Discharge Diagnosis (1) UTI (urinary tract infection) Status: Resolved (2) Nausea & vomiting Status: Resolved Discharge Plan - Discharge Data Disposition: Disch To Home/Self Care Condition at Discharge: Stable Discharge Diet: advance to your usual diet Activity: increase activity as tolerated Hygiene: no restrictions Weight Bearing at Discharge: weight bear as tolerated Contact your physician if you experience:: fever over 101, pain uncontrolled by pain medications - Discharge Medications New Doxycycline Hyclate Cap [Vibramycin Cap] 100 mg PO BID #16 capsule Continue Ergocalciferol (Vitamin D2) [Vitamin D2] 50,000 unit PO Q7D Amiodarone Tab [Cordarone Tab] 200 mg PO BID tablet Pravastatin [Pravachol] 40 mg PO BEDTIME tablet Metoprolol Tartrate Tab [Lopressor Tab] 25 mg PO BID tablet Tamsulosin [Flomax] 0.4 mg PO BEDTIME Ondansetron Tab [Zofran Tab] 4 mg PO DAILY Hydrocodone/Acetaminophen [Lorcet 5-325 mg Tablet] 1 each PO Q4H PRN #30 tablet PRN Reason: Pain Multivit-Min/FA/Lycopen/Lutein [Centrum Silver Tablet] 1 tablet PO DAILY Donepezil [Aricept] 5 mg PO BEDTIME #30 tablet Gabapentin Cap/Tab [Neurontin Cap/Tab] 100 mg PO BID@1600,2100 #60 capsule - Follow Up or Referral - Forms/Instructions Exam - Constitutional Vitals: Period Temp Pulse Resp BP Sys/Rhodes Pulse Ox Last 24 Hr 97.0 F-98.4 F 51-62 14-20 102-136/45-65 73-98 General appearance: under weight - Head Head exam: Present: normocephalic, atraumatic - Eye Eye exam: Present: EOMI Pupils: Present: CESAR - ENT ENT exam: Present: normal exam - Neck Neck exam: Present: normal inspection - Respiratory Respiratory exam: Present: clear to auscultation bilaterally. Absent: rhonchi, wheezes - Cardiovascular Cardiovascular exam: Present: regular rate and rhythm - GI/Abdominal GI/Abdominal exam: Present: normal bowel sounds, soft. Absent: tenderness, rebound - Extremities Exam Extremities exam: Present: normal inspection - Back Exam Back exam: Present: normal inspection - Neurological Exam Neurological exam: Present: alert, oriented X3 - Psychiatric Psychiatric exam: Present: normal affect, normal mood - Skin Skin exam: Present: warm, intact Discharge Results Labs on day of discharge: Labs from last 24 hours 01/30/17 05:41 WBC 5.8 RBC 3.16 L Hgb 10.3 L Hct 32.0 L MCV 101.3 MCH 33 MCHC 32.2 RDW 19.9 H Plt Count 200 MPV 10.8 Neut % (Auto) 53.8 Lymph % (Auto) 28.3 Maries % (Auto) 12.7 Eos % (Auto) 2.6 Baso % (Auto) 0.5 Neut # (Auto) 3.2 Lymph # (Auto) 1.7 Maries # (Auto) 0.7 Eos # (Auto) 0.2 Baso # (Auto) 0.0 Immature Gran % 2.1 Nucleated RBC % 0.0 Immature Gran # 0.12 Nucleated RBCs # 0.00 Platelet Estimate Normal Giant Platelets Few Hypochromasia 1+ Microcytosis Slight Ovalocytes Slight DS: Provider Date of admission: 01/26/17 17:35 Primary care physician: Daina Castellano Attending physician on admission: Benedicto Castellanos MD Consults: 01/26/17 18:28 Consult to Physician [CONS] Routine Comment: patient known to you Consulting Provider: Kvng Short When should Consulting Provider be notified: In am Person Notified: AWARE Date Notified: 01/27/17 Time Notified: 10:01 Consult Notification Comment: 01/28/17 14:39 Consult to Pharmacy [CONS] Routine Reason for Pharmacy Consult: Dose/Manage Vancomycin 01/30/17 07:39 Consult to Occupational Therapy [CONS] Routine Reason for Occupational Therapy: Evaluate and Treat Consult to Physical Therapy [CONS] Routine Reason for Physical Therapy: Evaluate and Treat Discharging clinician: Que An MD
--- NOTE | 2017-01-30 14:53 | Case Mgmt Physician Query Form ---
TB Signs and Symptoms Screening ([place]) INSTRUCTIONS: To be completed annually on residents/staff with a significant Tuberculin Skin Test (TST) upon admission/hire or a prior significant TST. To be completed on all staff at hire. Please respond to each listed symptom with an (X) in either the "YES" or "NO" box. Do you currently have any of the following symptoms: YES NO ( ) ( x) A cough If yes, is it: ( ) Productive ( ) Non- productive ( ) ( x) Hemoptysis (spitting up blood) ( ) ( x) Chest pains ( ) ( x) Weight Loss ( ) ( x) Fever ( ) ( x) Night Sweats ( ) ( x) Weakness ( ) ( x) Loss of Appetite ( ) ( x) Difficulty Breathing If you answered YES" to any of the above questions, how long have symptoms been present? Comments: ARIANE
[2017-01-30] MEDS ORDERED: TUBERCULIN SKIN TEST 0.1 ML SYRINGE INTRADERM ONE (15:55)
[2017-01-30] MEDS: VANCOMYCIN INJ 750 MG in SODIUM CHLORIDE 0.9% 250 ML IV SCH (16:07)
[2017-01-30] MEDS: GABAPENTIN 100 MG CAPSULE PO SCH ×2 (16:07→21:11)
[2017-01-30] MEDS ORDERED: traZODone 50 MG TABLET PO PRN (19:04)
--- NOTE | 2017-01-30 19:04 | Hospitalist Progress Note ---
Assessment and Plan (1) UTI (urinary tract infection) Status: Resolved Current Visit: Yes (2) Nausea & vomiting Status: Resolved Current Visit: Yes Hospitalist: Subjective Interval history: No acute events overnight. Patient seen ambulating in [place]. Medically ready for discharge. Family would like for patient to be transferred to a swing bed before discharge. Family is agreeable to this. Exam - Constitutional Vitals: Period Temp Pulse Resp BP Sys/Rhodes Pulse Ox Last 24 Hr 97.2 F-98.8 F 53-67 14-20 102-137/45-95 93-98 General appearance: under weight - Head Head exam: Present: normocephalic, atraumatic - Eye Eye exam: Present: EOMI Pupils: Present: CESAR - ENT ENT exam: Present: normal exam - Neck Neck exam: Present: normal inspection - Respiratory Respiratory exam: Present: clear to auscultation bilaterally. Absent: rhonchi, wheezes - Cardiovascular Cardiovascular exam: Present: regular rate and rhythm - GI/Abdominal GI/Abdominal exam: Present: normal bowel sounds, soft. Absent: tenderness, rebound - Extremities Exam Extremities exam: Present: normal inspection - Back Exam Back exam: Present: normal inspection - Neurological Exam Neurological exam: Present: alert, oriented X3 - Psychiatric Psychiatric exam: Present: normal affect, normal mood - Skin Skin exam: Present: warm, intact Results - Labs CBC & BMP: 01/30/17 05:41 01/29/17 01:03
[2017-01-30] MEDS: DONEPEZIL 5 MG TABLET PO SCH (21:11)
[2017-01-30] MEDS: PRAVASTATIN 40 MG TABLET PO SCH (21:12)
[2017-01-31] MEDS: PANTOPRAZOLE 40 MG VIAL IV SCH (08:04)
[2017-01-31] MEDS: METOPROLOL TARTRATE 25 MG TABLET PO SCH ×2 (08:06→21:23)
[2017-01-31] MEDS: AMIODARONE 200 MG TABLET PO SCH ×2 (08:06→21:23)
[2017-01-31] MEDS: MULTIVITAMIN (CENTRUM) TABLET PO SCH (08:06)
[2017-01-31] MEDS: SODIUM CHLOR 0.45% KCL 20 MEQ 20 MEQ/1,000 ML BAG IV SCH (10:08)
[2017-01-31] MEDS: GABAPENTIN 100 MG CAPSULE PO SCH ×2 (15:18→21:23)
--- NOTE | 2017-01-31 16:07 | Hospitalist Progress Note ---
Assessment and Plan (1) UTI (urinary tract infection) Status: Resolved Assessment and plan: MRSA Continue vancomycin while inpatient Current Visit: Yes (2) Nausea & vomiting Status: Resolved Current Visit: Yes Hospitalist: Subjective Interval history: No acute events overnight. Patient reports nausea is resolved. Still with some abdominal pain. Waiting on placement, needs PT eval. Exam - Constitutional Vitals: Period Temp Pulse Resp BP Sys/Rhodes Pulse Ox Last 24 Hr 97.1 F-99.1 F 54-64 12-22 102-119/52-63 95-98 General appearance: under weight - Head Head exam: Present: normocephalic, atraumatic - Eye Eye exam: Present: EOMI Pupils: Present: CESAR - ENT ENT exam: Present: normal exam - Neck Neck exam: Present: normal inspection - Respiratory Respiratory exam: Present: clear to auscultation bilaterally - Cardiovascular Cardiovascular exam: Present: regular rate and rhythm - GI/Abdominal GI/Abdominal exam: Present: normal bowel sounds, soft. Absent: tenderness, rebound - Extremities Exam Extremities exam: Present: normal inspection - Back Exam Back exam: Present: normal inspection - Neurological Exam Neurological exam: Present: alert, oriented X3 - Psychiatric Psychiatric exam: Present: normal affect, normal mood - Skin Skin exam: Present: warm, intact Results - Labs CBC & BMP: 01/30/17 05:41 01/29/17 01:03 Specialty Discharge - Follow Up or Referrals
[2017-01-31] MEDS: VANCOMYCIN INJ 750 MG in SODIUM CHLORIDE 0.9% 250 ML IV SCH (16:11)
[2017-01-31] MEDS: DONEPEZIL 5 MG TABLET PO SCH (21:23)
[2017-01-31] MEDS: PRAVASTATIN 40 MG TABLET PO SCH (21:23)
[2017-02-01 06:42] LABS: Calcium 8.3 MG/DL (8.5-10.1); Magnesium 1.8 MG/DL (1.8-2.4); Potassium 4.3 MMOL/L (3.5-5.1)
[2017-02-01] MEDS: SODIUM CHLOR 0.45% KCL 20 MEQ 20 MEQ/1,000 ML BAG IV SCH (07:06)
[2017-02-01] MEDS: AMIODARONE 200 MG TABLET PO SCH (08:51)
[2017-02-01] MEDS: MULTIVITAMIN (CENTRUM) TABLET PO SCH (08:51)
[2017-02-01] MEDS: METOPROLOL TARTRATE 25 MG TABLET PO SCH (08:52)
[2017-02-01] MEDS: PANTOPRAZOLE 40 MG VIAL IV SCH (08:53)
--- NOTE | 2017-02-01 10:50 | Discharge Summary ---
Hospital Course - Hospital Course Hospital Course: Patient presented with abdominal pain, nausea, vomiting and diarrhea. Patient is currently seeing Dr. Short, urology, and had a lithotripsy 6 days prior with right stent removal. Her nausea and vomiting had been more persistent since then, as well as increased abdominal pain. Her daughter, who was present, added that her mother had persistent nausea and vomiting with loss of appetite over several months but her urology procedure 6 days ago seem to make this worse. She has not visited her GI doctor in some time, but has an extensive GI history including Guillermo procedure with vagotomy approximately 50 years ago. She was noted to have an urinary tract infection. She was admitted to the hospitalist service for further evaluation. She was started on pain control medications, IV fluid administration, treatment of UTI and anti-emetics. Urine culture grew MRSA. She was started on vancomycin. Her nausea and abdominal pain are improving. She has now reached maximal benefit of inpatient stay and will be discharged home. Diagnosis - Discharge Diagnosis (1) UTI (urinary tract infection) Status: Resolved (2) Nausea & vomiting Status: Resolved Specialty Discharge - Follow Up or Referrals Discharge Plan - Discharge Data Disposition: Swing Bed, Hos Based, [facility] [place] Condition at Discharge: Stable Discharge Diet: advance to your usual diet Activity: as per physical therapy Hygiene: no restrictions Weight Bearing at Discharge: weight bear as tolerated Driving: no restrictions Contact your physician if you experience:: fever over 101 - Discharge Medications New Doxycycline Hyclate Cap [Vibramycin Cap] 100 mg PO BID #16 capsule Continue Ergocalciferol (Vitamin D2) [Vitamin D2] 50,000 unit PO Q7D Amiodarone Tab [Cordarone Tab] 200 mg PO BID tablet Pravastatin [Pravachol] 40 mg PO BEDTIME tablet Metoprolol Tartrate Tab [Lopressor Tab] 25 mg PO BID tablet Tamsulosin [Flomax] 0.4 mg PO BEDTIME Ondansetron Tab [Zofran Tab] 4 mg PO DAILY Hydrocodone/Acetaminophen [Lorcet 5-325 mg Tablet] 1 each PO Q4H PRN #30 tablet PRN Reason: Pain Multivit-Min/FA/Lycopen/Lutein [Centrum Silver Tablet] 1 tablet PO DAILY Donepezil [Aricept] 5 mg PO BEDTIME #30 tablet Gabapentin Cap/Tab [Neurontin Cap/Tab] 100 mg PO BID@1600,2100 #60 capsule - Follow Up or Referral - Forms/Instructions Instructions: Doxycycline (By mouth), Hydrocodone/Acetaminophen (By mouth), Urinary Tract Infection in Women (DC), Gastroenteritis (DC) Exam - Constitutional Vitals: Period Temp Pulse Resp BP Sys/Rhodes Pulse Ox Last 24 Hr 96.5 F-98.8 F 57-76 16-20 102-125/50-68 93-99 General appearance: under weight - Head Head exam: Present: normocephalic, atraumatic - Eye Eye exam: Present: EOMI Pupils: Present: CESAR - ENT ENT exam: Present: normal exam - Neck Neck exam: Present: normal inspection - Respiratory Respiratory exam: Present: clear to auscultation bilaterally. Absent: rhonchi, wheezes - Cardiovascular Cardiovascular exam: Present: regular rate and rhythm - GI/Abdominal GI/Abdominal exam: Present: normal bowel sounds, soft - Extremities Exam Extremities exam: Present: normal inspection - Back Exam Back exam: Present: normal inspection - Neurological Exam Neurological exam: Present: alert, oriented X3 - Psychiatric Psychiatric exam: Present: normal affect, normal mood - Skin Skin exam: Present: warm, intact Discharge Results Labs on day of discharge: Labs from last 24 hours 02/01/17 01/31/17 06:05 15:55 Sodium 143 Potassium 4.3 Chloride 115 H Carbon Dioxide 20 L Anion Gap 12.3 BUN 14 Creatinine 0.80 GFR Calculation 53 BUN/Creatinine Ratio 17.00 Glucose 77 Calculated Osmolality 284.0 Calcium 8.3 L Magnesium 1.8 Vancomycin Trough 11.8 DS: Provider Date of admission: 01/26/17 17:35 Primary care physician: Daina Castellano Attending physician on admission: Benedicto Castellanos MD Consults: 01/26/17 18:28 Consult to Physician [CONS] Routine Comment: patient known to you Consulting Provider: Kvng Short When should Consulting Provider be notified: In am Person Notified: AWARE Date Notified: 01/27/17 Time Notified: 10:01 Consult Notification Comment: 01/28/17 14:39 Consult to Pharmacy [CONS] Routine Reason for Pharmacy Consult: Dose/Manage Vancomycin 01/30/17 07:39 Consult to Occupational Therapy [CONS] Routine Reason for Occupational Therapy: Evaluate and Treat Consult to Physical Therapy [CONS] Routine Reason for Physical Therapy: Evaluate and Treat Discharging clinician: Que An MD
[2017-02-01 14:36] VITALS: BP 121/60
== END 2017-02-01 13:30 | disposition swing bed (61) | DRG 690 ==
LOC: N.ED 12:43 → SUATTDRO 17:35 → N.EDINP 17:35 → N.5E 21:01
PROVIDERS: ADMIT Internal Medicine; ATTEND Internal Medicine